=== PATIENT | female | born 1995 | race Caucasian/White ===

== ENCOUNTER 2018-03-04 14:20 | Emergency (ER) | payer OTHER ==
[2018-03-04 15:55] LABS: BILIRUBIN,URINE NEGATIVE (NEGATIVE); GLUCOSE, URINE (UA) NEGATIVE (NEGATIVE); KETONES,URINE (UA) NEGATIVE (NEGATIVE); LEUKOCYTE ESTERASE, URINE NEGATIVE (NEGATIVE); NITRITE,URINE NEGATIVE (NEGATIVE); OCCULT BLOOD,URINE NEGATIVE (NEGATIVE); PH,URINE 6.5 PH (5.0-7.5); PROTEIN,URINE NEGATIVE (NEGATIVE); UROBILINOGEN,URINE 0.2 (NORMAL) E.U./dL (NORMAL)
[2018-03-04 15:59] LABS: CLARITY,URINE CLEAR (CLEAR); HCG UR QUAL NEGATIVE
--- NOTE | 2018-03-04 16:59 | ED Physician Documentation ---
PD HPI FEMALE - Stated complaint Stated Complaint: R SIDE PX - Chief complaint Chief Complaint: Abd Pain - History obtained from History obtained from: Patient - History of Present Illness Timing - onset: How many weeks ago (2-3 weeks pain lower abd,) Timing - duration: Weeks Timing - details: Gradual onset, Still present (worse the past 2-3 d), Waxing and waning Associated symptoms: No: Fever, Chest/shoulder pain Contributing factors: IUD, Sexually active. 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 : None HEENT: None Psych: None Musculoskeletal: None Derm: None - Past Surgical History Past Surgical History: No - Present Medications Home Medications: Ambulatory Orders Medication Instructions Recorded Confirmed Naproxen 375 mg PO BID #20 tablet 03/04/18 Norethindrone AC-Eth Estradiol 1 each PO DAILY #1 packet 03/04/18 [Loestrin 21 1.5-30 Tablet] Tramadol HCl 50 mg PO Q6H PRN #20 tablet 03/04/18 - Allergies Allergies/Adverse Reactions: Allergies Allergy/AdvReac Type Severity Reaction Status Date / Time latex Allergy Unknown Verified 03/04/18 14:41 - Social History Does the pt smoke?: Yes Smoking Status: Current every day smoker Does the pt drink ETOH?: Yes Does the pt have substance abuse?: No - Immunizations Immunizations are current?: Yes - POLST Patient has POLST: No PD ED PE NORMAL - Vitals Vital signs reviewed: Yes - General General: Alert and oriented X 3, No acute distress, Well developed/nourished - HEENT HEENT: Pharynx benign - Neck Neck: Supple, no meningeal sign, No adenopathy, Thyroid normal - Cardiac Cardiac: RRR, No murmur - Respiratory Respiratory: Clear bilaterally - Abdomen Abdomen: Soft, Non tender - Female Female : Deferred Results - Vitals Vitals: Oxygen O2 Source Room air - Labs Labs: Laboratory Tests 03/04/18 14:50 Urine Color LT. YELLOW Urine Clarity CLEAR Urine pH 6.5 Ur Specific [place] 1.015 Urine Protein NEGATIVE Urine Glucose (UA) NEGATIVE Urine Ketones NEGATIVE Urine Occult Blood NEGATIVE Urine Nitrite NEGATIVE Urine Bilirubin NEGATIVE Urine Urobilinogen 0.2 (NORMAL) Ur Leukocyte Esterase NEGATIVE Ur Microscopic Review NOT INDICATED Urine Culture Comments NOT INDICATED Urine HCG, Qual NEGATIVE PD MEDICAL DECISION MAKING - ED course Complexity details: reviewed results (neg . Has had irregular periods lately and current one for 2-3 weeks. had some redness discharge/spotting. 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 There potentially might have been a cyst in the ovary area which leaked or ruptured leaving the trace of free fluid found on the ultrasound. We will treat these with anti-inflammatories and pain medicine. Use naproxen twice daily for 7-10 days. Add Tylenol or tramadol if needed for pain. Given your irregular periods and the pains recently, I woul d also have you start an oral contraceptive daily for 1-2 months. Follow-up with gynecology regarding further evaluation and other potential treatments. Discharge Date/Time: 03/04/18 19:48
[2018-03-04] MEDS ORDERED: NAPROXEN 250 MG TABLET PO STA (17:14)
--- NOTE | 2018-03-04 19:20 | Ultrasound Report ---
Reason: RLQ abd pain with some vag bleeding for days Procedure Date: 03/04/2018 Accession Number: [id number] / [id number] Procedure: US - Pelvic w/Transvag+Doppler Ltd CPT Code: FULL RESULT: EXAM: PELVIC ULTRASOUND EXAM DATE: 03/04/2018 07:01 PM. CLINICAL HISTORY: RLQ abd pain with some vaginal bleeding for days. COMPARISON: None. TECHNIQUE: Realtime transabdominal pelvic scan performed to identify the uterus and adnexa and as an overview of other pelvic structures, followed by transvaginal scan to provide greater detail of the uterus and adnexa, with static image documentation. FINDINGS: Uterus: 8.3 x 3.6 x 4.8 cm, volume 75 cc. Anteverted position. Normal overall size and echotexture. Masses: None. Endometrium: 8 mm. Normal. Cervix: Unremarkable. Right Ovary: 3.1 x 1.4 x 2.4 cm, volume 5 cc. Normal echotexture and blood flow. Left Ovary: 3.9 x 2.3 x 2.5 cm, volume 12 cc. Normal echotexture and blood flow. Free Fluid: Small amount Other: None. IMPRESSION: Normal pelvic ultrasound. RADIA
[2018-03-04 19:24] VITALS: BP 106/77
== END 2018-03-04 19:48 | disposition home or self-care (01) ==
LOC: ED 14:20
DX: R10.2 Pelvic and perineal pain (principal); Z97.5 Presence of (intrauterine) contraceptive device; F17.200 Nicotine dependence, unspecified, uncomplicated
CPT/HCPCS: 76830; 76856; 81003; 81025; 93976; 99283; A9270; 81001; 87086

== ENCOUNTER 2019-10-13 21:55 | Emergency (ER) | payer OTHER ==
[2019-10-13 22:06] VITALS: BP 132/93
--- NOTE | 2019-10-13 22:33 | ED Physician Documentation ---
PD HPI Fall - Stated complaint Stated Complaint: RIB PX/FALL - Chief complaint Chief Complaint: Trauma Ch/Bk - History obtained from History obtained from: Patient - History of Present Illness Mechanism of injury: Lost balance Fall distance: Less than 5ft Where injury occurred: Work Timing - onset: Enter time (20:00) Injury(ies) location: Chest Pain level now: 5 Quality of pain: Pain Associated symptoms: No: LOC, AMS, Weakness, Paresthesias, Dyspnea, Nausea / vomiting Symptoms improve with: Rest Worsens with: Movement, Palpation Similar symptoms before: Has not had sx before Recently seen: Not recently seen - Additional information Additional information: patient was at work, standing on a ladder and holding a "seventy-pound antenna" (per patient) when 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 She c/o right chest wall pain that is worse with palpation, as well as muscle spasm. this occurred approximately 8 PM tonight. 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 HEENT: None Psych: None Musculoskeletal: None Derm: None - Past Surgical History Past Surgical History: No - Present Medications Home Medications: Ambulatory Orders Medication Instructions Recorded Confirmed Naproxen 375 mg PO BID #20 tablet 03/04/18 Norethindrone AC-Eth Estradiol 1 each PO DAILY #1 packet 03/04/18 [Loestrin 21 1.5-30 Tablet] Tramadol HCl 50 mg PO Q6H PRN #20 tablet 03/04/18 Cyclobenzaprine [Flexeril] 10 mg PO TID PRN #20 tablet 10/14/19 traMADol [Ultram] 50 - 100 mg PO Q6H PRN #20 tablet 10/14/19 - Allergies Allergies/Adverse Reactions: Allergies Allergy/AdvReac Type Severity Reaction Status Date / Time latex Allergy Unknown Verified 10/13/19 22:02 - Social History Does the pt smoke?: Yes Smoking Status: Current every day smoker Does the pt drink ETOH?: Yes Does the pt have substance abuse?: No - Immunizations Immunizations are current?: Yes - POLST Patient has POLST: No PD ED PE NORMAL - Vitals Vital signs reviewed: Yes - General General: Alert and oriented X 3, No acute distress, Well developed/nourished - Cardiac Cardiac: RRR, No murmur - Respiratory Respiratory: No respiratory distress, Clear bilaterally - Abdomen Abdomen: Soft, Non tender - Back Back: No spinal TTP - Derm Derm: Normal color, Warm and dry, No rash PD ED PE EXPANDED - Visual Whole body visual: 1 - tenderness (TTP without crepitus) Results - Vitals Vitals: Vital Signs - 24 hr 10/13/19 10/14/19 22:02 00:38 Temperature 36.5 C Heart Rate 97 72 Respiratory 14 16 Rate Blood Pressure 132/93 H O2 Saturation 99 100 Oxygen O2 Source Room air - Rads (name of study) cxr with right ribs Radiology: Prelim report reviewed, See rad report PD MEDICAL DECISION MAKING - ED course Complexity details: reviewed results, re-evaluated patient, considered differential, d/w patient Departure - Departure Disposition: 01 Home, Self Care Clinical Impression: Contusion of chest wall Condition: Good Instructions: ED Contusion Chest Wall Follow-Up: ABBY WATSON MD [Primary Care Provider] - Prescriptions: Cyclobenzaprine [Flexeril] 10 mg PO TID PRN #20 tablet PRN Reason: Spasms traMADol [Ultram] 50 - 100 mg PO Q6H PRN #20 tablet PRN Reason: Pain Discharge Date/Time: 10/14/19 00:39
[2019-10-13] MEDS: IBUPROFEN 600 MG TABLET PO STA (22:56)
[2019-10-13] MEDS: CYCLOBENZAPRINE 10 MG TABLET PO STA (22:56)
[2019-10-14] MEDS: traMADol 50 MG TABLET PO STA (00:35)
--- NOTE | 2019-10-14 07:58 | XRAY Report ---
Reason: fall, right chest wall pain Procedure Date: 10/13/2019 Accession Number: [id number] / [id number] Procedure: XR - Ribs w/PA Chest RT CPT Code: Final Report FULL RESULT: PROCEDURE: Ribs w/PA Chest RT INDICATIONS: fall, right chest wall pain TECHNIQUE: 2 views of the right ribs were acquired, along with a single view chest. COMPARISON: None. FINDINGS: Surgical changes and devices: None. Bones and chest wall: No fractures or dislocations. No suspicious bony lesions. Overlying soft tissues appear unremarkable. Lungs and pleura: No pleural effusions or pneumothorax. Lungs appear clear. Mediastinum: Mediastinal contours appear normal. Heart size is normal. IMPRESSION: Chest without acute cardiopulmonary abnormalities. No acute rib fractures identified. No significant discrepancy with initial interpretation by overnight radiologist. Reviewed by: Neal Sarmiento MD on 10/14/2019 7:57 AM PDT Approved by: Neal Sarmiento MD on 10/14/2019 7:57 AM PDT Station ID: [id number]
== END 2019-10-14 00:39 | disposition home or self-care (01) ==
LOC: ED 21:55
DX: S20.211A Contusion of right front wall of thorax, initial encounter (principal); W11.XXXA Fall on and from ladder, initial encounter; Y93.89 Activity, other specified; Y99.0 Civilian activity done for income or pay; F17.200 Nicotine dependence, unspecified, uncomplicated
CPT/HCPCS: 71101; 99283; 99284; A9270

== ENCOUNTER 2020-05-02 21:58 | Emergency (ER) | payer OTHER ==
--- NOTE | 2020-05-02 23:21 | ED Physician Documentation ---
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 Patient states that she was last exposed to this person on 27 April and on the , she started experiencing GI distress. She states she had multiple episodes of diarrhea, and also nausea and vomiting. She states this went on for about 2-1/2 days and then finally started to get better. Patient states that as the GI system symptoms got better, the patient then began to notice a dry cough which is minimal she states, as well as chills and some sweats. Patient has not met sure to fever. She states she is also held chest tightness. No shortness of breath. Patient states she is otherwise healthy. She has had bronchitis on occasion and it has felt similar. No other complaints at this time. Review of Systems Ten Systems: 10 systems reviewed and negative Constitutional: reports: Chills, Sweats. denies: Fever Eyes: reports: Reviewed and negative Ears: reports: Reviewed and negative Nose: reports: Reviewed and negative. denies: Rhinorrhea / runny nose, Congestion Throat: reports: Reviewed and negative Cardiac: reports: Chest pain / pressure Respiratory: reports: Cough GI: reports: Nausea, Vomiting, Diarrhea : reports: Reviewed and negative Skin: reports: Reviewed and negative Musculoskeletal: reports: Reviewed and negative Neurologic: reports: Reviewed and negative Psychiatric: reports: Reviewed and negative Endocrine: reports: Reviewed and negative Immunocompromised: reports: Reviewed and negative PD PAST MEDICAL HISTORY - Past Medical History Cardiovascular: None Respiratory: None Neuro: None Endocrine/Autoimmune: None GI: None 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 HEENT: None Psych: Depression Musculoskeletal: None Derm: None - Past Surgical History Past Surgical History: Yes HEENT: Rhinoplasty - Present Medications Home Medications: Ambulatory Orders Medication Instructions Recorded Confirmed Propranolol [Inderal] 10 mg PO DAILY 05/02/20 05/02/20 hydrOXYzine pamoate [Hydroxyzine 25 mg PO DAILY 05/02/20 05/02/20 Pamoate] - Allergies Allergies/Adverse Reactions: Allergies Allergy/AdvReac Type Severity Reaction Status Date / Time latex Allergy Unknown Verified 05/02/20 22:16 - Social History Does the pt smoke?: Yes Smoking Status: Current every day smoker Does the pt drink ETOH?: Yes Does the pt have substance abuse?: No - Immunizations Immunizations are current?: Yes - POLST Patient has POLST: No PD ED PE NORMAL - Vitals Vital signs reviewed: Yes - General General: Alert and oriented X 3, No acute distress - HEENT HEENT: Atraumatic, PERRL, EOMI, Moist mucous membranes - Neck Neck: Supple, no meningeal sign - Cardiac Cardiac: RRR, No murmur - Respiratory Respiratory: No respiratory distress, Clear bilaterally - Abdomen Abdomen: Soft, Non tender, Non distended - Derm Derm: Normal color, Warm and dry, No rash - Extremities Extremities: No deformity, No edema, No calf tenderness / cord - Neuro Neuro: Alert and oriented X 3 - Psych Psych: Normal mood, Normal affect Results - Vitals Vitals: Vital Signs - 24 hr 05/02/20 05/02/20 05/03/20 22:00 22:10 00:10 Temperature 37.2 C 37.2 C 36.8 C Heart Rate 68 68 66 Respiratory 16 16 14 Rate Blood Pressure 120/84 H 120/84 H 105/73 O2 Saturation 100 100 99 Oxygen O2 Source Room air - Rads (name of study) CXR Radiology: Final report received, EMP read indepedently (neg), See rad report PD MEDICAL DECISION MAKING - ED course Complexity details: reviewed results, re-evaluated patient, considered differential, d/w patient ED course: The patient was tested for Covid and test is pending at this time. I discussed with the patient she will need to quarantine until she has a negative Covid test. Her chest x-ray is unremarkable. The patient's exam is actually fairly benign, and I do not feel she needs any other specific intervention at this time. We discussed getting plenty of fluids and rest, and the patient has been given a prepack of Zofran from the emergency department. We discussed the usual indications for return. Departure - Departure Disposition: 01 Home, Self Care Clinical Impression: Viral syndrome Condition: Stable Instructions: ED Viral Syndrome Comments: Stage for Covid tonight. You will need to quarantine until you get a negative Covid result back. You will be called if your result is positive. Generally the results are available within 24 to 48 hours after the test. If you do not hear back, it is most likely because your test is negative, but you should call the hospital to arrange to get your results. Your chest x-ray looks good tonight. You may use ibuprofen and/or Tylenol to help with any fevers you may have. Take the nausea medication as needed. Forms: Activity restrictions Discharge Date/Time: 05/03/20 00:17
[2020-05-02] MEDS ORDERED: ONDANSETRON ODT 4 MG Prepack 2 TL PRN (23:47)
[2020-05-03 00:15] VITALS: BP 105/73
--- NOTE | 2020-05-03 08:36 | XRAY Report ---
PROCEDURE: Chest 1 View X-Ray INDICATIONS: chest pain TECHNIQUE: One view of the chest was acquired. COMPARISON: 10/13/2019 FINDINGS: Surgical changes and devices: None. Lungs and pleura: No pleural effusions or pneumothorax. Lungs are clear. Mediastinum: Mediastinal contours appear normal. Heart size is normal. Bones and chest wall: No suspicious bony lesions. Overlying soft tissues appear unremarkable. IMPRESSION: No acute disease. Reviewed by: Marshall Victoria MD on 05/03/2020 8:34 AM PST Approved by: Marshall Victoria MD on 05/03/2020 8:34 AM PST Station ID: [id number]
== END 2020-05-03 00:17 | disposition home or self-care (01) ==
LOC: ED 21:58
DX: B34.9 Viral infection, unspecified (principal); Z20.828 Contact with and (suspected) exposure to other viral communicable diseases; F17.200 Nicotine dependence, unspecified, uncomplicated
CPT/HCPCS: 36415; 99284

== ENCOUNTER 2020-05-07 20:36 | Emergency (ER) | payer OTHER ==
[2020-05-07] MEDS ORDERED: SODIUM CHLORIDE 0.9% 2,000 ML IV STA (20:57)
[2020-05-07] MEDS ORDERED: PROMETHAZINE INJ 25 MG in SODIUM CHLORIDE 0.9% 50 ML IV STA (20:57)
[2020-05-07] MEDS ORDERED: PROMETHAZINE 25 MG/1 ML VIAL ONE (21:11)
[2020-05-07 21:36] LABS: BASOPHILS % (AUTO) 0.4 %; EOSINOPHILS # (AUTO) 0.1 10^3/uL (0.0-0.7); EOSINOPHILS % (AUTO) 0.4 %; HGB - HEMOGLOBIN 14.7 g/dL (12.0-16.0); LYMPHOCYTES # (AUTO) 1.7 10^3/uL (1.5-3.5); LYMPHOCYTES % (AUTO) 15.6 %; MEAN CORPUSCULAR HEMOGLOBIN 32.5 pg (27.0-31.0); MEAN CORPUSCULAR HGB CONC 35.8 g/dL (32.0-36.0); MEAN CORPUSCULAR VOLUME 90.9 fL (81.0-99.0); MEAN PLATELET VOLUME 10.3 fL (7.9-10.8); MONOCYTES % (AUTO) 9.3 %; NEUTROPHILS # (AUTO) 8.2 10^3/uL (1.5-6.6); NEUTROPHILS % (AUTO) 73.9 %; PLT - PLATELET COUNT 172 10^3/uL (130-450); RED BLOOD COUNT 4.52 10^6/uL (4.20-5.40); RED CELL DISTRIBUTION WIDTH 11.8 % (12.0-15.0); WHITE BLOOD COUNT 11.2 x10^3/uL (4.8-10.8)
[2020-05-07 21:50] LABS: ALBUMIN 4.4 g/dL (3.2-5.5); ALBUMIN/GLOBULIN RATIO 1.6 (1.0-2.2); BILIRUBIN,TOTAL 0.9 mg/dL (0.2-1.0); CALCIUM 9.4 mg/dL (8.5-10.3); CREATININE 0.9 mg/dL (0.4-1.0); TOTAL PROTEIN 7.1 g/dL (6.7-8.2)
[2020-05-07 21:50] LABS: BILIRUBIN,URINE NEGATIVE (NEGATIVE); GLUCOSE, URINE (UA) NEGATIVE (NEGATIVE); KETONES,URINE (UA) NEGATIVE (NEGATIVE); LEUKOCYTE ESTERASE, URINE NEGATIVE (NEGATIVE); NITRITE,URINE NEGATIVE (NEGATIVE); OCCULT BLOOD,URINE NEGATIVE (NEGATIVE); PROTEIN,URINE NEGATIVE (NEGATIVE); UROBILINOGEN,URINE 0.2 (NORMAL) E.U./dL (NORMAL)
--- NOTE | 2020-05-07 21:52 | ED Physician Documentation ---
History of Present Illness - Stated complaint Stated Complaint: VOMITING/ABD PX - Chief complaint Chief Complaint: Abd Pain - History obtained from History obtained from: Patient - History of Present Illness Pain level max: 5 Pain level now: 4 - Additonal information Additional information: Patient is a 24-year-old female who presents to the emergency department stating that she had what felt like food poisoning a few days ago. Since that time she has been tired. Today she started having dysuria, urinary frequency and bilateral flank pain. She has had pyelonephritis in the past and is concerned about developing this again. Nausea and vomiting today as well. Took Zofran without relief. Has been trying to take Pedialyte but unable to keep it down. Worse with eating and drinking, nothing makes it better. Review of Systems Ten Systems: 10 systems reviewed and negative Constitutional: denies: Fever, Chills Nose: denies: Rhinorrhea / runny nose, Congestion Throat: denies: Sore throat Cardiac: denies: Chest pain / pressure Respiratory: denies: Cough GI: reports: Nausea, Vomiting, Diarrhea (resolved) : reports: Dysuria, Frequency, Hesitancy. denies: Now EGA Skin: denies: Rash Musculoskeletal: reports: Back pain (B flank pain). 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 HEENT: None Psych: Depression Musculoskeletal: None Derm: None - Past Surgical History Past Surgical History: Yes HEENT: Rhinoplasty - Present Medications Home Medications: Ambulatory Orders Medication Instructions Recorded Confirmed Propranolol [Inderal] 10 mg PO DAILY 05/02/20 05/07/20 hydrOXYzine pamoate [Hydroxyzine 25 mg PO DAILY 05/02/20 05/07/20 Pamoate] Citalopram [CeleXA] 10 mg PO DAILY 05/07/20 05/07/20 Ondansetron Odt [Zofran] 4 mg TL Q6H PRN #10 tablet 05/07/20 Promethazine [Phenergan] 25 mg PO Q6H PRN #10 tab 05/07/20 - Allergies Allergies/Adverse Reactions: Allergies Allergy/AdvReac Type Severity Reaction Status Date / Time latex Allergy Unknown Verified 01/01/21 20:44 - Social History Does the pt smoke?: Yes Smoking Status: Current every day smoker Does the pt drink ETOH?: Yes Does the pt have substance abuse?: No - Immunizations Immunizations are current?: Yes - POLST Patient has POLST: No PD ED PE NORMAL - Vitals Vital signs reviewed: Yes - General General: Alert and oriented X 3, No acute distress, Well developed/nourished - HEENT HEENT: Moist mucous membranes - Neck Neck: Supple, no meningeal sign - Cardiac Cardiac: RRR, Strong equal pulses - Respiratory Respiratory: No respiratory distress, Clear bilaterally - Abdomen Abdomen: Soft, Non tender, Non distended - Back Back: Other (Bilateral CVA tenderness) - Derm Derm: Warm and dry - Extremities Extremities: No edema - Neuro Neuro: Alert and oriented X 3 - Psych Psych: Normal mood, Normal affect Results - Vitals Vitals: Vital Signs - 24 hr 05/07/20 20:40 Temperature 36.6 C Heart Rate 79 Respiratory 16 Rate Blood Pressure 117/82 H O2 Saturation 96 Oxygen O2 Source Room air - Labs Labs: Laboratory Tests 05/07/20 05/07/20 05/07/20 21:20 21:20 21:45 WBC 11.2 H RBC 4.52 Hgb 14.7 Hct 41.1 MCV 90.9 MCH 32.5 H MCHC 35.8 RDW 11.8 L Plt Count 172 MPV 10.3 Neut # (Auto) 8.2 H Lymph # (Auto) 1.7 [place] # (Auto) 1.0 Eos # (Auto) 0.1 Baso # (Auto) 0.0 Absolute Nucleated RBC 0.00 Nucleated RBC % 0.0 Sodium 139 Potassium 4.0 Chloride 105 Carbon Dioxide 25 Anion Gap 9.0 BUN 20 Creatinine 0.9 Estimated GFR (MDRD) 76 L Glucose 93 Calcium 9.4 Total Bilirubin 0.9 AST 21 ALT 19 Alkaline Phosphatase 54 Total Protein 7.1 Albumin 4.4 Globulin 2.7 Albumin/Globulin Ratio 1.6 Urine Color YELLOW Urine Clarity CLEAR Urine pH 5.0 Ur Specific [place] 1.020 Urine Protein NEGATIVE Urine Glucose (UA) NEGATIVE Urine Ketones NEGATIVE Urine Occult Blood NEGATIVE Urine Nitrite NEGATIVE Urine Bilirubin NEGATIVE Urine Urobilinogen 0.2 (NORMAL) Ur Leukocyte Esterase NEGATIVE Ur Microscopic Review NOT INDICATED Urine Culture Comments NOT INDICATED Urine HCG, Qual 05/07/20 21:45 WBC RBC Hgb Hct MCV MCH MCHC RDW Plt Count MPV Neut # (Auto) Lymph # (Auto) [place] # (Auto) Eos # (Auto) Baso # (Auto) Absolute Nucleated RBC Nucleated RBC % Sodium Potassium Chloride Carbon Dioxide Anion Gap BUN Creatinine Estimated GFR (MDRD) Glucose Calcium Total Bilirubin AST ALT Alkaline Phosphatase Total Protein Albumin Globulin Albumin/Globulin Ratio Urine Color Urine Clarity Urine pH Ur Specific [place] Urine Protein Urine Glucose (UA) Urine Ketones Urine Occult Blood Urine Nitrite Urine Bilirubin Urine Urobilinogen Ur Leukocyte Esterase Ur Microscopic Review Urine Culture Comments Urine HCG, Qual NEGATIVE PD MEDICAL DECISION MAKING - ED course Complexity details: reviewed results, re-evaluated patient, considered differential, d/w patient ED course: Patient feels much better after IV fluids and antiemetics. Tolerating p.o. without difficulty. No evidence of pyelonephritis. Abdomen is soft, nontender nondistended on serial exam. Likely viral gastroenteritis. We will start her on antiemetics for home and have her follow-up with her doctor for further care. Patient counseled regarding signs and symptoms for which I believe and urgent re-evaluation would be necessary. Patient with good understanding of and agreement to plan and is comfortable going home at this time This document was made in part using voice recognition software. While efforts are made to proofread this document, sound alike and grammatical errors may occur. Departure - Departure Disposition: 01 Home, Self Care Clinical Impression: Dehydration, Viral gastroenteritis Condition: Good Instructions: ED Gastroenteritis Viral, ED Dehydration Follow-Up: ABBY WATSON MD [Primary Care Provider] - Within 1 week Prescriptions: Promethazine [Phenergan] 25 mg PO Q6H PRN #10 tab PRN Reason: Nausea / Vomiting Ondansetron Odt [Zofran] 4 mg TL Q6H PRN #10 tablet PRN Reason: Nausea / Vomiting Comments: Go home and rest. Drink plenty of fluids. Return if you worsen. This should improve over the next 24 to 48 hours. There is no evidence of kidney infection at this time.
[2020-05-07 21:54] LABS: CLARITY,URINE CLEAR (CLEAR)
[2020-05-07 21:55] LABS: HCG UR QUAL NEGATIVE
[2020-05-07 22:47] VITALS: BP 104/56
== END 2020-05-07 22:45 | disposition home or self-care (01) ==
LOC: ED 20:36
DX: A08.4 Viral intestinal infection, unspecified (principal); E86.0 Dehydration; F17.200 Nicotine dependence, unspecified, uncomplicated
CPT/HCPCS: 36415; 80053; 81003; 81025; 85025; 96365; 99284; J7040; 81001; 87086

== ENCOUNTER 2020-11-11 23:16 | Emergency (ER) | payer OTHER ==
--- NOTE | 2020-11-11 23:29 | ED Physician Documentation ---
PD HPI FEMALE - Stated complaint Stated Complaint: FEMALE - Chief complaint Chief Complaint: UTI - History obtained from History obtained from: Patient - History of Present Illness Timing - onset: How many days ago (4-5) Pain level max: 0 Associated symptoms: Back pain, Pelvic pain (suprapubic discomfort), Dysuria, Urinary frequency, Hematuria. No: Fever, Vaginal bleeding, Vaginal discharge Contributing factors: No: Recently seen: Not recently seen - Additional information Additional information: c/o 4-5 days of burning dysuria, suprapubic discomfort, urinary frequency, hematuria. she has h/o UTIs and these symptoms feel similar to previous UTI. Since last night she has had episodic bilateral flank pain, which had not been a feature of previous UTI Review of Systems Constitutional: denies: Fever, Chills, Sweats GI: denies: Abdominal Pain, Nausea, Vomiting, Constipation, Diarrhea : reports: Dysuria, Frequency, Hematuria. 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: None : None HEENT: None Psych: Depression, Anxiety Musculoskeletal: None Derm: None - Past Surgical History Past Surgical History: Yes HEENT: Rhinoplasty - Present Medications Home Medications: Ambulatory Orders Medication Instructions Recorded Confirmed Propranolol [Inderal] 30 - 90 mg PO DAILY 05/02/20 11/11/20 hydrOXYzine pamoate [Hydroxyzine 50 mg PO DAILY 05/02/20 11/11/20 Pamoate] Citalopram [CeleXA] 40 mg PO DAILY 05/07/20 11/11/20 Ondansetron Odt [Zofran] 4 mg TL Q6H PRN #10 tablet 05/07/20 11/11/20 Prazosin HCl [Minipress] 4 mg PO DAILY 11/11/20 11/11/20 - Allergies Allergies/Adverse Reactions: Allergies Allergy/AdvReac Type Severity Reaction Status Date / Time latex Allergy Unknown Verified 11/11/20 23:23 - Social History Does the pt smoke?: Yes Smoking Status: Current every day smoker Does the pt drink ETOH?: Yes Does the pt have substance abuse?: No - Immunizations Immunizations are current?: Yes - POLST Patient has POLST: No PD ED PE NORMAL - Vitals Vital signs reviewed: Yes - General General: Alert and oriented X 3, No acute distress, Well developed/nourished - Abdomen Abdomen: Soft, Non tender, Non distended - Back Back: No CVA TTP Results - Vitals Vitals: Oxygen O2 Source Room air - Labs Labs: Laboratory Tests 11/11/20 23:49 Urine Color YELLOW Urine Clarity CLEAR Urine pH 5.5 Ur Specific [place] >=1.030 H Urine Protein NEGATIVE Urine Glucose (UA) NEGATIVE Urine Ketones NEGATIVE Urine Occult Blood NEGATIVE Urine Nitrite NEGATIVE Urine Bilirubin NEGATIVE Urine Urobilinogen 0.2 (NORMAL) Ur Leukocyte Esterase NEGATIVE Ur Microscopic Review NOT INDICATED Urine Culture Comments NOT INDICATED Urine HCG, Qual NEGATIVE PD MEDICAL DECISION MAKING - ED course Complexity details: reviewed results, re-evaluated patient, considered differential, d/w patient ED course: UA is unremarkable (only abnormality is high specific gravity), and urine HCG negative. She is nontender on abdominal exam and has no CVAT bilaterally. Further emergent testing not indicated at this time, instructed to return if worse or new concerning signs/symptoms develop such as fever, abdominal pain Departure - Departure Disposition: 01 Home, Self Care Clinical Impression: Dysuria Condition: Good Instructions: ED Dysuria Uncertain Cause Follow-Up: ABBY WATSON MD [Primary Care Provider] - Within 3 Days () Discharge Date/Time: 11/12/20 01:09
[2020-11-11 23:54] LABS: BILIRUBIN,URINE NEGATIVE (NEGATIVE); CLARITY,URINE CLEAR (CLEAR); GLUCOSE, URINE (UA) NEGATIVE (NEGATIVE); KETONES,URINE (UA) NEGATIVE (NEGATIVE); LEUKOCYTE ESTERASE, URINE NEGATIVE (NEGATIVE); NITRITE,URINE NEGATIVE (NEGATIVE); OCCULT BLOOD,URINE NEGATIVE (NEGATIVE); PH,URINE 5.5 PH (5.0-7.5); PROTEIN,URINE NEGATIVE (NEGATIVE); UROBILINOGEN,URINE 0.2 (NORMAL) E.U./dL (NORMAL)
[2020-11-11 23:56] LABS: HCG UR QUAL NEGATIVE
[2020-11-12 01:09] VITALS: BP 121/62
== END 2020-11-12 01:09 | disposition home or self-care (01) ==
LOC: ED 23:16
DX: R30.0 Dysuria (principal); R10.2 Pelvic and perineal pain; R31.9 Hematuria, unspecified; R35.0 Frequency of micturition; Z87.440 Personal history of urinary (tract) infections; F17.200 Nicotine dependence, unspecified, uncomplicated
CPT/HCPCS: 81001; 81003; 81025; 87086; 99283

== ENCOUNTER 2022-11-13 18:42 | Emergency (ER) | payer OTHER ==
[2022-11-13] MEDS ORDERED: HYDROmorphone 1 MG/ML CARPUJECT IVP STA ×2 (18:47→20:13)
--- NOTE | 2022-11-13 18:48 | ED Physician Documentation ---
PD HPI ABD PAIN - Stated complaint Stated Complaint: LLQ PX - Chief complaint Chief Complaint: Abd Pain - History obtained from History obtained from: Patient, EMS - Additional information Additional information: G4, P0 with history of 2 miscarriages and 1 who is 8 weeks . She was diagnosed with potential ovarian cyst earlier in this and has a confirmed IUP on more recent ultrasound. She presents with sudden onset left pelvic pain starting just prior to arrival that waxes and wanes. Its associate with nausea but no vaginal bleeding or fluid loss. No history of abdominal surgeries. In addition to above symptoms she is quite constipated and does not remember when her last bowel movement was. PD PAST MEDICAL HISTORY - Past Medical History Cardiovascular: None Respiratory: None Neuro: None Endocrine/Autoimmune: None GI: None LITIGATION PARTNER: None : None HEENT: None Psych: Depression, Anxiety Musculoskeletal: None Derm: None - Past Surgical History Past Surgical History: Yes HEENT: Rhinoplasty - Present Medications Home Medications: Ambulatory Orders Medication Instructions Recorded Confirmed Propranolol [Inderal] 30 - 90 mg PO DAILY 05/02/20 11/11/20 hydrOXYzine pamoate [Hydroxyzine 50 mg PO DAILY 05/02/20 11/11/20 Pamoate] Citalopram [CeleXA] 40 mg PO DAILY 05/07/20 11/11/20 Ondansetron Odt [Zofran] 4 mg TL Q6H PRN #10 tablet 05/07/20 11/11/20 Prazosin HCl [Minipress] 4 mg PO DAILY 11/11/20 11/11/20 - Allergies Allergies/Adverse Reactions: Allergies Allergy/AdvReac Type Severity Reaction Status Date / Time latex Allergy Unknown Verified 11/13/22 18:46 promethazine AdvReac Unknown Verified 11/13/22 18:46 - Social History Does the pt smoke?: Yes Smoking Status: Current every day smoker Does the pt drink ETOH?: Yes Does the pt have substance abuse?: No - Immunizations Immunizations are current?: Yes - POLST Patient has POLST: No PD ED PE NORMAL - Vitals Vital signs reviewed: Yes - General General: Alert and oriented X 3, Other (She appears uncomfortable) - Abdomen Abdomen: Normal bowel sounds, Soft, Other (Tender in the left pelvis, bedside ultrasound shows single live IUP with heart rate 148) - Rectal Rectal: Other (Done with Hoa RN present and chaperoning, no obvious fecal impaction. Enema instilled during exam.) - Neuro Neuro: Alert and oriented X 3, Normal speech Results - Vitals Vitals: Vital Signs - 24 hr 11/13/22 18:44 Temperature 36.6 C Heart Rate 70 Respiratory 19 Rate Blood Pressure 126/89 H O2 Saturation 100 Oxygen O2 Source Room air - Labs Labs: Laboratory Tests 11/13/22 11/13/22 11/13/22 18:57 18:57 18:57 WBC 9.8 RBC 3.98 L Hgb 13.0 Hct 36.5 L MCV 91.7 MCH 32.7 H MCHC 35.6 RDW 12.2 Plt Count 175 MPV 10.2 Neut # (Auto) 7.0 H Lymph # (Auto) 1.7 [place] # (Auto) 0.8 Eos # (Auto) 0.1 Baso # (Auto) 0.0 Absolute Nucleated RBC 0.00 Nucleated RBC % 0.0 Sodium 138 Potassium 3.4 L Chloride 108 Carbon Dioxide 23 Anion Gap 7.0 BUN 7 Creatinine 0.6 Estimated GFR (MDRD) 120 Glucose 130 H Calcium 8.7 HCG, Quant 147387.00 Urine Color Urine Clarity Urine pH Ur Specific [place] Urine Protein Urine Glucose (UA) Urine Ketones Urine Occult Blood Urine Nitrite Urine Bilirubin Urine Urobilinogen Ur Leukocyte Esterase Ur Microscopic Review Urine Culture Comments 11/13/22 19:22 WBC RBC Hgb Hct MCV MCH MCHC RDW Plt Count MPV Neut # (Auto) Lymph # (Auto) [place] # (Auto) Eos # (Auto) Baso # (Auto) Absolute Nucleated RBC Nucleated RBC % Sodium Potassium Chloride Carbon Dioxide Anion Gap BUN Creatinine Estimated GFR (MDRD) Glucose Calcium HCG, Quant Urine Color YELLOW Urine Clarity CLEAR Urine pH 5.5 Ur Specific [place] >=1.030 H Urine Protein NEGATIVE Urine Glucose (UA) NEGATIVE Urine Ketones NEGATIVE Urine Occult Blood NEGATIVE Urine Nitrite NEGATIVE Urine Bilirubin NEGATIVE Urine Urobilinogen 0.2 (NORMAL) Ur Leukocyte Esterase NEGATIVE Ur Microscopic Review NOT INDICATED Urine Culture Comments NOT INDICATED - Rads (name of study) Per verbal report from public relations director, live viable IUP with small Rj and left corpus luteum cyst Relevant Findings:: Final report received, EMP independent interpretation of test PD Medical Decision Making - ED course ED course: 26-year-old woman presents with left pelvic pain in the setting of early . Reassuring bedside ultrasound. On and after initial evaluation she was ordered 1 mg of IV hydromorphone. Subsequent to this she had minimal relief in her pain and this was followed by 8 mg of morphine. Still a lot of pain and ultrasound was done showing a left corpus luteum cyst, viable intrauterine with small subchorionic bleed. Subsequently she was administered 1 more milligram of Dilaudid and 15 mg of Toradol. She also was constipated so an enema was placed. She had a bowel output and was feeling much better from a pain perspective but started to get a lot of nausea and dizziness, presumably from above pain medications. She received a dose of IV Zofran, she had received 1 prehospital but this was repeated. On reevaluation at 9:57 PM she is persistently nauseous. She notes that she may have some resistant/tolerance to Zofran since she takes it frequently at home and I ordered 10 mg of IV Reglan. She continued to have a significant amount of nausea. I went to the EMR to order Phenergan but recognized the allergy. I talked to her about it. She actually would like to trial some Compazine. I discussed with her that it is p ossible that the akathisia she has with Phenergan may happen with Compazine as well but we could treat with Benadryl if that happened. She was willing to try it. Given the amount of nausea medication he was taking and the lack of forward progress I spoke with Dr. Beltran for observation at 10:55 PM. Departure - Departure Disposition: ED Place in Observation Clinical Impression: Pelvic pain affecting , 7 weeks gestation of , Intractable vomiting, Hyperemesis Condition: Stable Record reviewed to determine appropriate education?: Yes
[2022-11-13 19:09] LABS: BASOPHILS % (AUTO) 0.3 %; EOSINOPHILS # (AUTO) 0.1 10^3/uL (0.0-0.7); EOSINOPHILS % (AUTO) 0.5 %; HCT - HEMATOCRIT 36.5 % (37.0-47.0); LYMPHOCYTES # (AUTO) 1.7 10^3/uL (1.5-3.5); LYMPHOCYTES % (AUTO) 17.8 %; MEAN CORPUSCULAR HEMOGLOBIN 32.7 pg (27.0-31.0); MEAN CORPUSCULAR HGB CONC 35.6 g/dL (32.0-36.0); MEAN CORPUSCULAR VOLUME 91.7 fL (81.0-99.0); MEAN PLATELET VOLUME 10.2 fL (7.9-10.8); MONOCYTES # (AUTO) 0.8 10^3/uL (0.0-1.0); MONOCYTES % (AUTO) 8.6 %; NEUTROPHILS % (AUTO) 72.3 %; PLT - PLATELET COUNT 175 10^3/uL (130-450); RED BLOOD COUNT 3.98 10^6/uL (4.20-5.40); RED CELL DISTRIBUTION WIDTH 12.2 % (12.0-15.0); WHITE BLOOD COUNT 9.8 x10^3/uL (4.8-10.8)
[2022-11-13 19:19] LABS: CALCIUM 8.7 mg/dL (8.5-10.3); CREATININE 0.6 mg/dL (0.4-1.0); POTASSIUM 3.4 mmol/L (3.5-5.0)
[2022-11-13 19:25] LABS: BILIRUBIN,URINE NEGATIVE (NEGATIVE); GLUCOSE, URINE (UA) NEGATIVE (NEGATIVE); KETONES,URINE (UA) NEGATIVE (NEGATIVE); LEUKOCYTE ESTERASE, URINE NEGATIVE (NEGATIVE); NITRITE,URINE NEGATIVE (NEGATIVE); OCCULT BLOOD,URINE NEGATIVE (NEGATIVE); PH,URINE 5.5 PH (5.0-7.5); PROTEIN,URINE NEGATIVE (NEGATIVE); UROBILINOGEN,URINE 0.2 (NORMAL) E.U./dL (NORMAL)
[2022-11-13] MEDS ORDERED: MORPHINE 10 MG/ML VIAL IVP STA (19:25)
[2022-11-13 19:30] LABS: CLARITY,URINE CLEAR (CLEAR)
[2022-11-13] MEDS ORDERED: KETOROLAC 15 MG/ML VIAL IVP STA (20:13)
--- NOTE | 2022-11-13 20:50 | Ultrasound Report ---
PROCEDURE: OB First Trimester w/TV INDICATIONS: l pelvic pn OUTSIDE/PRIOR DATING DATA: Last menstrual period (LMP): 09/17/2022. LMP-based estimated date of delivery (ABEBE): 06/24/2023. First dating scan (date and location): 11/13/2022. Estimated date of delivery (ABEBE) from first dating scan: 06/28/2023. TECHNIQUE: Real-time scanning was performed of the fetus and maternal pelvic organs, with image documentation. Endovaginal scanning was also performed to better visualize the fetus and maternal ovaries. COMPARISON: None. FINDINGS: Heart raise 152 bpm. [place]-rump length is 1.3 cm corresponding to ultrasound age of 7 weeks and 4 days. There is a left corpus luteum. Positive color and spectral flow to the left ovary at the area of pain. Yolk sac is present. Subchorionic hemorrhage measuring 2.5 x 1.3 cm. IMPRESSION: There is color and spectral flow to the left ovary at the area of pain. A left corpus luteum is prese nt. Intrauterine living gestation at 7 weeks and 4 days of ultrasound age. Subchorionic bleed measuring 2.5 x 1.3 cm is present. Reviewed by: Damon Castillo MD on 11/13/2022 8:48 PM PDT Approved by: Damon Castillo MD on 11/13/2022 8:48 PM PDT Station ID: [id number]
[2022-11-13] MEDS ORDERED: ONDANSETRON 4 MG/2 ML VIAL IVP STA (21:22)
--- OUTSIDE RECORDS SUMMARY | 2022-11-13 21:34 | EXTERNAL MEDICAL SUMMARY RPT | Continuity of Care Document ---
Author Name Unknown Address [address] [place] [address] Phone Organization [facility] Address [address] [place] [address] Phone Care Team Providers Care Fountain Attendant Name Role Phone Himanshu Javier Unavailable Unavailable Allergies and Intolerances date description facility type (no date) latex [facility] (unknown) (no date) promethazine [facility] (unknown) Medications date description facility 2022-08-28 00:00 Ondaetron [facility] 2022-08-28 00:00 Gastroenteritis [facility] 2022-09-13 15:20 Nausea with vomiting, unspecifi ed [facility] 2022-10-17 00:00 Gastroenteritis [facility] 2022-10-17 00:00 [facility] Procedures date description facility 2022-10-17 00:00 Complete ultrasound of pelvis I [facility] Results/Labs test date author facility value unit interpretation Result panel 1 (unknown) (no date) (unknown) [facility] (no value) (units unknown) (unknown) Result panel 2 (unknown) (no date) (unknown) [facility] (no value) (units unknown) (unknown) Result panel 3 (unknown) (no date) (unknown) [facility] (no value) (units unknown) (unknown) Result panel 4 (unknown) (no date) (unknown) [facility] (no value) (units unknown) (unknown) Result panel 5 (unknown) (no date) (unknown) [facility] (no value) (units unknown) (unknown) Result panel 6 (unknown) (no date) (unknown) [facility] (no value) (units unknown) (unknown) Result panel 7 (unknown) (no date) (unknown) [facility] (no value) (units unknown) (unknown) Result panel 8 (unknown) (no date) (unknown) [facility] (no value) (units unknown) (unknown) Result panel 9 (unknown) (no date) (unknown) [facility] (no value) (units unknown) (unknown) Result panel 10 (unknown) (no date) (unknown) [facility] (no value) (units unknown) (unknown) Result panel 11 (unknown) (no date) (unknown) [facility] (no value) (units unknown) (unknown) Result panel 12 (unknown) (no date) (unknown) [facility] (no value) (units unknown) (unknown) Result panel 13 (unknown) (no date) (unknown) [facility] (no value) (units unknown) (unknown) Result panel 14 (unknown) (no date) (unknown) [facility] (no value) (units unknown) (unknown) Result panel 15 (unknown) (no date) (unknown) [facility] (no value) (units unknown) (unknown) Result panel 16 (unknown) (no date) (unknown) [facility] (no value) (units unknown) (unknown) Result panel 17 (unknown) (no date) (unknown) [facility] (no value) (units unknown) (unknown) Result panel 18 (unknown) (no date) (unknown) [facility] (no value) (units unknown) (unknown) Result panel 19 (unknown) (no date) (unknown) [facility] (no value) (units unknown) (unknown) Result panel 20 (unknown) (no date) (unknown) [facility] (no value) (units unknown) (unknown) Result panel 21 (unknown) (no date) (unknown) [facility] (no value) (units unknown) (unknown) Result panel 22 (unknown) (no date) (unknown) [facility] (no value) (units unknown) (unknown) Result panel 23 (unknown) (no date) (unknown) [facility] (no value) (units unknown) (unknown) Result panel 24 (unknown) (no date) (unknown) [facility] (no value) (units unknown) (unknown) Result panel 25 (unknown) (no date) (unknown) [facility] (no value) (units unknown) (unknown) Result panel 26 (unknown) (no date) (unknown) [facility] (no value) (units unknown) (unknown) Result panel 27 (unknown) (no date) (unknown) [facility] (no value) (units unknown) (unknown) Result panel 28 (unknown) (no date) (unknown) [facility] (no value) (units unknown) (unknown) Result panel 29 (unknown) (no date) (unknown) [facility] (no value) (units unknown) (unknown) Result panel 30 (unknown) (no date) (unknown) [facility] (no value) (units unknown) (unknown) Result panel 31 (unknown) (no date) (unknown) [facility] (no value) (units unknown) (unknown) Result panel 32 (unknown) (no date) (unknown) [facility] (no value) (units unknown) (unknown) Result panel 33 (unknown) (no date) (unknown) [facility] (no value) (units unknown) (unknown) Result panel 34 (unknown) (no date) (unknown) [facility] (no value) (units unknown) (unknown) Result panel 35 (unknown) (no date) (unknown) [facility] (no value) (units unknown) (unknown) Result panel 36 (unknown) (no date) (unknown) [facility] (no value) (units unknown) (unknown) Result panel 37 (unknown) (no date) (unknown) [facility] (no value) (units unknown) (unknown) Result panel 38 (unknown) (no date) (unknown) [facility] (no value) (units unknown) (unknown) Result panel 39 (unknown) (no date) (unknown) [facility] (no value) (units unknown) (unknown) Result panel 40 (unknown) (no date) (unknown) [facility] (no value) (units unknown) (unknown) Result panel 41 (unknown) (no date) (unknown) [facility] (no value) (units unknown) (unknown) Result panel 42 (unknown) (no date) (unknown) [facility] (no value) (units unknown) (unknown) Result panel 43 (unknown) (no date) (unknown) [facility] (no value) (units unknown) (unknown) Result panel 44 (unknown) (no date) (unknown) [facility] (no value) (units unknown) (unknown) Result panel 45 (unknown) (no date) (unknown) [facility] (no value) (units unknown) (unknown) Result panel 46 (unknown) (no date) (unknown) [facility] (no value) (units unknown) (unknown) Result panel 47 (unknown) (no date) (unknown) [facility] (no value) (units unknown) (unknown) Result panel 48 (unknown) (no date) (unknown) [facility] (no value) (units unknown) (unknown) Result panel 49 (unknown) (no date) (unknown) [facility] (no value) (units unknown) (unknown) Result panel 50 (unknown) (no date) (unknown) [facility] (no value) (units unknown) (unknown) Result panel 51 (unknown) (no date) (unknown) [facility] (no value) (units unknown) (unknown) Result panel 52 (unknown) (no date) (unknown) [facility] (no value) (units unknown) (unknown) Result panel 53 (unknown) (no date) (unknown) [facility] (no value) (units unknown) (unknown) Result panel 54 (unknown) (no date) (unknown) [facility] (no value) (units unknown) (unknown) Result panel 55 (unknown) (no date) (unknown) [facility] (no value) (units unknown) (unknown) Result panel 56 (unknown) (no date) (unknown) [facility] (no value) (units unknown) (unknown) Result panel 57 (unknown) (no date) (unknown) [facility] (no value) (units unknown) (unknown) Result panel 58 (unknown) (no date) (unknown) [facility] (no value) (units unknown) (unknown) Result panel 59 (unknown) (no date) (unknown) [facility] (no value) (units unknown) (unknown) Result panel 60 (unknown) (no date) (unknown) [facility] (no value) (units unknown) (unknown) Result panel 61 (unknown) (no date) (unknown) [facility] (no value) (units unknown) (unknown) Result panel 62 (unknown) (no date) (unknown) [facility] (no value) (units unknown) (unknown) Result panel 63 (unknown) (no date) (unknown) [facility] (no value) (units unknown) (unknown) Result panel 64 (unknown) (no date) (unknown) [facility] (no value) (units unknown) (unknown) Result panel 65 (unknown) (no date) (unknown) [facility] (no value) (units unknown) (unknown) Result panel 66 (unknown) (no date) (unknown) [facility] (no value) (units unknown) (unknown) Result panel 67 (unknown) (no date) (unknown) [facility] (no value) (units unknown) (unknown) Result panel 68 (unknown) (no date) (unknown) [facility] (no value) (units unknown) (unknown) Result panel 69 (unknown) (no date) (unknown) [facility] (no value) (units unknown) (unknown) Result panel 70 (unknown) (no date) (unknown) [facility] (no value) (units unknown) (unknown) Result panel 71 (unknown) (no date) (unknown) [facility] (no value) (units unknown) (unknown) Result panel 72 (unknown) (no date) (unknown) [facility] (no value) (units unknown) (unknown) Result panel 73 (unknown) (no date) (unknown) [facility] (no value) (units unknown) (unknown) Result panel 74 (unknown) (no date) (unknown) [facility] (no value) (units unknown) (unknown) Result panel 75 (unknown) (no date) (unknown) [facility] (no value) (units unknown) (unknown) Result panel 76 (unknown) (no date) (unknown) [facility] (no value) (units unknown) (unknown) Result panel 77 (unknown) (no date) (unknown) [facility] (no value) (units unknown) (unknown) Result panel 78 (unknown) (no date) (unknown) [facility] (no value) (units unknown) (unknown) Result panel 79 (unknown) (no date) (unknown) [facility] (no value) (units unknown) (unknown) Result panel 80 (unknown) (no date) (unknown) [facility] (no value) (units unknown) (unknown) Result panel 81 (unknown) (no date) (unknown) [facility] (no value) (units unknown) (unknown) Result panel 82 (unknown) (no date) (unknown) [facility] (no value) (units unknown) (unknown) Result panel 83 (unknown) (no date) (unknown) [facility] (no value) (units unknown) (unknown) Result panel 84 (unknown) (no date) (unknown) [facility] (no value) (units unknown) (unknown) Result panel 85 (unknown) (no date) (unknown) [facility] (no value) (units unknown) (unknown) Result panel 86 (unknown) (no date) (unknown) [facility] (no value) (units unknown) (unknown) Result panel 87 (unknown) (no date) (unknown) [facility] (no value) (units unknown) (unknown) Result panel 88 (unknown) (no date) (unknown) [facility] (no value) (units unknown) (unknown) Result panel 89 (unknown) (no date) (unknown) [facility] (no value) (units unknown) (unknown) Result panel 90 (unknown) (no date) (unknown) [facility] (no value) (units unknown) (unknown) Result panel 91 (unknown) (no date) (unknown) [facility] (no value) (units unknown) (unknown) Result panel 92 (unknown) (no date) (unknown) [facility] (no value) (units unknown) (unknown) Result panel 93 (unknown) (no date) (unknown) [facility] (no value) (units unknown) (unknown) Result panel 94 (unknown) (no date) (unknown) [facility] (no value) (units unknown) (unknown) Result panel 95 (unknown) (no date) (unknown) [facility] (no value) (units unknown) (unknown) Result panel 96 (unknown) (no date) (unknown) [facility] (no value) (units unknown) (unknown) Result panel 97 (unknown) (no date) (unknown) [facility] (no value) (units unknown) (unknown) Result panel 98 (unknown) (no date) (unknown) [facility] (no value) (units unknown) (unknown) Result panel 99 (unknown) (no date) (unknown) [facility] (no value) (units unknown) (unknown) Result panel 100 (unknown) (no date) (unknown) [facility] (no value) (units unknown) (unknown) Result panel 101 (unknown) (no date) (unknown) [facility] (no value) (units unknown) (unknown) Result panel 102 (unknown) (no date) (unknown) [facility] (no value) (units unknown) (unknown) Result panel 103 (unknown) (no date) (unknown) [facility] (no value) (units unknown) (unknown) Result panel 104 (unknown) (no date) (unknown) [facility] (no value) (units unknown) (unknown) Result panel 105 (unknown) (no date) (unknown) [facility] (no value) (units unknown) (unknown) Result panel 106 (unknown) (no date) (unknown) [facility] (no value) (units unknown) (unknown) Result panel 107 (unknown) (no date) (unknown) [facility] (no value) (units unknown) (unknown) Result panel 108 (unknown) (no date) (unknown) [facility] (no value) (units unknown) (unknown) Result panel 109 (unknown) (no date) (unknown) [facility] (no value) (units unknown) (unknown) Result panel 110 (unknown) (no date) (unknown) [facility] (no value) (units unknown) (unknown) Result panel 111 (unknown) (no date) (unknown) [facility] (no value) (units unknown) (unknown) Result panel 112 (unknown) (no date) (unknown) [facility] (no value) (units unknown) (unknown) Result panel 113 (unknown) (no date) (unknown) [facility] (no value) (units unknown) (unknown) Result panel 114 (unknown) (no date) (unknown) [facility] (no value) (units unknown) (unknown) Result panel 115 (unknown) (no date) (unknown) [facility] (no value) (units unknown) (unknown) Result panel 116 (unknown) (no date) (unknown) [facility] (no value) (units unknown) (unknown) Result panel 117 (unknown) (no date) (unknown) [facility] (no value) (units unknown) (unknown) Result panel 118 (unknown) (no date) (unknown) [facility] (no value) (units unknown) (unknown) Result panel 119 (unknown) (no date) (unknown) [facility] (no value) (units unknown) (unknown) Result panel 120 (unknown) (no date) (unknown) [facility] (no value) (units unknown) (unknown) Result panel 121 (unknown) (no date) (unknown) [facility] (no value) (units unknown) (unknown) Result panel 122 (unknown) (no date) (unknown) [facility] (no value) (units unknown) (unknown) Result panel 123 (unknown) (no date) (unknown) [facility] (no value) (units unknown) (unknown) Result panel 124 (unknown) (no date) (unknown) [facility] (no value) (units unknown) (unknown) Result panel 125 (unknown) (no date) (unknown) [facility] (no value) (units unknown) (unknown) Result panel 126 (unknown) (no date) (unknown) [facility] (no value) (units unknown) (unknown) Result panel 127 (unknown) (no date) (unknown) [facility] (no value) (units unknown) (unknown) Result panel 128 (unknown) (no date) (unknown) [facility] (no value) (units unknown) (unknown) Result panel 129 (unknown) (no date) (unknown) [facility] (no value) (units unknown) (unknown) Result panel 130 (unknown) (no date) (unknown) [facility] (no value) (units unknown) (unknown) Result panel 131 (unknown) (no date) (unknown) [facility] (no value) (units unknown) (unknown) Result panel 132 (unknown) (no date) (unknown) [facility] (no value) (units unknown) (unknown) Result panel 133 (unknown) (no date) (unknown) [facility] (no value) (units unknown) (unknown) Result panel 134 (unknown) (no date) (unknown) [facility] (no value) (units unknown) (unknown) Result panel 135 (unknown) (no date) (unknown) [facility] (no value) (units unknown) (unknown) Result panel 136 (unknown) (no date) (unknown) [facility] (no value) (units unknown) (unknown) Result panel 137 (unknown) (no date) (unknown) [facility] (no value) (units unknown) (unknown) Result panel 138 (unknown) (no date) (unknown) [facility] (no value) (units unknown) (unknown) Result panel 139 (unknown) (no date) (unknown) [facility] (no value) (units unknown) (unknown) Result panel 140 (unknown) (no date) (unknown) [facility] (no value) (units unknown) (unknown) Result panel 141 (unknown) (no date) (unknown) [facility] (no value) (units unknown) (unknown) Result panel 142 (unknown) (no date) (unknown) [facility] (no value) (units unknown) (unknown) Result panel 143 (unknown) (no date) (unknown) [facility] (no value) (units unknown) (unknown) Result panel 144 (unknown) (no date) (unknown) [facility] (no value) (units unknown) (unknown) Result panel 145 (unknown) (no date) (unknown) [facility] (no value) (units unknown) (unknown) Result panel 146 (unknown) (no date) (unknown) [facility] (no value) (units unknown) (unknown) Result panel 147 (unknown) (no date) (unknown) [facility] (no value) (units unknown) (unknown) Result panel 148 (unknown) (no date) (unknown) [facility] (no value) (units unknown) (unknown) Result panel 149 (unknown) (no date) (unknown) [facility] (no value) (units unknown) (unknown) Result panel 150 (unknown) (no date) (unknown) [facility] (no value) (units unknown) (unknown) Result panel 151 (unknown) (no date) (unknown) [facility] (no value) (units unknown) (unknown) Result panel 152 (unknown) (no date) (unknown) [facility] (no value) (units unknown) (unknown) Result panel 153 (unknown) (no date) (unknown) [facility] (no value) (units unknown) (unknown) Result panel 154 (unknown) (no date) (unknown) [facility] (no value) (units unknown) (unknown) Result panel 155 (unknown) (no date) (unknown) [facility] (no value) (units unknown) (unknown) Result panel 156 (unknown) (no date) (unknown) [facility] (no value) (units unknown) (unknown) Result panel 157 (unknown) (no date) (unknown) [facility] (no value) (units unknown) (unknown) Result panel 158 (unknown) (no date) (unknown) [facility] (no value) (units unknown) (unknown) Result panel 159 (unknown) (no date) (unknown) [facility] (no value) (units unknown) (unknown) Result panel 160 (unknown) (no date) (unknown) [facility] (no value) (units unknown) (unknown) Result panel 161 (unknown) (no date) (unknown) [facility] (no value) (units unknown) (unknown) Result panel 162 (unknown) (no date) (unknown) [facility] (no value) (units unknown) (unknown) Result panel 163 (unknown) (no date) (unknown) [facility] (no value) (units unknown) (unknown) Result panel 164 (unknown) (no date) (unknown) [facility] (no value) (units unknown) (unknown) Result panel 165 (unknown) (no date) (unknown) [facility] (no value) (units unknown) (unknown) Result panel 166 (unknown) (no date) (unknown) [facility] (no value) (units unknown) (unknown) Result panel 167 (unknown) (no date) (unknown) [facility] (no value) (units unknown) (unknown) Result panel 168 (unknown) (no date) (unknown) [facility] (no value) (units unknown) (unknown) Result panel 169 (unknown) (no date) (unknown) [facility] (no value) (units unknown) (unknown) Result panel 170 (unknown) (no date) (unknown) [facility] (no value) (units unknown) (unknown) Result panel 171 (unknown) (no date) (unknown) [facility] (no value) (units unknown) (unknown) Result panel 172 (unknown) (no date) (unknown) [facility] (no value) (units unknown) (unknown) Result panel 173 (unknown) (no date) (unknown) [facility] (no value) (units unknown) (unknown) Result panel 174 (unknown) (no date) (unknown) [facility] (no value) (units unknown) (unknown) Result panel 175 (unknown) (no date) (unknown) [facility] (no value) (units unknown) (unknown) Result panel 176 (unknown) (no date) (unknown) [facility] (no value) (units unknown) (unknown) Result panel 177 (unknown) (no date) (unknown) [facility] (no value) (units unknown) (unknown) Result panel 178 (unknown) (no date) (unknown) [facility] (no value) (units unknown) (unknown) Result panel 179 (unknown) (no date) (unknown) [facility] (no value) (units unknown) (unknown) Result panel 180 (unknown) (no date) (unknown) [facility] (no value) (units unknown) (unknown) Result panel 181 (unknown) (no date) (unknown) [facility] (no value) (units unknown) (unknown) Result panel 182 (unknown) (no date) (unknown) [facility] (no value) (units unknown) (unknown) Result panel 183 (unknown) (no date) (unknown) [facility] (no value) (units unknown) (unknown) Result panel 184 (unknown) (no date) (unknown) [facility] (no value) (units unknown) (unknown) Result panel 185 (unknown) (no date) (unknown) [facility] (no value) (units unknown) (unknown) Result panel 186 (unknown) (no date) (unknown) [facility] (no value) (units unknown) (unknown) Result panel 187 (unknown) (no date) (unknown) [facility] (no value) (units unknown) (unknown) Result panel 188 (unknown) (no date) (unknown) [facility] (no value) (units unknown) (unknown) Result panel 189 (unknown) (no date) (unknown) [facility] (no value) (units unknown) (unknown) Result panel 190 (unknown) (no date) (unknown) [facility] (no value) (units unknown) (unknown) Result panel 191 (unknown) (no date) (unknown) [facility] (no value) (units unknown) (unknown) Result panel 192 (unknown) (no date) (unknown) [facility] (no value) (units unknown) (unknown) Result panel 193 (unknown) (no date) (unknown) [facility] (no value) (units unknown) (unknown) Result panel 194 (unknown) (no date) (unknown) [facility] (no value) (units unknown) (unknown) Result panel 195 (unknown) (no date) (unknown) [facility] (no value) (units unknown) (unknown) Result panel 196 (unknown) (no date) (unknown) [facility] (no value) (units unknown) (unknown) Result panel 197 (unknown) (no date) (unknown) [facility] (no value) (units unknown) (unknown) Result panel 198 (unknown) (no date) (unknown) [facility] (no value) (units unknown) (unknown) Result panel 199 (unknown) (no date) (unknown) [facility] (no value) (units unknown) (unknown) Result panel 200 (unknown) (no date) (unknown) [facility] (no value) (units unknown) (unknown) Result panel 201 (unknown) (no date) (unknown) [facility] (no value) (units unknown) (unknown) Result panel 202 (unknown) (no date) (unknown) [facility] (no value) (units unknown) (unknown) Result panel 203 (unknown) (no date) (unknown) [facility] (no value) (units unknown) (unknown) Result panel 204 (unknown) (no date) (unknown) [facility] (no value) (units unknown) (unknown) Result panel 205 (unknown) (no date) (unknown) [facility] (no value) (units unknown) (unknown) Result panel 206 (unknown) (no date) (unknown) [facility] (no value) (units unknown) (unknown) Result panel 207 (unknown) (no date) (unknown) [facility] (no value) (units unknown) (unknown) Result panel 208 (unknown) (no date) (unknown) [facility] (no value) (units unknown) (unknown) Result panel 209 (unknown) (no date) (unknown) [facility] (no value) (units unknown) (unknown) Result panel 210 (unknown) (no date) (unknown) [facility] (no value) (units unknown) (unknown) Result panel 211 (unknown) (no date) (unknown) [facility] (no value) (units unknown) (unknown) Result panel 212 (unknown) (no date) (unknown) [facility] (no value) (units unknown) (unknown) Result panel 213 (unknown) (no date) (unknown) [facility] (no value) (units unknown) (unknown) Result panel 214 (unknown) (no date) (unknown) [facility] (no value) (units unknown) (unknown) Result panel 215 (unknown) (no date) (unknown) [facility] (no value) (units unknown) (unknown) Result panel 216 (unknown) (no date) (unknown) [facility] (no value) (units unknown) (unknown) Result panel 217 (unknown) (no date) (unknown) [facility] (no value) (units unknown) (unknown) Result panel 218 (unknown) (no date) (unknown) [facility] (no value) (units unknown) (unknown) Result panel 219 (unknown) (no date) (unknown) [facility] (no value) (units unknown) (unknown) Result panel 220 (unknown) (no date) (unknown) [facility] (no value) (units unknown) (unknown) Result panel 221 (unknown) (no date) (unknown) [facility] (no value) (units unknown) (unknown) Result panel 222 (unknown) (no date) (unknown) [facility] (no value) (units unknown) (unknown) Result panel 223 (unknown) (no date) (unknown) [facility] (no value) (units unknown) (unknown) Result panel 224 (unknown) (no date) (unknown) [facility] (no value) (units unknown) (unknown) Result panel 225 (unknown) (no date) (unknown) [facility] (no value) (units unknown) (unknown) Result panel 226 (unknown) (no date) (unknown) [facility] (no value) (units unknown) (unknown) Result panel 227 (unknown) (no date) (unknown) [facility] (no value) (units unknown) (unknown) Result panel 228 (unknown) (no date) (unknown) [facility] (no value) (units unknown) (unknown) Result panel 229 (unknown) (no date) (unknown) [facility] (no value) (units unknown) (unknown) Result panel 230 (unknown) (no date) (unknown) [facility] (no value) (units unknown) (unknown) Result panel 231 (unknown) (no date) (unknown) [facility] (no value) (units unknown) (unknown) Result panel 232 (unknown) (no date) (unknown) [facility] (no value) (units unknown) (unknown) Result panel 233 (unknown) (no date) (unknown) [facility] (no value) (units unknown) (unknown) Result panel 234 (unknown) (no date) (unknown) [facility] (no value) (units unknown) (unknown) Result panel 235 (unknown) (no date) (unknown) [facility] (no value) (units unknown) (unknown) Result panel 236 (unknown) (no date) (unknown) [facility] (no value) (units unknown) (unknown) Result panel 237 (unknown) (no date) (unknown) [facility] (no value) (units unknown) (unknown) Result panel 238 (unknown) (no date) (unknown) [facility] (no value) (units unknown) (unknown) Result panel 239 (unknown) (no date) (unknown) [facility] (no value) (units unknown) (unknown) Result panel 240 (unknown) (no date) (unknown) [facility] (no value) (units unknown) (unknown) Result panel 241 (unknown) (no date) (unknown) [facility] (no value) (units unknown) (unknown) Result panel 242 (unknown) (no date) (unknown) [facility] (no value) (units unknown) (unknown) Result panel 243 (unknown) (no date) (unknown) [facility] (no value) (units unknown) (unknown) Result panel 244 (unknown) (no date) (unknown) [facility] (no value) (units unknown) (unknown) Result panel 245 (unknown) (no date) (unknown) [facility] (no value) (units unknown) (unknown) Result panel 246 (unknown) (no date) (unknown) [facility] (no value) (units unknown) (unknown) Result panel 247 (unknown) (no date) (unknown) [facility] (no value) (units unknown) (unknown) Result panel 248 (unknown) (no date) (unknown) [facility] (no value) (units unknown) (unknown) Result panel 249 (unknown) (no date) (unknown) [facility] (no value) (units unknown) (unknown) Result panel 250 (unknown) (no date) (unknown) [facility] (no value) (units unknown) (unknown) Result panel 251 (unknown) (no date) (unknown) [facility] (no value) (units unknown) (unknown) Result panel 252 (unknown) (no date) (unknown) [facility] (no value) (units unknown) (unknown) Result panel 253 (unknown) (no date) (unknown) [facility] (no value) (units unknown) (unknown) Result panel 254 (unknown) (no date) (unknown) [facility] (no value) (units unknown) (unknown) Result panel 255 (unknown) (no date) (unknown) [facility] (no value) (units unknown) (unknown) Result panel 256 (unknown) (no date) (unknown) [facility] (no value) (units unknown) (unknown) Result panel 257 (unknown) (no date) (unknown) [facility] (no value) (units unknown) (unknown) Result panel 258 (unknown) (no date) (unknown) [facility] (no value) (units unknown) (unknown) Result panel 259 (unknown) (no date) (unknown) [facility] (no value) (units unknown) (unknown) Result panel 260 (unknown) (no date) (unknown) [facility] (no value) (units unknown) (unknown) Result panel 261 (unknown) (no date) (unknown) [facility] (no value) (units unknown) (unknown) Result panel 262 (unknown) (no date) (unknown) [facility] (no value) (units unknown) (unknown) Result panel 263 (unknown) (no date) (unknown) [facility] (no value) (units unknown) (unknown) Result panel 264 (unknown) (no date) (unknown) [facility] (no value) (units unknown) (unknown) Result panel 265 (unknown) (no date) (unknown) [facility] (no value) (units unknown) (unknown) Result panel 266 (unknown) (no date) (unknown) [facility] (no value) (units unknown) (unknown) Result panel 267 (unknown) (no date) (unknown) [facility] (no value) (units unknown) (unknown) Result panel 268 (unknown) (no date) (unknown) [facility] (no value) (units unknown) (unknown) Result panel 269 (unknown) (no date) (unknown) [facility] (no value) (units unknown) (unknown) Result panel 270 (unknown) (no date) (unknown) [facility] (no value) (units unknown) (unknown) Result panel 271 (unknown) (no date) (unknown) [facility] (no value) (units unknown) (unknown) Result panel 272 (unknown) (no date) (unknown) [facility] (no value) (units unknown) (unknown) Result panel 273 (unknown) (no date) (unknown) [facility] (no value) (units unknown) (unknown) Result panel 274 (unknown) (no date) (unknown) [facility] (no value) (units unknown) (unknown) Result panel 275 (unknown) (no date) (unknown) [facility] (no value) (units unknown) (unknown) Result panel 276 (unknown) (no date) (unknown) [facility] (no value) (units unknown) (unknown) Result panel 277 (unknown) (no date) (unknown) [facility] (no value) (units unknown) (unknown) Result panel 278 (unknown) (no date) (unknown) [facility] (no value) (units unknown) (unknown) Result panel 279 (unknown) (no date) (unknown) [facility] (no value) (units unknown) (unknown) Result panel 280 (unknown) (no date) (unknown) [facility] (no value) (units unknown) (unknown) Result panel 281 (unknown) (no date) (unknown) [facility] (no value) (units unknown) (unknown) Result panel 282 (unknown) (no date) (unknown) [facility] (no value) (units unknown) (unknown) Result panel 283 (unknown) (no date) (unknown) [facility] (no value) (units unknown) (unknown) Result panel 284 (unknown) (no date) (unknown) [facility] (no value) (units unknown) (unknown) Result panel 285 (unknown) (no date) (unknown) [facility] (no value) (units unknown) (unknown) Result panel 286 (unknown) (no date) (unknown) [facility] (no value) (units unknown) (unknown) Result panel 287 (unknown) (no date) (unknown) [facility] (no value) (units unknown) (unknown) Result panel 288 (unknown) (no date) (unknown) [facility] (no value) (units unknown) (unknown) Result panel 289 (unknown) (no date) (unknown) [facility] (no value) (units unknown) (unknown) Result panel 290 (unknown) (no date) (unknown) [facility] (no value) (units unknown) (unknown) Result panel 291 (unknown) (no date) (unknown) [facility] (no value) (units unknown) (unknown) Result panel 292 (unknown) (no date) (unknown) [facility] (no value) (units unknown) (unknown) Result panel 293 (unknown) (no date) (unknown) [facility] (no value) (units unknown) (unknown) Result panel 294 (unknown) (no date) (unknown) [facility] (no value) (units unknown) (unknown) Result panel 295 (unknown) (no date) (unknown) [facility] (no value) (units unknown) (unknown) Result panel 296 (unknown) (no date) (unknown) [facility] (no value) (units unknown) (unknown) Result panel 297 (unknown) (no date) (unknown) [facility] (no value) (units unknown) (unknown) Result panel 298 (unknown) (no date) (unknown) [facility] (no value) (units unknown) (unknown) Result panel 299 (unknown) (no date) (unknown) [facility] (no value) (units unknown) (unknown) Result panel 300 (unknown) (no date) (unknown) [facility] (no value) (units unknown) (unknown) Result panel 301 (unknown) (no date) (unknown) [facility] (no value) (units unknown) (unknown) Result panel 302 (unknown) (no date) (unknown) [facility] (no value) (units unknown) (unknown) Result panel 303 (unknown) (no date) (unknown) [facility] (no value) (units unknown) (unknown) Result panel 304 (unknown) (no date) (unknown) [facility] (no value) (units unknown) (unknown) Result panel 305 (unknown) (no date) (unknown) [facility] (no value) (units unknown) (unknown) Result panel 306 (unknown) (no date) (unknown) [facility] (no value) (units unknown) (unknown) Result panel 307 (unknown) (no date) (unknown) [facility] (no value) (units unknown) (unknown) Result panel 308 (unknown) (no date) (unknown) [facility] (no value) (units unknown) (unknown) Result panel 309 (unknown) (no date) (unknown) [facility] (no value) (units unknown) (unknown) Result panel 310 (unknown) (no date) (unknown) [facility] (no value) (units unknown) (unknown) Result panel 311 (unknown) (no date) (unknown) [facility] (no value) (units unknown) (unknown) Result panel 312 (unknown) (no date) (unknown) [facility] (no value) (units unknown) (unknown) Result panel 313 (unknown) (no date) (unknown) [facility] (no value) (units unknown) (unknown) Result panel 314 (unknown) (no date) (unknown) [facility] (no value) (units unknown) (unknown) Result panel 315 (unknown) (no date) (unknown) [facility] (no value) (units unknown) (unknown) Result panel 316 (unknown) (no date) (unknown) [facility] (no value) (units unknown) (unknown) Result panel 317 (unknown) (no date) (unknown) [facility] (no value) (units unknown) (unknown) Result panel 318 (unknown) (no date) (unknown) [facility] (no value) (units unknown) (unknown) Result panel 319 (unknown) (no date) (unknown) [facility] (no value) (units unknown) (unknown) Result panel 320 (unknown) (no date) (unknown) [facility] (no value) (units unknown) (unknown) Result panel 321 (unknown) (no date) (unknown) [facility] (no value) (units unknown) (unknown) Result panel 322 (unknown) (no date) (unknown) [facility] (no value) (units unknown) (unknown) Result panel 323 (unknown) (no date) (unknown) [facility] (no value) (units unknown) (unknown) Result panel 324 (unknown) (no date) (unknown) [facility] (no value) (units unknown) (unknown) Result panel 325 (unknown) (no date) (unknown) [facility] (no value) (units unknown) (unknown) Result panel 326 (unknown) (no date) (unknown) [facility] (no value) (units unknown) (unknown) Result panel 327 (unknown) (no date) (unknown) [facility] (no value) (units unknown) (unknown) Result panel 328 (unknown) (no date) (unknown) [facility] (no value) (units unknown) (unknown) Result panel 329 (unknown) (no date) (unknown) [facility] (no value) (units unknown) (unknown) Result panel 330 (unknown) (no date) (unknown) [facility] (no value) (units unknown) (unknown) Result panel 331 (unknown) (no date) (unknown) [facility] (no value) (units unknown) (unknown) Result panel 332 (unknown) (no date) (unknown) [facility] (no value) (units unknown) (unknown) Result panel 333 (unknown) (no date) (unknown) [facility] (no value) (units unknown) (unknown) Result panel 334 (unknown) (no date) (unknown) [facility] (no value) (units unknown) (unknown) Result panel 335 (unknown) (no date) (unknown) [facility] (no value) (units unknown) (unknown) Result panel 336 (unknown) (no date) (unknown) [facility] (no value) (units unknown) (unknown) Result panel 337 (unknown) (no date) (unknown) [facility] (no value) (units unknown) (unknown) Result panel 338 (unknown) (no date) (unknown) [facility] (no value) (units unknown) (unknown) Result panel 339 (unknown) (no date) (unknown) [facility] (no value) (units unknown) (unknown) Result panel 340 (unknown) (no date) (unknown) [facility] (no value) (units unknown) (unknown) Result panel 341 (unknown) (no date) (unknown) [facility] (no value) (units unknown) (unknown) Result panel 342 (unknown) (no date) (unknown) [facility] (no value) (units unknown) (unknown) Result panel 343 (unknown) (no date) (unknown) [facility] (no value) (units unknown) (unknown) Result panel 344 (unknown) (no date) (unknown) [facility] (no value) (units unknown) (unknown) Result panel 345 (unknown) (no date) (unknown) [facility] (no value) (units unknown) (unknown) Result panel 346 (unknown) (no date) (unknown) [facility] (no value) (units unknown) (unknown) Result panel 347 (unknown) (no date) (unknown) [facility] (no value) (units unknown) (unknown) Result panel 348 (unknown) (no date) (unknown) [facility] (no value) (units unknown) (unknown) Result panel 349 (unknown) (no date) (unknown) [facility] (no value) (units unknown) (unknown) Result panel 350 (unknown) (no date) (unknown) [facility] (no value) (units unknown) (unknown) Result panel 351 (unknown) (no date) (unknown) [facility] (no value) (units unknown) (unknown) Result panel 352 (unknown) (no date) (unknown) [facility] (no value) (units unknown) (unknown) Result panel 353 (unknown) (no date) (unknown) [facility] (no value) (units unknown) (unknown) Result panel 354 (unknown) (no date) (unknown) [facility] (no value) (units unknown) (unknown) Result panel 355 (unknown) (no date) (unknown) [facility] (no value) (units unknown) (unknown) Result panel 356 (unknown) (no date) (unknown) [facility] (no value) (units unknown) (unknown) Result panel 357 (unknown) (no date) (unknown) [facility] (no value) (units unknown) (unknown) Result panel 358 (unknown) (no date) (unknown) [facility] (no value) (units unknown) (unknown) Result panel 359 (unknown) (no date) (unknown) [facility] (no value) (units unknown) (unknown) Result panel 360 (unknown) (no date) (unknown) [facility] (no value) (units unknown) (unknown) Result panel 361 (unknown) (no date) (unknown) [facility] (no value) (units unknown) (unknown) Result panel 362 (unknown) (no date) (unknown) [facility] (no value) (units unknown) (unknown) Result panel 363 (unknown) (no date) (unknown) (unknown) (no value) (units unknown) (unknown) (unknown) (no date) (unknown) (unknown) (Retin-A) (units unknown) (unknown) (unknown) (no date) (unknown) (unknown) 08/28/22 (units unknown) (unknown) (unknown) (no date) (unknown) (unknown) 06:11 (units unknown) (unknown) (unknown) (no date) (unknown) (unknown) 01/29/20 (units unknown) (unknown) (unknown) (no date) (unknown) (unknown) 1 applic TOPIC AL BEDTIME (units unknown) (unknown) (unknown) (no date) (unknown) (unknown) 4 mg PO TID-QI D PRN (Reason: nausea and vomiting) Qty: 10 0RF (units unknown) (unknown) (unknown) (no date) (unknown) (unknown) 40 mg PO DAILY Qty: 30 0RF (units unknown) (unknown) (unknown) (no date) (unknown) (unknown) 8551 (units unknown) (unknown) (unknown) (no date) (unknown) (unknown) Age/Sex: 26 / F (uni ts unknown) (unknown) (unknown) (no date) (unknown) (unknown) Allergies (units unknown) (unknown) (unknown) (no date) (unknown) (unknown) Allergy/AdvRea c Type Severity Reaction Status Date / Time (units unknown) (unknown) (unknown) (no date) (unknown) (unknown) Anemia (units unknown) (unknown) (unknown) (no date) (unknown) (unknown) Blood Pressure 116/55 L 08/28/22 06:11 (units unknown) (unknown) (unknown) (no date) (unknown) (unknown) Blood Pressure 116/55 L (units unknown) (unknown) (unknown) (no date) (unknown) (unknown) Cardio (units unknown) (unknown) (unknown) (no date) (unknown) (unknown) Chief complain t: Nausea/Vomiting/Diar geoffrey (units unknown) (unknown) (unknown) (no date) (unknown) (unknown) Chronic anxiety (uni ts unknown) (unknown) (unknown) (no date) (unknown) (unknown) Const (units unknown) (unknown) (unknown) (no date) (unknown) (unknown) Constitutional (unit s unknown) (unknown) (unknown) (no date) (unknown) (unknown) Constitutional : Reports system reviewed and no additional complaints, except as (units unknown) (unknown) (unknown) (no date) (unknown) (unknown) Course (units unknown) (unknown) (unknown) (no date) (unknown) (unknown) : 5 Acct:[id number] (units unknown) (unknown) (unknown) (no date) (unknown) (unknown) Date of Servic e: 08/28/22 (units unknown) (unknown) (unknown) (no date) (unknown) (unknown) Departure (units unknown) (unknown) (unknown) (no date) (unknown) (unknown) Deviated septum (uni ts unknown) (unknown) (unknown) (no date) (unknown) (unknown) Discharge Plan (unit s unknown) (unknown) (unknown) (no date) (unknown) (unknown) Discontinued Medications (units unknown) (unknown) (unknown) (no date) (unknown) (unknown) ER Physician: Bib Moreno D.O. (units unknown) (unknown) (unknown) (no date) (unknown) (unknown) Effort + Inspe ction: normal respiratory effort (units unknown) (unknown) (unknown) (no date) (unknown) (unknown) Emergency Report (un its unknown) (unknown) (unknown) (no date) (unknown) (unknown) Exam (units unknown) (unknown) (unknown) (no date) (unknown) (unknown) Extrem (units unknown) (unknown) (unknown) (no date) (unknown) (unknown) Gastrointestinal (un its unknown) (unknown) (unknown) (no date) (unknown) (unknown) Gastrointestin al: Reports system reviewed and no additional complaints, except (units unknown) (unknown) (unknown) (no date) (unknown) (unknown) General (units unknown) (unknown) (unknown) (no date) (unknown) (unknown) General: coope rative and comfortable (units unknown) (unknown) (unknown) (no date) (unknown) (unknown) General: patie nt alert, patient awake and moves all extremities (units unknown) (unknown) (unknown) (no date) (unknown) (unknown) Genitourinary (units unknown) (unknown) (unknown) (no date) (unknown) (unknown) Genitourinary: Reports system reviewed and no additional complaints, except as (units unknown) (unknown) (unknown) (no date) (unknown) (unknown) HENMT (units unknown) (unknown) (unknown) (no date) (unknown) (unknown) HPI - Nausea/Vomiting/Diar geoffrey (units unknown) (unknown) (unknown) (no date) (unknown) (unknown) HPI Narrative: (unit s unknown) (unknown) (unknown) (no date) (unknown) (unknown) Head: normal t o inspection (units unknown) (unknown) (unknown) (no date) (unknown) (unknown) History of Pre sent Illness (units unknown) (unknown) (unknown) (no date) (unknown) (unknown) Home Medications (un its unknown) (unknown) (unknown) (no date) (unknown) (unknown) Hypertrophy, n zay, turbinate (units unknown) (unknown) (unknown) (no date) (unknown) (unknown) Incompetent na catarina valve (units unknown) (unknown) (unknown) (no date) (unknown) (unknown) Initial Vital Signs (units unknown) (unknown) (unknown) (no date) (unknown) (unknown) Initial Vital Signs: (units unknown) (unknown) (unknown) (no date) (unknown) (unknown) [facility] [address] [place] [id number] (units unknown) (unknown) (unknown) (no date) (unknown) (unknown) Limitations: n o limitations (units unknown) (unknown) (unknown) (no date) (unknown) (unknown) MRSA (methicil mimi resistant Staphylococcus aureus) (2015) (units unknown) (unknown) (unknown) (no date) (unknown) (unknown) Medical Histor y (units unknown) (unknown) (unknown) (no date) (unknown) (unknown) Medication Instructions Recorded Confirmed (units unknown) (unknown) (unknown) (no date) (unknown) (unknown) Medication Instructions Recorded (units unknown) (unknown) (unknown) (no date) (unknown) (unknown) Migraine headache (u nits unknown) (unknown) (unknown) (no date) (unknown) (unknown) Mode of arriva l: Ambulatory (units unknown) (unknown) (unknown) (no date) (unknown) (unknown) Nasal congestion (un its unknown) (unknown) (unknown) (no date) (unknown) (unknown) Nasal obstruction (u nits unknown) (unknown) (unknown) (no date) (unknown) (unknown) Neuro (units unknown) (unknown) (unknown) (no date) (unknown) (unknown) Neurologic (units unknown) (unknown) (unknown) (no date) (unknown) (unknown) Neurologic: Re ports system reviewed and no additional complaints, except as (units unknown) (unknown) (unknown) (no date) (unknown) (unknown) No Action (units unknown) (unknown) (unknown) (no date) (unknown) (unknown) No gross deformities (units unknown) (unknown) (unknown) (no date) (unknown) (unknown) Ondansetron HC l (Ondansetron 4 Mg/2 Ml Inj) 4 mg IV NOW ONE (units unknown) (unknown) (unknown) (no date) (unknown) (unknown) Ordered: (units unknown) (unknown) (unknown) (no date) (unknown) (unknown) Orders (units unknown) (unknown) (unknown) (no date) (unknown) (unknown) Other: (units unknown) (unknown) (unknown) (no date) (unknown) (unknown) Oxygen Deliver y Method Room Air 08/28/22 06:11 (units unknown) (unknown) (unknown) (no date) (unknown) (unknown) Oxygen Deliver y Method Room Air (units unknown) (unknown) (unknown) (no date) (unknown) (unknown) Patient History (uni ts unknown) (unknown) (unknown) (no date) (unknown) (unknown) Patient is a 26-year-old female who states that approximately 48 hours ago she (units unknown) (unknown) (unknown) (no date) (unknown) (unknown) Patient: Carie Sullivan MR#: [id number] (units unknown) (unknown) (unknown) (no date) (unknown) (unknown) Prescriptions: (unit s unknown) (unknown) (unknown) (no date) (unknown) (unknown) Previous Rx's (units unknown) (unknown) (unknown) (no date) (unknown) (unknown) Provider,Vaibhav HANKS [Primary Care Provider] (units unknown) (unknown) (unknown) (no date) (unknown) (unknown) Pulse Oximetry 98 08/28/22 06:11 (units unknown) (unknown) (unknown) (no date) (unknown) (unknown) Pulse Oximetry 98 (u nits unknown) (unknown) (unknown) (no date) (unknown) (unknown) Pulse Rate 67 08/28/22 06:11 (units unknown) (unknown) (unknown) (no date) (unknown) (unknown) Pulse Rate 67 (units unknown) (unknown) (unknown) (no date) (unknown) (unknown) Rate: regular rate ( units unknown) (unknown) (unknown) (no date) (unknown) (unknown) Referrals: (units unknown) (unknown) (unknown) (no date) (unknown) (unknown) Related Data (units unknown) (unknown) (unknown) (no date) (unknown) (unknown) Resp (units unknown) (unknown) (unknown) (no date) (unknown) (unknown) Respiratory Ra te 16 08/28/22 06:11 (units unknown) (unknown) (unknown) (no date) (unknown) (unknown) Respiratory Rate 16 (units unknown) (unknown) (unknown) (no date) (unknown) (unknown) Review of Systems (u nits unknown) (unknown) (unknown) (no date) (unknown) (unknown) Rib injury (2019) (u nits unknown) (unknown) (unknown) (no date) (unknown) (unknown) Ruptured ovari an cyst (2018) (units unknown) (unknown) (unknown) (no date) (unknown) (unknown) Rx Instructions: (un its unknown) (unknown) (unknown) (no date) (unknown) (unknown) See Rx Instruc tions .ROUTE .COMPLEX (units unknown) (unknown) (unknown) (no date) (unknown) (unknown) Signed By: (units unknown) (unknown) (unknown) (no date) (unknown) (unknown) Smoking Status : Current every day smoker (units unknown) (unknown) (unknown) (no date) (unknown) (unknown) Social History (units unknown) (unknown) (unknown) (no date) (unknown) (unknown) Sodium Chlorid e (Normal Saline 0.9%) 1,000 mls @ 1,000 mls/hr IV BOLUS ONE (units unknown) (unknown) (unknown) (no date) (unknown) (unknown) Source: patient (uni ts unknown) (unknown) (unknown) (no date) (unknown) (unknown) Stated complai nt: food poisoning and passed out (units unknown) (unknown) (unknown) (no date) (unknown) (unknown) Stop: 08/28/22 06:18 (units unknown) (unknown) (unknown) (no date) (unknown) (unknown) Stop: 08/28/22 07:16 (units unknown) (unknown) (unknown) (no date) (unknown) (unknown) Substance Use Type: marijuana (units unknown) (unknown) (unknown) (no date) (unknown) (unknown) Surgical Histo ry (units unknown) (unknown) (unknown) (no date) (unknown) (unknown) Temperature 97 .6 F 08/28/22 06:11 (units unknown) (unknown) (unknown) (no date) (unknown) (unknown) Temperature 97.6 F ( units unknown) (unknown) (unknown) (no date) (unknown) (unknown) Time Seen by Provider: 08/28/22 06:09 (units unknown) (unknown) (unknown) (no date) (unknown) (unknown) Vital Signs - 8 hr ( units unknown) (unknown) (unknown) (no date) (unknown) (unknown) Vital Signs (units unknown) (unknown) (unknown) (no date) (unknown) (unknown) Vital signs: (units unknown) (unknown) (unknown) (no date) (unknown) (unknown) [place] teeth r emoved (01/16/13) (units unknown) (unknown) (unknown) (no date) (unknown) (unknown) alcohol intake frequency: holidays/special occasions only (units unknown) (unknown) (unknown) (no date) (unknown) (unknown) alcohol intake : current (units unknown) (unknown) (unknown) (no date) (unknown) (unknown) as documented (units unknown) (unknown) (unknown) (no date) (unknown) (unknown) clindamycin-be nzoyl- emol [id number] See Rx Instructions .Route .COMPLEX 01/29/20 (units unknown) (unknown) (unknown) (no date) (unknown) (unknown) clindamycin-be nzoyl- emol cmb94 (units unknown) (unknown) (unknown) (no date) (unknown) (unknown) days. She does have Zofran at home which she took yesterday and states it did (units unknown) (unknown) (unknown) (no date) (unknown) (unknown) developed epis odes vomiting and diarrhea. His continued over the past couple (units unknown) (unknown) (unknown) (no date) (unknown) (unknown) documented (units unknown) (unknown) (unknown) (no date) (unknown) (unknown) help her sympt oms but then last night the nausea came back. She took a dose of (units unknown) (unknown) (unknown) (no date) (unknown) (unknown) household memb ers: spouse (units unknown) (unknown) (unknown) (no date) (unknown) (unknown) latex Allergy Intermediate Anxiety Verified 08/05/22 16:46 (units unknown) (unknown) (unknown) (no date) (unknown) (unknown) nausea. (units unknown) (unknown) (unknown) (no date) (unknown) (unknown) ondansetron 4 mg disintegrating 4 mg PO TID-QID PRN nausea and 08/05/22 (units unknown) (unknown) (unknown) (no date) (unknown) (unknown) ondansetron 4 mg tablet,disintegratin g (units unknown) (unknown) (unknown) (no date) (unknown) (unknown) pantoprazole 4 0 mg tablet,delayed 40 mg PO DAILY #30 tabs 08/05/22 (units unknown) (unknown) (unknown) (no date) (unknown) (unknown) pantoprazole [Protonix] 40 mg tablet,delayed release (DR/EC) (units unknown) (unknown) (unknown) (no date) (unknown) (unknown) passed out. Jaylon heredia has passed out in the past. She currently states she is having (units unknown) (unknown) (unknown) (no date) (unknown) (unknown) place as needed. (un its unknown) (unknown) (unknown) (no date) (unknown) (unknown) promethazine A dvReac Verified 08/05/22 16:46 (units unknown) (unknown) (unknown) (no date) (unknown) (unknown) release (Protonix) ( units unknown) (unknown) (unknown) (no date) (unknown) (unknown) tablet vomitin g #10 tabs (units unknown) (unknown) (unknown) (no date) (unknown) (unknown) the Zofran but then threw up afterwards. She then had an episode where she (units unknown) (unknown) (unknown) (no date) (unknown) (unknown) tobacco type: vaping (units unknown) (unknown) (unknown) (no date) (unknown) (unknown) tretinoin 0.02 5 % topical cream 1 applic topical BEDTIME 01/29/20 01/29/20 (units unknown) (unknown) (unknown) (no date) (unknown) (unknown) tretinoin [Ret in-A] 0.025 % Cream (units unknown) (unknown) Result panel 364 (unknown) (no date) (unknown) (unknown) >=1.030 (units unknown) (unknown) (unknown) (no date) (unknown) (unknown) 0.2 e.u./dl (unknown ) (unknown) (no date) (unknown) (unknown) 6.0 (units unknown) (unknown) (unknown) (no date) (unknown) (unknown) CLEAR (units unknown) (unknown) (unknown) (no date) (unknown) (unknown) NEGATIVE (units unknown) (unknown) (unknown) (no date) (unknown) (unknown) NEGATIVE g/dl (unknow n) (unknown) (no date) (unknown) (unknown) YELLOW (units unknown) (unknown) (unknown) (no date) (unknown) (unknown) YELLOW (units unknown) (unknown) Result panel 365 (unknown) (no date) (unknown) (unknown) >=1.030 (units unknown) (unknown) (unknown) (no date) (unknown) (unknown) * (units unknown) (unknown) (unknown) (no date) (unknown) (unknown) * (units unknown) (unknown) (unknown) (no date) (unknown) (unknown) 0.2 e.u./dl (unknown ) (unknown) (no date) (unknown) (unknown) 6.0 (units unknown) (unknown) (unknown) (no date) (unknown) (unknown) CLEAR (units unknown) (unknown) (unknown) (no date) (unknown) (unknown) NEGATIVE (units unknown) (unknown) (unknown) (no date) (unknown) (unknown) NEGATIVE g/dl (unknow n) (unknown) (no date) (unknown) (unknown) YELLOW (units unknown) (unknown) (unknown) (no date) (unknown) (unknown) YELLOW (units unknown) (unknown) Result panel 366 (unknown) (no date) (unknown) (unknown) (no value) (units unknown) (unknown) (unknown) (no date) (unknown) (unknown) (Retin-A) (units unknown) (unknown) (unknown) (no date) (unknown) (unknown) 08/28/22 06:33 (unit s unknown) (unknown) (unknown) (no date) (unknown) (unknown) 08/28/22 Range/Units (units unknown) (unknown) (unknown) (no date) (unknown) (unknown) 08/28/22 (units unknown) (unknown) (unknown) (no date) (unknown) (unknown) 06:11 (units unknown) (unknown) (unknown) (no date) (unknown) (unknown) 06:33 (units unknown) (unknown) (unknown) (no date) (unknown) (unknown) 01/29/20 (units unknown) (unknown) (unknown) (no date) (unknown) (unknown) 1 applic TOPIC AL BEDTIME (units unknown) (unknown) (unknown) (no date) (unknown) (unknown) 4 mg PO TID-QI D PRN (Reason: nausea and vomiting) Qty: 10 0RF (units unknown) (unknown) (unknown) (no date) (unknown) (unknown) 40 mg PO DAILY Qty: 30 0RF (units unknown) (unknown) (unknown) (no date) (unknown) (unknown) [id number] (units unknown) (unknown) (unknown) (no date) (unknown) (unknown) Age/Sex: 26 / F (uni ts unknown) (unknown) (unknown) (no date) (unknown) (unknown) Allergies (units unknown) (unknown) (unknown) (no date) (unknown) (unknown) Allergy/AdvRea c Type Severity Reaction Status Date / Time (units unknown) (unknown) (unknown) (no date) (unknown) (unknown) Anemia (units unknown) (unknown) (unknown) (no date) (unknown) (unknown) Blood Pressure 116/55 L 08/28/22 06:11 (units unknown) (unknown) (unknown) (no date) (unknown) (unknown) Blood Pressure 116/55 L (units unknown) (unknown) (unknown) (no date) (unknown) (unknown) Cardio (units unknown) (unknown) (unknown) (no date) (unknown) (unknown) Chief complain t: Nausea/Vomiting/Diar geoffrey (units unknown) (unknown) (unknown) (no date) (unknown) (unknown) Chronic anxiety (uni ts unknown) (unknown) (unknown) (no date) (unknown) (unknown) Const (units unknown) (unknown) (unknown) (no date) (unknown) (unknown) Constitutional (unit s unknown) (unknown) (unknown) (no date) (unknown) (unknown) Constitutional : Reports system reviewed and no additional complaints, except as (units unknown) (unknown) (unknown) (no date) (unknown) (unknown) Course (units unknown) (unknown) (unknown) (no date) (unknown) (unknown) : 5 Acct:[id number] (units unknown) (unknown) (unknown) (no date) (unknown) (unknown) Date of Servic e: 08/28/22 (units unknown) (unknown) (unknown) (no date) (unknown) (unknown) Departure (units unknown) (unknown) (unknown) (no date) (unknown) (unknown) Deviated septum (uni ts unknown) (unknown) (unknown) (no date) (unknown) (unknown) Discharge Plan (unit s unknown) (unknown) (unknown) (no date) (unknown) (unknown) Discontinued Medications (units unknown) (unknown) (unknown) (no date) (unknown) (unknown) ED Orders (units unknown) (unknown) (unknown) (no date) (unknown) (unknown) ER Physician: Bib Moreno D.O. (units unknown) (unknown) (unknown) (no date) (unknown) (unknown) Effort + Inspe ction: normal respiratory effort (units unknown) (unknown) (unknown) (no date) (unknown) (unknown) Emergency Report (un its unknown) (unknown) (unknown) (no date) (unknown) (unknown) Exam (units unknown) (unknown) (unknown) (no date) (unknown) (unknown) Extrem (units unknown) (unknown) (unknown) (no date) (unknown) (unknown) Gastrointestinal (un its unknown) (unknown) (unknown) (no date) (unknown) (unknown) Gastrointestin al: Reports system reviewed and no additional complaints, except (units unknown) (unknown) (unknown) (no date) (unknown) (unknown) General (units unknown) (unknown) (unknown) (no date) (unknown) (unknown) General: coope rative and comfortable (units unknown) (unknown) (unknown) (no date) (unknown) (unknown) General: patie nt alert, patient awake and moves all extremities (units unknown) (unknown) (unknown) (no date) (unknown) (unknown) Genitourinary (units unknown) (unknown) (unknown) (no date) (unknown) (unknown) Genitourinary: Reports system reviewed and no additional complaints, except as (units unknown) (unknown) (unknown) (no date) (unknown) (unknown) HENMT (units unknown) (unknown) (unknown) (no date) (unknown) (unknown) HPI - Nausea/Vomiting/Diar geoffrey (units unknown) (unknown) (unknown) (no date) (unknown) (unknown) HPI Narrative: (unit s unknown) (unknown) (unknown) (no date) (unknown) (unknown) Head: normal t o inspection (units unknown) (unknown) (unknown) (no date) (unknown) (unknown) History of Pre sent Illness (units unknown) (unknown) (unknown) (no date) (unknown) (unknown) Home Medications (un its unknown) (unknown) (unknown) (no date) (unknown) (unknown) Hypertrophy, n zay, turbinate (units unknown) (unknown) (unknown) (no date) (unknown) (unknown) Incompetent na catarina valve (units unknown) (unknown) (unknown) (no date) (unknown) (unknown) Initial Vital Signs (units unknown) (unknown) (unknown) (no date) (unknown) (unknown) Initial Vital Signs: (units unknown) (unknown) (unknown) (no date) (unknown) (unknown) [address] [address] (units unknown) (unknown) (unknown) (no date) (unknown) (unknown) Lab Data (units unknown) (unknown) (unknown) (no date) (unknown) (unknown) Lab Results (units unknown) (unknown) (unknown) (no date) (unknown) (unknown) Labs: (units unknown) (unknown) (unknown) (no date) (unknown) (unknown) Last Admin: 06:26 Dose: 1,000 mls/hr (units unknown) (unknown) (unknown) (no date) (unknown) (unknown) Last Admin: 06:26 Dose: 4 mg (units unknown) (unknown) (unknown) (no date) (unknown) (unknown) Limitations: n o limitations (units unknown) (unknown) (unknown) (no date) (unknown) (unknown) MDM - Nausea/Vomiting/Diar geoffrey (units unknown) (unknown) (unknown) (no date) (unknown) (unknown) MDM Narrative (units unknown) (unknown) (unknown) (no date) (unknown) (unknown) MRSA (methicil mimi resistant Staphylococcus aureus) (2015) (units unknown) (unknown) (unknown) (no date) (unknown) (unknown) Medical Histor y (units unknown) (unknown) (unknown) (no date) (unknown) (unknown) Medical decisi on making narrative: (units unknown) (unknown) (unknown) (no date) (unknown) (unknown) Medication Instructions Recorded Confirmed (units unknown) (unknown) (unknown) (no date) (unknown) (unknown) Medication Instructions Recorded (units unknown) (unknown) (unknown) (no date) (unknown) (unknown) Micro UA Comment * ( units unknown) (unknown) (unknown) (no date) (unknown) (unknown) Migraine headache (u nits unknown) (unknown) (unknown) (no date) (unknown) (unknown) Mode of arriva l: Ambulatory (units unknown) (unknown) (unknown) (no date) (unknown) (unknown) Nasal congestion (un its unknown) (unknown) (unknown) (no date) (unknown) (unknown) Nasal obstruction (u nits unknown) (unknown) (unknown) (no date) (unknown) (unknown) Neuro (units unknown) (unknown) (unknown) (no date) (unknown) (unknown) Neurologic (units unknown) (unknown) (unknown) (no date) (unknown) (unknown) Neurologic: Re ports system reviewed and no additional complaints, except as (units unknown) (unknown) (unknown) (no date) (unknown) (unknown) No Action (units unknown) (unknown) (unknown) (no date) (unknown) (unknown) No gross deformities (units unknown) (unknown) (unknown) (no date) (unknown) (unknown) Nontoxic appearing ( units unknown) (unknown) (unknown) (no date) (unknown) (unknown) Ondansetron HC l (Ondansetron 4 Mg/2 Ml Inj) 4 mg IV NOW ONE (units unknown) (unknown) (unknown) (no date) (unknown) (unknown) Ordered: (units unknown) (unknown) (unknown) (no date) (unknown) (unknown) Orders (units unknown) (unknown) (unknown) (no date) (unknown) (unknown) Other: (units unknown) (unknown) (unknown) (no date) (unknown) (unknown) Oxygen Deliver y Method Room Air 08/28/22 06:11 (units unknown) (unknown) (unknown) (no date) (unknown) (unknown) Oxygen Deliver y Method Room Air (units unknown) (unknown) (unknown) (no date) (unknown) (unknown) Patient History (uni ts unknown) (unknown) (unknown) (no date) (unknown) (unknown) Patient is a 26-year-old female who states that approximately 48 hours ago she (units unknown) (unknown) (unknown) (no date) (unknown) (unknown) Patient: Carie Sullivan MR#: [id number] (units unknown) (unknown) (unknown) (no date) (unknown) (unknown) Point of Care Testing (units unknown) (unknown) (unknown) (no date) (unknown) (unknown) Test Results Negative (units unknown) (unknown) (unknown) (no date) (unknown) (unknown) Prescriptions: (unit s unknown) (unknown) (unknown) (no date) (unknown) (unknown) Previous Rx's (units unknown) (unknown) (unknown) (no date) (unknown) (unknown) Provider,Vaibhav HANKS [Primary Care Provider] (units unknown) (unknown) (unknown) (no date) (unknown) (unknown) Pulse Oximetry 98 08/28/22 06:11 (units unknown) (unknown) (unknown) (no date) (unknown) (unknown) Pulse Oximetry 98 (u nits unknown) (unknown) (unknown) (no date) (unknown) (unknown) Pulse Rate 67 08/28/22 06:11 (units unknown) (unknown) (unknown) (no date) (unknown) (unknown) Pulse Rate 67 (units unknown) (unknown) (unknown) (no date) (unknown) (unknown) Rate: regular rate ( units unknown) (unknown) (unknown) (no date) (unknown) (unknown) Referrals: (units unknown) (unknown) (unknown) (no date) (unknown) (unknown) Related Data (units unknown) (unknown) (unknown) (no date) (unknown) (unknown) Resp (units unknown) (unknown) (unknown) (no date) (unknown) (unknown) Respiratory Ra te 16 08/28/22 06:11 (units unknown) (unknown) (unknown) (no date) (unknown) (unknown) Respiratory Rate 16 (units unknown) (unknown) (unknown) (no date) (unknown) (unknown) Review of Systems (u nits unknown) (unknown) (unknown) (no date) (unknown) (unknown) Rib injury (2019) (u nits unknown) (unknown) (unknown) (no date) (unknown) (unknown) Ruptured ovari an cyst (2017) (units unknown) (unknown) (unknown) (no date) (unknown) (unknown) Rx Instructions: (un its unknown) (unknown) (unknown) (no date) (unknown) (unknown) See Rx Instruc tions .ROUTE .COMPLEX (units unknown) (unknown) (unknown) (no date) (unknown) (unknown) Signed By: (units unknown) (unknown) (unknown) (no date) (unknown) (unknown) Smoking Status : Current every day smoker (units unknown) (unknown) (unknown) (no date) (unknown) (unknown) Social History (units unknown) (unknown) (unknown) (no date) (unknown) (unknown) Sodium Chlorid e (Normal Saline 0.9%) 1,000 mls @ 1,000 mls/hr IV BOLUS ONE (units unknown) (unknown) (unknown) (no date) (unknown) (unknown) Source: patient (uni ts unknown) (unknown) (unknown) (no date) (unknown) (unknown) Stated complai nt: food poisoning and passed out (units unknown) (unknown) (unknown) (no date) (unknown) (unknown) Stop: 08/28/22 06:18 (units unknown) (unknown) (unknown) (no date) (unknown) (unknown) Stop: 08/28/22 07:16 (units unknown) (unknown) (unknown) (no date) (unknown) (unknown) Substance Use Type: marijuana (units unknown) (unknown) (unknown) (no date) (unknown) (unknown) Surgical Histo ry (units unknown) (unknown) (unknown) (no date) (unknown) (unknown) Temperature 97 .6 F 08/28/22 06:11 (units unknown) (unknown) (unknown) (no date) (unknown) (unknown) Temperature 97.6 F ( units unknown) (unknown) (unknown) (no date) (unknown) (unknown) Time Seen by Provider: 08/28/22 06:09 (units unknown) (unknown) (unknown) (no date) (unknown) (unknown) Ur Leukocyte Esterase Negative (NEGATIVE) (units unknown) (unknown) (unknown) (no date) (unknown) (unknown) Ur Specific Gr avity >=1.030 H (1.000-1.035) (units unknown) (unknown) (unknown) (no date) (unknown) (unknown) Urinalysis and Microscopic Stat (units unknown) (unknown) (unknown) (no date) (unknown) (unknown) Urine Appearan ce Clear (units unknown) (unknown) (unknown) (no date) (unknown) (unknown) Urine Bilirubi n Negative (NEGATIVE) (units unknown) (unknown) (unknown) (no date) (unknown) (unknown) Urine Color Yellow ( units unknown) (unknown) (unknown) (no date) (unknown) (unknown) Urine Glucose (UA) Negative (Negative) g/dL (units unknown) (unknown) (unknown) (no date) (unknown) (unknown) Urine Ketones Negative (NEGATIVE) (units unknown) (unknown) (unknown) (no date) (unknown) (unknown) Urine Nitrate Negative (Negative) (units unknown) (unknown) (unknown) (no date) (unknown) (unknown) Urine Occult B lood Negative (Negative) (units unknown) (unknown) (unknown) (no date) (unknown) (unknown) Urine Protein Negative (Negative) (units unknown) (unknown) (unknown) (no date) (unknown) (unknown) Urine Urobilin ogen 0.2 (0.2) E.U./dL (units unknown) (unknown) (unknown) (no date) (unknown) (unknown) Urine pH 6.0 (4.5-8.0) (units unknown) (unknown) (unknown) (no date) (unknown) (unknown) Vital Signs - 8 hr ( units unknown) (unknown) (unknown) (no date) (unknown) (unknown) Vital Signs (units unknown) (unknown) (unknown) (no date) (unknown) (unknown) Vital signs: (units unknown) (unknown) (unknown) (no date) (unknown) (unknown) [place] teeth r emoved (01/16/13) (units unknown) (unknown) (unknown) (no date) (unknown) (unknown) alcohol intake frequency: holidays/special occasions only (units unknown) (unknown) (unknown) (no date) (unknown) (unknown) alcohol intake : current (units unknown) (unknown) (unknown) (no date) (unknown) (unknown) as documented (units unknown) (unknown) (unknown) (no date) (unknown) (unknown) clindamycin-be nzoyl- emol [id number] See Rx Instructions .Route .COMPLEX 01/29/20 (units unknown) (unknown) (unknown) (no date) (unknown) (unknown) clindamycin-be nzoyl- emol cmb94 (units unknown) (unknown) (unknown) (no date) (unknown) (unknown) days. She does have Zofran at home which she took yesterday and states it did (units unknown) (unknown) (unknown) (no date) (unknown) (unknown) developed epis odes vomiting and diarrhea. His continued over the past couple (units unknown) (unknown) (unknown) (no date) (unknown) (unknown) documented (units unknown) (unknown) (unknown) (no date) (unknown) (unknown) help her sympt oms but then last night the nausea came back. She took a dose of (units unknown) (unknown) (unknown) (no date) (unknown) (unknown) household memb ers: spouse (units unknown) (unknown) (unknown) (no date) (unknown) (unknown) latex Allergy Intermediate Anxiety Verified 08/05/22 16:46 (units unknown) (unknown) (unknown) (no date) (unknown) (unknown) nausea. (units unknown) (unknown) (unknown) (no date) (unknown) (unknown) ondansetron 4 mg disintegrating 4 mg PO TID-QID PRN nausea and 08/05/22 (units unknown) (unknown) (unknown) (no date) (unknown) (unknown) ondansetron 4 mg tablet,disintegratin g (units unknown) (unknown) (unknown) (no date) (unknown) (unknown) pantoprazole 4 0 mg tablet,delayed 40 mg PO DAILY #30 tabs 08/05/22 (units unknown) (unknown) (unknown) (no date) (unknown) (unknown) pantoprazole [Protonix] 40 mg tablet,delayed release (DR/EC) (units unknown) (unknown) (unknown) (no date) (unknown) (unknown) passed out. Jaylon heredia has passed out in the past. She currently states she is having (units unknown) (unknown) (unknown) (no date) (unknown) (unknown) place as needed. (un its unknown) (unknown) (unknown) (no date) (unknown) (unknown) promethazine A dvReac Verified 08/05/22 16:46 (units unknown) (unknown) (unknown) (no date) (unknown) (unknown) release (Protonix) ( units unknown) (unknown) (unknown) (no date) (unknown) (unknown) tablet vomitin g #10 tabs (units unknown) (unknown) (unknown) (no date) (unknown) (unknown) the Zofran but then threw up afterwards. She then had an episode where she (units unknown) (unknown) (unknown) (no date) (unknown) (unknown) tobacco type: vaping (units unknown) (unknown) (unknown) (no date) (unknown) (unknown) tretinoin 0.02 5 % topical cream 1 applic topical BEDTIME 01/29/20 01/29/20 (units unknown) (unknown) (unknown) (no date) (unknown) (unknown) tretinoin [Ret in-A] 0.025 % Cream (units unknown) (unknown) Result panel 367 (unknown) (no date) (unknown) (unknown) >=1.030 (units unknown) (unknown) (unknown) (no date) (unknown) (unknown) * (units unknown) (unknown) (unknown) (no date) (unknown) (unknown) * (units unknown) (unknown) (unknown) (no date) (unknown) (unknown) 0-1/HPF (units unknown) (unknown) (unknown) (no date) (unknown) (unknown) 0.2 e.u./dl (unknown ) (unknown) (no date) (unknown) (unknown) 5-10 /HPF (units unknown) (unknown) (unknown) (no date) (unknown) (unknown) 6.0 (units unknown) (unknown) (unknown) (no date) (unknown) (unknown) CLEAR (units unknown) (unknown) (unknown) (no date) (unknown) (unknown) Cult Not Indicated ( units unknown) (unknown) (unknown) (no date) (unknown) (unknown) NEGATIVE (units unknown) (unknown) (unknown) (no date) (unknown) (unknown) NEGATIVE g/dl (unknow n) (unknown) (no date) (unknown) (unknown) None Seen (units unknown) (unknown) (unknown) (no date) (unknown) (unknown) YELLOW (units unknown) (unknown) (unknown) (no date) (unknown) (unknown) YELLOW (units unknown) (unknown) Result panel 368 (unknown) (no date) (unknown) (unknown) (no value) (units unknown) (unknown) (unknown) (no date) (unknown) (unknown) (Retin-A) (units unknown) (unknown) (unknown) (no date) (unknown) (unknown) 08/28/22 06:33 (unit s unknown) (unknown) (unknown) (no date) (unknown) (unknown) 08/28/22 Range/Units (units unknown) (unknown) (unknown) (no date) (unknown) (unknown) 08/28/22 (units unknown) (unknown) (unknown) (no date) (unknown) (unknown) 06:11 (units unknown) (unknown) (unknown) (no date) (unknown) (unknown) 06:33 (units unknown) (unknown) (unknown) (no date) (unknown) (unknown) 01/29/20 (units unknown) (unknown) (unknown) (no date) (unknown) (unknown) 1 applic TOPIC AL BEDTIME (units unknown) (unknown) (unknown) (no date) (unknown) (unknown) 4 mg PO TID-QI D PRN (Reason: nausea and vomiting) Qty: 10 0RF (units unknown) (unknown) (unknown) (no date) (unknown) (unknown) 40 mg PO DAILY Qty: 30 0RF (units unknown) (unknown) (unknown) (no date) (unknown) (unknown) 8551 (units unknown) (unknown) (unknown) (no date) (unknown) (unknown) Age/Sex: 26 / F (uni ts unknown) (unknown) (unknown) (no date) (unknown) (unknown) Allergies (units unknown) (unknown) (unknown) (no date) (unknown) (unknown) Allergy/AdvRea c Type Severity Reaction Status Date / Time (units unknown) (unknown) (unknown) (no date) (unknown) (unknown) Anemia (units unknown) (unknown) (unknown) (no date) (unknown) (unknown) Blood Pressure 116/55 L 08/28/22 06:11 (units unknown) (unknown) (unknown) (no date) (unknown) (unknown) Blood Pressure 116/55 L (units unknown) (unknown) (unknown) (no date) (unknown) (unknown) Cardio (units unknown) (unknown) (unknown) (no date) (unknown) (unknown) Chief complain t: Nausea/Vomiting/Diar geoffrey (units unknown) (unknown) (unknown) (no date) (unknown) (unknown) Chronic anxiety (uni ts unknown) (unknown) (unknown) (no date) (unknown) (unknown) Const (units unknown) (unknown) (unknown) (no date) (unknown) (unknown) Constitutional (unit s unknown) (unknown) (unknown) (no date) (unknown) (unknown) Constitutional : Reports system reviewed and no additional complaints, except as (units unknown) (unknown) (unknown) (no date) (unknown) (unknown) Course (units unknown) (unknown) (unknown) (no date) (unknown) (unknown) : 5 Acct:[id number] (units unknown) (unknown) (unknown) (no date) (unknown) (unknown) Date of Servic e: 08/28/22 (units unknown) (unknown) (unknown) (no date) (unknown) (unknown) Departure (units unknown) (unknown) (unknown) (no date) (unknown) (unknown) Deviated septum (uni ts unknown) (unknown) (unknown) (no date) (unknown) (unknown) Discharge Plan (unit s unknown) (unknown) (unknown) (no date) (unknown) (unknown) Discontinued Medications (units unknown) (unknown) (unknown) (no date) (unknown) (unknown) ED Orders (units unknown) (unknown) (unknown) (no date) (unknown) (unknown) ER Physician: Bib Moreno D.O. (units unknown) (unknown) (unknown) (no date) (unknown) (unknown) Effort + Inspe ction: normal respiratory effort (units unknown) (unknown) (unknown) (no date) (unknown) (unknown) Emergency Report (un its unknown) (unknown) (unknown) (no date) (unknown) (unknown) Exam (units unknown) (unknown) (unknown) (no date) (unknown) (unknown) Extrem (units unknown) (unknown) (unknown) (no date) (unknown) (unknown) Gastrointestinal (un its unknown) (unknown) (unknown) (no date) (unknown) (unknown) Gastrointestin al: Reports system reviewed and no additional complaints, except (units unknown) (unknown) (unknown) (no date) (unknown) (unknown) General (units unknown) (unknown) (unknown) (no date) (unknown) (unknown) General: coope rative and comfortable (units unknown) (unknown) (unknown) (no date) (unknown) (unknown) General: patie nt alert, patient awake and moves all extremities (units unknown) (unknown) (unknown) (no date) (unknown) (unknown) Genitourinary (units unknown) (unknown) (unknown) (no date) (unknown) (unknown) Genitourinary: Reports system reviewed and no additional complaints, except as (units unknown) (unknown) (unknown) (no date) (unknown) (unknown) HENMT (units unknown) (unknown) (unknown) (no date) (unknown) (unknown) HPI - Nausea/Vomiting/Diar geoffrey (units unknown) (unknown) (unknown) (no date) (unknown) (unknown) HPI Narrative: (unit s unknown) (unknown) (unknown) (no date) (unknown) (unknown) Head: normal t o inspection (units unknown) (unknown) (unknown) (no date) (unknown) (unknown) History of Pre sent Illness (units unknown) (unknown) (unknown) (no date) (unknown) (unknown) Home Medications (un its unknown) (unknown) (unknown) (no date) (unknown) (unknown) Hypertrophy, n zay, turbinate (units unknown) (unknown) (unknown) (no date) (unknown) (unknown) Incompetent na catarina valve (units unknown) (unknown) (unknown) (no date) (unknown) (unknown) Initial Vital Signs (units unknown) (unknown) (unknown) (no date) (unknown) (unknown) Initial Vital Signs: (units unknown) (unknown) (unknown) (no date) (unknown) (unknown) [place] [address] (units unknown) (unknown) (unknown) (no date) (unknown) (unknown) Lab Data (units unknown) (unknown) (unknown) (no date) (unknown) (unknown) Lab Results (units unknown) (unknown) (unknown) (no date) (unknown) (unknown) Labs: (units unknown) (unknown) (unknown) (no date) (unknown) (unknown) Last Admin: 06:26 Dose: 1,000 mls/hr (units unknown) (unknown) (unknown) (no date) (unknown) (unknown) Last Admin: 06:26 Dose: 4 mg (units unknown) (unknown) (unknown) (no date) (unknown) (unknown) Limitations: n o limitations (units unknown) (unknown) (unknown) (no date) (unknown) (unknown) MDM - Nausea/Vomiting/Diar geoffrey (units unknown) (unknown) (unknown) (no date) (unknown) (unknown) MDM Narrative (units unknown) (unknown) (unknown) (no date) (unknown) (unknown) MRSA (methicil mimi resistant Staphylococcus aureus) (2014) (units unknown) (unknown) (unknown) (no date) (unknown) (unknown) Medical Histor y (units unknown) (unknown) (unknown) (no date) (unknown) (unknown) Medical decisi on making narrative: (units unknown) (unknown) (unknown) (no date) (unknown) (unknown) Medication Instructions Recorded Confirmed (units unknown) (unknown) (unknown) (no date) (unknown) (unknown) Medication Instructions Recorded (units unknown) (unknown) (unknown) (no date) (unknown) (unknown) Micro UA Comment * ( units unknown) (unknown) (unknown) (no date) (unknown) (unknown) Migraine headache (u nits unknown) (unknown) (unknown) (no date) (unknown) (unknown) Mode of arriva l: Ambulatory (units unknown) (unknown) (unknown) (no date) (unknown) (unknown) Nasal congestion (un its unknown) (unknown) (unknown) (no date) (unknown) (unknown) Nasal obstruction (u nits unknown) (unknown) (unknown) (no date) (unknown) (unknown) Neuro (units unknown) (unknown) (unknown) (no date) (unknown) (unknown) Neurologic (units unknown) (unknown) (unknown) (no date) (unknown) (unknown) Neurologic: Re ports system reviewed and no additional complaints, except as (units unknown) (unknown) (unknown) (no date) (unknown) (unknown) No Action (units unknown) (unknown) (unknown) (no date) (unknown) (unknown) No gross deformities (units unknown) (unknown) (unknown) (no date) (unknown) (unknown) Nontoxic appea ring. test is negative. She is a benign exam. Was (units unknown) (unknown) (unknown) (no date) (unknown) (unknown) Ondansetron HC l (Ondansetron 4 Mg/2 Ml Inj) 4 mg IV NOW ONE (units unknown) (unknown) (unknown) (no date) (unknown) (unknown) Ordered: (units unknown) (unknown) (unknown) (no date) (unknown) (unknown) Orders (units unknown) (unknown) (unknown) (no date) (unknown) (unknown) Other: (units unknown) (unknown) (unknown) (no date) (unknown) (unknown) Oxygen Deliver y Method Room Air 08/28/22 06:11 (units unknown) (unknown) (unknown) (no date) (unknown) (unknown) Oxygen Deliver y Method Room Air (units unknown) (unknown) (unknown) (no date) (unknown) (unknown) Patient History (uni ts unknown) (unknown) (unknown) (no date) (unknown) (unknown) Patient is a 26-year-old female who states that approximately 48 hours ago she (units unknown) (unknown) (unknown) (no date) (unknown) (unknown) Patient: Carie Sullivan MR#: [id number] (units unknown) (unknown) (unknown) (no date) (unknown) (unknown) Point of Care Testing (units unknown) (unknown) (unknown) (no date) (unknown) (unknown) Test Results Negative (units unknown) (unknown) (unknown) (no date) (unknown) (unknown) Prescriptions: (unit s unknown) (unknown) (unknown) (no date) (unknown) (unknown) Previous Rx's (units unknown) (unknown) (unknown) (no date) (unknown) (unknown) Provider,Vaibhav HANKS [Primary Care Provider] (units unknown) (unknown) (unknown) (no date) (unknown) (unknown) Pulse Oximetry 98 08/28/22 06:11 (units unknown) (unknown) (unknown) (no date) (unknown) (unknown) Pulse Oximetry 98 (u nits unknown) (unknown) (unknown) (no date) (unknown) (unknown) Pulse Rate 67 08/28/22 06:11 (units unknown) (unknown) (unknown) (no date) (unknown) (unknown) Pulse Rate 67 (units unknown) (unknown) (unknown) (no date) (unknown) (unknown) Rate: regular rate ( units unknown) (unknown) (unknown) (no date) (unknown) (unknown) Referrals: (units unknown) (unknown) (unknown) (no date) (unknown) (unknown) Related Data (units unknown) (unknown) (unknown) (no date) (unknown) (unknown) Resp (units unknown) (unknown) (unknown) (no date) (unknown) (unknown) Respiratory Ra te 16 08/28/22 06:11 (units unknown) (unknown) (unknown) (no date) (unknown) (unknown) Respiratory Rate 16 (units unknown) (unknown) (unknown) (no date) (unknown) (unknown) Review of Systems (u nits unknown) (unknown) (unknown) (no date) (unknown) (unknown) Rib injury (2019) (u nits unknown) (unknown) (unknown) (no date) (unknown) (unknown) Ruptured ovari an cyst (2018) (units unknown) (unknown) (unknown) (no date) (unknown) (unknown) Rx Instructions: (un its unknown) (unknown) (unknown) (no date) (unknown) (unknown) See Rx Instruc tions .ROUTE .COMPLEX (units unknown) (unknown) (unknown) (no date) (unknown) (unknown) Signed By: (units unknown) (unknown) (unknown) (no date) (unknown) (unknown) Smoking Status : Current every day smoker (units unknown) (unknown) (unknown) (no date) (unknown) (unknown) Social History (units unknown) (unknown) (unknown) (no date) (unknown) (unknown) Sodium Chlorid e (Normal Saline 0.9%) 1,000 mls @ 1,000 mls/hr IV BOLUS ONE (units unknown) (unknown) (unknown) (no date) (unknown) (unknown) Source: patient (uni ts unknown) (unknown) (unknown) (no date) (unknown) (unknown) Stated complai nt: food poisoning and passed out (units unknown) (unknown) (unknown) (no date) (unknown) (unknown) Stop: 08/28/22 06:18 (units unknown) (unknown) (unknown) (no date) (unknown) (unknown) Stop: 08/28/22 07:16 (units unknown) (unknown) (unknown) (no date) (unknown) (unknown) Substance Use Type: marijuana (units unknown) (unknown) (unknown) (no date) (unknown) (unknown) Surgical Histo ry (units unknown) (unknown) (unknown) (no date) (unknown) (unknown) Temperature 97 .6 F 08/28/22 06:11 (units unknown) (unknown) (unknown) (no date) (unknown) (unknown) Temperature 97.6 F ( units unknown) (unknown) (unknown) (no date) (unknown) (unknown) Time Seen by Provider: 08/28/22 06:09 (units unknown) (unknown) (unknown) (no date) (unknown) (unknown) Ur Leukocyte Esterase Negative (NEGATIVE) (units unknown) (unknown) (unknown) (no date) (unknown) (unknown) Ur Specific Gr avity >=1.030 H (1.000-1.035) (units unknown) (unknown) (unknown) (no date) (unknown) (unknown) Urinalysis and Microscopic Stat (units unknown) (unknown) (unknown) (no date) (unknown) (unknown) Urine Appearan ce Clear (units unknown) (unknown) (unknown) (no date) (unknown) (unknown) Urine Bilirubi n Negative (NEGATIVE) (units unknown) (unknown) (unknown) (no date) (unknown) (unknown) Urine Color Yellow ( units unknown) (unknown) (unknown) (no date) (unknown) (unknown) Urine Glucose (UA) Negative (Negative) g/dL (units unknown) (unknown) (unknown) (no date) (unknown) (unknown) Urine Ketones Negative (NEGATIVE) (units unknown) (unknown) (unknown) (no date) (unknown) (unknown) Urine Nitrate Negative (Negative) (units unknown) (unknown) (unknown) (no date) (unknown) (unknown) Urine Occult B lood Negative (Negative) (units unknown) (unknown) (unknown) (no date) (unknown) (unknown) Urine Protein Negative (Negative) (units unknown) (unknown) (unknown) (no date) (unknown) (unknown) Urine Urobilin ogen 0.2 (0.2) E.U./dL (units unknown) (unknown) (unknown) (no date) (unknown) (unknown) Urine pH 6.0 (4.5-8.0) (units unknown) (unknown) (unknown) (no date) (unknown) (unknown) Vital Signs - 8 hr ( units unknown) (unknown) (unknown) (no date) (unknown) (unknown) Vital Signs (units unknown) (unknown) (unknown) (no date) (unknown) (unknown) Vital signs: (units unknown) (unknown) (unknown) (no date) (unknown) (unknown) [place] teeth r emoved (01/16/13) (units unknown) (unknown) (unknown) (no date) (unknown) (unknown) alcohol intake frequency: holidays/special occasions only (units unknown) (unknown) (unknown) (no date) (unknown) (unknown) alcohol intake : current (units unknown) (unknown) (unknown) (no date) (unknown) (unknown) as documented (units unknown) (unknown) (unknown) (no date) (unknown) (unknown) clindamycin-be nzoyl- emol [id number] See Rx Instructions .Route .COMPLEX 01/29/20 (units unknown) (unknown) (unknown) (no date) (unknown) (unknown) clindamycin-be nzoyl- emol cmb94 (units unknown) (unknown) (unknown) (no date) (unknown) (unknown) days. She does have Zofran at home which she took yesterday and states it did (units unknown) (unknown) (unknown) (no date) (unknown) (unknown) developed epis odes vomiting and diarrhea. His continued over the past couple (units unknown) (unknown) (unknown) (no date) (unknown) (unknown) documented (units unknown) (unknown) (unknown) (no date) (unknown) (unknown) help her sympt oms but then last night the nausea came back. She took a dose of (units unknown) (unknown) (unknown) (no date) (unknown) (unknown) household memb ers: spouse (units unknown) (unknown) (unknown) (no date) (unknown) (unknown) latex Allergy Intermediate Anxiety Verified 08/05/22 16:46 (units unknown) (unknown) (unknown) (no date) (unknown) (unknown) nausea. (units unknown) (unknown) (unknown) (no date) (unknown) (unknown) ondansetron 4 mg disintegrating 4 mg PO TID-QID PRN nausea and 08/05/22 (units unknown) (unknown) (unknown) (no date) (unknown) (unknown) ondansetron 4 mg tablet,disintegratin g (units unknown) (unknown) (unknown) (no date) (unknown) (unknown) pantoprazole 4 0 mg tablet,delayed 40 mg PO DAILY #30 tabs 08/05/22 (units unknown) (unknown) (unknown) (no date) (unknown) (unknown) pantoprazole [Protonix] 40 mg tablet,delayed release (DR/EC) (units unknown) (unknown) (unknown) (no date) (unknown) (unknown) passed out. Jaylon heredia has passed out in the past. She currently states she is having (units unknown) (unknown) (unknown) (no date) (unknown) (unknown) place as needed. (un its unknown) (unknown) (unknown) (no date) (unknown) (unknown) promethazine A dvReac Verified 08/05/22 16:46 (units unknown) (unknown) (unknown) (no date) (unknown) (unknown) receiving flui ds and Zofran. Will attempt a p.o. challenge. Care turned over (units unknown) (unknown) (unknown) (no date) (unknown) (unknown) release (Protonix) ( units unknown) (unknown) (unknown) (no date) (unknown) (unknown) tablet vomitin g #10 tabs (units unknown) (unknown) (unknown) (no date) (unknown) (unknown) the Zofran but then threw up afterwards. She then had an episode where she (units unknown) (unknown) (unknown) (no date) (unknown) (unknown) to Dr. Garcia to follow-up and disposition. (units unknown) (unknown) (unknown) (no date) (unknown) (unknown) tobacco type: vaping (units unknown) (unknown) (unknown) (no date) (unknown) (unknown) tretinoin 0.02 5 % topical cream 1 applic topical BEDTIME 01/29/20 01/29/20 (units unknown) (unknown) (unknown) (no date) (unknown) (unknown) tretinoin [Ret in-A] 0.025 % Cream (units unknown) (unknown) Result panel 369 (unknown) (no date) (unknown) (unknown) (no value) (units unknown) (unknown) (unknown) (no date) (unknown) (unknown) <Alfreda Jim frederick, DO - Last Filed: 08/28/22 08:05> (units unknown) (unknown) (unknown) (no date) (unknown) (unknown) <Bib Sahil puryd, DO - Last Filed: 08/28/22 06:51> (units unknown) (unknown) (unknown) (no date) (unknown) (unknown) (Retin-A) (units unknown) (unknown) (unknown) (no date) (unknown) (unknown) 08/28/22 06:33 (unit s unknown) (unknown) (unknown) (no date) (unknown) (unknown) 08/28/22 07:53 (unit s unknown) (unknown) (unknown) (no date) (unknown) (unknown) 08/28/22 08:02 (unit s unknown) (unknown) (unknown) (no date) (unknown) (unknown) 08/28/22 Range/Units (units unknown) (unknown) (unknown) (no date) (unknown) (unknown) 08/28/22 (units unknown) (unknown) (unknown) (no date) (unknown) (unknown) 06:11 (units unknown) (unknown) (unknown) (no date) (unknown) (unknown) 06:33 (units unknown) (unknown) (unknown) (no date) (unknown) (unknown) 01/29/20 (units unknown) (unknown) (unknown) (no date) (unknown) (unknown) 1 applic TOPIC AL BEDTIME (units unknown) (unknown) (unknown) (no date) (unknown) (unknown) 4 mg PO TID-QI D PRN (Reason: nausea and vomiting) Qty: 10 0RF (units unknown) (unknown) (unknown) (no date) (unknown) (unknown) 40 mg PO DAILY Qty: 30 0RF (units unknown) (unknown) (unknown) (no date) (unknown) (unknown) [id number] (units unknown) (unknown) (unknown) (no date) (unknown) (unknown) Admin: 3 06:26 Dose: 1,000 mls/hr (units unknown) (unknown) (unknown) (no date) (unknown) (unknown) Age/Sex: 26 / F (uni ts unknown) (unknown) (unknown) (no date) (unknown) (unknown) Allergies (units unknown) (unknown) (unknown) (no date) (unknown) (unknown) Allergy/AdvRea c Type Severity Reaction Status Date / Time (units unknown) (unknown) (unknown) (no date) (unknown) (unknown) Anemia (units unknown) (unknown) (unknown) (no date) (unknown) (unknown) Blood Pressure 116/55 L 08/28/22 06:11 (units unknown) (unknown) (unknown) (no date) (unknown) (unknown) Blood Pressure 116/55 L (units unknown) (unknown) (unknown) (no date) (unknown) (unknown) CBC Auto Diff [Complete Blood Count AUTO DIFF] Stat (units unknown) (unknown) (unknown) (no date) (unknown) (unknown) CMP [Comprehen sive Metabolic Panel] Stat (units unknown) (unknown) (unknown) (no date) (unknown) (unknown) Cardio (units unknown) (unknown) (unknown) (no date) (unknown) (unknown) Chief complain t: Nausea/Vomiting/Diar geoffrey (units unknown) (unknown) (unknown) (no date) (unknown) (unknown) Chronic anxiety (uni ts unknown) (unknown) (unknown) (no date) (unknown) (unknown) Const (units unknown) (unknown) (unknown) (no date) (unknown) (unknown) Constitutional (unit s unknown) (unknown) (unknown) (no date) (unknown) (unknown) Constitutional : Reports system reviewed and no additional complaints, except as (units unknown) (unknown) (unknown) (no date) (unknown) (unknown) Course (units unknown) (unknown) (unknown) (no date) (unknown) (unknown) : 5 Acct:[id number] (units unknown) (unknown) (unknown) (no date) (unknown) (unknown) Date of Servic e: 08/28/22 (units unknown) (unknown) (unknown) (no date) (unknown) (unknown) Departure (units unknown) (unknown) (unknown) (no date) (unknown) (unknown) Deviated septum (uni ts unknown) (unknown) (unknown) (no date) (unknown) (unknown) Discharge Plan (unit s unknown) (unknown) (unknown) (no date) (unknown) (unknown) Discontinued Medications (units unknown) (unknown) (unknown) (no date) (unknown) (unknown) Documented By: CTS ( units unknown) (unknown) (unknown) (no date) (unknown) (unknown) Documented By: VAN (u nits unknown) (unknown) (unknown) (no date) (unknown) (unknown) ED Orders (units unknown) (unknown) (unknown) (no date) (unknown) (unknown) ER Physician: Alfreda Garcia D.O. (units unknown) (unknown) (unknown) (no date) (unknown) (unknown) Effort + Inspe ction: normal respiratory effort (units unknown) (unknown) (unknown) (no date) (unknown) (unknown) Emergency Report (un its unknown) (unknown) (unknown) (no date) (unknown) (unknown) Exam (units unknown) (unknown) (unknown) (no date) (unknown) (unknown) Extrem (units unknown) (unknown) (unknown) (no date) (unknown) (unknown) Gastrointestinal (un its unknown) (unknown) (unknown) (no date) (unknown) (unknown) Gastrointestin al: Reports system reviewed and no additional complaints, except (units unknown) (unknown) (unknown) (no date) (unknown) (unknown) General (units unknown) (unknown) (unknown) (no date) (unknown) (unknown) General: coope rative and comfortable (units unknown) (unknown) (unknown) (no date) (unknown) (unknown) General: patie nt alert, patient awake and moves all extremities (units unknown) (unknown) (unknown) (no date) (unknown) (unknown) Genitourinary (units unknown) (unknown) (unknown) (no date) (unknown) (unknown) Genitourinary: Reports system reviewed and no additional complaints, except as (units unknown) (unknown) (unknown) (no date) (unknown) (unknown) HENMT (units unknown) (unknown) (unknown) (no date) (unknown) (unknown) HPI - Nausea/Vomiting/Diar goeffrey (units unknown) (unknown) (unknown) (no date) (unknown) (unknown) HPI Narrative: (unit s unknown) (unknown) (unknown) (no date) (unknown) (unknown) Head: normal t o inspection (units unknown) (unknown) (unknown) (no date) (unknown) (unknown) History of Pre sent Illness (units unknown) (unknown) (unknown) (no date) (unknown) (unknown) Home Medications (un its unknown) (unknown) (unknown) (no date) (unknown) (unknown) Hypertrophy, n zay, turbinate (units unknown) (unknown) (unknown) (no date) (unknown) (unknown) Incompetent na catarina valve (units unknown) (unknown) (unknown) (no date) (unknown) (unknown) Initial Vital Signs (units unknown) (unknown) (unknown) (no date) (unknown) (unknown) Initial Vital Signs: (units unknown) (unknown) (unknown) (no date) (unknown) (unknown) [address] [address] (units unknown) (unknown) (unknown) (no date) (unknown) (unknown) Lab Data (units unknown) (unknown) (unknown) (no date) (unknown) (unknown) Lab Results (units unknown) (unknown) (unknown) (no date) (unknown) (unknown) Labs: (units unknown) (unknown) (unknown) (no date) (unknown) (unknown) Lactate (Lacti c Acid) Stat (units unknown) (unknown) (unknown) (no date) (unknown) (unknown) Last Admin: 06:26 Dose: 4 mg (units unknown) (unknown) (unknown) (no date) (unknown) (unknown) Last Infusion: 08/28/22 07:28 Dose: 0 mls/hr (units unknown) (unknown) (unknown) (no date) (unknown) (unknown) Limitations: n o limitations (units unknown) (unknown) (unknown) (no date) (unknown) (unknown) Lipase Stat (units unknown) (unknown) (unknown) (no date) (unknown) (unknown) MDM - Nausea/Vomiting/Diar geoffrey (units unknown) (unknown) (unknown) (no date) (unknown) (unknown) MDM Narrative (units unknown) (unknown) (unknown) (no date) (unknown) (unknown) MRSA (methicil mimi resistant Staphylococcus aureus) (2015) (units unknown) (unknown) (unknown) (no date) (unknown) (unknown) Medical Histor y (units unknown) (unknown) (unknown) (no date) (unknown) (unknown) Medical decisi on making narrative: (units unknown) (unknown) (unknown) (no date) (unknown) (unknown) Medication Instructions Recorded Confirmed (units unknown) (unknown) (unknown) (no date) (unknown) (unknown) Medication Instructions Recorded (units unknown) (unknown) (unknown) (no date) (unknown) (unknown) Micro UA Comment * ( units unknown) (unknown) (unknown) (no date) (unknown) (unknown) Migraine headache (u nits unknown) (unknown) (unknown) (no date) (unknown) (unknown) Mode of arriva l: Ambulatory (units unknown) (unknown) (unknown) (no date) (unknown) (unknown) Nasal congestion (un its unknown) (unknown) (unknown) (no date) (unknown) (unknown) Nasal obstruction (u nits unknown) (unknown) (unknown) (no date) (unknown) (unknown) Neuro (units unknown) (unknown) (unknown) (no date) (unknown) (unknown) Neurologic (units unknown) (unknown) (unknown) (no date) (unknown) (unknown) Neurologic: Re ports system reviewed and no additional complaints, except as (units unknown) (unknown) (unknown) (no date) (unknown) (unknown) No Action (units unknown) (unknown) (unknown) (no date) (unknown) (unknown) No gross deformities (units unknown) (unknown) (unknown) (no date) (unknown) (unknown) Nontoxic appea ring. test is negative. She is a benign exam. Was (units unknown) (unknown) (unknown) (no date) (unknown) (unknown) Ondansetron HC l (Ondansetron 4 Mg/2 Ml Inj) 4 mg IV NOW ONE (units unknown) (unknown) (unknown) (no date) (unknown) (unknown) Ordered: (units unknown) (unknown) (unknown) (no date) (unknown) (unknown) Orders (units unknown) (unknown) (unknown) (no date) (unknown) (unknown) Other: (units unknown) (unknown) (unknown) (no date) (unknown) (unknown) Oxygen Deliver y Method Room Air 08/28/22 06:11 (units unknown) (unknown) (unknown) (no date) (unknown) (unknown) Oxygen Deliver y Method Room Air (units unknown) (unknown) (unknown) (no date) (unknown) (unknown) Pantoprazole S odium (Pantoprazole 40 Mg Vial) 40 mg IV NOW ONE (units unknown) (unknown) (unknown) (no date) (unknown) (unknown) Patient History (uni ts unknown) (unknown) (unknown) (no date) (unknown) (unknown) Patient is a 26-year-old female who states that approximately 48 hours ago she (units unknown) (unknown) (unknown) (no date) (unknown) (unknown) Patient signed out to me by Dr. Moreno if seen evaluated patient myself. Failed (units unknown) (unknown) (unknown) (no date) (unknown) (unknown) Patient: Carie Sullivan MR#: [id number] (units unknown) (unknown) (unknown) (no date) (unknown) (unknown) Point of Care Testing (units unknown) (unknown) (unknown) (no date) (unknown) (unknown) Test Results Negative (units unknown) (unknown) (unknown) (no date) (unknown) (unknown) Prescriptions: (unit s unknown) (unknown) (unknown) (no date) (unknown) (unknown) Previous Rx's (units unknown) (unknown) (unknown) (no date) (unknown) (unknown) Provider,Vaibhav HANKS [Primary Care Provider] (units unknown) (unknown) (unknown) (no date) (unknown) (unknown) Pulse Oximetry 98 08/28/22 06:11 (units unknown) (unknown) (unknown) (no date) (unknown) (unknown) Pulse Oximetry 98 (u nits unknown) (unknown) (unknown) (no date) (unknown) (unknown) Pulse Rate 67 08/28/22 06:11 (units unknown) (unknown) (unknown) (no date) (unknown) (unknown) Pulse Rate 67 (units unknown) (unknown) (unknown) (no date) (unknown) (unknown) Rate: regular rate ( units unknown) (unknown) (unknown) (no date) (unknown) (unknown) Referrals: (units unknown) (unknown) (unknown) (no date) (unknown) (unknown) Related Data (units unknown) (unknown) (unknown) (no date) (unknown) (unknown) Resp (units unknown) (unknown) (unknown) (no date) (unknown) (unknown) Respiratory Ra te 16 08/28/22 06:11 (units unknown) (unknown) (unknown) (no date) (unknown) (unknown) Respiratory Rate 16 (units unknown) (unknown) (unknown) (no date) (unknown) (unknown) Review of Systems (u nits unknown) (unknown) (unknown) (no date) (unknown) (unknown) Rib injury (2019) (u nits unknown) (unknown) (unknown) (no date) (unknown) (unknown) Ruptured ovari an cyst (2018) (units unknown) (unknown) (unknown) (no date) (unknown) (unknown) Rx Instructions: (un its unknown) (unknown) (unknown) (no date) (unknown) (unknown) See Rx Instruc tions .ROUTE .COMPLEX (units unknown) (unknown) (unknown) (no date) (unknown) (unknown) Signed By: (units unknown) (unknown) (unknown) (no date) (unknown) (unknown) Smoking Status : Current every day smoker (units unknown) (unknown) (unknown) (no date) (unknown) (unknown) Social History (units unknown) (unknown) (unknown) (no date) (unknown) (unknown) Sodium Chlorid e (Normal Saline 0.9%) 1,000 mls @ 1,000 mls/hr IV BOLUS ONE (units unknown) (unknown) (unknown) (no date) (unknown) (unknown) Source: patient (uni ts unknown) (unknown) (unknown) (no date) (unknown) (unknown) Stated complai nt: food poisoning and passed out (units unknown) (unknown) (unknown) (no date) (unknown) (unknown) Stop: 08/28/22 06:18 (units unknown) (unknown) (unknown) (no date) (unknown) (unknown) Stop: 08/28/22 07:16 (units unknown) (unknown) (unknown) (no date) (unknown) (unknown) Stop: 08/28/22 08:03 (units unknown) (unknown) (unknown) (no date) (unknown) (unknown) Substance Use Type: marijuana (units unknown) (unknown) (unknown) (no date) (unknown) (unknown) Surgical Histo ry (units unknown) (unknown) (unknown) (no date) (unknown) (unknown) Temperature 97 .6 F 08/28/22 06:11 (units unknown) (unknown) (unknown) (no date) (unknown) (unknown) Temperature 97.6 F ( units unknown) (unknown) (unknown) (no date) (unknown) (unknown) Time Seen by Provider: 08/28/22 06:09 (units unknown) (unknown) (unknown) (no date) (unknown) (unknown) Ur Culture Indicated? Cult not indicated (units unknown) (unknown) (unknown) (no date) (unknown) (unknown) Ur Leukocyte Esterase Negative (NEGATIVE) (units unknown) (unknown) (unknown) (no date) (unknown) (unknown) Ur Specific Gr avity >=1.030 H (1.000-1.035) (units unknown) (unknown) (unknown) (no date) (unknown) (unknown) Ur Squamous Ep ith Cells 5-10 /hpf H (0-5/HPF) (units unknown) (unknown) (unknown) (no date) (unknown) (unknown) Urinalysis and Microscopic Stat (units unknown) (unknown) (unknown) (no date) (unknown) (unknown) Urine Appearan ce Clear (units unknown) (unknown) (unknown) (no date) (unknown) (unknown) Urine Bacteria None seen (None) (units unknown) (unknown) (unknown) (no date) (unknown) (unknown) Urine Bilirubi n Negative (NEGATIVE) (units unknown) (unknown) (unknown) (no date) (unknown) (unknown) Urine Color Yellow ( units unknown) (unknown) (unknown) (no date) (unknown) (unknown) Urine Glucose (UA) Negative (Negative) g/dL (units unknown) (unknown) (unknown) (no date) (unknown) (unknown) Urine Ketones Negative (NEGATIVE) (units unknown) (unknown) (unknown) (no date) (unknown) (unknown) Urine Nitrate Negative (Negative) (units unknown) (unknown) (unknown) (no date) (unknown) (unknown) Urine Occult B lood Negative (Negative) (units unknown) (unknown) (unknown) (no date) (unknown) (unknown) Urine Protein Negative (Negative) (units unknown) (unknown) (unknown) (no date) (unknown) (unknown) Urine RBC 0-1/ hpf (0-5/HPF) (units unknown) (unknown) (unknown) (no date) (unknown) (unknown) Urine Urobilin ogen 0.2 (0.2) E.U./dL (units unknown) (unknown) (unknown) (no date) (unknown) (unknown) Urine WBC 0-1/ hpf (0-5/HPF) (units unknown) (unknown) (unknown) (no date) (unknown) (unknown) Urine pH 6.0 (4.5-8.0) (units unknown) (unknown) (unknown) (no date) (unknown) (unknown) Vital Signs - 8 hr ( units unknown) (unknown) (unknown) (no date) (unknown) (unknown) Vital Signs (units unknown) (unknown) (unknown) (no date) (unknown) (unknown) Vital signs: (units unknown) (unknown) (unknown) (no date) (unknown) (unknown) [place] teeth r emoved (01/16/13) (units unknown) (unknown) (unknown) (no date) (unknown) (unknown) alcohol intake frequency: holidays/special occasions only (units unknown) (unknown) (unknown) (no date) (unknown) (unknown) alcohol intake : current (units unknown) (unknown) (unknown) (no date) (unknown) (unknown) anything down. Continues to vomit in the ED blood work is added. Given a 2 L (units unknown) (unknown) (unknown) (no date) (unknown) (unknown) as documented (units unknown) (unknown) (unknown) (no date) (unknown) (unknown) clindamycin-be nzoyl- emol [id number] See Rx Instructions .Route .COMPLEX 01/29/20 (units unknown) (unknown) (unknown) (no date) (unknown) (unknown) clindamycin-be nzoyl- emol [id number] (units unknown) (unknown) (unknown) (no date) (unknown) (unknown) days. She does have Zofran at home which she took yesterday and states it did (units unknown) (unknown) (unknown) (no date) (unknown) (unknown) developed epis odes vomiting and diarrhea. His continued over the past couple (units unknown) (unknown) (unknown) (no date) (unknown) (unknown) documented (units unknown) (unknown) (unknown) (no date) (unknown) (unknown) help her sympt oms but then last night the nausea came back. She took a dose of (units unknown) (unknown) (unknown) (no date) (unknown) (unknown) household memb ers: spouse (units unknown) (unknown) (unknown) (no date) (unknown) (unknown) latex Allergy Intermediate Anxiety Verified 08/05/22 16:46 (units unknown) (unknown) (unknown) (no date) (unknown) (unknown) nausea. (units unknown) (unknown) (unknown) (no date) (unknown) (unknown) of fluids Zofr an and Protonix. (units unknown) (unknown) (unknown) (no date) (unknown) (unknown) ondansetron 4 mg disintegrating 4 mg PO TID-QID PRN nausea and 08/05/22 (units unknown) (unknown) (unknown) (no date) (unknown) (unknown) ondansetron 4 mg tablet,disintegratin g (units unknown) (unknown) (unknown) (no date) (unknown) (unknown) oral challenge . Has had nausea vomiting diarrhea for last 2-3 days. Not (units unknown) (unknown) (unknown) (no date) (unknown) (unknown) pantoprazole 4 0 mg tablet,delayed 40 mg PO DAILY #30 tabs 08/05/22 (units unknown) (unknown) (unknown) (no date) (unknown) (unknown) pantoprazole [Protonix] 40 mg tablet,delayed release (DR/EC) (units unknown) (unknown) (unknown) (no date) (unknown) (unknown) passed out. Sh e has passed out in the past. She currently states she is having (units unknown) (unknown) (unknown) (no date) (unknown) (unknown) place as needed. (un its unknown) (unknown) (unknown) (no date) (unknown) (unknown) promethazine A dvReac Verified 08/05/22 16:46 (units unknown) (unknown) (unknown) (no date) (unknown) (unknown) receiving flui ds and Zofran. Will attempt a p.o. challenge. Care turned over (units unknown) (unknown) (unknown) (no date) (unknown) (unknown) release (Protonix) ( units unknown) (unknown) (unknown) (no date) (unknown) (unknown) tablet vomitin g #10 tabs (units unknown) (unknown) (unknown) (no date) (unknown) (unknown) the Zofran but then threw up afterwards. She then had an episode where she (units unknown) (unknown) (unknown) (no date) (unknown) (unknown) to Dr. Garcia to follow-up and disposition. (units unknown) (unknown) (unknown) (no date) (unknown) (unknown) tobacco type: vaping (units unknown) (unknown) (unknown) (no date) (unknown) (unknown) tretinoin 0.02 5 % topical cream 1 applic topical BEDTIME 01/29/20 01/29/20 (units unknown) (unknown) (unknown) (no date) (unknown) (unknown) tretinoin [Ret in-A] 0.025 % Cream (units unknown) (unknown) Result panel 370 (unknown) (no date) (unknown) (unknown) 0 /ul (unknown ) (unknown) (no date) (unknown) (unknown) 0 /ul (unknown ) (unknown) (no date) (unknown) (unknown) 0.6 % (unknown ) (unknown) (no date) (unknown) (unknown) 0.6 % (unknown ) (unknown) (no date) (unknown) (unknown) 11.7 g/dl (unknown ) (unknown) (no date) (unknown) (unknown) 13.1 % (unknown ) (unknown) (no date) (unknown) (unknown) 163 x10 3/ul (unknow n) (unknown) (no date) (unknown) (unknown) 1800 /ul (unknown ) (unknown) (no date) (unknown) (unknown) 22.7 % (unknown ) (unknown) (no date) (unknown) (unknown) 3.60 x10 6/ul (unknow n) (unknown) (no date) (unknown) (unknown) 32.5 % (unknown ) (unknown) (no date) (unknown) (unknown) 32.7 pg (unknown ) (unknown) (no date) (unknown) (unknown) 36.1 % (unknown ) (unknown) (no date) (unknown) (unknown) 400 /ul (unknown ) (unknown) (no date) (unknown) (unknown) 5.6 % (unknown ) (unknown) (no date) (unknown) (unknown) 5500 /ul (unknown ) (unknown) (no date) (unknown) (unknown) 7.8 x10 3/ul (unknow n) (unknown) (no date) (unknown) (unknown) 70.5 % (unknown ) (unknown) (no date) (unknown) (unknown) 90.4 fl (unknown ) Result panel 371 (unknown) (no date) (unknown) (unknown) > 60 ml/min (unknown ) (unknown) (no date) (unknown) (unknown) > 60 ml/min (unknown ) (unknown) (no date) (unknown) (unknown) 0.4 mg/dl (unknown ) (unknown) (no date) (unknown) (unknown) 0.60 mg/dl (unknown ) (unknown) (no date) (unknown) (unknown) 1.5 (units unknown) (unknown) (unknown) (no date) (unknown) (unknown) 10 mg/dl (unknown ) (unknown) (no date) (unknown) (unknown) 112 mmol/l (unknown ) (unknown) (no date) (unknown) (unknown) 140 mmol/l (unknown ) (unknown) (no date) (unknown) (unknown) 16.7 (units unknown) (unknown) (unknown) (no date) (unknown) (unknown) 2.3 g/dl (unknown ) (unknown) (no date) (unknown) (unknown) 24 mmol/l (unknown ) (unknown) (no date) (unknown) (unknown) 29 iu/l (unknown ) (unknown) (no date) (unknown) (unknown) 3.4 mmol/l (unknown ) (unknown) (no date) (unknown) (unknown) 3.5 g/dl (unknown ) (unknown) (no date) (unknown) (unknown) 30 iu/l (unknown ) (unknown) (no date) (unknown) (unknown) 46 u/l (unknown ) (unknown) (no date) (unknown) (unknown) 5.8 g/dl (unknown ) (unknown) (no date) (unknown) (unknown) 8.1 mg/dl (unknown ) (unknown) (no date) (unknown) (unknown) 97 mg/dl (unknown ) (unknown) (no date) (unknown) (unknown) 97 mg/dl (unknown ) Result panel 372 (unknown) (no date) (unknown) (unknown) 51 u/l (unknown ) Result panel 373 (unknown) (no date) (unknown) (unknown) (no value) (units unknown) (unknown) (unknown) (no date) (unknown) (unknown) <Electronicall y signed by Bib Moreno D.O.> (units unknown) (unknown) (unknown) (no date) (unknown) (unknown) <Alfreda mack, DO - Last Filed: 08/28/22 08:05> (units unknown) (unknown) (unknown) (no date) (unknown) (unknown) <Bib purdy, DO - Last Filed: 08/28/22 18:11> (units unknown) (unknown) (unknown) (no date) (unknown) (unknown) (Retin-A) (units unknown) (unknown) (unknown) (no date) (unknown) (unknown) 08/28/2208/2808/28/22 Range/Units (units unknown) (unknown) (unknown) (no date) (unknown) (unknown) 08/28/22 08:30 (unit s unknown) (unknown) (unknown) (no date) (unknown) (unknown) 08/28/22 1811 (units unknown) (unknown) (unknown) (no date) (unknown) (unknown) 08/28/22 Range/Units (units unknown) (unknown) (unknown) (no date) (unknown) (unknown) 08/28/22 (units unknown) (unknown) (unknown) (no date) (unknown) (unknown) 06:11 (units unknown) (unknown) (unknown) (no date) (unknown) (unknown) 06:33 08:30 08:30 (u nits unknown) (unknown) (unknown) (no date) (unknown) (unknown) 08:30 (units unknown) (unknown) (unknown) (no date) (unknown) (unknown) 01/29/20 (units unknown) (unknown) (unknown) (no date) (unknown) (unknown) 1 applic TOPIC AL BEDTIME (units unknown) (unknown) (unknown) (no date) (unknown) (unknown) 1) You have be en diagnosed with gastroenteritis (units unknown) (unknown) (unknown) (no date) (unknown) (unknown) 2) What to do: Drink frequent but small amounts of fluids. (units unknown) (unknown) (unknown) (no date) (unknown) (unknown) 3) Take medica tions as directed (units unknown) (unknown) (unknown) (no date) (unknown) (unknown) 4 mg PO Q8H NM N (Reason: nausea and vomiting) Qty: 10 0RF (units unknown) (unknown) (unknown) (no date) (unknown) (unknown) 4 mg PO TID-QI D PRN (Reason: nausea and vomiting) Qty: 10 0RF (units unknown) (unknown) (unknown) (no date) (unknown) (unknown) 4) Follow up w ith your primary care provider in 2-3 days [and follow up with (units unknown) (unknown) (unknown) (no date) (unknown) (unknown) 40 mg PO DAILY Qty: 30 0RF (units unknown) (unknown) (unknown) (no date) (unknown) (unknown) 5) Return to E [facility] if you should have any new or worsening symptoms such as, unable (units unknown) (unknown) (unknown) (no date) (unknown) (unknown) 8551 (units unknown) (unknown) (unknown) (no date) (unknown) (unknown) ALT (<35) IU/L (unit s unknown) (unknown) (unknown) (no date) (unknown) (unknown) ALT 29 (<35) IU/L (u nits unknown) (unknown) (unknown) (no date) (unknown) (unknown) AST (14-36) IU/L (un its unknown) (unknown) (unknown) (no date) (unknown) (unknown) AST 30 (14-36) IU/L (units unknown) (unknown) (unknown) (no date) (unknown) (unknown) Activity Restrictions/Additio nal Instructions: (units unknown) (unknown) (unknown) (no date) (unknown) (unknown) Admin: 3 06:26 Dose: 1,000 mls/hr (units unknown) (unknown) (unknown) (no date) (unknown) (unknown) Age/Sex: 26 / F (uni ts unknown) (unknown) (unknown) (no date) (unknown) (unknown) Albumin (3.5-5 .0) g/dL (units unknown) (unknown) (unknown) (no date) (unknown) (unknown) Albumin 3.5 (3.5-5.0) g/dL (units unknown) (unknown) (unknown) (no date) (unknown) (unknown) Albumin/Globul in Ratio (1.0-2.8) (units unknown) (unknown) (unknown) (no date) (unknown) (unknown) Albumin/Globul in Ratio 1.5 (1.0-2.8) (units unknown) (unknown) (unknown) (no date) (unknown) (unknown) Alkaline Phosp hatase (38-126) U/L (units unknown) (unknown) (unknown) (no date) (unknown) (unknown) Alkaline Phosp hatase 46 (38-126) U/L (units unknown) (unknown) (unknown) (no date) (unknown) (unknown) Allergies (units unknown) (unknown) (unknown) (no date) (unknown) (unknown) Allergy/AdvRea c Type Severity Reaction Status Date / Time (units unknown) (unknown) (unknown) (no date) (unknown) (unknown) Anemia (units unknown) (unknown) (unknown) (no date) (unknown) (unknown) BUN (7-17) mg/dL (un its unknown) (unknown) (unknown) (no date) (unknown) (unknown) BUN 10 (7-17) mg/dL (units unknown) (unknown) (unknown) (no date) (unknown) (unknown) BUN/Creatinine Ratio (6-22) (units unknown) (unknown) (unknown) (no date) (unknown) (unknown) BUN/Creatinine Ratio 16.7 (6-22) (units unknown) (unknown) (unknown) (no date) (unknown) (unknown) Baso # (Auto) (0-100) /uL (units unknown) (unknown) (unknown) (no date) (unknown) (unknown) Baso # (Auto) 0 (0-100) /uL (units unknown) (unknown) (unknown) (no date) (unknown) (unknown) Baso % (Auto) (0-2) % (units unknown) (unknown) (unknown) (no date) (unknown) (unknown) Baso % (Auto) 0.6 (0-2) % (units unknown) (unknown) (unknown) (no date) (unknown) (unknown) Blood Pressure 116/55 L 08/28/22 06:11 (units unknown) (unknown) (unknown) (no date) (unknown) (unknown) Blood Pressure 116/55 L (units unknown) (unknown) (unknown) (no date) (unknown) (unknown) Calcium (8.4-1 0.2) mg/dL (units unknown) (unknown) (unknown) (no date) (unknown) (unknown) Calcium 8.1 L (8.4-10.2) mg/dL (units unknown) (unknown) (unknown) (no date) (unknown) (unknown) Carbon Dioxide (22-32) mmol/L (units unknown) (unknown) (unknown) (no date) (unknown) (unknown) Carbon Dioxide 24 (22-32) mmol/L (units unknown) (unknown) (unknown) (no date) (unknown) (unknown) Cardio (units unknown) (unknown) (unknown) (no date) (unknown) (unknown) Chief complain t: Nausea/Vomiting/Diar geoffrey (units unknown) (unknown) (unknown) (no date) (unknown) (unknown) Chloride (98-1 07) mmol/L (units unknown) (unknown) (unknown) (no date) (unknown) (unknown) Chloride 112 H (98-107) mmol/L (units unknown) (unknown) (unknown) (no date) (unknown) (unknown) Chronic anxiety (uni ts unknown) (unknown) (unknown) (no date) (unknown) (unknown) Clinical Impression: (units unknown) (unknown) (unknown) (no date) (unknown) (unknown) Const (units unknown) (unknown) (unknown) (no date) (unknown) (unknown) Constitutional (unit s unknown) (unknown) (unknown) (no date) (unknown) (unknown) Constitutional : Reports system reviewed and no additional complaints, except as (units unknown) (unknown) (unknown) (no date) (unknown) (unknown) Course (units unknown) (unknown) (unknown) (no date) (unknown) (unknown) Creatinine (0.52-1.04) mg/dL (units unknown) (unknown) (unknown) (no date) (unknown) (unknown) Creatinine 0.6 0 (0.52-1.04) mg/dL (units unknown) (unknown) (unknown) (no date) (unknown) (unknown) : 5 Acct:[id number] (units unknown) (unknown) (unknown) (no date) (unknown) (unknown) Date of Servic e: 08/28/22 (units unknown) (unknown) (unknown) (no date) (unknown) (unknown) Departure (units unknown) (unknown) (unknown) (no date) (unknown) (unknown) Deviated septum (uni ts unknown) (unknown) (unknown) (no date) (unknown) (unknown) Discharge Plan (unit s unknown) (unknown) (unknown) (no date) (unknown) (unknown) Discontinued Medications (units unknown) (unknown) (unknown) (no date) (unknown) (unknown) Documented By: CTS ( units unknown) (unknown) (unknown) (no date) (unknown) (unknown) Documented By: KH (u nits unknown) (unknown) (unknown) (no date) (unknown) (unknown) ER Physician: Alfreda Garcia D.O. (units unknown) (unknown) (unknown) (no date) (unknown) (unknown) Effort + Inspe ction: normal respiratory effort (units unknown) (unknown) (unknown) (no date) (unknown) (unknown) Emergency Report (un its unknown) (unknown) (unknown) (no date) (unknown) (unknown) Eos # (Auto) ( 0-450) /uL (units unknown) (unknown) (unknown) (no date) (unknown) (unknown) Eos # (Auto) 0 (0-450) /uL (units unknown) (unknown) (unknown) (no date) (unknown) (unknown) Eos % (Auto) (2-4) % (units unknown) (unknown) (unknown) (no date) (unknown) (unknown) Eos % (Auto) 0 .6 L (2-4) % (units unknown) (unknown) (unknown) (no date) (unknown) (unknown) Estimated GFR > 60 (>60) mL/min (units unknown) (unknown) (unknown) (no date) (unknown) (unknown) Estimated GFR (>60) mL/min (units unknown) (unknown) (unknown) (no date) (unknown) (unknown) Exam (units unknown) (unknown) (unknown) (no date) (unknown) (unknown) Extrem (units unknown) (unknown) (unknown) (no date) (unknown) (unknown) Gastroenteritis (uni ts unknown) (unknown) (unknown) (no date) (unknown) (unknown) Gastrointestinal (un its unknown) (unknown) (unknown) (no date) (unknown) (unknown) Gastrointestin al: Reports system reviewed and no additional complaints, except (units unknown) (unknown) (unknown) (no date) (unknown) (unknown) General (units unknown) (unknown) (unknown) (no date) (unknown) (unknown) General: coope rative and comfortable (units unknown) (unknown) (unknown) (no date) (unknown) (unknown) General: patie nt alert, patient awake and moves all extremities (units unknown) (unknown) (unknown) (no date) (unknown) (unknown) Genitourinary (units unknown) (unknown) (unknown) (no date) (unknown) (unknown) Genitourinary: Reports system reviewed and no additional complaints, except as (units unknown) (unknown) (unknown) (no date) (unknown) (unknown) Globulin (1.7- 4.1) g/dL (units unknown) (unknown) (unknown) (no date) (unknown) (unknown) Globulin 2.3 (1.7-4.1) g/dL (units unknown) (unknown) (unknown) (no date) (unknown) (unknown) Glucose (70-10 0) mg/dL (units unknown) (unknown) (unknown) (no date) (unknown) (unknown) Glucose 97 (70 -100) mg/dL (units unknown) (unknown) (unknown) (no date) (unknown) (unknown) HARBOR (units unknown) (unknown) (unknown) (no date) (unknown) (unknown) HENMT (units unknown) (unknown) (unknown) (no date) (unknown) (unknown) HPI - Nausea/Vomiting/Diar geoffrey (units unknown) (unknown) (unknown) (no date) (unknown) (unknown) HPI Narrative: (unit s unknown) (unknown) (unknown) (no date) (unknown) (unknown) Hct (36-46) % (units unknown) (unknown) (unknown) (no date) (unknown) (unknown) Hct 32.5 L (36-46) % (units unknown) (unknown) (unknown) (no date) (unknown) (unknown) Head: normal t o inspection (units unknown) (unknown) (unknown) (no date) (unknown) (unknown) Hgb (12.0-16.0) g/dL (units unknown) (unknown) (unknown) (no date) (unknown) (unknown) Hgb 11.7 L (12.0-16.0) g/dL (units unknown) (unknown) (unknown) (no date) (unknown) (unknown) History of Pre sent Illness (units unknown) (unknown) (unknown) (no date) (unknown) (unknown) Home Medications (un its unknown) (unknown) (unknown) (no date) (unknown) (unknown) Hypertrophy, n zay, turbinate (units unknown) (unknown) (unknown) (no date) (unknown) (unknown) I recommend Ga torade or a Gatorade-like product, as it has small amounts of (units unknown) (unknown) (unknown) (no date) (unknown) (unknown) Incompetent na catarina valve (units unknown) (unknown) (unknown) (no date) (unknown) (unknown) Initial Vital Signs (units unknown) (unknown) (unknown) (no date) (unknown) (unknown) Initial Vital Signs: (units unknown) (unknown) (unknown) (no date) (unknown) (unknown) Instructions: DI for Viral Gastroenteritis -- Adult (units unknown) (unknown) (unknown) (no date) (unknown) (unknown) [address] [address] (units unknown) (unknown) (unknown) (no date) (unknown) (unknown) Lab Data (units unknown) (unknown) (unknown) (no date) (unknown) (unknown) Lab Results (units unknown) (unknown) (unknown) (no date) (unknown) (unknown) Labs: (units unknown) (unknown) (unknown) (no date) (unknown) (unknown) Last Admin: 06:26 Dose: 4 mg (units unknown) (unknown) (unknown) (no date) (unknown) (unknown) Last Admin: 08:19 Dose: 0.5 mg (units unknown) (unknown) (unknown) (no date) (unknown) (unknown) Last Admin: 08:19 Dose: 40 mg (units unknown) (unknown) (unknown) (no date) (unknown) (unknown) Last Infusion: 08/28/22 07:28 Dose: 0 mls/hr (units unknown) (unknown) (unknown) (no date) (unknown) (unknown) Limitations: n o limitations (units unknown) (unknown) (unknown) (no date) (unknown) (unknown) Lipase (23-300) U/L (units unknown) (unknown) (unknown) (no date) (unknown) (unknown) Lipase 51 (23- 300) U/L (units unknown) (unknown) (unknown) (no date) (unknown) (unknown) Lorazepam (Kirti azepam 2 Mg/Ml Inj) 0.5 mg IV NOW ONE (units unknown) (unknown) (unknown) (no date) (unknown) (unknown) Lymph # (Auto) (1557-9130) /uL (units unknown) (unknown) (unknown) (no date) (unknown) (unknown) Lymph # (Auto) 1800 ([phone]) /uL (units unknown) (unknown) (unknown) (no date) (unknown) (unknown) Lymph % (Auto) (25-40) % (units unknown) (unknown) (unknown) (no date) (unknown) (unknown) Lymph % (Auto) 22.7 L (25-40) % (units unknown) (unknown) (unknown) (no date) (unknown) (unknown) MCH (26-34) PG (unit s unknown) (unknown) (unknown) (no date) (unknown) (unknown) MCH 32.7 (26-34) PG (units unknown) (unknown) (unknown) (no date) (unknown) (unknown) MCHC (30-36) % (unit s unknown) (unknown) (unknown) (no date) (unknown) (unknown) MCHC 36.1 H (3 0-36) % (units unknown) (unknown) (unknown) (no date) (unknown) (unknown) MCV (80-100) fL (uni ts unknown) (unknown) (unknown) (no date) (unknown) (unknown) MCV 90.4 (80-100) fL (units unknown) (unknown) (unknown) (no date) (unknown) (unknown) MDM - Nausea/Vomiting/Diar geoffrey (units unknown) (unknown) (unknown) (no date) (unknown) (unknown) MDM Narrative (units unknown) (unknown) (unknown) (no date) (unknown) (unknown) MRSA (methicil mimi resistant Staphylococcus aureus) (2015) (units unknown) (unknown) (unknown) (no date) (unknown) (unknown) Medical Histor y (Updated 08/28/22 @ 09:04 by Alfreda Garcia DO) (units unknown) (unknown) (unknown) (no date) (unknown) (unknown) Medical decisi on making narrative: (units unknown) (unknown) (unknown) (no date) (unknown) (unknown) Medication Instructions Recorded Confirmed (units unknown) (unknown) (unknown) (no date) (unknown) (unknown) Medication Instructions Recorded (units unknown) (unknown) (unknown) (no date) (unknown) (unknown) Micro UA Comment * ( units unknown) (unknown) (unknown) (no date) (unknown) (unknown) Micro UA Comment (un its unknown) (unknown) (unknown) (no date) (unknown) (unknown) Migraine headache (u nits unknown) (unknown) (unknown) (no date) (unknown) (unknown) Mode of arriva l: Ambulatory (units unknown) (unknown) (unknown) (no date) (unknown) (unknown) [place] # (Auto) (0-900) /uL (units unknown) (unknown) (unknown) (no date) (unknown) (unknown) [place] # (Auto) 400 (0-900) /uL (units unknown) (unknown) (unknown) (no date) (unknown) (unknown) [place] % (Auto) (3-14) % (units unknown) (unknown) (unknown) (no date) (unknown) (unknown) [place] % (Auto) 5.6 (3-14) % (units unknown) (unknown) (unknown) (no date) (unknown) (unknown) Nasal congestion (un its unknown) (unknown) (unknown) (no date) (unknown) (unknown) Nasal obstruction (u nits unknown) (unknown) (unknown) (no date) (unknown) (unknown) Neuro (units unknown) (unknown) (unknown) (no date) (unknown) (unknown) Neurologic (units unknown) (unknown) (unknown) (no date) (unknown) (unknown) Neurologic: Re ports system reviewed and no additional complaints, except as (units unknown) (unknown) (unknown) (no date) (unknown) (unknown) Neut # (Auto) (4518-3348) /uL (units unknown) (unknown) (unknown) (no date) (unknown) (unknown) Neut # (Auto) 5500 (1202-6102) /uL (units unknown) (unknown) (unknown) (no date) (unknown) (unknown) Neut % (Auto) (50-75) % (units unknown) (unknown) (unknown) (no date) (unknown) (unknown) Neut % (Auto) 70.5 (50-75) % (units unknown) (unknown) (unknown) (no date) (unknown) (unknown) New (units unknown) (unknown) (unknown) (no date) (unknown) (unknown) No Action (units unknown) (unknown) (unknown) (no date) (unknown) (unknown) No gross deformities (units unknown) (unknown) (unknown) (no date) (unknown) (unknown) Nontoxic appea ring. test is negative. She is a benign exam. Was (units unknown) (unknown) (unknown) (no date) (unknown) (unknown) Ondansetron HC l (Ondansetron 4 Mg/2 Ml Inj) 4 mg IV NOW ONE (units unknown) (unknown) (unknown) (no date) (unknown) (unknown) Ordered: (units unknown) (unknown) (unknown) (no date) (unknown) (unknown) Orders (units unknown) (unknown) (unknown) (no date) (unknown) (unknown) Other: (units unknown) (unknown) (unknown) (no date) (unknown) (unknown) Oxygen Deliver y Method Room Air 08/28/22 06:11 (units unknown) (unknown) (unknown) (no date) (unknown) (unknown) Oxygen Deliver y Method Room Air (units unknown) (unknown) (unknown) (no date) (unknown) (unknown) Pantoprazole S odium (Pantoprazole 40 Mg Vial) 40 mg IV NOW ONE (units unknown) (unknown) (unknown) (no date) (unknown) (unknown) Patient Dispos ition: Home (units unknown) (unknown) (unknown) (no date) (unknown) (unknown) Patient History (uni ts unknown) (unknown) (unknown) (no date) (unknown) (unknown) Patient is a 26-year-old female who states that approximately 48 hours ago she (units unknown) (unknown) (unknown) (no date) (unknown) (unknown) Patient signed out to me by Dr. Moreno if seen evaluated patient myself. Failed (units unknown) (unknown) (unknown) (no date) (unknown) (unknown) Patient: Carie Sullivan MR#: [id number] (units unknown) (unknown) (unknown) (no date) (unknown) (unknown) Plt Count (150 -400) X103/uL (units unknown) (unknown) (unknown) (no date) (unknown) (unknown) Plt Count 163 (150-400) X103/uL (units unknown) (unknown) (unknown) (no date) (unknown) (unknown) Point of Care Testing (units unknown) (unknown) (unknown) (no date) (unknown) (unknown) Potassium (3.4 -5.1) mmol/L (units unknown) (unknown) (unknown) (no date) (unknown) (unknown) Potassium 3.4 (3.4-5.1) mmol/L (units unknown) (unknown) (unknown) (no date) (unknown) (unknown) Test Results Negative (units unknown) (unknown) (unknown) (no date) (unknown) (unknown) Prescriptions: (unit s unknown) (unknown) (unknown) (no date) (unknown) (unknown) Previous Rx's (units unknown) (unknown) (unknown) (no date) (unknown) (unknown) Provider,Vaibhav HANKS [Primary Care Provider] (units unknown) (unknown) (unknown) (no date) (unknown) (unknown) Pulse Oximetry 98 08/28/22 06:11 (units unknown) (unknown) (unknown) (no date) (unknown) (unknown) Pulse Oximetry 98 (u nits unknown) (unknown) (unknown) (no date) (unknown) (unknown) Pulse Rate 67 08/28/22 06:11 (units unknown) (unknown) (unknown) (no date) (unknown) (unknown) Pulse Rate 67 (units unknown) (unknown) (unknown) (no date) (unknown) (unknown) RBC (4.0-5.2) X106/uL (units unknown) (unknown) (unknown) (no date) (unknown) (unknown) RBC 3.60 L (4. 0-5.2) X106/uL (units unknown) (unknown) (unknown) (no date) (unknown) (unknown) RDW (11.6-14.8) % (u nits unknown) (unknown) (unknown) (no date) (unknown) (unknown) RDW 13.1 (11.6 -14.8) % (units unknown) (unknown) (unknown) (no date) (unknown) (unknown) Rate: regular rate ( units unknown) (unknown) (unknown) (no date) (unknown) (unknown) Referrals: (units unknown) (unknown) (unknown) (no date) (unknown) (unknown) Related Data (units unknown) (unknown) (unknown) (no date) (unknown) (unknown) Resp (units unknown) (unknown) (unknown) (no date) (unknown) (unknown) Respiratory Ra te 16 08/28/22 06:11 (units unknown) (unknown) (unknown) (no date) (unknown) (unknown) Respiratory Rate 16 (units unknown) (unknown) (unknown) (no date) (unknown) (unknown) Review of Systems (u nits unknown) (unknown) (unknown) (no date) (unknown) (unknown) Rib injury (2019) (u nits unknown) (unknown) (unknown) (no date) (unknown) (unknown) Ruptured ovari an cyst (2018) (units unknown) (unknown) (unknown) (no date) (unknown) (unknown) Rx Instructions: (un its unknown) (unknown) (unknown) (no date) (unknown) (unknown) See Rx Instruc tions .ROUTE .COMPLEX (units unknown) (unknown) (unknown) (no date) (unknown) (unknown) Signed By: (units unknown) (unknown) (unknown) (no date) (unknown) (unknown) Smoking Status : Current every day smoker (units unknown) (unknown) (unknown) (no date) (unknown) (unknown) Social History (units unknown) (unknown) (unknown) (no date) (unknown) (unknown) Sodium (137-14 5) mmol/L (units unknown) (unknown) (unknown) (no date) (unknown) (unknown) Sodium 140 (13 7-145) mmol/L (units unknown) (unknown) (unknown) (no date) (unknown) (unknown) Sodium Chlorid e (Normal Saline 0.9%) 1,000 mls @ 1,000 mls/hr IV BOLUS ONE (units unknown) (unknown) (unknown) (no date) (unknown) (unknown) Source: patient (uni ts unknown) (unknown) (unknown) (no date) (unknown) (unknown) Stand Alone Fo colby: Patient Portal/API (units unknown) (unknown) (unknown) (no date) (unknown) (unknown) Stated complai nt: food poisoning and passed out (units unknown) (unknown) (unknown) (no date) (unknown) (unknown) Stop: 08/28/22 06:18 (units unknown) (unknown) (unknown) (no date) (unknown) (unknown) Stop: 08/28/22 07:16 (units unknown) (unknown) (unknown) (no date) (unknown) (unknown) Stop: 08/28/22 08:03 (units unknown) (unknown) (unknown) (no date) (unknown) (unknown) Stop: 08/28/22 08:06 (units unknown) (unknown) (unknown) (no date) (unknown) (unknown) Substance Use Type: marijuana (units unknown) (unknown) (unknown) (no date) (unknown) (unknown) Surgical Histo ry (units unknown) (unknown) (unknown) (no date) (unknown) (unknown) Temperature 97 .6 F 08/28/22 06:11 (units unknown) (unknown) (unknown) (no date) (unknown) (unknown) Temperature 97.6 F ( units unknown) (unknown) (unknown) (no date) (unknown) (unknown) Time Seen by Provider: 08/28/22 06:09 (units unknown) (unknown) (unknown) (no date) (unknown) (unknown) Total Bilirubi n (0.2-1.3) mg/dL (units unknown) (unknown) (unknown) (no date) (unknown) (unknown) Total Bilirubi n 0.4 (0.2-1.3) mg/dL (units unknown) (unknown) (unknown) (no date) (unknown) (unknown) Total Protein (6.3-8.2) g/dL (units unknown) (unknown) (unknown) (no date) (unknown) (unknown) Total Protein 5.8 L (6.3-8.2) g/dL (units unknown) (unknown) (unknown) (no date) (unknown) (unknown) Ur Culture Indicated? Cult not indicated (units unknown) (unknown) (unknown) (no date) (unknown) (unknown) Ur Culture Indicated? (units unknown) (unknown) (unknown) (no date) (unknown) (unknown) Ur Leukocyte Esterase (NEGATIVE) (units unknown) (unknown) (unknown) (no date) (unknown) (unknown) Ur Leukocyte Esterase Negative (NEGATIVE) (units unknown) (unknown) (unknown) (no date) (unknown) (unknown) Ur Specific Gr avity >=1.030 H (1.000-1.035) (units unknown) (unknown) (unknown) (no date) (unknown) (unknown) Ur Specific Gr avity (1.000-1.035) (units unknown) (unknown) (unknown) (no date) (unknown) (unknown) Ur Squamous Ep ith Cells (0-5/HPF) (units unknown) (unknown) (unknown) (no date) (unknown) (unknown) Ur Squamous Ep ith Cells 5-10 /hpf H (0-5/HPF) (units unknown) (unknown) (unknown) (no date) (unknown) (unknown) Urine Appearan ce Clear (units unknown) (unknown) (unknown) (no date) (unknown) (unknown) Urine Appearance (un its unknown) (unknown) (unknown) (no date) (unknown) (unknown) Urine Bacteria (None) (units unknown) (unknown) (unknown) (no date) (unknown) (unknown) Urine Bacteria None seen (None) (units unknown) (unknown) (unknown) (no date) (unknown) (unknown) Urine Bilirubi n (NEGATIVE) (units unknown) (unknown) (unknown) (no date) (unknown) (unknown) Urine Bilirubi n Negative (NEGATIVE) (units unknown) (unknown) (unknown) (no date) (unknown) (unknown) Urine Color Yellow ( units unknown) (unknown) (unknown) (no date) (unknown) (unknown) Urine Color (units unknown) (unknown) (unknown) (no date) (unknown) (unknown) Urine Glucose (UA) (Negative) g/dL (units unknown) (unknown) (unknown) (no date) (unknown) (unknown) Urine Glucose (UA) Negative (Negative) g/dL (units unknown) (unknown) (unknown) (no date) (unknown) (unknown) Urine Ketones (NEGATIVE) (units unknown) (unknown) (unknown) (no date) (unknown) (unknown) Urine Ketones Negative (NEGATIVE) (units unknown) (unknown) (unknown) (no date) (unknown) (unknown) Urine Nitrate (Negative) (units unknown) (unknown) (unknown) (no date) (unknown) (unknown) Urine Nitrate Negative (Negative) (units unknown) (unknown) (unknown) (no date) (unknown) (unknown) Urine Occult B lood (Negative) (units unknown) (unknown) (unknown) (no date) (unknown) (unknown) Urine Occult B lood Negative (Negative) (units unknown) (unknown) (unknown) (no date) (unknown) (unknown) Urine Protein (Negative) (units unknown) (unknown) (unknown) (no date) (unknown) (unknown) Urine Protein Negative (Negative) (units unknown) (unknown) (unknown) (no date) (unknown) (unknown) Urine RBC (0-5/HPF) (units unknown) (unknown) (unknown) (no date) (unknown) (unknown) Urine RBC 0-1/ hpf (0-5/HPF) (units unknown) (unknown) (unknown) (no date) (unknown) (unknown) Urine Urobilin ogen (0.2) E.U./dL (units unknown) (unknown) (unknown) (no date) (unknown) (unknown) Urine Urobilin ogen 0.2 (0.2) E.U./dL (units unknown) (unknown) (unknown) (no date) (unknown) (unknown) Urine WBC (0-5/HPF) (units unknown) (unknown) (unknown) (no date) (unknown) (unknown) Urine WBC 0-1/ hpf (0-5/HPF) (units unknown) (unknown) (unknown) (no date) (unknown) (unknown) Urine pH (4.5-8.0) ( units unknown) (unknown) (unknown) (no date) (unknown) (unknown) Urine pH 6.0 (4.5-8.0) (units unknown) (unknown) (unknown) (no date) (unknown) (unknown) Vital Signs - 8 hr ( units unknown) (unknown) (unknown) (no date) (unknown) (unknown) Vital Signs (units unknown) (unknown) (unknown) (no date) (unknown) (unknown) Vital signs: (units unknown) (unknown) (unknown) (no date) (unknown) (unknown) WBC (4.5-11.0) X103/uL (units unknown) (unknown) (unknown) (no date) (unknown) (unknown) WBC 7.8 (4.5-1 1.0) X103/uL (units unknown) (unknown) (unknown) (no date) (unknown) (unknown) [place] teeth r emoved (01/16/13) (units unknown) (unknown) (unknown) (no date) (unknown) (unknown) Zofran 4 mg ev josemanuel 8 hours if needed for nausea or vomiting--> [facility] (units unknown) (unknown) (unknown) (no date) (unknown) (unknown) [Embedded Imag e Not Available] (units unknown) (unknown) (unknown) (no date) (unknown) (unknown) alcohol intake frequency: holidays/special occasions only (units unknown) (unknown) (unknown) (no date) (unknown) (unknown) alcohol intake : current (units unknown) (unknown) (unknown) (no date) (unknown) (unknown) anything down. Continues to vomit in the ED blood work is added. Given a 2 L (units unknown) (unknown) (unknown) (no date) (unknown) (unknown) as documented (units unknown) (unknown) (unknown) (no date) (unknown) (unknown) clindamycin-be nzoyl- emol [id number] See Rx Instructions .Route .COMPLEX 01/29/20 (units unknown) (unknown) (unknown) (no date) (unknown) (unknown) clindamycin-be nzoyl- emol [id number] (units unknown) (unknown) (unknown) (no date) (unknown) (unknown) days. She does have Zofran at home which she took yesterday and states it did (units unknown) (unknown) (unknown) (no date) (unknown) (unknown) developed epis odes vomiting and diarrhea. His continued over the past couple (units unknown) (unknown) (unknown) (no date) (unknown) (unknown) documented (units unknown) (unknown) (unknown) (no date) (unknown) (unknown) help her sympt oms but then last night the nausea came back. She took a dose of (units unknown) (unknown) (unknown) (no date) (unknown) (unknown) household memb ers: spouse (units unknown) (unknown) (unknown) (no date) (unknown) (unknown) latex Allergy Intermediate Anxiety Verified 08/05/22 16:46 (units unknown) (unknown) (unknown) (no date) (unknown) (unknown) nausea. (units unknown) (unknown) (unknown) (no date) (unknown) (unknown) of fluids Zofr an and Protonix. (units unknown) (unknown) (unknown) (no date) (unknown) (unknown) ondansetron 4 mg disintegrating 4 mg PO Q8H PRN nausea and 08/28/22 (units unknown) (unknown) (unknown) (no date) (unknown) (unknown) ondansetron 4 mg disintegrating 4 mg PO TID-QID PRN nausea and 08/05/22 (units unknown) (unknown) (unknown) (no date) (unknown) (unknown) ondansetron 4 mg tablet,disintegratin g (units unknown) (unknown) (unknown) (no date) (unknown) (unknown) oral challenge . Has had nausea vomiting diarrhea for last 2-3 days. Not (units unknown) (unknown) (unknown) (no date) (unknown) (unknown) oral rehydrati on strategy. (units unknown) (unknown) (unknown) (no date) (unknown) (unknown) ortho, urology etc] (units unknown) (unknown) (unknown) (no date) (unknown) (unknown) pantoprazole 4 0 mg tablet,delayed 40 mg PO DAILY #30 tabs 08/05/22 (units unknown) (unknown) (unknown) (no date) (unknown) (unknown) pantoprazole [Protonix] 40 mg tablet,delayed release (DR/EC) (units unknown) (unknown) (unknown) (no date) (unknown) (unknown) passed out. Sh e has passed out in the past. She currently states she is having (units unknown) (unknown) (unknown) (no date) (unknown) (unknown) place as needed. (un its unknown) (unknown) (unknown) (no date) (unknown) (unknown) promethazine A dvReac Verified 08/05/22 16:46 (units unknown) (unknown) (unknown) (no date) (unknown) (unknown) receiving flui ds and Zofran. Will attempt a p.o. challenge. Care turned over (units unknown) (unknown) (unknown) (no date) (unknown) (unknown) release (Protonix) ( units unknown) (unknown) (unknown) (no date) (unknown) (unknown) sugar and salt s that improve fluid retention. (units unknown) (unknown) (unknown) (no date) (unknown) (unknown) tablet vomitin g #10 tabs (units unknown) (unknown) (unknown) (no date) (unknown) (unknown) the Zofran but then threw up afterwards. She then had an episode where she (units unknown) (unknown) (unknown) (no date) (unknown) (unknown) to Dr. Garcia to follow-up and disposition. (units unknown) (unknown) (unknown) (no date) (unknown) (unknown) to hold down f luids despite use of anti-nausea medications and the small volume (units unknown) (unknown) (unknown) (no date) (unknown) (unknown) tobacco type: vaping (units unknown) (unknown) (unknown) (no date) (unknown) (unknown) tretinoin 0.02 5 % topical cream 1 applic topical BEDTIME 01/29/20 01/29/20 (units unknown) (unknown) (unknown) (no date) (unknown) (unknown) tretinoin [Ret in-A] 0.025 % Cream (units unknown) (unknown) Result panel 374 (unknown) (no date) (unknown) (unknown) (no value) (units unknown) (unknown) (unknown) (no date) (unknown) (unknown) <Electronicall y signed by Norman HoltODebi> (units unknown) (unknown) (unknown) (no date) (unknown) (unknown) <Electronicall y signed by Bib Moreno D.O.> (units unknown) (unknown) (unknown) (no date) (unknown) (unknown) <Alfreda mack DO - Last Filed: 08/28/22 19:33> (units unknown) (unknown) (unknown) (no date) (unknown) (unknown) <Bib purdy DO - Last Filed: 08/28/22 18:11> (units unknown) (unknown) (unknown) (no date) (unknown) (unknown) (Retin-A) (units unknown) (unknown) (unknown) (no date) (unknown) (unknown) 08/28/2208/2808/28/22 Range/Units (units unknown) (unknown) (unknown) (no date) (unknown) (unknown) 08/28/22 08:30 (unit s unknown) (unknown) (unknown) (no date) (unknown) (unknown) 08/28/22 1811 (units unknown) (unknown) (unknown) (no date) (unknown) (unknown) 08/28/22 1933 (units unknown) (unknown) (unknown) (no date) (unknown) (unknown) 08/28/22 Range/Units (units unknown) (unknown) (unknown) (no date) (unknown) (unknown) 08/28/22 (units unknown) (unknown) (unknown) (no date) (unknown) (unknown) 06:11 (units unknown) (unknown) (unknown) (no date) (unknown) (unknown) 06:33 08:30 08:30 (u nits unknown) (unknown) (unknown) (no date) (unknown) (unknown) 08:30 (units unknown) (unknown) (unknown) (no date) (unknown) (unknown) 01/29/20 (units unknown) (unknown) (unknown) (no date) (unknown) (unknown) 1 applic TOPIC AL BEDTIME (units unknown) (unknown) (unknown) (no date) (unknown) (unknown) 1) You have be en diagnosed with gastroenteritis (units unknown) (unknown) (unknown) (no date) (unknown) (unknown) 2) What to do: Drink frequent but small amounts of fluids. (units unknown) (unknown) (unknown) (no date) (unknown) (unknown) 3) Take medica tions as directed (units unknown) (unknown) (unknown) (no date) (unknown) (unknown) 4 mg PO Q8H NM N (Reason: nausea and vomiting) Qty: 10 0RF (units unknown) (unknown) (unknown) (no date) (unknown) (unknown) 4 mg PO TID-QI D PRN (Reason: nausea and vomiting) Qty: 10 0RF (units unknown) (unknown) (unknown) (no date) (unknown) (unknown) 4) Follow up w ith your primary care provider in 2-3 days [and follow up with (units unknown) (unknown) (unknown) (no date) (unknown) (unknown) 40 mg PO DAILY Qty: 30 0RF (units unknown) (unknown) (unknown) (no date) (unknown) (unknown) 5) Return to [facility] if you should have any new or worsening symptoms such as, unable (units unknown) (unknown) (unknown) (no date) (unknown) (unknown) 8551 (units unknown) (unknown) (unknown) (no date) (unknown) (unknown) ALT (<35) IU/L (unit s unknown) (unknown) (unknown) (no date) (unknown) (unknown) ALT 29 (<35) IU/L (u nits unknown) (unknown) (unknown) (no date) (unknown) (unknown) AST (14-36) IU/L (un its unknown) (unknown) (unknown) (no date) (unknown) (unknown) AST 30 (14-36) IU/L (units unknown) (unknown) (unknown) (no date) (unknown) (unknown) Activity Restrictions/Additio nal Instructions: (units unknown) (unknown) (unknown) (no date) (unknown) (unknown) Admin: 3 06:26 Dose: 1,000 mls/hr (units unknown) (unknown) (unknown) (no date) (unknown) (unknown) Age/Sex: 26 / F (uni ts unknown) (unknown) (unknown) (no date) (unknown) (unknown) Albumin (3.5-5 .0) g/dL (units unknown) (unknown) (unknown) (no date) (unknown) (unknown) Albumin 3.5 (3.5-5.0) g/dL (units unknown) (unknown) (unknown) (no date) (unknown) (unknown) Albumin/Globul in Ratio (1.0-2.8) (units unknown) (unknown) (unknown) (no date) (unknown) (unknown) Albumin/Globul in Ratio 1.5 (1.0-2.8) (units unknown) (unknown) (unknown) (no date) (unknown) (unknown) Alkaline Phosp hatase (38-126) U/L (units unknown) (unknown) (unknown) (no date) (unknown) (unknown) Alkaline Phosp hatase 46 (38-126) U/L (units unknown) (unknown) (unknown) (no date) (unknown) (unknown) Allergies (units unknown) (unknown) (unknown) (no date) (unknown) (unknown) Allergy/AdvRea c Type Severity Reaction Status Date / Time (units unknown) (unknown) (unknown) (no date) (unknown) (unknown) Anemia (units unknown) (unknown) (unknown) (no date) (unknown) (unknown) BUN (7-17) mg/dL (un its unknown) (unknown) (unknown) (no date) (unknown) (unknown) BUN 10 (7-17) mg/dL (units unknown) (unknown) (unknown) (no date) (unknown) (unknown) BUN/Creatinine Ratio (6-22) (units unknown) (unknown) (unknown) (no date) (unknown) (unknown) BUN/Creatinine Ratio 16.7 (6-22) (units unknown) (unknown) (unknown) (no date) (unknown) (unknown) Baso # (Auto) (0-100) /uL (units unknown) (unknown) (unknown) (no date) (unknown) (unknown) Baso # (Auto) 0 (0-100) /uL (units unknown) (unknown) (unknown) (no date) (unknown) (unknown) Baso % (Auto) (0-2) % (units unknown) (unknown) (unknown) (no date) (unknown) (unknown) Baso % (Auto) 0.6 (0-2) % (units unknown) (unknown) (unknown) (no date) (unknown) (unknown) Blood Pressure 116/55 L 08/28/22 06:11 (units unknown) (unknown) (unknown) (no date) (unknown) (unknown) Blood Pressure 116/55 L (units unknown) (unknown) (unknown) (no date) (unknown) (unknown) Calcium (8.4-1 0.2) mg/dL (units unknown) (unknown) (unknown) (no date) (unknown) (unknown) Calcium 8.1 L (8.4-10.2) mg/dL (units unknown) (unknown) (unknown) (no date) (unknown) (unknown) Carbon Dioxide (22-32) mmol/L (units unknown) (unknown) (unknown) (no date) (unknown) (unknown) Carbon Dioxide 24 (22-32) mmol/L (units unknown) (unknown) (unknown) (no date) (unknown) (unknown) Cardio (units unknown) (unknown) (unknown) (no date) (unknown) (unknown) Chief complain t: Nausea/Vomiting/Diar geoffrey (units unknown) (unknown) (unknown) (no date) (unknown) (unknown) Chloride (98-1 07) mmol/L (units unknown) (unknown) (unknown) (no date) (unknown) (unknown) Chloride 112 H (98-107) mmol/L (units unknown) (unknown) (unknown) (no date) (unknown) (unknown) Chronic anxiety (uni ts unknown) (unknown) (unknown) (no date) (unknown) (unknown) Clinical Impression: (units unknown) (unknown) (unknown) (no date) (unknown) (unknown) Const (units unknown) (unknown) (unknown) (no date) (unknown) (unknown) Constitutional (unit s unknown) (unknown) (unknown) (no date) (unknown) (unknown) Constitutional : Reports system reviewed and no additional complaints, except as (units unknown) (unknown) (unknown) (no date) (unknown) (unknown) Course (units unknown) (unknown) (unknown) (no date) (unknown) (unknown) Creatinine (0.52-1.04) mg/dL (units unknown) (unknown) (unknown) (no date) (unknown) (unknown) Creatinine 0.6 0 (0.52-1.04) mg/dL (units unknown) (unknown) (unknown) (no date) (unknown) (unknown) : 5 Acct:[id number] (units unknown) (unknown) (unknown) (no date) (unknown) (unknown) Date of Servic e: 08/28/22 (units unknown) (unknown) (unknown) (no date) (unknown) (unknown) Departure (units unknown) (unknown) (unknown) (no date) (unknown) (unknown) Deviated septum (uni ts unknown) (unknown) (unknown) (no date) (unknown) (unknown) Discharge Plan (unit s unknown) (unknown) (unknown) (no date) (unknown) (unknown) Discontinued Medications (units unknown) (unknown) (unknown) (no date) (unknown) (unknown) Documented By: CTS ( units unknown) (unknown) (unknown) (no date) (unknown) (unknown) Documented By: KH (u nits unknown) (unknown) (unknown) (no date) (unknown) (unknown) ER Physician: Alfreda Garcia D.O. (units unknown) (unknown) (unknown) (no date) (unknown) (unknown) Effort + Inspe ction: normal respiratory effort (units unknown) (unknown) (unknown) (no date) (unknown) (unknown) Emergency Report (un its unknown) (unknown) (unknown) (no date) (unknown) (unknown) Eos # (Auto) ( 0-450) /uL (units unknown) (unknown) (unknown) (no date) (unknown) (unknown) Eos # (Auto) 0 (0-450) /uL (units unknown) (unknown) (unknown) (no date) (unknown) (unknown) Eos % (Auto) (2-4) % (units unknown) (unknown) (unknown) (no date) (unknown) (unknown) Eos % (Auto) 0 .6 L (2-4) % (units unknown) (unknown) (unknown) (no date) (unknown) (unknown) Estimated GFR > 60 (>60) mL/min (units unknown) (unknown) (unknown) (no date) (unknown) (unknown) Estimated GFR (>60) mL/min (units unknown) (unknown) (unknown) (no date) (unknown) (unknown) Exam (units unknown) (unknown) (unknown) (no date) (unknown) (unknown) Extrem (units unknown) (unknown) (unknown) (no date) (unknown) (unknown) Gastroenteritis (uni ts unknown) (unknown) (unknown) (no date) (unknown) (unknown) Gastrointestinal (un its unknown) (unknown) (unknown) (no date) (unknown) (unknown) Gastrointestin al: Reports system reviewed and no additional complaints, except (units unknown) (unknown) (unknown) (no date) (unknown) (unknown) General (units unknown) (unknown) (unknown) (no date) (unknown) (unknown) General: coope rative and comfortable (units unknown) (unknown) (unknown) (no date) (unknown) (unknown) General: patie nt alert, patient awake and moves all extremities (units unknown) (unknown) (unknown) (no date) (unknown) (unknown) Genitourinary (units unknown) (unknown) (unknown) (no date) (unknown) (unknown) Genitourinary: Reports system reviewed and no additional complaints, except as (units unknown) (unknown) (unknown) (no date) (unknown) (unknown) Globulin (1.7- 4.1) g/dL (units unknown) (unknown) (unknown) (no date) (unknown) (unknown) Globulin 2.3 (1.7-4.1) g/dL (units unknown) (unknown) (unknown) (no date) (unknown) (unknown) Glucose (70-10 0) mg/dL (units unknown) (unknown) (unknown) (no date) (unknown) (unknown) Glucose 97 (70 -100) mg/dL (units unknown) (unknown) (unknown) (no date) (unknown) (unknown) HARBOR (units unknown) (unknown) (unknown) (no date) (unknown) (unknown) HENMT (units unknown) (unknown) (unknown) (no date) (unknown) (unknown) HPI - Nausea/Vomiting/Diar geoffrey (units unknown) (unknown) (unknown) (no date) (unknown) (unknown) HPI Narrative: (unit s unknown) (unknown) (unknown) (no date) (unknown) (unknown) Hct (36-46) % (units unknown) (unknown) (unknown) (no date) (unknown) (unknown) Hct 32.5 L (36-46) % (units unknown) (unknown) (unknown) (no date) (unknown) (unknown) Head: normal t o inspection (units unknown) (unknown) (unknown) (no date) (unknown) (unknown) Hgb (12.0-16.0) g/dL (units unknown) (unknown) (unknown) (no date) (unknown) (unknown) Hgb 11.7 L (12.0-16.0) g/dL (units unknown) (unknown) (unknown) (no date) (unknown) (unknown) History of Pre sent Illness (units unknown) (unknown) (unknown) (no date) (unknown) (unknown) Home Medications (un its unknown) (unknown) (unknown) (no date) (unknown) (unknown) Hypertrophy, n zay, turbinate (units unknown) (unknown) (unknown) (no date) (unknown) (unknown) I recommend Ga torade or a Gatorade-like product, as it has small amounts of (units unknown) (unknown) (unknown) (no date) (unknown) (unknown) Incompetent na catarina valve (units unknown) (unknown) (unknown) (no date) (unknown) (unknown) Initial Vital Signs (units unknown) (unknown) (unknown) (no date) (unknown) (unknown) Initial Vital Signs: (units unknown) (unknown) (unknown) (no date) (unknown) (unknown) Instructions: DI for Viral Gastroenteritis -- Adult (units unknown) (unknown) (unknown) (no date) (unknown) (unknown) [place] [address] (units unknown) (unknown) (unknown) (no date) (unknown) (unknown) Lab Data (units unknown) (unknown) (unknown) (no date) (unknown) (unknown) Lab Results (units unknown) (unknown) (unknown) (no date) (unknown) (unknown) Labs: (units unknown) (unknown) (unknown) (no date) (unknown) (unknown) Last Admin: 06:26 Dose: 4 mg (units unknown) (unknown) (unknown) (no date) (unknown) (unknown) Last Admin: 08:19 Dose: 0.5 mg (units unknown) (unknown) (unknown) (no date) (unknown) (unknown) Last Admin: 08:19 Dose: 40 mg (units unknown) (unknown) (unknown) (no date) (unknown) (unknown) Last Infusion: 08/28/22 07:28 Dose: 0 mls/hr (units unknown) (unknown) (unknown) (no date) (unknown) (unknown) Limitations: n o limitations (units unknown) (unknown) (unknown) (no date) (unknown) (unknown) Lipase (23-300) U/L (units unknown) (unknown) (unknown) (no date) (unknown) (unknown) Lipase 51 (23- 300) U/L (units unknown) (unknown) (unknown) (no date) (unknown) (unknown) Lorazepam (Kirti azepam 2 Mg/Ml Inj) 0.5 mg IV NOW ONE (units unknown) (unknown) (unknown) (no date) (unknown) (unknown) Lymph # (Auto) ([phone]) /uL (units unknown) (unknown) (unknown) (no date) (unknown) (unknown) Lymph # (Auto) 1800 (1719-2076) /uL (units unknown) (unknown) (unknown) (no date) (unknown) (unknown) Lymph % (Auto) (25-40) % (units unknown) (unknown) (unknown) (no date) (unknown) (unknown) Lymph % (Auto) 22.7 L (25-40) % (units unknown) (unknown) (unknown) (no date) (unknown) (unknown) MCH (26-34) PG (unit s unknown) (unknown) (unknown) (no date) (unknown) (unknown) MCH 32.7 (26-34) PG (units unknown) (unknown) (unknown) (no date) (unknown) (unknown) MCHC (30-36) % (unit s unknown) (unknown) (unknown) (no date) (unknown) (unknown) MCHC 36.1 H (3 0-36) % (units unknown) (unknown) (unknown) (no date) (unknown) (unknown) MCV (80-100) fL (uni ts unknown) (unknown) (unknown) (no date) (unknown) (unknown) MCV 90.4 (80-100) fL (units unknown) (unknown) (unknown) (no date) (unknown) (unknown) MDM - Nausea/Vomiting/Diar geoffrey (units unknown) (unknown) (unknown) (no date) (unknown) (unknown) MDM Narrative (units unknown) (unknown) (unknown) (no date) (unknown) (unknown) MRSA (methicil mimi resistant Staphylococcus aureus) (2015) (units unknown) (unknown) (unknown) (no date) (unknown) (unknown) Medical Histor y (Updated 08/28/22 @ 09:04 by Alfreda Garcia DO) (units unknown) (unknown) (unknown) (no date) (unknown) (unknown) Medical decisi on making narrative: (units unknown) (unknown) (unknown) (no date) (unknown) (unknown) Medication Instructions Recorded Confirmed (units unknown) (unknown) (unknown) (no date) (unknown) (unknown) Medication Instructions Recorded (units unknown) (unknown) (unknown) (no date) (unknown) (unknown) Micro UA Comment * ( units unknown) (unknown) (unknown) (no date) (unknown) (unknown) Micro UA Comment (un its unknown) (unknown) (unknown) (no date) (unknown) (unknown) Migraine headache (u nits unknown) (unknown) (unknown) (no date) (unknown) (unknown) Mode of arriva l: Ambulatory (units unknown) (unknown) (unknown) (no date) (unknown) (unknown) [place]ney # (Auto) (0-900) /uL (units unknown) (unknown) (unknown) (no date) (unknown) (unknown) [place]ney # (Auto) 400 (0-900) /uL (units unknown) (unknown) (unknown) (no date) (unknown) (unknown) [place] % (Auto) (3-14) % (units unknown) (unknown) (unknown) (no date) (unknown) (unknown) Finney % (Auto) 5.6 (3-14) % (units unknown) (unknown) (unknown) (no date) (unknown) (unknown) Nasal congestion (un its unknown) (unknown) (unknown) (no date) (unknown) (unknown) Nasal obstruction (u nits unknown) (unknown) (unknown) (no date) (unknown) (unknown) Neuro (units unknown) (unknown) (unknown) (no date) (unknown) (unknown) Neurologic (units unknown) (unknown) (unknown) (no date) (unknown) (unknown) Neurologic: Re ports system reviewed and no additional complaints, except as (units unknown) (unknown) (unknown) (no date) (unknown) (unknown) Neut # (Auto) (4733-1833) /uL (units unknown) (unknown) (unknown) (no date) (unknown) (unknown) Neut # (Auto) 5500 (3921-8101) /uL (units unknown) (unknown) (unknown) (no date) (unknown) (unknown) Neut % (Auto) (50-75) % (units unknown) (unknown) (unknown) (no date) (unknown) (unknown) Neut % (Auto) 70.5 (50-75) % (units unknown) (unknown) (unknown) (no date) (unknown) (unknown) New (units unknown) (unknown) (unknown) (no date) (unknown) (unknown) No Action (units unknown) (unknown) (unknown) (no date) (unknown) (unknown) No gross deformities (units unknown) (unknown) (unknown) (no date) (unknown) (unknown) Nontoxic appea ring. test is negative. She is a benign exam. Was (units unknown) (unknown) (unknown) (no date) (unknown) (unknown) Ondansetron HC l (Ondansetron 4 Mg/2 Ml Inj) 4 mg IV NOW ONE (units unknown) (unknown) (unknown) (no date) (unknown) (unknown) Ordered: (units unknown) (unknown) (unknown) (no date) (unknown) (unknown) Orders (units unknown) (unknown) (unknown) (no date) (unknown) (unknown) Other: (units unknown) (unknown) (unknown) (no date) (unknown) (unknown) Oxygen Deliver y Method Room Air 08/28/22 06:11 (units unknown) (unknown) (unknown) (no date) (unknown) (unknown) Oxygen Deliver y Method Room Air (units unknown) (unknown) (unknown) (no date) (unknown) (unknown) Pantoprazole S odium (Pantoprazole 40 Mg Vial) 40 mg IV NOW ONE (units unknown) (unknown) (unknown) (no date) (unknown) (unknown) Patient Dispos ition: Home (units unknown) (unknown) (unknown) (no date) (unknown) (unknown) Patient History (uni ts unknown) (unknown) (unknown) (no date) (unknown) (unknown) Patient is a 26-year-old female who states that approximately 48 hours ago she (units unknown) (unknown) (unknown) (no date) (unknown) (unknown) Patient signed out to me by Dr. Moreno if seen evaluated patient myself. Failed (units unknown) (unknown) (unknown) (no date) (unknown) (unknown) Patient: Carie Sullivan MR#: [id number] (units unknown) (unknown) (unknown) (no date) (unknown) (unknown) Plt Count (150 -400) X103/uL (units unknown) (unknown) (unknown) (no date) (unknown) (unknown) Plt Count 163 (150-400) X103/uL (units unknown) (unknown) (unknown) (no date) (unknown) (unknown) Point of Care Testing (units unknown) (unknown) (unknown) (no date) (unknown) (unknown) Potassium (3.4 -5.1) mmol/L (units unknown) (unknown) (unknown) (no date) (unknown) (unknown) Potassium 3.4 (3.4-5.1) mmol/L (units unknown) (unknown) (unknown) (no date) (unknown) (unknown) Test Results Negative (units unknown) (unknown) (unknown) (no date) (unknown) (unknown) Prescriptions: (unit s unknown) (unknown) (unknown) (no date) (unknown) (unknown) Previous Rx's (units unknown) (unknown) (unknown) (no date) (unknown) (unknown) Provider,Vaibhav HANKS [Primary Care Provider] (units unknown) (unknown) (unknown) (no date) (unknown) (unknown) Pulse Oximetry 98 08/28/22 06:11 (units unknown) (unknown) (unknown) (no date) (unknown) (unknown) Pulse Oximetry 98 (u nits unknown) (unknown) (unknown) (no date) (unknown) (unknown) Pulse Rate 67 08/28/22 06:11 (units unknown) (unknown) (unknown) (no date) (unknown) (unknown) Pulse Rate 67 (units unknown) (unknown) (unknown) (no date) (unknown) (unknown) RBC (4.0-5.2) X106/uL (units unknown) (unknown) (unknown) (no date) (unknown) (unknown) RBC 3.60 L (4. 0-5.2) X106/uL (units unknown) (unknown) (unknown) (no date) (unknown) (unknown) RDW (11.6-14.8) % (u nits unknown) (unknown) (unknown) (no date) (unknown) (unknown) RDW 13.1 (11.6 -14.8) % (units unknown) (unknown) (unknown) (no date) (unknown) (unknown) Rate: regular rate ( units unknown) (unknown) (unknown) (no date) (unknown) (unknown) Referrals: (units unknown) (unknown) (unknown) (no date) (unknown) (unknown) Related Data (units unknown) (unknown) (unknown) (no date) (unknown) (unknown) Resp (units unknown) (unknown) (unknown) (no date) (unknown) (unknown) Respiratory Ra te 16 08/28/22 06:11 (units unknown) (unknown) (unknown) (no date) (unknown) (unknown) Respiratory Rate 16 (units unknown) (unknown) (unknown) (no date) (unknown) (unknown) Review of Systems (u nits unknown) (unknown) (unknown) (no date) (unknown) (unknown) Rib injury (2019) (u nits unknown) (unknown) (unknown) (no date) (unknown) (unknown) Ruptured ovari an cyst (2018) (units unknown) (unknown) (unknown) (no date) (unknown) (unknown) Rx Instructions: (un its unknown) (unknown) (unknown) (no date) (unknown) (unknown) See Rx Instruc tions .ROUTE .COMPLEX (units unknown) (unknown) (unknown) (no date) (unknown) (unknown) Signed By: (units unknown) (unknown) (unknown) (no date) (unknown) (unknown) Smoking Status : Current every day smoker (units unknown) (unknown) (unknown) (no date) (unknown) (unknown) Social History (units unknown) (unknown) (unknown) (no date) (unknown) (unknown) Sodium (137-14 5) mmol/L (units unknown) (unknown) (unknown) (no date) (unknown) (unknown) Sodium 140 (13 7-145) mmol/L (units unknown) (unknown) (unknown) (no date) (unknown) (unknown) Sodium Chlorid e (Normal Saline 0.9%) 1,000 mls @ 1,000 mls/hr IV BOLUS ONE (units unknown) (unknown) (unknown) (no date) (unknown) (unknown) Source: patient (uni ts unknown) (unknown) (unknown) (no date) (unknown) (unknown) Stand Alone Fo colby: Patient Portal/API (units unknown) (unknown) (unknown) (no date) (unknown) (unknown) Stated complai nt: food poisoning and passed out (units unknown) (unknown) (unknown) (no date) (unknown) (unknown) Stop: 08/28/22 06:18 (units unknown) (unknown) (unknown) (no date) (unknown) (unknown) Stop: 08/28/22 07:16 (units unknown) (unknown) (unknown) (no date) (unknown) (unknown) Stop: 08/28/22 08:03 (units unknown) (unknown) (unknown) (no date) (unknown) (unknown) Stop: 08/28/22 08:06 (units unknown) (unknown) (unknown) (no date) (unknown) (unknown) Substance Use Type: marijuana (units unknown) (unknown) (unknown) (no date) (unknown) (unknown) Surgical Histo ry (units unknown) (unknown) (unknown) (no date) (unknown) (unknown) Temperature 97 .6 F 08/28/22 06:11 (units unknown) (unknown) (unknown) (no date) (unknown) (unknown) Temperature 97.6 F ( units unknown) (unknown) (unknown) (no date) (unknown) (unknown) Time Seen by Provider: 08/28/22 06:09 (units unknown) (unknown) (unknown) (no date) (unknown) (unknown) Total Bilirubi n (0.2-1.3) mg/dL (units unknown) (unknown) (unknown) (no date) (unknown) (unknown) Total Bilirubi n 0.4 (0.2-1.3) mg/dL (units unknown) (unknown) (unknown) (no date) (unknown) (unknown) Total Protein (6.3-8.2) g/dL (units unknown) (unknown) (unknown) (no date) (unknown) (unknown) Total Protein 5.8 L (6.3-8.2) g/dL (units unknown) (unknown) (unknown) (no date) (unknown) (unknown) Ur Culture Indicated? Cult not indicated (units unknown) (unknown) (unknown) (no date) (unknown) (unknown) Ur Culture Indicated? (units unknown) (unknown) (unknown) (no date) (unknown) (unknown) Ur Leukocyte Esterase (NEGATIVE) (units unknown) (unknown) (unknown) (no date) (unknown) (unknown) Ur Leukocyte Esterase Negative (NEGATIVE) (units unknown) (unknown) (unknown) (no date) (unknown) (unknown) Ur Specific Gr avity >=1.030 H (1.000-1.035) (units unknown) (unknown) (unknown) (no date) (unknown) (unknown) Ur Specific Gr avity (1.000-1.035) (units unknown) (unknown) (unknown) (no date) (unknown) (unknown) Ur Squamous Ep ith Cells (0-5/HPF) (units unknown) (unknown) (unknown) (no date) (unknown) (unknown) Ur Squamous Ep ith Cells 5-10 /hpf H (0-5/HPF) (units unknown) (unknown) (unknown) (no date) (unknown) (unknown) Urine Appearan ce Clear (units unknown) (unknown) (unknown) (no date) (unknown) (unknown) Urine Appearance (un its unknown) (unknown) (unknown) (no date) (unknown) (unknown) Urine Bacteria (None) (units unknown) (unknown) (unknown) (no date) (unknown) (unknown) Urine Bacteria None seen (None) (units unknown) (unknown) (unknown) (no date) (unknown) (unknown) Urine Bilirubi n (NEGATIVE) (units unknown) (unknown) (unknown) (no date) (unknown) (unknown) Urine Bilirubi n Negative (NEGATIVE) (units unknown) (unknown) (unknown) (no date) (unknown) (unknown) Urine Color Yellow ( units unknown) (unknown) (unknown) (no date) (unknown) (unknown) Urine Color (units unknown) (unknown) (unknown) (no date) (unknown) (unknown) Urine Glucose (UA) (Negative) g/dL (units unknown) (unknown) (unknown) (no date) (unknown) (unknown) Urine Glucose (UA) Negative (Negative) g/dL (units unknown) (unknown) (unknown) (no date) (unknown) (unknown) Urine Ketones (NEGATIVE) (units unknown) (unknown) (unknown) (no date) (unknown) (unknown) Urine Ketones Negative (NEGATIVE) (units unknown) (unknown) (unknown) (no date) (unknown) (unknown) Urine Nitrate (Negative) (units unknown) (unknown) (unknown) (no date) (unknown) (unknown) Urine Nitrate Negative (Negative) (units unknown) (unknown) (unknown) (no date) (unknown) (unknown) Urine Occult B lood (Negative) (units unknown) (unknown) (unknown) (no date) (unknown) (unknown) Urine Occult B lood Negative (Negative) (units unknown) (unknown) (unknown) (no date) (unknown) (unknown) Urine Protein (Negative) (units unknown) (unknown) (unknown) (no date) (unknown) (unknown) Urine Protein Negative (Negative) (units unknown) (unknown) (unknown) (no date) (unknown) (unknown) Urine RBC (0-5/HPF) (units unknown) (unknown) (unknown) (no date) (unknown) (unknown) Urine RBC 0-1/ hpf (0-5/HPF) (units unknown) (unknown) (unknown) (no date) (unknown) (unknown) Urine Urobilin ogen (0.2) E.U./dL (units unknown) (unknown) (unknown) (no date) (unknown) (unknown) Urine Urobilin ogen 0.2 (0.2) E.U./dL (units unknown) (unknown) (unknown) (no date) (unknown) (unknown) Urine WBC (0-5/HPF) (units unknown) (unknown) (unknown) (no date) (unknown) (unknown) Urine WBC 0-1/ hpf (0-5/HPF) (units unknown) (unknown) (unknown) (no date) (unknown) (unknown) Urine pH (4.5-8.0) ( units unknown) (unknown) (unknown) (no date) (unknown) (unknown) Urine pH 6.0 (4.5-8.0) (units unknown) (unknown) (unknown) (no date) (unknown) (unknown) Vital Signs - 8 hr ( units unknown) (unknown) (unknown) (no date) (unknown) (unknown) Vital Signs (units unknown) (unknown) (unknown) (no date) (unknown) (unknown) Vital signs: (units unknown) (unknown) (unknown) (no date) (unknown) (unknown) WBC (4.5-11.0) X103/uL (units unknown) (unknown) (unknown) (no date) (unknown) (unknown) WBC 7.8 (4.5-1 1.0) X103/uL (units unknown) (unknown) (unknown) (no date) (unknown) (unknown) [place] teeth r emoved (01/16/13) (units unknown) (unknown) (unknown) (no date) (unknown) (unknown) Zofran 4 mg ev josemanuel 8 hours if needed for nausea or vomiting--> [facility] (units unknown) (unknown) (unknown) (no date) (unknown) (unknown) [Embedded Imag e Not Available] (units unknown) (unknown) (unknown) (no date) (unknown) (unknown) acute dehydrat ion or electrolyte abnormality. She was feeling quite anxious she (units unknown) (unknown) (unknown) (no date) (unknown) (unknown) alcohol intake frequency: holidays/special occasions only (units unknown) (unknown) (unknown) (no date) (unknown) (unknown) alcohol intake : current (units unknown) (unknown) (unknown) (no date) (unknown) (unknown) anything down. Continues to vomit in the ED blood work is added. Given a 2 L (units unknown) (unknown) (unknown) (no date) (unknown) (unknown) as documented (units unknown) (unknown) (unknown) (no date) (unknown) (unknown) clindamycin-be nzoyl- emol [id number] See Rx Instructions .Route .COMPLEX 01/29/20 (units unknown) (unknown) (unknown) (no date) (unknown) (unknown) clindamycin-be nzoyl- emol [id number] (units unknown) (unknown) (unknown) (no date) (unknown) (unknown) days. She does have Zofran at home which she took yesterday and states it did (units unknown) (unknown) (unknown) (no date) (unknown) (unknown) developed epis odes vomiting and diarrhea. His continued over the past couple (units unknown) (unknown) (unknown) (no date) (unknown) (unknown) documented (units unknown) (unknown) (unknown) (no date) (unknown) (unknown) help her sympt oms but then last night the nausea came back. She took a dose of (units unknown) (unknown) (unknown) (no date) (unknown) (unknown) household memb ers: spouse (units unknown) (unknown) (unknown) (no date) (unknown) (unknown) latex Allergy Intermediate Anxiety Verified 08/05/22 16:46 (units unknown) (unknown) (unknown) (no date) (unknown) (unknown) little bit of Ativan which helped a lot. Overall feeling (units unknown) (unknown) (unknown) (no date) (unknown) (unknown) nausea. (units unknown) (unknown) (unknown) (no date) (unknown) (unknown) of fluids Zofr an and Protonix. Blood work is overall reassuring no evidence of (units unknown) (unknown) (unknown) (no date) (unknown) (unknown) ondansetron 4 mg disintegrating 4 mg PO Q8H PRN nausea and 08/28/22 (units unknown) (unknown) (unknown) (no date) (unknown) (unknown) ondansetron 4 mg disintegrating 4 mg PO TID-QID PRN nausea and 08/05/22 (units unknown) (unknown) (unknown) (no date) (unknown) (unknown) ondansetron 4 mg tablet,disintegratin g (units unknown) (unknown) (unknown) (no date) (unknown) (unknown) oral challenge . Has had nausea vomiting diarrhea for last 2-3 days. Not (units unknown) (unknown) (unknown) (no date) (unknown) (unknown) oral rehydrati on strategy. (units unknown) (unknown) (unknown) (no date) (unknown) (unknown) ortho, urology etc] (units unknown) (unknown) (unknown) (no date) (unknown) (unknown) pantoprazole 4 0 mg tablet,delayed 40 mg PO DAILY #30 tabs 08/05/22 (units unknown) (unknown) (unknown) (no date) (unknown) (unknown) pantoprazole [Protonix] 40 mg tablet,delayed release (DR/EC) (units unknown) (unknown) (unknown) (no date) (unknown) (unknown) passed out. Sh juancarlos has passed out in the past. She currently states she is having (units unknown) (unknown) (unknown) (no date) (unknown) (unknown) place as needed. (un its unknown) (unknown) (unknown) (no date) (unknown) (unknown) promethazine A dvReac Verified 08/05/22 16:46 (units unknown) (unknown) (unknown) (no date) (unknown) (unknown) receiving flui ds and Zofran. Will attempt a p.o. challenge. Care turned over (units unknown) (unknown) (unknown) (no date) (unknown) (unknown) release (Protonix) ( units unknown) (unknown) (unknown) (no date) (unknown) (unknown) sugar and salt s that improve fluid retention. (units unknown) (unknown) (unknown) (no date) (unknown) (unknown) tablet vomitin g #10 tabs (units unknown) (unknown) (unknown) (no date) (unknown) (unknown) the Zofran but then threw up afterwards. She then had an episode where she (units unknown) (unknown) (unknown) (no date) (unknown) (unknown) to Dr. Garcia to follow-up and disposition. (units unknown) (unknown) (unknown) (no date) (unknown) (unknown) to hold down f luids despite use of anti-nausea medications and the small volume (units unknown) (unknown) (unknown) (no date) (unknown) (unknown) tobacco type: vaping (units unknown) (unknown) (unknown) (no date) (unknown) (unknown) tretinoin 0.02 5 % topical cream 1 applic topical BEDTIME 01/29/20 01/29/20 (units unknown) (unknown) (unknown) (no date) (unknown) (unknown) tretinoin [Ret in-A] 0.025 % Cream (units unknown) (unknown) Result panel 375 (unknown) (no date) (unknown) (unknown) (no value) (units unknown) (unknown) (unknown) (no date) (unknown) (unknown) (Retin-A) (units unknown) (unknown) (unknown) (no date) (unknown) (unknown) 10/17/22 07:04 (unit s unknown) (unknown) (unknown) (no date) (unknown) (unknown) 10/17/22 (units unknown) (unknown) (unknown) (no date) (unknown) (unknown) 06:45 (units unknown) (unknown) (unknown) (no date) (unknown) (unknown) 01/29/20 (units unknown) (unknown) (unknown) (no date) (unknown) (unknown) 1 applic TOPIC AL BEDTIME (units unknown) (unknown) (unknown) (no date) (unknown) (unknown) 4 mg PO Q8H NM N (Reason: nausea and vomiting) Qty: 10 0RF (units unknown) (unknown) (unknown) (no date) (unknown) (unknown) 4 mg PO TID-QI D PRN (Reason: nausea and vomiting) Qty: 10 0RF (units unknown) (unknown) (unknown) (no date) (unknown) (unknown) 40 mg PO DAILY Qty: 30 0RF (units unknown) (unknown) (unknown) (no date) (unknown) (unknown) [id number] (units unknown) (unknown) (unknown) (no date) (unknown) (unknown) Age/Sex: 26 / F (uni ts unknown) (unknown) (unknown) (no date) (unknown) (unknown) Allergies (units unknown) (unknown) (unknown) (no date) (unknown) (unknown) Allergy/AdvRea c Type Severity Reaction Status Date / Time (units unknown) (unknown) (unknown) (no date) (unknown) (unknown) Anemia (units unknown) (unknown) (unknown) (no date) (unknown) (unknown) Blood Pressure 109/56 L 10/17/22 06:45 (units unknown) (unknown) (unknown) (no date) (unknown) (unknown) Blood Pressure 109/56 L (units unknown) (unknown) (unknown) (no date) (unknown) (unknown) Chief complain t: Nausea/Vomiting/Diar geoffrey (units unknown) (unknown) (unknown) (no date) (unknown) (unknown) Chronic anxiety (uni ts unknown) (unknown) (unknown) (no date) (unknown) (unknown) Complete Blood Count AUTO DIFF Stat (units unknown) (unknown) (unknown) (no date) (unknown) (unknown) Comprehensive Metabolic Panel Stat (units unknown) (unknown) (unknown) (no date) (unknown) (unknown) Course (units unknown) (unknown) (unknown) (no date) (unknown) (unknown) : 5 Acct:[id number] (units unknown) (unknown) (unknown) (no date) (unknown) (unknown) Date of Servic e: 10/17/22 (units unknown) (unknown) (unknown) (no date) (unknown) (unknown) Departure (units unknown) (unknown) (unknown) (no date) (unknown) (unknown) Deviated septum (uni ts unknown) (unknown) (unknown) (no date) (unknown) (unknown) Discharge Plan (unit s unknown) (unknown) (unknown) (no date) (unknown) (unknown) ED Orders (units unknown) (unknown) (unknown) (no date) (unknown) (unknown) EKG-12 Lead Stat (un its unknown) (unknown) (unknown) (no date) (unknown) (unknown) ER Physician: Alfreda Garcia D.O. (units unknown) (unknown) (unknown) (no date) (unknown) (unknown) Emergency Report (un its unknown) (unknown) (unknown) (no date) (unknown) (unknown) Exam (units unknown) (unknown) (unknown) (no date) (unknown) (unknown) General (units unknown) (unknown) (unknown) (no date) (unknown) (unknown) HPI - Nausea/Vomiting/Diar geoffrey (units unknown) (unknown) (unknown) (no date) (unknown) (unknown) Home Medications (un its unknown) (unknown) (unknown) (no date) (unknown) (unknown) Hypertrophy, n zay, turbinate (units unknown) (unknown) (unknown) (no date) (unknown) (unknown) Incompetent na catarina valve (units unknown) (unknown) (unknown) (no date) (unknown) (unknown) Initial Vital Signs (units unknown) (unknown) (unknown) (no date) (unknown) (unknown) Initial Vital Signs: (units unknown) (unknown) (unknown) (no date) (unknown) (unknown) [facility] [address] [place] [id number] (units unknown) (unknown) (unknown) (no date) (unknown) (unknown) Lipase Stat (units unknown) (unknown) (unknown) (no date) (unknown) (unknown) MRSA (methicil mimi resistant Staphylococcus aureus) (2014) (units unknown) (unknown) (unknown) (no date) (unknown) (unknown) Medical Histor y (Updated 09/12/22 @ 00:00 by ) (units unknown) (unknown) (unknown) (no date) (unknown) (unknown) Medication Instructions Recorded Confirmed (units unknown) (unknown) (unknown) (no date) (unknown) (unknown) Medication Instructions Recorded (units unknown) (unknown) (unknown) (no date) (unknown) (unknown) Migraine headache (u nits unknown) (unknown) (unknown) (no date) (unknown) (unknown) Mode of arriva l: Ambulatory (units unknown) (unknown) (unknown) (no date) (unknown) (unknown) Nasal congestion (un its unknown) (unknown) (unknown) (no date) (unknown) (unknown) Nasal obstruction (u nits unknown) (unknown) (unknown) (no date) (unknown) (unknown) No Action (units unknown) (unknown) (unknown) (no date) (unknown) (unknown) Ondansetron HC l (Ondansetron 4 Mg Odt) 4 mg PO NOW PRN (units unknown) (unknown) (unknown) (no date) (unknown) (unknown) Ondansetron HC l (Ondansetron 4 Mg/2 Ml Inj) 4 mg IV NOW PRN (units unknown) (unknown) (unknown) (no date) (unknown) (unknown) Ordered: (units unknown) (unknown) (unknown) (no date) (unknown) (unknown) Orders (units unknown) (unknown) (unknown) (no date) (unknown) (unknown) Oxygen Deliver y Method Room Air 10/17/22 06:45 (units unknown) (unknown) (unknown) (no date) (unknown) (unknown) Oxygen Deliver y Method Room Air (units unknown) (unknown) (unknown) (no date) (unknown) (unknown) PRN Reason: Na usea And Vomiting (units unknown) (unknown) (unknown) (no date) (unknown) (unknown) Patient History (uni ts unknown) (unknown) (unknown) (no date) (unknown) (unknown) Patient: Carie Sullivan MR#: [id number] (units unknown) (unknown) (unknown) (no date) (unknown) (unknown) Prescriptions: (unit s unknown) (unknown) (unknown) (no date) (unknown) (unknown) Previous Rx's (units unknown) (unknown) (unknown) (no date) (unknown) (unknown) Provider,Vaibhav HANKS [Primary Care Provider] (units unknown) (unknown) (unknown) (no date) (unknown) (unknown) Pulse Oximetry 98 10/17/22 06:45 (units unknown) (unknown) (unknown) (no date) (unknown) (unknown) Pulse Oximetry 98 (u nits unknown) (unknown) (unknown) (no date) (unknown) (unknown) Pulse Rate 56 L 10/17/22 06:45 (units unknown) (unknown) (unknown) (no date) (unknown) (unknown) Pulse Rate 56 L (uni ts unknown) (unknown) (unknown) (no date) (unknown) (unknown) Referrals: (units unknown) (unknown) (unknown) (no date) (unknown) (unknown) Related Data (units unknown) (unknown) (unknown) (no date) (unknown) (unknown) Respiratory Ra te 18 10/17/22 06:45 (units unknown) (unknown) (unknown) (no date) (unknown) (unknown) Respiratory Rate 18 (units unknown) (unknown) (unknown) (no date) (unknown) (unknown) Rib injury (2020) (u nits unknown) (unknown) (unknown) (no date) (unknown) (unknown) Ruptured ovari an cyst (2018) (units unknown) (unknown) (unknown) (no date) (unknown) (unknown) Rx Instructions: (un its unknown) (unknown) (unknown) (no date) (unknown) (unknown) See Rx Instruc tions .ROUTE .COMPLEX (units unknown) (unknown) (unknown) (no date) (unknown) (unknown) Signed By: (units unknown) (unknown) (unknown) (no date) (unknown) (unknown) Smoking Status : Current every day smoker (units unknown) (unknown) (unknown) (no date) (unknown) (unknown) Social History (units unknown) (unknown) (unknown) (no date) (unknown) (unknown) Source: patient (uni ts unknown) (unknown) (unknown) (no date) (unknown) (unknown) Stated complai nt: v/d heart palpatations (units unknown) (unknown) (unknown) (no date) (unknown) (unknown) Substance Use Type: marijuana (units unknown) (unknown) (unknown) (no date) (unknown) (unknown) Surgical Histo ry (units unknown) (unknown) (unknown) (no date) (unknown) (unknown) Temperature 97 .1 F L 10/17/22 06:45 (units unknown) (unknown) (unknown) (no date) (unknown) (unknown) Temperature 97.1 F L (units unknown) (unknown) (unknown) (no date) (unknown) (unknown) Time Seen by Provider: 10/17/22 06:48 (units unknown) (unknown) (unknown) (no date) (unknown) (unknown) Vital Signs - 8 hr ( units unknown) (unknown) (unknown) (no date) (unknown) (unknown) Vital Signs (units unknown) (unknown) (unknown) (no date) (unknown) (unknown) Vital signs: (units unknown) (unknown) (unknown) (no date) (unknown) (unknown) [place] teeth r emoved (01/16/13) (units unknown) (unknown) (unknown) (no date) (unknown) (unknown) alcohol intake frequency: holidays/special occasions only (units unknown) (unknown) (unknown) (no date) (unknown) (unknown) alcohol intake : current (units unknown) (unknown) (unknown) (no date) (unknown) (unknown) clindamycin-be nzoyl- emol [id number] See Rx Instructions .Route .COMPLEX 01/29/20 (units unknown) (unknown) (unknown) (no date) (unknown) (unknown) clindamycin-be nzoyl- emol cmb94 (units unknown) (unknown) (unknown) (no date) (unknown) (unknown) household memb ers: spouse (units unknown) (unknown) (unknown) (no date) (unknown) (unknown) latex Allergy Intermediate Anxiety Verified 08/05/22 16:46 (units unknown) (unknown) (unknown) (no date) (unknown) (unknown) ondansetron 4 mg disintegrating 4 mg PO Q8H PRN nausea and 08/28/22 (units unknown) (unknown) (unknown) (no date) (unknown) (unknown) ondansetron 4 mg disintegrating 4 mg PO TID-QID PRN nausea and 08/05/22 (units unknown) (unknown) (unknown) (no date) (unknown) (unknown) ondansetron 4 mg tablet,disintegratin g (units unknown) (unknown) (unknown) (no date) (unknown) (unknown) pantoprazole 4 0 mg tablet,delayed 40 mg PO DAILY #30 tabs 08/05/22 (units unknown) (unknown) (unknown) (no date) (unknown) (unknown) pantoprazole [Protonix] 40 mg tablet,delayed release (DR/EC) (units unknown) (unknown) (unknown) (no date) (unknown) (unknown) place as needed. (un its unknown) (unknown) (unknown) (no date) (unknown) (unknown) promethazine A dvReac Verified 08/05/22 16:46 (units unknown) (unknown) (unknown) (no date) (unknown) (unknown) release (Protonix) ( units unknown) (unknown) (unknown) (no date) (unknown) (unknown) tablet vomitin g #10 tabs (units unknown) (unknown) (unknown) (no date) (unknown) (unknown) tobacco type: vaping (units unknown) (unknown) (unknown) (no date) (unknown) (unknown) tretinoin 0.02 5 % topical cream 1 applic topical BEDTIME 01/29/20 01/29/20 (units unknown) (unknown) (unknown) (no date) (unknown) (unknown) tretinoin [Ret in-A] 0.025 % Cream (units unknown) (unknown) Result panel 376 (unknown) (no date) (unknown) (unknown) (no value) (units unknown) (unknown) (unknown) (no date) (unknown) (unknown) (Retin-A) (units unknown) (unknown) (unknown) (no date) (unknown) (unknown) 10/17/22 07:04 (unit s unknown) (unknown) (unknown) (no date) (unknown) (unknown) 10/17/22 (units unknown) (unknown) (unknown) (no date) (unknown) (unknown) 06:45 (units unknown) (unknown) (unknown) (no date) (unknown) (unknown) 01/29/20 (units unknown) (unknown) (unknown) (no date) (unknown) (unknown) 1 applic TOPIC AL BEDTIME (units unknown) (unknown) (unknown) (no date) (unknown) (unknown) 4 mg PO Q8H NM N (Reason: nausea and vomiting) Qty: 10 0RF (units unknown) (unknown) (unknown) (no date) (unknown) (unknown) 4 mg PO TID-QI D PRN (Reason: nausea and vomiting) Qty: 10 0RF (units unknown) (unknown) (unknown) (no date) (unknown) (unknown) 40 mg PO DAILY Qty: 30 0RF (units unknown) (unknown) (unknown) (no date) (unknown) (unknown) 8551 (units unknown) (unknown) (unknown) (no date) (unknown) (unknown) ABDOMEN: Soft, nontender. Normoactive bowel sounds all 4 quadrants. No (units unknown) (unknown) (unknown) (no date) (unknown) (unknown) Age/Sex: 26 / F (uni ts unknown) (unknown) (unknown) (no date) (unknown) (unknown) Allergies (units unknown) (unknown) (unknown) (no date) (unknown) (unknown) Allergy/AdvRea c Type Severity Reaction Status Date / Time (units unknown) (unknown) (unknown) (no date) (unknown) (unknown) Anemia (units unknown) (unknown) (unknown) (no date) (unknown) (unknown) Blood Pressure 109/56 L 10/17/22 06:45 (units unknown) (unknown) (unknown) (no date) (unknown) (unknown) Blood Pressure 109/56 L (units unknown) (unknown) (unknown) (no date) (unknown) (unknown) CARDIOVASCULAR : Regular rate and rhythm without murmurs, rubs or gallops. (units unknown) (unknown) (unknown) (no date) (unknown) (unknown) Chief complain t: Nausea/Vomiting/Diar geoffrey (units unknown) (unknown) (unknown) (no date) (unknown) (unknown) Chronic anxiety (uni ts unknown) (unknown) (unknown) (no date) (unknown) (unknown) Complete Blood Count AUTO DIFF Stat (units unknown) (unknown) (unknown) (no date) (unknown) (unknown) Comprehensive Metabolic Panel Stat (units unknown) (unknown) (unknown) (no date) (unknown) (unknown) Course (units unknown) (unknown) (unknown) (no date) (unknown) (unknown) : 5 Acct:[id number] (units unknown) (unknown) (unknown) (no date) (unknown) (unknown) Date of Servic e: 10/17/22 (units unknown) (unknown) (unknown) (no date) (unknown) (unknown) Departure (units unknown) (unknown) (unknown) (no date) (unknown) (unknown) Deviated septum (uni ts unknown) (unknown) (unknown) (no date) (unknown) (unknown) Discharge Plan (unit s unknown) (unknown) (unknown) (no date) (unknown) (unknown) ED Orders (units unknown) (unknown) (unknown) (no date) (unknown) (unknown) EKG-12 Lead Stat (un its unknown) (unknown) (unknown) (no date) (unknown) (unknown) ER Physician: Alfreda Garcia D.O. (units unknown) (unknown) (unknown) (no date) (unknown) (unknown) EXTREMITIES: N ormal range of motion, no clubbing or edema. Neurovascularly (units unknown) (unknown) (unknown) (no date) (unknown) (unknown) Emergency Report (un its unknown) (unknown) (unknown) (no date) (unknown) (unknown) Exam (units unknown) (unknown) (unknown) (no date) (unknown) (unknown) GENERAL: Well-appearing 26-year-old female and in no acute distress. (units unknown) (unknown) (unknown) (no date) (unknown) (unknown) General (units unknown) (unknown) (unknown) (no date) (unknown) (unknown) HEENT: Head atraumatic,EOMI, pupils reactive, face symmetric, moist mucous (units unknown) (unknown) (unknown) (no date) (unknown) (unknown) HPI - Nausea/Vomiting/Diar geoffrey (units unknown) (unknown) (unknown) (no date) (unknown) (unknown) HPI Narrative: (unit s unknown) (unknown) (unknown) (no date) (unknown) (unknown) History of Pre sent Illness (units unknown) (unknown) (unknown) (no date) (unknown) (unknown) Home Medications (un its unknown) (unknown) (unknown) (no date) (unknown) (unknown) Hypertrophy, n zay, turbinate (units unknown) (unknown) (unknown) (no date) (unknown) (unknown) Incompetent na catarina valve (units unknown) (unknown) (unknown) (no date) (unknown) (unknown) Initial Vital Signs (units unknown) (unknown) (unknown) (no date) (unknown) (unknown) Initial Vital Signs: (units unknown) (unknown) (unknown) (no date) (unknown) (unknown) [facility] [address] [place] [id number] (units unknown) (unknown) (unknown) (no date) (unknown) (unknown) Lipase Stat (units unknown) (unknown) (unknown) (no date) (unknown) (unknown) MRSA (methicil mimi resistant Staphylococcus aureus) (2014) (units unknown) (unknown) (unknown) (no date) (unknown) (unknown) Medical Histor y (Updated 09/12/22 @ 00:00 by ) (units unknown) (unknown) (unknown) (no date) (unknown) (unknown) Medication Instructions Recorded Confirmed (units unknown) (unknown) (unknown) (no date) (unknown) (unknown) Medication Instructions Recorded (units unknown) (unknown) (unknown) (no date) (unknown) (unknown) Migraine headache (u nits unknown) (unknown) (unknown) (no date) (unknown) (unknown) Mode of arriva l: Ambulatory (units unknown) (unknown) (unknown) (no date) (unknown) (unknown) NEUROLOGICAL: Alert and oriented x4. (units unknown) (unknown) (unknown) (no date) (unknown) (unknown) Nasal congestion (un its unknown) (unknown) (unknown) (no date) (unknown) (unknown) Nasal obstruction (u nits unknown) (unknown) (unknown) (no date) (unknown) (unknown) No Action (units unknown) (unknown) (unknown) (no date) (unknown) (unknown) Ondansetron HC l (Ondansetron 4 Mg Odt) 4 mg PO NOW PRN (units unknown) (unknown) (unknown) (no date) (unknown) (unknown) Ondansetron HC l (Ondansetron 4 Mg/2 Ml Inj) 4 mg IV NOW PRN (units unknown) (unknown) (unknown) (no date) (unknown) (unknown) Ordered: (units unknown) (unknown) (unknown) (no date) (unknown) (unknown) Orders (units unknown) (unknown) (unknown) (no date) (unknown) (unknown) Oxygen Deliver y Method Room Air 10/17/22 06:45 (units unknown) (unknown) (unknown) (no date) (unknown) (unknown) Oxygen Deliver y Method Room Air (units unknown) (unknown) (unknown) (no date) (unknown) (unknown) PRN Reason: Na usea And Vomiting (units unknown) (unknown) (unknown) (no date) (unknown) (unknown) Patient History (uni ts unknown) (unknown) (unknown) (no date) (unknown) (unknown) Patient is a h ealthy 26-year-old female presents with nausea vomiting ongoing (units unknown) (unknown) (unknown) (no date) (unknown) (unknown) Patient: Carie Sullivan MR#: [id number] (units unknown) (unknown) (unknown) (no date) (unknown) (unknown) Prescriptions: (unit s unknown) (unknown) (unknown) (no date) (unknown) (unknown) Previous Rx's (units unknown) (unknown) (unknown) (no date) (unknown) (unknown) Provider,Vaibhav lizarraga DEMARIO [Primary Care Provider] (units unknown) (unknown) (unknown) (no date) (unknown) (unknown) Pulse Oximetry 98 10/17/22 06:45 (units unknown) (unknown) (unknown) (no date) (unknown) (unknown) Pulse Oximetry 98 (u nits unknown) (unknown) (unknown) (no date) (unknown) (unknown) Pulse Rate 56 L 10/17/22 06:45 (units unknown) (unknown) (unknown) (no date) (unknown) (unknown) Pulse Rate 56 L (uni ts unknown) (unknown) (unknown) (no date) (unknown) (unknown) RESPIRATORY: B reath sounds equal bilaterally, no wheezes rales or rhonchi. (units unknown) (unknown) (unknown) (no date) (unknown) (unknown) ROS Unobtainab le: All systems reviewed + are unremarkable except as noted in HPI (units unknown) (unknown) (unknown) (no date) (unknown) (unknown) Referrals: (units unknown) (unknown) (unknown) (no date) (unknown) (unknown) Related Data (units unknown) (unknown) (unknown) (no date) (unknown) (unknown) Respiratory Ra te 18 10/17/22 06:45 (units unknown) (unknown) (unknown) (no date) (unknown) (unknown) Respiratory Rate 18 (units unknown) (unknown) (unknown) (no date) (unknown) (unknown) Review of Systems (u nits unknown) (unknown) (unknown) (no date) (unknown) (unknown) Rib injury (2019) (u nits unknown) (unknown) (unknown) (no date) (unknown) (unknown) Ruptured ovari an cyst (2018) (units unknown) (unknown) (unknown) (no date) (unknown) (unknown) Rx Instructions: (un its unknown) (unknown) (unknown) (no date) (unknown) (unknown) SKIN: Warm, dr y, no laceration, no petechiae, no rashes or lesions. (units unknown) (unknown) (unknown) (no date) (unknown) (unknown) See Rx Instruc tions .ROUTE .COMPLEX (units unknown) (unknown) (unknown) (no date) (unknown) (unknown) Signed By: (units unknown) (unknown) (unknown) (no date) (unknown) (unknown) Smoking Status : Current every day smoker (units unknown) (unknown) (unknown) (no date) (unknown) (unknown) Social History (units unknown) (unknown) (unknown) (no date) (unknown) (unknown) Source: patient (uni ts unknown) (unknown) (unknown) (no date) (unknown) (unknown) Stated complai nt: v/d heart palpatations (units unknown) (unknown) (unknown) (no date) (unknown) (unknown) Substance Use Type: marijuana (units unknown) (unknown) (unknown) (no date) (unknown) (unknown) Surgical Histo ry (units unknown) (unknown) (unknown) (no date) (unknown) (unknown) Temperature 97 .1 F L 10/17/22 06:45 (units unknown) (unknown) (unknown) (no date) (unknown) (unknown) Temperature 97.1 F L (units unknown) (unknown) (unknown) (no date) (unknown) (unknown) Time Seen by Provider: 10/17/22 06:48 (units unknown) (unknown) (unknown) (no date) (unknown) (unknown) Vital Signs - 8 hr ( units unknown) (unknown) (unknown) (no date) (unknown) (unknown) Vital Signs (units unknown) (unknown) (unknown) (no date) (unknown) (unknown) Vital signs: (units unknown) (unknown) (unknown) (no date) (unknown) (unknown) [place] teeth r emoved (01/16/13) (units unknown) (unknown) (unknown) (no date) (unknown) (unknown) alcohol intake frequency: holidays/special occasions only (units unknown) (unknown) (unknown) (no date) (unknown) (unknown) alcohol intake : current (units unknown) (unknown) (unknown) (no date) (unknown) (unknown) and below (units unknown) (unknown) (unknown) (no date) (unknown) (unknown) clindamycin-be nzoyl- emol [id number] See Rx Instructions .Route .COMPLEX 01/29/20 (units unknown) (unknown) (unknown) (no date) (unknown) (unknown) clindamycin-be nzoyl- emol cmb94 (units unknown) (unknown) (unknown) (no date) (unknown) (unknown) feeling well yesterday. No one else is sick at home (units unknown) (unknown) (unknown) (no date) (unknown) (unknown) for the last 1 hour. She is had crampy is racing. No fever or chills. She was (units unknown) (unknown) (unknown) (no date) (unknown) (unknown) guarding or rebound. (units unknown) (unknown) (unknown) (no date) (unknown) (unknown) household memb ers: spouse (units unknown) (unknown) (unknown) (no date) (unknown) (unknown) intact (units unknown) (unknown) (unknown) (no date) (unknown) (unknown) latex Allergy Intermediate Anxiety Verified 08/05/22 16:46 (units unknown) (unknown) (unknown) (no date) (unknown) (unknown) membranes (units unknown) (unknown) (unknown) (no date) (unknown) (unknown) ondansetron 4 mg disintegrating 4 mg PO Q8H PRN nausea and 08/28/22 (units unknown) (unknown) (unknown) (no date) (unknown) (unknown) ondansetron 4 mg disintegrating 4 mg PO TID-QID PRN nausea and 08/05/22 (units unknown) (unknown) (unknown) (no date) (unknown) (unknown) ondansetron 4 mg tablet,disintegratin g (units unknown) (unknown) (unknown) (no date) (unknown) (unknown) pantoprazole 4 0 mg tablet,delayed 40 mg PO DAILY #30 tabs 08/05/22 (units unknown) (unknown) (unknown) (no date) (unknown) (unknown) pantoprazole [Protonix] 40 mg tablet,delayed release (DR/EC) (units unknown) (unknown) (unknown) (no date) (unknown) (unknown) place as needed. (un its unknown) (unknown) (unknown) (no date) (unknown) (unknown) promethazine A dvReac Verified 08/05/22 16:46 (units unknown) (unknown) (unknown) (no date) (unknown) (unknown) release (Protonix) ( units unknown) (unknown) (unknown) (no date) (unknown) (unknown) tablet vomitin g #10 tabs (units unknown) (unknown) (unknown) (no date) (unknown) (unknown) tobacco type: vaping (units unknown) (unknown) (unknown) (no date) (unknown) (unknown) tretinoin 0.02 5 % topical cream 1 applic topical BEDTIME 01/29/20 01/29/20 (units unknown) (unknown) (unknown) (no date) (unknown) (unknown) tretinoin [Ret in-A] 0.025 % Cream (units unknown) (unknown) Result panel 377 (unknown) (no date) (unknown) (unknown) 0 /ul (unknown ) (unknown) (no date) (unknown) (unknown) 0.2 % (unknown ) (unknown) (no date) (unknown) (unknown) 0.7 % (unknown ) (unknown) (no date) (unknown) (unknown) 10.3 x10 3/ul (unknow n) (unknown) (no date) (unknown) (unknown) 100 /ul (unknown ) (unknown) (no date) (unknown) (unknown) 13.4 % (unknown ) (unknown) (no date) (unknown) (unknown) 13.6 g/dl (unknown ) (unknown) (no date) (unknown) (unknown) 183 x10 3/ul (unknow n) (unknown) (no date) (unknown) (unknown) 20.3 % (unknown ) (unknown) (no date) (unknown) (unknown) 2100 /ul (unknown ) (unknown) (no date) (unknown) (unknown) 32.6 pg (unknown ) (unknown) (no date) (unknown) (unknown) 36.2 % (unknown ) (unknown) (no date) (unknown) (unknown) 37.6 % (unknown ) (unknown) (no date) (unknown) (unknown) 4.18 x10 6/ul (unknow n) (unknown) (no date) (unknown) (unknown) 7.1 % (unknown ) (unknown) (no date) (unknown) (unknown) 700 /ul (unknown ) (unknown) (no date) (unknown) (unknown) 71.7 % (unknown ) (unknown) (no date) (unknown) (unknown) 7400 /ul (unknown ) (unknown) (no date) (unknown) (unknown) 90.1 fl (unknown ) Result panel 378 (unknown) (no date) (unknown) (unknown) > 60 ml/min (unknown ) (unknown) (no date) (unknown) (unknown) > 60 ml/min (unknown ) (unknown) (no date) (unknown) (unknown) 0.57 mg/dl (unknown ) (unknown) (no date) (unknown) (unknown) 0.6 mg/dl (unknown ) (unknown) (no date) (unknown) (unknown) 1.5 (units unknown) (unknown) (unknown) (no date) (unknown) (unknown) 10 mg/dl (unknown ) (unknown) (no date) (unknown) (unknown) 106 mmol/l (unknown ) (unknown) (no date) (unknown) (unknown) 138 mmol/l (unknown ) (unknown) (no date) (unknown) (unknown) 17.5 (units unknown) (unknown) (unknown) (no date) (unknown) (unknown) 18 iu/l (unknown ) (unknown) (no date) (unknown) (unknown) 2.8 g/dl (unknown ) (unknown) (no date) (unknown) (unknown) 21 mmol/l (unknown ) (unknown) (no date) (unknown) (unknown) 22 iu/l (unknown ) (unknown) (no date) (unknown) (unknown) 3.2 mmol/l (unknown ) (unknown) (no date) (unknown) (unknown) 4.3 g/dl (unknown ) (unknown) (no date) (unknown) (unknown) 42 u/l (unknown ) (unknown) (no date) (unknown) (unknown) 49 u/l (unknown ) (unknown) (no date) (unknown) (unknown) 7.1 g/dl (unknown ) (unknown) (no date) (unknown) (unknown) 9.0 mg/dl (unknown ) (unknown) (no date) (unknown) (unknown) 96 mg/dl (unknown ) (unknown) (no date) (unknown) (unknown) 96 mg/dl (unknown ) Result panel 379 (unknown) (no date) (unknown) (unknown) (no value) (units unknown) (unknown) (unknown) (no date) (unknown) (unknown) (Retin-A) (units unknown) (unknown) (unknown) (no date) (unknown) (unknown) 10/17/2210/17 Range/Units (units unknown) (unknown) (unknown) (no date) (unknown) (unknown) 10/17/22 07:00 (unit s unknown) (unknown) (unknown) (no date) (unknown) (unknown) 10/17/22 07:04 (unit s unknown) (unknown) (unknown) (no date) (unknown) (unknown) 10/17/22 (units unknown) (unknown) (unknown) (no date) (unknown) (unknown) 06:45 (units unknown) (unknown) (unknown) (no date) (unknown) (unknown) 07:00 07:00 (units unknown) (unknown) (unknown) (no date) (unknown) (unknown) 01/29/20 (units unknown) (unknown) (unknown) (no date) (unknown) (unknown) 1 applic TOPIC AL BEDTIME (units unknown) (unknown) (unknown) (no date) (unknown) (unknown) 4 mg PO Q8H NM N (Reason: nausea and vomiting) Qty: 10 0RF (units unknown) (unknown) (unknown) (no date) (unknown) (unknown) 4 mg PO TID-QI D PRN (Reason: nausea and vomiting) Qty: 10 0RF (units unknown) (unknown) (unknown) (no date) (unknown) (unknown) 40 mg PO DAILY Qty: 30 0RF (units unknown) (unknown) (unknown) (no date) (unknown) (unknown) 8551 (units unknown) (unknown) (unknown) (no date) (unknown) (unknown) ABDOMEN: Soft, nontender. Normoactive bowel sounds all 4 quadrants. No (units unknown) (unknown) (unknown) (no date) (unknown) (unknown) ALT 18 (<35) IU/L (u nits unknown) (unknown) (unknown) (no date) (unknown) (unknown) AST 22 (14-36) IU/L (units unknown) (unknown) (unknown) (no date) (unknown) (unknown) Age/Sex: 26 / F (uni ts unknown) (unknown) (unknown) (no date) (unknown) (unknown) Albumin 4.3 (3.5-5.0) g/dL (units unknown) (unknown) (unknown) (no date) (unknown) (unknown) Albumin/Globul in Ratio 1.5 (1.0-2.8) (units unknown) (unknown) (unknown) (no date) (unknown) (unknown) Alkaline Phosp hatase 49 (38-126) U/L (units unknown) (unknown) (unknown) (no date) (unknown) (unknown) Allergies (units unknown) (unknown) (unknown) (no date) (unknown) (unknown) Allergy/AdvRea c Type Severity Reaction Status Date / Time (units unknown) (unknown) (unknown) (no date) (unknown) (unknown) Anemia (units unknown) (unknown) (unknown) (no date) (unknown) (unknown) BUN 10 (7-17) mg/dL (units unknown) (unknown) (unknown) (no date) (unknown) (unknown) BUN/Creatinine Ratio 17.5 (6-22) (units unknown) (unknown) (unknown) (no date) (unknown) (unknown) Baso # (Auto) 0 (0-100) /uL (units unknown) (unknown) (unknown) (no date) (unknown) (unknown) Baso % (Auto) 0.2 (0-2) % (units unknown) (unknown) (unknown) (no date) (unknown) (unknown) Blood Pressure 109/56 L 10/17/22 06:45 (units unknown) (unknown) (unknown) (no date) (unknown) (unknown) Blood Pressure 109/56 L (units unknown) (unknown) (unknown) (no date) (unknown) (unknown) CARDIOVASCULAR : Regular rate and rhythm without murmurs, rubs or gallops. (units unknown) (unknown) (unknown) (no date) (unknown) (unknown) Calcium 9.0 (8.4-10.2) mg/dL (units unknown) (unknown) (unknown) (no date) (unknown) (unknown) Carbon Dioxide 21 L (22-32) mmol/L (units unknown) (unknown) (unknown) (no date) (unknown) (unknown) Chief complain t: Nausea/Vomiting/Diar geoffrey (units unknown) (unknown) (unknown) (no date) (unknown) (unknown) Chloride 106 (98-107) mmol/L (units unknown) (unknown) (unknown) (no date) (unknown) (unknown) Chronic anxiety (uni ts unknown) (unknown) (unknown) (no date) (unknown) (unknown) Complete Blood Count AUTO DIFF Stat (units unknown) (unknown) (unknown) (no date) (unknown) (unknown) Comprehensive Metabolic Panel Stat (units unknown) (unknown) (unknown) (no date) (unknown) (unknown) Course (units unknown) (unknown) (unknown) (no date) (unknown) (unknown) Creatinine 0.5 7 (0.52-1.04) mg/dL (units unknown) (unknown) (unknown) (no date) (unknown) (unknown) : 5 Acct:[id number] (units unknown) (unknown) (unknown) (no date) (unknown) (unknown) Date of Servic e: 10/17/22 (units unknown) (unknown) (unknown) (no date) (unknown) (unknown) Departure (units unknown) (unknown) (unknown) (no date) (unknown) (unknown) Deviated septum (uni ts unknown) (unknown) (unknown) (no date) (unknown) (unknown) Discharge Plan (unit s unknown) (unknown) (unknown) (no date) (unknown) (unknown) Discontinued Medications (units unknown) (unknown) (unknown) (no date) (unknown) (unknown) Documented By: MLM ( units unknown) (unknown) (unknown) (no date) (unknown) (unknown) ED Orders (units unknown) (unknown) (unknown) (no date) (unknown) (unknown) EKG-12 Lead Stat (un its unknown) (unknown) (unknown) (no date) (unknown) (unknown) ER Physician: Alfreda Garcia D.O. (units unknown) (unknown) (unknown) (no date) (unknown) (unknown) EXTREMITIES: N ormal range of motion, no clubbing or edema. Neurovascularly (units unknown) (unknown) (unknown) (no date) (unknown) (unknown) Emergency Report (un its unknown) (unknown) (unknown) (no date) (unknown) (unknown) Eos # (Auto) 1 00 (0-450) /uL (units unknown) (unknown) (unknown) (no date) (unknown) (unknown) Eos % (Auto) 0 .7 L (2-4) % (units unknown) (unknown) (unknown) (no date) (unknown) (unknown) Estimated GFR > 60 (>60) mL/min (units unknown) (unknown) (unknown) (no date) (unknown) (unknown) Exam (units unknown) (unknown) (unknown) (no date) (unknown) (unknown) GENERAL: Well-appearing 26-year-old female and in no acute distress. (units unknown) (unknown) (unknown) (no date) (unknown) (unknown) General (units unknown) (unknown) (unknown) (no date) (unknown) (unknown) Globulin 2.8 (1.7-4.1) g/dL (units unknown) (unknown) (unknown) (no date) (unknown) (unknown) Glucose 96 (70 -100) mg/dL (units unknown) (unknown) (unknown) (no date) (unknown) (unknown) HEENT: Head atraumatic,EOMI, pupils reactive, face symmetric, moist mucous (units unknown) (unknown) (unknown) (no date) (unknown) (unknown) HPI - Nausea/Vomiting/Diar geoffrey (units unknown) (unknown) (unknown) (no date) (unknown) (unknown) HPI Narrative: (unit s unknown) (unknown) (unknown) (no date) (unknown) (unknown) Hct 37.6 (36-46) % ( units unknown) (unknown) (unknown) (no date) (unknown) (unknown) Hgb 13.6 (12.0 -16.0) g/dL (units unknown) (unknown) (unknown) (no date) (unknown) (unknown) History of Pre sent Illness (units unknown) (unknown) (unknown) (no date) (unknown) (unknown) Home Medications (un its unknown) (unknown) (unknown) (no date) (unknown) (unknown) Hypertrophy, n zay, turbinate (units unknown) (unknown) (unknown) (no date) (unknown) (unknown) Incompetent na catarina valve (units unknown) (unknown) (unknown) (no date) (unknown) (unknown) Initial Vital Signs (units unknown) (unknown) (unknown) (no date) (unknown) (unknown) Initial Vital Signs: (units unknown) (unknown) (unknown) (no date) (unknown) (unknown) [address] [address] (units unknown) (unknown) (unknown) (no date) (unknown) (unknown) Lab Data (units unknown) (unknown) (unknown) (no date) (unknown) (unknown) Lab Results (units unknown) (unknown) (unknown) (no date) (unknown) (unknown) Labs: (units unknown) (unknown) (unknown) (no date) (unknown) (unknown) Last Admin: 07:18 Dose: 1,000 mls/hr (units unknown) (unknown) (unknown) (no date) (unknown) (unknown) Last Admin: 07:18 Dose: 4 mg (units unknown) (unknown) (unknown) (no date) (unknown) (unknown) Lipase 42 (23- 300) U/L (units unknown) (unknown) (unknown) (no date) (unknown) (unknown) Lipase Stat (units unknown) (unknown) (unknown) (no date) (unknown) (unknown) Lymph # (Auto) 2100 (4472-1765) /uL (units unknown) (unknown) (unknown) (no date) (unknown) (unknown) Lymph % (Auto) 20.3 L (25-40) % (units unknown) (unknown) (unknown) (no date) (unknown) (unknown) MCH 32.6 (26-34) PG (units unknown) (unknown) (unknown) (no date) (unknown) (unknown) MCHC 36.2 H (3 0-36) % (units unknown) (unknown) (unknown) (no date) (unknown) (unknown) MCV 90.1 (80-100) fL (units unknown) (unknown) (unknown) (no date) (unknown) (unknown) MDM - Nausea/Vomiting/Diar geoffrey (units unknown) (unknown) (unknown) (no date) (unknown) (unknown) MRSA (methicil mimi resistant Staphylococcus aureus) (2014) (units unknown) (unknown) (unknown) (no date) (unknown) (unknown) Medical Histor y (Updated 09/12/22 @ 00:00 by ) (units unknown) (unknown) (unknown) (no date) (unknown) (unknown) Medication Instructions Recorded Confirmed (units unknown) (unknown) (unknown) (no date) (unknown) (unknown) Medication Instructions Recorded (units unknown) (unknown) (unknown) (no date) (unknown) (unknown) Migraine headache (u nits unknown) (unknown) (unknown) (no date) (unknown) (unknown) Mode of arriva l: Ambulatory (units unknown) (unknown) (unknown) (no date) (unknown) (unknown) [place] # (Auto) 700 (0-900) /uL (units unknown) (unknown) (unknown) (no date) (unknown) (unknown) [place] % (Auto) 7.1 (3-14) % (units unknown) (unknown) (unknown) (no date) (unknown) (unknown) NEUROLOGICAL: Alert and oriented x4. (units unknown) (unknown) (unknown) (no date) (unknown) (unknown) Nasal congestion (un its unknown) (unknown) (unknown) (no date) (unknown) (unknown) Nasal obstruction (u nits unknown) (unknown) (unknown) (no date) (unknown) (unknown) Neut # (Auto) 7400 H (6909-3285) /uL (units unknown) (unknown) (unknown) (no date) (unknown) (unknown) Neut % (Auto) 71.7 (50-75) % (units unknown) (unknown) (unknown) (no date) (unknown) (unknown) No Action (units unknown) (unknown) (unknown) (no date) (unknown) (unknown) Ondansetron HC l (Ondansetron 4 Mg Odt) 4 mg PO NOW PRN (units unknown) (unknown) (unknown) (no date) (unknown) (unknown) Ondansetron HC l (Ondansetron 4 Mg/2 Ml Inj) 4 mg IV NOW PRN (units unknown) (unknown) (unknown) (no date) (unknown) (unknown) Ordered: (units unknown) (unknown) (unknown) (no date) (unknown) (unknown) Orders (units unknown) (unknown) (unknown) (no date) (unknown) (unknown) Oxygen Deliver y Method Room Air 10/17/22 06:45 (units unknown) (unknown) (unknown) (no date) (unknown) (unknown) Oxygen Deliver y Method Room Air (units unknown) (unknown) (unknown) (no date) (unknown) (unknown) PRN Reason: Na usea And Vomiting (units unknown) (unknown) (unknown) (no date) (unknown) (unknown) Patient History (uni ts unknown) (unknown) (unknown) (no date) (unknown) (unknown) Patient is a h ealthy 26-year-old female presents with nausea vomiting ongoing (units unknown) (unknown) (unknown) (no date) (unknown) (unknown) Patient: Carie Sullivan MR#: [id number] (units unknown) (unknown) (unknown) (no date) (unknown) (unknown) Plt Count 183 (150-400) X103/uL (units unknown) (unknown) (unknown) (no date) (unknown) (unknown) Potassium 3.2 L (3.4-5.1) mmol/L (units unknown) (unknown) (unknown) (no date) (unknown) (unknown) Prescriptions: (unit s unknown) (unknown) (unknown) (no date) (unknown) (unknown) Previous Rx's (units unknown) (unknown) (unknown) (no date) (unknown) (unknown) Provider,Vaibhav HANKS [Primary Care Provider] (units unknown) (unknown) (unknown) (no date) (unknown) (unknown) Pulse Oximetry 98 10/17/22 06:45 (units unknown) (unknown) (unknown) (no date) (unknown) (unknown) Pulse Oximetry 98 (u nits unknown) (unknown) (unknown) (no date) (unknown) (unknown) Pulse Rate 56 L 10/17/22 06:45 (units unknown) (unknown) (unknown) (no date) (unknown) (unknown) Pulse Rate 56 L (uni ts unknown) (unknown) (unknown) (no date) (unknown) (unknown) RBC 4.18 (4.0- 5.2) X106/uL (units unknown) (unknown) (unknown) (no date) (unknown) (unknown) RDW 13.4 (11.6 -14.8) % (units unknown) (unknown) (unknown) (no date) (unknown) (unknown) RESPIRATORY: B reath sounds equal bilaterally, no wheezes rales or rhonchi. (units unknown) (unknown) (unknown) (no date) (unknown) (unknown) ROS Unobtainab le: All systems reviewed + are unremarkable except as noted in HPI (units unknown) (unknown) (unknown) (no date) (unknown) (unknown) Referrals: (units unknown) (unknown) (unknown) (no date) (unknown) (unknown) Related Data (units unknown) (unknown) (unknown) (no date) (unknown) (unknown) Respiratory Ra te 18 10/17/22 06:45 (units unknown) (unknown) (unknown) (no date) (unknown) (unknown) Respiratory Rate 18 (units unknown) (unknown) (unknown) (no date) (unknown) (unknown) Review of Systems (u nits unknown) (unknown) (unknown) (no date) (unknown) (unknown) Rib injury (2019) (u nits unknown) (unknown) (unknown) (no date) (unknown) (unknown) Ruptured ovari an cyst (2017) (units unknown) (unknown) (unknown) (no date) (unknown) (unknown) Rx Instructions: (un its unknown) (unknown) (unknown) (no date) (unknown) (unknown) SKIN: Warm, dr y, no laceration, no petechiae, no rashes or lesions. (units unknown) (unknown) (unknown) (no date) (unknown) (unknown) See Rx Instruc tions .ROUTE .COMPLEX (units unknown) (unknown) (unknown) (no date) (unknown) (unknown) Signed By: (units unknown) (unknown) (unknown) (no date) (unknown) (unknown) Smoking Status : Current every day smoker (units unknown) (unknown) (unknown) (no date) (unknown) (unknown) Social History (units unknown) (unknown) (unknown) (no date) (unknown) (unknown) Sodium 138 (13 7-145) mmol/L (units unknown) (unknown) (unknown) (no date) (unknown) (unknown) Sodium Chlorid e (Normal Saline 0.9%) 1,000 mls @ 1,000 mls/hr IV BOLUS ONE (units unknown) (unknown) (unknown) (no date) (unknown) (unknown) Source: patient (uni ts unknown) (unknown) (unknown) (no date) (unknown) (unknown) Stated complai nt: v/d heart palpatations (units unknown) (unknown) (unknown) (no date) (unknown) (unknown) Stop: 10/17/22 08:09 (units unknown) (unknown) (unknown) (no date) (unknown) (unknown) Substance Use Type: marijuana (units unknown) (unknown) (unknown) (no date) (unknown) (unknown) Surgical Histo ry (units unknown) (unknown) (unknown) (no date) (unknown) (unknown) Temperature 97 .1 F L 10/17/22 06:45 (units unknown) (unknown) (unknown) (no date) (unknown) (unknown) Temperature 97.1 F L (units unknown) (unknown) (unknown) (no date) (unknown) (unknown) Time Seen by Provider: 10/17/22 06:48 (units unknown) (unknown) (unknown) (no date) (unknown) (unknown) Total Bilirubi n 0.6 (0.2-1.3) mg/dL (units unknown) (unknown) (unknown) (no date) (unknown) (unknown) Total Protein 7.1 (6.3-8.2) g/dL (units unknown) (unknown) (unknown) (no date) (unknown) (unknown) Vital Signs - 8 hr ( units unknown) (unknown) (unknown) (no date) (unknown) (unknown) Vital Signs (units unknown) (unknown) (unknown) (no date) (unknown) (unknown) Vital signs: (units unknown) (unknown) (unknown) (no date) (unknown) (unknown) WBC 10.3 (4.5- 11.0) X103/uL (units unknown) (unknown) (unknown) (no date) (unknown) (unknown) [place] teeth r emoved (01/16/13) (units unknown) (unknown) (unknown) (no date) (unknown) (unknown) [Embedded Imag e Not Available] (units unknown) (unknown) (unknown) (no date) (unknown) (unknown) alcohol intake frequency: holidays/special occasions only (units unknown) (unknown) (unknown) (no date) (unknown) (unknown) alcohol intake : current (units unknown) (unknown) (unknown) (no date) (unknown) (unknown) and below (units unknown) (unknown) (unknown) (no date) (unknown) (unknown) clindamycin-be nzoyl- emol [id number] See Rx Instructions .Route .COMPLEX 01/29/20 (units unknown) (unknown) (unknown) (no date) (unknown) (unknown) clindamycin-be nzoyl- emol [id number] (units unknown) (unknown) (unknown) (no date) (unknown) (unknown) feeling well yesterday. No one else is sick at home (units unknown) (unknown) (unknown) (no date) (unknown) (unknown) for the last 1 hour. She is had crampy is racing. No fever or chills. She was (units unknown) (unknown) (unknown) (no date) (unknown) (unknown) guarding or rebound. (units unknown) (unknown) (unknown) (no date) (unknown) (unknown) household memb ers: spouse (units unknown) (unknown) (unknown) (no date) (unknown) (unknown) intact (units unknown) (unknown) (unknown) (no date) (unknown) (unknown) latex Allergy Intermediate Anxiety Verified 08/05/22 16:46 (units unknown) (unknown) (unknown) (no date) (unknown) (unknown) membranes (units unknown) (unknown) (unknown) (no date) (unknown) (unknown) ondansetron 4 mg disintegrating 4 mg PO Q8H PRN nausea and 08/28/22 (units unknown) (unknown) (unknown) (no date) (unknown) (unknown) ondansetron 4 mg disintegrating 4 mg PO TID-QID PRN nausea and 08/05/22 (units unknown) (unknown) (unknown) (no date) (unknown) (unknown) ondansetron 4 mg tablet,disintegratin g (units unknown) (unknown) (unknown) (no date) (unknown) (unknown) pantoprazole 4 0 mg tablet,delayed 40 mg PO DAILY #30 tabs 08/05/22 (units unknown) (unknown) (unknown) (no date) (unknown) (unknown) pantoprazole [Protonix] 40 mg tablet,delayed release (DR/EC) (units unknown) (unknown) (unknown) (no date) (unknown) (unknown) place as needed. (un its unknown) (unknown) (unknown) (no date) (unknown) (unknown) promethazine A dvReac Verified 08/05/22 16:46 (units unknown) (unknown) (unknown) (no date) (unknown) (unknown) release (Protonix) ( units unknown) (unknown) (unknown) (no date) (unknown) (unknown) tablet vomitin g #10 tabs (units unknown) (unknown) (unknown) (no date) (unknown) (unknown) tobacco type: vaping (units unknown) (unknown) (unknown) (no date) (unknown) (unknown) tretinoin 0.02 5 % topical cream 1 applic topical BEDTIME 01/29/20 01/29/20 (units unknown) (unknown) (unknown) (no date) (unknown) (unknown) tretinoin [Ret in-A] 0.025 % Cream (units unknown) (unknown) Result panel 380 (unknown) (no date) (unknown) (unknown) (no value) (units unknown) (unknown) (unknown) (no date) (unknown) (unknown) (Retin-A) (units unknown) (unknown) (unknown) (no date) (unknown) (unknown) 10/17/2210/17 Range/Units (units unknown) (unknown) (unknown) (no date) (unknown) (unknown) 10/17/22 07:00 (unit s unknown) (unknown) (unknown) (no date) (unknown) (unknown) 10/17/22 07:04 (unit s unknown) (unknown) (unknown) (no date) (unknown) (unknown) 10/17/22 (units unknown) (unknown) (unknown) (no date) (unknown) (unknown) 06:45 (units unknown) (unknown) (unknown) (no date) (unknown) (unknown) 07:00 07:00 (units unknown) (unknown) (unknown) (no date) (unknown) (unknown) 01/29/20 (units unknown) (unknown) (unknown) (no date) (unknown) (unknown) 1 applic TOPIC AL BEDTIME (units unknown) (unknown) (unknown) (no date) (unknown) (unknown) 1) You have be en diagnosed with gastroenteritis (units unknown) (unknown) (unknown) (no date) (unknown) (unknown) 2) What to do: Drink frequent but small amounts of fluids. (units unknown) (unknown) (unknown) (no date) (unknown) (unknown) 26-year-old fe male with signs and symptoms consistent with a gastroenteritis. (units unknown) (unknown) (unknown) (no date) (unknown) (unknown) 3) Take medica tions as directed (units unknown) (unknown) (unknown) (no date) (unknown) (unknown) 4 mg PO Q8H NM N (Reason: nausea and vomiting) Qty: 10 0RF (units unknown) (unknown) (unknown) (no date) (unknown) (unknown) 4 mg PO TID-QI D PRN (Reason: nausea and vomiting) Qty: 10 0RF (units unknown) (unknown) (unknown) (no date) (unknown) (unknown) 4) Follow up w ith your primary care provider in 2-3 days [and follow up with (units unknown) (unknown) (unknown) (no date) (unknown) (unknown) 40 mg PO DAILY Qty: 30 0RF (units unknown) (unknown) (unknown) (no date) (unknown) (unknown) 5) Return to [facility] if you should have any new or worsening symptoms such as, unable (units unknown) (unknown) (unknown) (no date) (unknown) (unknown) 8551 (units unknown) (unknown) (unknown) (no date) (unknown) (unknown) ABDOMEN: Soft, nontender. Normoactive bowel sounds all 4 quadrants. No (units unknown) (unknown) (unknown) (no date) (unknown) (unknown) ALT 18 (<35) IU/L (u nits unknown) (unknown) (unknown) (no date) (unknown) (unknown) AST 22 (14-36) IU/L (units unknown) (unknown) (unknown) (no date) (unknown) (unknown) Activity Restrictions/Additio nal Instructions: (units unknown) (unknown) (unknown) (no date) (unknown) (unknown) Age/Sex: 26 / F (uni ts unknown) (unknown) (unknown) (no date) (unknown) (unknown) Albumin 4.3 (3.5-5.0) g/dL (units unknown) (unknown) (unknown) (no date) (unknown) (unknown) Albumin/Globul in Ratio 1.5 (1.0-2.8) (units unknown) (unknown) (unknown) (no date) (unknown) (unknown) Alkaline Phosp hatase 49 (38-126) U/L (units unknown) (unknown) (unknown) (no date) (unknown) (unknown) Allergies (units unknown) (unknown) (unknown) (no date) (unknown) (unknown) Allergy/AdvRea c Type Severity Reaction Status Date / Time (units unknown) (unknown) (unknown) (no date) (unknown) (unknown) Anemia (units unknown) (unknown) (unknown) (no date) (unknown) (unknown) BUN 10 (7-17) mg/dL (units unknown) (unknown) (unknown) (no date) (unknown) (unknown) BUN/Creatinine Ratio 17.5 (6-22) (units unknown) (unknown) (unknown) (no date) (unknown) (unknown) Baso # (Auto) 0 (0-100) /uL (units unknown) (unknown) (unknown) (no date) (unknown) (unknown) Baso % (Auto) 0.2 (0-2) % (units unknown) (unknown) (unknown) (no date) (unknown) (unknown) Blood Pressure 109/56 L 10/17/22 06:45 (units unknown) (unknown) (unknown) (no date) (unknown) (unknown) Blood Pressure 109/56 L (units unknown) (unknown) (unknown) (no date) (unknown) (unknown) CARDIOVASCULAR : Regular rate and rhythm without murmurs, rubs or gallops. (units unknown) (unknown) (unknown) (no date) (unknown) (unknown) Calcium 9.0 (8.4-10.2) mg/dL (units unknown) (unknown) (unknown) (no date) (unknown) (unknown) Carbon Dioxide 21 L (22-32) mmol/L (units unknown) (unknown) (unknown) (no date) (unknown) (unknown) Chief complain t: Nausea/Vomiting/Diar geoffrey (units unknown) (unknown) (unknown) (no date) (unknown) (unknown) Chloride 106 (98-107) mmol/L (units unknown) (unknown) (unknown) (no date) (unknown) (unknown) Chronic anxiety (uni ts unknown) (unknown) (unknown) (no date) (unknown) (unknown) Clinical Impression: (units unknown) (unknown) (unknown) (no date) (unknown) (unknown) Complete Blood Count AUTO DIFF Stat (units unknown) (unknown) (unknown) (no date) (unknown) (unknown) Comprehensive Metabolic Panel Stat (units unknown) (unknown) (unknown) (no date) (unknown) (unknown) Course (units unknown) (unknown) (unknown) (no date) (unknown) (unknown) Creatinine 0.5 7 (0.52-1.04) mg/dL (units unknown) (unknown) (unknown) (no date) (unknown) (unknown) : 5 Acct:[id number] (units unknown) (unknown) (unknown) (no date) (unknown) (unknown) Date of Servic e: 10/17/22 (units unknown) (unknown) (unknown) (no date) (unknown) (unknown) Departure (units unknown) (unknown) (unknown) (no date) (unknown) (unknown) Deviated septum (uni ts unknown) (unknown) (unknown) (no date) (unknown) (unknown) Discharge Plan (unit s unknown) (unknown) (unknown) (no date) (unknown) (unknown) Discontinued Medications (units unknown) (unknown) (unknown) (no date) (unknown) (unknown) Documented By: MLM ( units unknown) (unknown) (unknown) (no date) (unknown) (unknown) ECG Data (units unknown) (unknown) (unknown) (no date) (unknown) (unknown) ED Orders (units unknown) (unknown) (unknown) (no date) (unknown) (unknown) EKG-12 Lead Stat (un its unknown) (unknown) (unknown) (no date) (unknown) (unknown) ER Physician: Alfreda Garcia D.O. (units unknown) (unknown) (unknown) (no date) (unknown) (unknown) EXTREMITIES: N ormal range of motion, no clubbing or edema. Neurovascularly (units unknown) (unknown) (unknown) (no date) (unknown) (unknown) Emergency Report (un its unknown) (unknown) (unknown) (no date) (unknown) (unknown) Eos # (Auto) 1 00 (0-450) /uL (units unknown) (unknown) (unknown) (no date) (unknown) (unknown) Eos % (Auto) 0 .7 L (2-4) % (units unknown) (unknown) (unknown) (no date) (unknown) (unknown) Estimated GFR > 60 (>60) mL/min (units unknown) (unknown) (unknown) (no date) (unknown) (unknown) Exam (units unknown) (unknown) (unknown) (no date) (unknown) (unknown) GENERAL: Well-appearing 26-year-old female and in no acute distress. (units unknown) (unknown) (unknown) (no date) (unknown) (unknown) Gastroenteritis (uni ts unknown) (unknown) (unknown) (no date) (unknown) (unknown) General (units unknown) (unknown) (unknown) (no date) (unknown) (unknown) Globulin 2.8 (1.7-4.1) g/dL (units unknown) (unknown) (unknown) (no date) (unknown) (unknown) Glucose 96 (70 -100) mg/dL (units unknown) (unknown) (unknown) (no date) (unknown) (unknown) HEENT: Head atraumatic,EOMI, pupils reactive, face symmetric, moist mucous (units unknown) (unknown) (unknown) (no date) (unknown) (unknown) HPI - Nausea/Vomiting/Diar geoffrey (units unknown) (unknown) (unknown) (no date) (unknown) (unknown) HPI Narrative: (unit s unknown) (unknown) (unknown) (no date) (unknown) (unknown) Hct 37.6 (36-46) % ( units unknown) (unknown) (unknown) (no date) (unknown) (unknown) Hgb 13.6 (12.0 -16.0) g/dL (units unknown) (unknown) (unknown) (no date) (unknown) (unknown) History of Pre sent Illness (units unknown) (unknown) (unknown) (no date) (unknown) (unknown) Home Medications (un its unknown) (unknown) (unknown) (no date) (unknown) (unknown) Hypertrophy, n zay, turbinate (units unknown) (unknown) (unknown) (no date) (unknown) (unknown) I recommend Ga torade or a Gatorade-like product, as it has small amounts of (units unknown) (unknown) (unknown) (no date) (unknown) (unknown) Incompetent na catarina valve (units unknown) (unknown) (unknown) (no date) (unknown) (unknown) Initial Vital Signs (units unknown) (unknown) (unknown) (no date) (unknown) (unknown) Initial Vital Signs: (units unknown) (unknown) (unknown) (no date) (unknown) (unknown) Instructions: DI for Viral Gastroenteritis -- Adult (units unknown) (unknown) (unknown) (no date) (unknown) (unknown) Interpretation: (uni ts unknown) (unknown) (unknown) (no date) (unknown) (unknown) [address] [address] (units unknown) (unknown) (unknown) (no date) (unknown) (unknown) Lab Data (units unknown) (unknown) (unknown) (no date) (unknown) (unknown) Lab Results (units unknown) (unknown) (unknown) (no date) (unknown) (unknown) Labs: (units unknown) (unknown) (unknown) (no date) (unknown) (unknown) Last Admin: 07:18 Dose: 1,000 mls/hr (units unknown) (unknown) (unknown) (no date) (unknown) (unknown) Last Admin: 07:18 Dose: 4 mg (units unknown) (unknown) (unknown) (no date) (unknown) (unknown) Lipase 42 (23- 300) U/L (units unknown) (unknown) (unknown) (no date) (unknown) (unknown) Lipase Stat (units unknown) (unknown) (unknown) (no date) (unknown) (unknown) Lymph # (Auto) 2100 (8024-2556) /uL (units unknown) (unknown) (unknown) (no date) (unknown) (unknown) Lymph % (Auto) 20.3 L (25-40) % (units unknown) (unknown) (unknown) (no date) (unknown) (unknown) MCH 32.6 (26-34) PG (units unknown) (unknown) (unknown) (no date) (unknown) (unknown) MCHC 36.2 H (3 0-36) % (units unknown) (unknown) (unknown) (no date) (unknown) (unknown) MCV 90.1 (80-100) fL (units unknown) (unknown) (unknown) (no date) (unknown) (unknown) MDM - Nausea/Vomiting/Diar geoffrey (units unknown) (unknown) (unknown) (no date) (unknown) (unknown) MDM Narrative (units unknown) (unknown) (unknown) (no date) (unknown) (unknown) MRSA (methicil mimi resistant Staphylococcus aureus) (2014) (units unknown) (unknown) (unknown) (no date) (unknown) (unknown) Medical Histor y (Updated 10/17/22 @ 08:52 by Alfreda Garcia DO) (units unknown) (unknown) (unknown) (no date) (unknown) (unknown) Medical decisi on making narrative: (units unknown) (unknown) (unknown) (no date) (unknown) (unknown) Medication Instructions Recorded Confirmed (units unknown) (unknown) (unknown) (no date) (unknown) (unknown) Medication Instructions Recorded (units unknown) (unknown) (unknown) (no date) (unknown) (unknown) Migraine headache (u nits unknown) (unknown) (unknown) (no date) (unknown) (unknown) Mode of arriva l: Ambulatory (units unknown) (unknown) (unknown) (no date) (unknown) (unknown) Finney # (Auto) 700 (0-900) /uL (units unknown) (unknown) (unknown) (no date) (unknown) (unknown) [place]ney % (Auto) 7.1 (3-14) % (units unknown) (unknown) (unknown) (no date) (unknown) (unknown) NEUROLOGICAL: Alert and oriented x4. (units unknown) (unknown) (unknown) (no date) (unknown) (unknown) Nasal congestion (un its unknown) (unknown) (unknown) (no date) (unknown) (unknown) Nasal obstruction (u nits unknown) (unknown) (unknown) (no date) (unknown) (unknown) Neut # (Auto) 7400 H (0697-7052) /uL (units unknown) (unknown) (unknown) (no date) (unknown) (unknown) Neut % (Auto) 71.7 (50-75) % (units unknown) (unknown) (unknown) (no date) (unknown) (unknown) New (units unknown) (unknown) (unknown) (no date) (unknown) (unknown) No Action (units unknown) (unknown) (unknown) (no date) (unknown) (unknown) Normal sinus r hythm rate 64 NM interval 146 QRS [address] changes no T (units unknown) (unknown) (unknown) (no date) (unknown) (unknown) Ondansetron HC l (Ondansetron 4 Mg Odt) 4 mg PO NOW PRN (units unknown) (unknown) (unknown) (no date) (unknown) (unknown) Ondansetron HC l (Ondansetron 4 Mg/2 Ml Inj) 4 mg IV NOW PRN (units unknown) (unknown) (unknown) (no date) (unknown) (unknown) Ordered: (units unknown) (unknown) (unknown) (no date) (unknown) (unknown) Orders (units unknown) (unknown) (unknown) (no date) (unknown) (unknown) Oxygen Deliver y Method Room Air 10/17/22 06:45 (units unknown) (unknown) (unknown) (no date) (unknown) (unknown) Oxygen Deliver y Method Room Air (units unknown) (unknown) (unknown) (no date) (unknown) (unknown) PRN Reason: Na usea And Vomiting (units unknown) (unknown) (unknown) (no date) (unknown) (unknown) Patient Dispos ition: Home (units unknown) (unknown) (unknown) (no date) (unknown) (unknown) Patient History (uni ts unknown) (unknown) (unknown) (no date) (unknown) (unknown) Patient is a h willianlthy 26-year-old female presents with nausea vomiting ongoing (units unknown) (unknown) (unknown) (no date) (unknown) (unknown) Patient: Carie Sullivan MR#: [id number] (units unknown) (unknown) (unknown) (no date) (unknown) (unknown) Plt Count 183 (150-400) X103/uL (units unknown) (unknown) (unknown) (no date) (unknown) (unknown) Potassium 3.2 L (3.4-5.1) mmol/L (units unknown) (unknown) (unknown) (no date) (unknown) (unknown) Prescriptions: (unit s unknown) (unknown) (unknown) (no date) (unknown) (unknown) Previous Rx's (units unknown) (unknown) (unknown) (no date) (unknown) (unknown) Provider,Vaibhav HANKS [Primary Care Provider] (units unknown) (unknown) (unknown) (no date) (unknown) (unknown) Pulse Oximetry 98 10/17/22 06:45 (units unknown) (unknown) (unknown) (no date) (unknown) (unknown) Pulse Oximetry 98 (u nits unknown) (unknown) (unknown) (no date) (unknown) (unknown) Pulse Rate 56 L 10/17/22 06:45 (units unknown) (unknown) (unknown) (no date) (unknown) (unknown) Pulse Rate 56 L (uni ts unknown) (unknown) (unknown) (no date) (unknown) (unknown) RBC 4.18 (4.0- 5.2) X106/uL (units unknown) (unknown) (unknown) (no date) (unknown) (unknown) RDW 13.4 (11.6 -14.8) % (units unknown) (unknown) (unknown) (no date) (unknown) (unknown) RESPIRATORY: B reath sounds equal bilaterally, no wheezes rales or rhonchi. (units unknown) (unknown) (unknown) (no date) (unknown) (unknown) ROS Unobtainab le: All systems reviewed + are unremarkable except as noted in HPI (units unknown) (unknown) (unknown) (no date) (unknown) (unknown) Referrals: (units unknown) (unknown) (unknown) (no date) (unknown) (unknown) Related Data (units unknown) (unknown) (unknown) (no date) (unknown) (unknown) Respiratory Ra te 18 10/17/22 06:45 (units unknown) (unknown) (unknown) (no date) (unknown) (unknown) Respiratory Rate 18 (units unknown) (unknown) (unknown) (no date) (unknown) (unknown) Review of Systems (u nits unknown) (unknown) (unknown) (no date) (unknown) (unknown) Rib injury (2019) (u nits unknown) (unknown) (unknown) (no date) (unknown) (unknown) Ruptured ovari an cyst (2017) (units unknown) (unknown) (unknown) (no date) (unknown) (unknown) Rx Instructions: (un its unknown) (unknown) (unknown) (no date) (unknown) (unknown) SKIN: Warm, dr y, no laceration, no petechiae, no rashes or lesions. (units unknown) (unknown) (unknown) (no date) (unknown) (unknown) See Rx Instruc tions .ROUTE .COMPLEX (units unknown) (unknown) (unknown) (no date) (unknown) (unknown) She is given f luids Zofran and Toradol. She is tolerating oral fluids overall (units unknown) (unknown) (unknown) (no date) (unknown) (unknown) Signed By: (units unknown) (unknown) (unknown) (no date) (unknown) (unknown) Smoking Status : Current every day smoker (units unknown) (unknown) (unknown) (no date) (unknown) (unknown) Social History (units unknown) (unknown) (unknown) (no date) (unknown) (unknown) Sodium 138 (13 7-145) mmol/L (units unknown) (unknown) (unknown) (no date) (unknown) (unknown) Sodium Chlorid e (Normal Saline 0.9%) 1,000 mls @ 1,000 mls/hr IV BOLUS ONE (units unknown) (unknown) (unknown) (no date) (unknown) (unknown) Source: patient (uni ts unknown) (unknown) (unknown) (no date) (unknown) (unknown) Stand Alone Fo colby: Patient Portal/API (units unknown) (unknown) (unknown) (no date) (unknown) (unknown) Stated complai nt: v/d heart palpatations (units unknown) (unknown) (unknown) (no date) (unknown) (unknown) Stop: 10/17/22 08:09 (units unknown) (unknown) (unknown) (no date) (unknown) (unknown) Substance Use Type: marijuana (units unknown) (unknown) (unknown) (no date) (unknown) (unknown) Surgical Histo ry (units unknown) (unknown) (unknown) (no date) (unknown) (unknown) Symptoms have been only ongoing for 1 hour. Potassium is 3.2 consistent with (units unknown) (unknown) (unknown) (no date) (unknown) (unknown) Temperature 97 .1 F L 10/17/22 06:45 (units unknown) (unknown) (unknown) (no date) (unknown) (unknown) Temperature 97.1 F L (units unknown) (unknown) (unknown) (no date) (unknown) (unknown) Time Seen by Provider: 10/17/22 06:48 (units unknown) (unknown) (unknown) (no date) (unknown) (unknown) Total Bilirubi n 0.6 (0.2-1.3) mg/dL (units unknown) (unknown) (unknown) (no date) (unknown) (unknown) Total Protein 7.1 (6.3-8.2) g/dL (units unknown) (unknown) (unknown) (no date) (unknown) (unknown) Vital Signs - 8 hr ( units unknown) (unknown) (unknown) (no date) (unknown) (unknown) Vital Signs (units unknown) (unknown) (unknown) (no date) (unknown) (unknown) Vital signs: (units unknown) (unknown) (unknown) (no date) (unknown) (unknown) WBC 10.3 (4.5- 11.0) X103/uL (units unknown) (unknown) (unknown) (no date) (unknown) (unknown) [place] teeth r emoved (01/16/13) (units unknown) (unknown) (unknown) (no date) (unknown) (unknown) Zofran 4 mg ev josemanuel 8 hours if needed for nausea vomiting --> [facility] (units unknown) (unknown) (unknown) (no date) (unknown) (unknown) [Embedded Imag e Not Available] (units unknown) (unknown) (unknown) (no date) (unknown) (unknown) alcohol intake frequency: holidays/special occasions only (units unknown) (unknown) (unknown) (no date) (unknown) (unknown) alcohol intake : current (units unknown) (unknown) (unknown) (no date) (unknown) (unknown) and below (units unknown) (unknown) (unknown) (no date) (unknown) (unknown) clindamycin-be nzoyl- emol [id number] See Rx Instructions .Route .COMPLEX 01/29/20 (units unknown) (unknown) (unknown) (no date) (unknown) (unknown) clindamycin-be nzoyl- emol [id number] (units unknown) (unknown) (unknown) (no date) (unknown) (unknown) diarrhea and vomiting. No other electrolyte abnormalities or evidence of JENNY. (units unknown) (unknown) (unknown) (no date) (unknown) (unknown) feeling much b nikita. Oral rehydration education given by myself. At this time (units unknown) (unknown) (unknown) (no date) (unknown) (unknown) feeling well yesterday. No one else is sick at home (units unknown) (unknown) (unknown) (no date) (unknown) (unknown) for the last 1 hour. She is had crampy is racing. No fever or chills. She was (units unknown) (unknown) (unknown) (no date) (unknown) (unknown) guarding or rebound. (units unknown) (unknown) (unknown) (no date) (unknown) (unknown) household memb ers: spouse (units unknown) (unknown) (unknown) (no date) (unknown) (unknown) intact (units unknown) (unknown) (unknown) (no date) (unknown) (unknown) latex Allergy Intermediate Anxiety Verified 08/05/22 16:46 (units unknown) (unknown) (unknown) (no date) (unknown) (unknown) membranes (units unknown) (unknown) (unknown) (no date) (unknown) (unknown) no need for admission or further evaluation or workup. (units unknown) (unknown) (unknown) (no date) (unknown) (unknown) ondansetron 4 mg disintegrating 4 mg PO Q8H PRN nausea and 08/28/22 (units unknown) (unknown) (unknown) (no date) (unknown) (unknown) ondansetron 4 mg disintegrating 4 mg PO Q8H PRN nausea and 10/17/22 (units unknown) (unknown) (unknown) (no date) (unknown) (unknown) ondansetron 4 mg disintegrating 4 mg PO TID-QID PRN nausea and 08/05/22 (units unknown) (unknown) (unknown) (no date) (unknown) (unknown) ondansetron 4 mg tablet,disintegratin g (units unknown) (unknown) (unknown) (no date) (unknown) (unknown) oral rehydrati on strategy. (units unknown) (unknown) (unknown) (no date) (unknown) (unknown) ortho, urology etc] (units unknown) (unknown) (unknown) (no date) (unknown) (unknown) pantoprazole 4 0 mg tablet,delayed 40 mg PO DAILY #30 tabs 08/05/22 (units unknown) (unknown) (unknown) (no date) (unknown) (unknown) pantoprazole [Protonix] 40 mg tablet,delayed release (DR/EC) (units unknown) (unknown) (unknown) (no date) (unknown) (unknown) place as needed. (un its unknown) (unknown) (unknown) (no date) (unknown) (unknown) promethazine A dvReac Verified 08/05/22 16:46 (units unknown) (unknown) (unknown) (no date) (unknown) (unknown) release (Protonix) ( units unknown) (unknown) (unknown) (no date) (unknown) (unknown) sugar and salt s that improve fluid retention. (units unknown) (unknown) (unknown) (no date) (unknown) (unknown) tablet vomitin g #10 tabs (units unknown) (unknown) (unknown) (no date) (unknown) (unknown) to hold down f luids despite use of anti-nausea medications and the small volume (units unknown) (unknown) (unknown) (no date) (unknown) (unknown) tobacco type: vaping (units unknown) (unknown) (unknown) (no date) (unknown) (unknown) tretinoin 0.02 5 % topical cream 1 applic topical BEDTIME 01/29/20 01/29/20 (units unknown) (unknown) (unknown) (no date) (unknown) (unknown) tretinoin [Ret in-A] 0.025 % Cream (units unknown) (unknown) (unknown) (no date) (unknown) (unknown) wave inversions (uni ts unknown) (unknown) Result panel 381 (unknown) (no date) (unknown) (unknown) (no value) (units unknown) (unknown) (unknown) (no date) (unknown) (unknown) (Retin-A) (units unknown) (unknown) (unknown) (no date) (unknown) (unknown) 10/17/2210/17 Range/Units (units unknown) (unknown) (unknown) (no date) (unknown) (unknown) 10/17/22 07:00 (unit s unknown) (unknown) (unknown) (no date) (unknown) (unknown) 10/17/22 07:04 (unit s unknown) (unknown) (unknown) (no date) (unknown) (unknown) 10/17/22 (units unknown) (unknown) (unknown) (no date) (unknown) (unknown) 06:45 (units unknown) (unknown) (unknown) (no date) (unknown) (unknown) 07:00 07:00 (units unknown) (unknown) (unknown) (no date) (unknown) (unknown) 01/29/20 (units unknown) (unknown) (unknown) (no date) (unknown) (unknown) 1 applic TOPIC AL BEDTIME (units unknown) (unknown) (unknown) (no date) (unknown) (unknown) 1) You have be en diagnosed with gastroenteritis (units unknown) (unknown) (unknown) (no date) (unknown) (unknown) 2) What to do: Drink frequent but small amounts of fluids. (units unknown) (unknown) (unknown) (no date) (unknown) (unknown) 26-year-old fe male with signs and symptoms consistent with a gastroenteritis. (units unknown) (unknown) (unknown) (no date) (unknown) (unknown) 3) Take medica tions as directed (units unknown) (unknown) (unknown) (no date) (unknown) (unknown) 4 mg PO Q8H NM N (Reason: nausea and vomiting) Qty: 10 0RF (units unknown) (unknown) (unknown) (no date) (unknown) (unknown) 4 mg PO TID-QI D PRN (Reason: nausea and vomiting) Qty: 10 0RF (units unknown) (unknown) (unknown) (no date) (unknown) (unknown) 4) Follow up w ith your primary care provider in 2-3 days [and follow up with (units unknown) (unknown) (unknown) (no date) (unknown) (unknown) 40 mg PO DAILY Qty: 30 0RF (units unknown) (unknown) (unknown) (no date) (unknown) (unknown) 5) Return to [facility] if you should have any new or worsening symptoms such as, unable (units unknown) (unknown) (unknown) (no date) (unknown) (unknown) 8551 (units unknown) (unknown) (unknown) (no date) (unknown) (unknown) ABDOMEN: Soft, nontender. Normoactive bowel sounds all 4 quadrants. No (units unknown) (unknown) (unknown) (no date) (unknown) (unknown) ALT 18 (<35) IU/L (u nits unknown) (unknown) (unknown) (no date) (unknown) (unknown) AST 22 (14-36) IU/L (units unknown) (unknown) (unknown) (no date) (unknown) (unknown) Activity Restrictions/Additio nal Instructions: (units unknown) (unknown) (unknown) (no date) (unknown) (unknown) Age/Sex: 26 / F (uni ts unknown) (unknown) (unknown) (no date) (unknown) (unknown) Albumin 4.3 (3.5-5.0) g/dL (units unknown) (unknown) (unknown) (no date) (unknown) (unknown) Albumin/Globul in Ratio 1.5 (1.0-2.8) (units unknown) (unknown) (unknown) (no date) (unknown) (unknown) Alkaline Phosp hatase 49 (38-126) U/L (units unknown) (unknown) (unknown) (no date) (unknown) (unknown) Allergies (units unknown) (unknown) (unknown) (no date) (unknown) (unknown) Allergy/AdvRea c Type Severity Reaction Status Date / Time (units unknown) (unknown) (unknown) (no date) (unknown) (unknown) Anemia (units unknown) (unknown) (unknown) (no date) (unknown) (unknown) BUN 10 (7-17) mg/dL (units unknown) (unknown) (unknown) (no date) (unknown) (unknown) BUN/Creatinine Ratio 17.5 (6-22) (units unknown) (unknown) (unknown) (no date) (unknown) (unknown) Baso # (Auto) 0 (0-100) /uL (units unknown) (unknown) (unknown) (no date) (unknown) (unknown) Baso % (Auto) 0.2 (0-2) % (units unknown) (unknown) (unknown) (no date) (unknown) (unknown) Blood Pressure 109/56 L 10/17/22 06:45 (units unknown) (unknown) (unknown) (no date) (unknown) (unknown) Blood Pressure 109/56 L (units unknown) (unknown) (unknown) (no date) (unknown) (unknown) CARDIOVASCULAR : Regular rate and rhythm without murmurs, rubs or gallops. (units unknown) (unknown) (unknown) (no date) (unknown) (unknown) Calcium 9.0 (8.4-10.2) mg/dL (units unknown) (unknown) (unknown) (no date) (unknown) (unknown) Carbon Dioxide 21 L (22-32) mmol/L (units unknown) (unknown) (unknown) (no date) (unknown) (unknown) Chief complain t: Nausea/Vomiting/Diar geoffrey (units unknown) (unknown) (unknown) (no date) (unknown) (unknown) Chloride 106 (98-107) mmol/L (units unknown) (unknown) (unknown) (no date) (unknown) (unknown) Chronic anxiety (uni ts unknown) (unknown) (unknown) (no date) (unknown) (unknown) Clinical Impression: (units unknown) (unknown) (unknown) (no date) (unknown) (unknown) Complete Blood Count AUTO DIFF Stat (units unknown) (unknown) (unknown) (no date) (unknown) (unknown) Comprehensive Metabolic Panel Stat (units unknown) (unknown) (unknown) (no date) (unknown) (unknown) Course (units unknown) (unknown) (unknown) (no date) (unknown) (unknown) Creatinine 0.5 7 (0.52-1.04) mg/dL (units unknown) (unknown) (unknown) (no date) (unknown) (unknown) : 5 Acct:[id number] (units unknown) (unknown) (unknown) (no date) (unknown) (unknown) Date of Servic e: 10/17/22 (units unknown) (unknown) (unknown) (no date) (unknown) (unknown) Departure (units unknown) (unknown) (unknown) (no date) (unknown) (unknown) Deviated septum (uni ts unknown) (unknown) (unknown) (no date) (unknown) (unknown) Discharge Plan (unit s unknown) (unknown) (unknown) (no date) (unknown) (unknown) Discontinued Medications (units unknown) (unknown) (unknown) (no date) (unknown) (unknown) Documented By: MLM ( units unknown) (unknown) (unknown) (no date) (unknown) (unknown) ECG Data (units unknown) (unknown) (unknown) (no date) (unknown) (unknown) ED Orders (units unknown) (unknown) (unknown) (no date) (unknown) (unknown) EKG-12 Lead Stat (un its unknown) (unknown) (unknown) (no date) (unknown) (unknown) ER Physician: Alfreda Garcia D.O. (units unknown) (unknown) (unknown) (no date) (unknown) (unknown) EXTREMITIES: N ormal range of motion, no clubbing or edema. Neurovascularly (units unknown) (unknown) (unknown) (no date) (unknown) (unknown) Emergency Report (un its unknown) (unknown) (unknown) (no date) (unknown) (unknown) Eos # (Auto) 1 00 (0-450) /uL (units unknown) (unknown) (unknown) (no date) (unknown) (unknown) Eos % (Auto) 0 .7 L (2-4) % (units unknown) (unknown) (unknown) (no date) (unknown) (unknown) Estimated GFR > 60 (>60) mL/min (units unknown) (unknown) (unknown) (no date) (unknown) (unknown) Exam (units unknown) (unknown) (unknown) (no date) (unknown) (unknown) GENERAL: Well-appearing 26-year-old female and in no acute distress. (units unknown) (unknown) (unknown) (no date) (unknown) (unknown) Gastroenteritis (uni ts unknown) (unknown) (unknown) (no date) (unknown) (unknown) General (units unknown) (unknown) (unknown) (no date) (unknown) (unknown) Globulin 2.8 (1.7-4.1) g/dL (units unknown) (unknown) (unknown) (no date) (unknown) (unknown) Glucose 96 (70 -100) mg/dL (units unknown) (unknown) (unknown) (no date) (unknown) (unknown) HEENT: Head atraumatic,EOMI, pupils reactive, face symmetric, moist mucous (units unknown) (unknown) (unknown) (no date) (unknown) (unknown) HPI - Nausea/Vomiting/Diar geoffrey (units unknown) (unknown) (unknown) (no date) (unknown) (unknown) HPI Narrative: (unit s unknown) (unknown) (unknown) (no date) (unknown) (unknown) Hct 37.6 (36-46) % ( units unknown) (unknown) (unknown) (no date) (unknown) (unknown) Hgb 13.6 (12.0 -16.0) g/dL (units unknown) (unknown) (unknown) (no date) (unknown) (unknown) History of Pre sent Illness (units unknown) (unknown) (unknown) (no date) (unknown) (unknown) Home Medications (un its unknown) (unknown) (unknown) (no date) (unknown) (unknown) Hypertrophy, n zay, turbinate (units unknown) (unknown) (unknown) (no date) (unknown) (unknown) I recommend Ga torade or a Gatorade-like product, as it has small amounts of (units unknown) (unknown) (unknown) (no date) (unknown) (unknown) Incompetent na catarina valve (units unknown) (unknown) (unknown) (no date) (unknown) (unknown) Initial Vital Signs (units unknown) (unknown) (unknown) (no date) (unknown) (unknown) Initial Vital Signs: (units unknown) (unknown) (unknown) (no date) (unknown) (unknown) Instructions: DI for Viral Gastroenteritis -- Adult (units unknown) (unknown) (unknown) (no date) (unknown) (unknown) Interpretation: (uni ts unknown) (unknown) (unknown) (no date) (unknown) (unknown) [address] [address] (units unknown) (unknown) (unknown) (no date) (unknown) (unknown) Lab Data (units unknown) (unknown) (unknown) (no date) (unknown) (unknown) Lab Results (units unknown) (unknown) (unknown) (no date) (unknown) (unknown) Labs: (units unknown) (unknown) (unknown) (no date) (unknown) (unknown) Last Admin: 07:18 Dose: 1,000 mls/hr (units unknown) (unknown) (unknown) (no date) (unknown) (unknown) Last Admin: 07:18 Dose: 4 mg (units unknown) (unknown) (unknown) (no date) (unknown) (unknown) Lipase 42 (23- 300) U/L (units unknown) (unknown) (unknown) (no date) (unknown) (unknown) Lipase Stat (units unknown) (unknown) (unknown) (no date) (unknown) (unknown) Lymph # (Auto) 2100 (6513-3186) /uL (units unknown) (unknown) (unknown) (no date) (unknown) (unknown) Lymph % (Auto) 20.3 L (25-40) % (units unknown) (unknown) (unknown) (no date) (unknown) (unknown) MCH 32.6 (26-34) PG (units unknown) (unknown) (unknown) (no date) (unknown) (unknown) MCHC 36.2 H (3 0-36) % (units unknown) (unknown) (unknown) (no date) (unknown) (unknown) MCV 90.1 (80-100) fL (units unknown) (unknown) (unknown) (no date) (unknown) (unknown) MDM - Nausea/Vomiting/Diar geofrfey (units unknown) (unknown) (unknown) (no date) (unknown) (unknown) MDM Narrative (units unknown) (unknown) (unknown) (no date) (unknown) (unknown) MRSA (methicil mimi resistant Staphylococcus aureus) (2014) (units unknown) (unknown) (unknown) (no date) (unknown) (unknown) Medical Histor y (Updated 10/17/22 @ 08:52 by Alfreda Garcia DO) (units unknown) (unknown) (unknown) (no date) (unknown) (unknown) Medical decisi on making narrative: (units unknown) (unknown) (unknown) (no date) (unknown) (unknown) Medication Instructions Recorded Confirmed (units unknown) (unknown) (unknown) (no date) (unknown) (unknown) Medication Instructions Recorded (units unknown) (unknown) (unknown) (no date) (unknown) (unknown) Migraine headache (u nits unknown) (unknown) (unknown) (no date) (unknown) (unknown) Mode of arriva l: Ambulatory (units unknown) (unknown) (unknown) (no date) (unknown) (unknown) Finney # (Auto) 700 (0-900) /uL (units unknown) (unknown) (unknown) (no date) (unknown) (unknown) [place] % (Auto) 7.1 (3-14) % (units unknown) (unknown) (unknown) (no date) (unknown) (unknown) NEUROLOGICAL: Alert and oriented x4. (units unknown) (unknown) (unknown) (no date) (unknown) (unknown) Nasal congestion (un its unknown) (unknown) (unknown) (no date) (unknown) (unknown) Nasal obstruction (u nits unknown) (unknown) (unknown) (no date) (unknown) (unknown) Neut # (Auto) 7400 H (8468-2974) /uL (units unknown) (unknown) (unknown) (no date) (unknown) (unknown) Neut % (Auto) 71.7 (50-75) % (units unknown) (unknown) (unknown) (no date) (unknown) (unknown) New (units unknown) (unknown) (unknown) (no date) (unknown) (unknown) No Action (units unknown) (unknown) (unknown) (no date) (unknown) (unknown) Normal sinus r hythm rate 64 NM interval 146 QRS [address] changes no T (units unknown) (unknown) (unknown) (no date) (unknown) (unknown) Ondansetron HC l (Ondansetron 4 Mg Odt) 4 mg PO NOW PRN (units unknown) (unknown) (unknown) (no date) (unknown) (unknown) Ondansetron HC l (Ondansetron 4 Mg/2 Ml Inj) 4 mg IV NOW PRN (units unknown) (unknown) (unknown) (no date) (unknown) (unknown) Ordered: (units unknown) (unknown) (unknown) (no date) (unknown) (unknown) Orders (units unknown) (unknown) (unknown) (no date) (unknown) (unknown) Oxygen Deliver y Method Room Air 10/17/22 06:45 (units unknown) (unknown) (unknown) (no date) (unknown) (unknown) Oxygen Deliver y Method Room Air (units unknown) (unknown) (unknown) (no date) (unknown) (unknown) PRN Reason: Na usea And Vomiting (units unknown) (unknown) (unknown) (no date) (unknown) (unknown) Patient Dispos ition: Home (units unknown) (unknown) (unknown) (no date) (unknown) (unknown) Patient History (uni ts unknown) (unknown) (unknown) (no date) (unknown) (unknown) Patient is a h ealthy 26-year-old female presents with nausea vomiting ongoing (units unknown) (unknown) (unknown) (no date) (unknown) (unknown) Patient: Carie Sullivan MR#: [id number] (units unknown) (unknown) (unknown) (no date) (unknown) (unknown) Plt Count 183 (150-400) X103/uL (units unknown) (unknown) (unknown) (no date) (unknown) (unknown) Potassium 3.2 L (3.4-5.1) mmol/L (units unknown) (unknown) (unknown) (no date) (unknown) (unknown) Prescriptions: (unit s unknown) (unknown) (unknown) (no date) (unknown) (unknown) Previous Rx's (units unknown) (unknown) (unknown) (no date) (unknown) (unknown) Provider,Vaibhav HANKS [Primary Care Provider] (units unknown) (unknown) (unknown) (no date) (unknown) (unknown) Pulse Oximetry 98 10/17/22 06:45 (units unknown) (unknown) (unknown) (no date) (unknown) (unknown) Pulse Oximetry 98 (u nits unknown) (unknown) (unknown) (no date) (unknown) (unknown) Pulse Rate 56 L 10/17/22 06:45 (units unknown) (unknown) (unknown) (no date) (unknown) (unknown) Pulse Rate 56 L (uni ts unknown) (unknown) (unknown) (no date) (unknown) (unknown) RBC 4.18 (4.0- 5.2) X106/uL (units unknown) (unknown) (unknown) (no date) (unknown) (unknown) RDW 13.4 (11.6 -14.8) % (units unknown) (unknown) (unknown) (no date) (unknown) (unknown) RESPIRATORY: B reath sounds equal bilaterally, no wheezes rales or rhonchi. (units unknown) (unknown) (unknown) (no date) (unknown) (unknown) ROS Unobtainab le: All systems reviewed + are unremarkable except as noted in HPI (units unknown) (unknown) (unknown) (no date) (unknown) (unknown) Referrals: (units unknown) (unknown) (unknown) (no date) (unknown) (unknown) Related Data (units unknown) (unknown) (unknown) (no date) (unknown) (unknown) Respiratory Ra te 18 10/17/22 06:45 (units unknown) (unknown) (unknown) (no date) (unknown) (unknown) Respiratory Rate 18 (units unknown) (unknown) (unknown) (no date) (unknown) (unknown) Review of Systems (u nits unknown) (unknown) (unknown) (no date) (unknown) (unknown) Rib injury (2019) (u nits unknown) (unknown) (unknown) (no date) (unknown) (unknown) Ruptured ovari an cyst (2018) (units unknown) (unknown) (unknown) (no date) (unknown) (unknown) Rx Instructions: (un its unknown) (unknown) (unknown) (no date) (unknown) (unknown) SKIN: Warm, dr y, no laceration, no petechiae, no rashes or lesions. (units unknown) (unknown) (unknown) (no date) (unknown) (unknown) See Rx Instruc tions .ROUTE .COMPLEX (units unknown) (unknown) (unknown) (no date) (unknown) (unknown) She is given f luids Zofran and Toradol. She is tolerating oral fluids overall (units unknown) (unknown) (unknown) (no date) (unknown) (unknown) Signed By: (units unknown) (unknown) (unknown) (no date) (unknown) (unknown) Smoking Status : Current every day smoker (units unknown) (unknown) (unknown) (no date) (unknown) (unknown) Social History (units unknown) (unknown) (unknown) (no date) (unknown) (unknown) Sodium 138 (13 7-145) mmol/L (units unknown) (unknown) (unknown) (no date) (unknown) (unknown) Sodium Chlorid e (Normal Saline 0.9%) 1,000 mls @ 1,000 mls/hr IV BOLUS ONE (units unknown) (unknown) (unknown) (no date) (unknown) (unknown) Source: patient (uni ts unknown) (unknown) (unknown) (no date) (unknown) (unknown) Stand Alone Fo colby: Patient Portal/API (units unknown) (unknown) (unknown) (no date) (unknown) (unknown) Stated complai nt: v/d heart palpatations (units unknown) (unknown) (unknown) (no date) (unknown) (unknown) Stop: 10/17/22 08:09 (units unknown) (unknown) (unknown) (no date) (unknown) (unknown) Substance Use Type: marijuana (units unknown) (unknown) (unknown) (no date) (unknown) (unknown) Surgical Histo ry (units unknown) (unknown) (unknown) (no date) (unknown) (unknown) Symptoms have been only ongoing for 1 hour. Potassium is 3.2 consistent with (units unknown) (unknown) (unknown) (no date) (unknown) (unknown) Temperature 97 .1 F L 10/17/22 06:45 (units unknown) (unknown) (unknown) (no date) (unknown) (unknown) Temperature 97.1 F L (units unknown) (unknown) (unknown) (no date) (unknown) (unknown) Time Seen by Provider: 10/17/22 06:48 (units unknown) (unknown) (unknown) (no date) (unknown) (unknown) Total Bilirubi n 0.6 (0.2-1.3) mg/dL (units unknown) (unknown) (unknown) (no date) (unknown) (unknown) Total Protein 7.1 (6.3-8.2) g/dL (units unknown) (unknown) (unknown) (no date) (unknown) (unknown) Vital Signs - 8 hr ( units unknown) (unknown) (unknown) (no date) (unknown) (unknown) Vital Signs (units unknown) (unknown) (unknown) (no date) (unknown) (unknown) Vital signs: (units unknown) (unknown) (unknown) (no date) (unknown) (unknown) WBC 10.3 (4.5- 11.0) X103/uL (units unknown) (unknown) (unknown) (no date) (unknown) (unknown) [place] teeth r emoved (01/16/13) (units unknown) (unknown) (unknown) (no date) (unknown) (unknown) Zofran 4 mg ev josemanuel 8 hours if needed for nausea vomiting --> [facility] [place] (units unknown) (unknown) (unknown) (no date) (unknown) (unknown) [Embedded Imag e Not Available] (units unknown) (unknown) (unknown) (no date) (unknown) (unknown) alcohol intake frequency: holidays/special occasions only (units unknown) (unknown) (unknown) (no date) (unknown) (unknown) alcohol intake : current (units unknown) (unknown) (unknown) (no date) (unknown) (unknown) and below (units unknown) (unknown) (unknown) (no date) (unknown) (unknown) clindamycin-be nzoyl- emol [id number] See Rx Instructions .Route .COMPLEX 01/29/20 (units unknown) (unknown) (unknown) (no date) (unknown) (unknown) clindamycin-be nzoyl- emol [id number] (units unknown) (unknown) (unknown) (no date) (unknown) (unknown) diarrhea and vomiting. No other electrolyte abnormalities or evidence of JENNY. (units unknown) (unknown) (unknown) (no date) (unknown) (unknown) feeling much b nikita. Oral rehydration education given by myself. At this time (units unknown) (unknown) (unknown) (no date) (unknown) (unknown) feeling well yesterday. No one else is sick at home (units unknown) (unknown) (unknown) (no date) (unknown) (unknown) for the last 1 hour. She is had crampy is racing. No fever or chills. She was (units unknown) (unknown) (unknown) (no date) (unknown) (unknown) guarding or rebound. (units unknown) (unknown) (unknown) (no date) (unknown) (unknown) household memb ers: spouse (units unknown) (unknown) (unknown) (no date) (unknown) (unknown) intact (units unknown) (unknown) (unknown) (no date) (unknown) (unknown) latex Allergy Intermediate Anxiety Verified 08/05/22 16:46 (units unknown) (unknown) (unknown) (no date) (unknown) (unknown) membranes (units unknown) (unknown) (unknown) (no date) (unknown) (unknown) no need for admission or further evaluation or workup. (units unknown) (unknown) (unknown) (no date) (unknown) (unknown) ondansetron 4 mg disintegrating 4 mg PO Q8H PRN nausea and 08/28/22 (units unknown) (unknown) (unknown) (no date) (unknown) (unknown) ondansetron 4 mg disintegrating 4 mg PO Q8H PRN nausea and 10/17/22 (units unknown) (unknown) (unknown) (no date) (unknown) (unknown) ondansetron 4 mg disintegrating 4 mg PO TID-QID PRN nausea and 08/05/22 (units unknown) (unknown) (unknown) (no date) (unknown) (unknown) ondansetron 4 mg tablet,disintegratin g (units unknown) (unknown) (unknown) (no date) (unknown) (unknown) oral rehydrati on strategy. (units unknown) (unknown) (unknown) (no date) (unknown) (unknown) ortho, urology etc] (units unknown) (unknown) (unknown) (no date) (unknown) (unknown) pantoprazole 4 0 mg tablet,delayed 40 mg PO DAILY #30 tabs 08/05/22 (units unknown) (unknown) (unknown) (no date) (unknown) (unknown) pantoprazole [Protonix] 40 mg tablet,delayed release (DR/EC) (units unknown) (unknown) (unknown) (no date) (unknown) (unknown) place as needed. (un its unknown) (unknown) (unknown) (no date) (unknown) (unknown) promethazine A dvReac Verified 08/05/22 16:46 (units unknown) (unknown) (unknown) (no date) (unknown) (unknown) release (Protonix) ( units unknown) (unknown) (unknown) (no date) (unknown) (unknown) sugar and salt s that improve fluid retention. (units unknown) (unknown) (unknown) (no date) (unknown) (unknown) tablet vomitin g #10 tabs (units unknown) (unknown) (unknown) (no date) (unknown) (unknown) to hold down f luids despite use of anti-nausea medications and the small volume (units unknown) (unknown) (unknown) (no date) (unknown) (unknown) tobacco type: vaping (units unknown) (unknown) (unknown) (no date) (unknown) (unknown) tretinoin 0.02 5 % topical cream 1 applic topical BEDTIME 01/29/20 01/29/20 (units unknown) (unknown) (unknown) (no date) (unknown) (unknown) tretinoin [Ret in-A] 0.025 % Cream (units unknown) (unknown) (unknown) (no date) (unknown) (unknown) wave inversions (uni ts unknown) (unknown) Result panel 382 (unknown) (no date) (unknown) (unknown) (no value) (units unknown) (unknown) (unknown) (no date) (unknown) (unknown) 10/17/22 (units unknown) (unknown) (unknown) (no date) (unknown) (unknown) 1. No evidence of intrauterine and complex cystic structure associated (units unknown) (unknown) (unknown) (no date) (unknown) (unknown) [address] [place] [address] (un its unknown) (unknown) (unknown) (no date) (unknown) (unknown) [id number] (units unknown) (unknown) (unknown) (no date) (unknown) (unknown) Accession Numb er: [id number] (units unknown) (unknown) (unknown) (no date) (unknown) (unknown) Additional endovaginal scanning was necessary due to incomplete visualization of (units unknown) (unknown) (unknown) (no date) (unknown) (unknown) Age/Sex: 26 / Date of Service: (units unknown) (unknown) (unknown) (no date) (unknown) (unknown) [place] [address] (units unknown) (unknown) (unknown) (no date) (unknown) (unknown) Approved by: Juancarlos Alexander M.D. on 10/17/2022 at 10:10 (units unknown) (unknown) (unknown) (no date) (unknown) (unknown) COMPARISON: None. (u nits unknown) (unknown) (unknown) (no date) (unknown) (unknown) : 5 Acct:[id number] (units unknown) (unknown) (unknown) (no date) (unknown) (unknown) FINDINGS: (units unknown) (unknown) (unknown) (no date) (unknown) (unknown) IMPRESSION: (units unknown) (unknown) (unknown) (no date) (unknown) (unknown) INDICATIONS: POSITIVE HCG; UNKNOWN DATES (units unknown) (unknown) (unknown) (no date) (unknown) (unknown) [facility] (uni ts unknown) (unknown) (unknown) (no date) (unknown) (unknown) Loc: ED (units unknown) (unknown) (unknown) (no date) (unknown) (unknown) Note: Critical results were discussed with Dr. Garcia at 10:09 AM [place] time on (units unknown) (unknown) (unknown) (no date) (unknown) (unknown) Ordering Provi aurea: Alfreda Gracia D.O. (units unknown) (unknown) (unknown) (no date) (unknown) (unknown) Other: No path ologic free abdominal or pelvic fluid. (units unknown) (unknown) (unknown) (no date) (unknown) (unknown) Ovaries: The r ight ovary measures 1.6 x 4.1 x 1.5 cm, with a calculated ovarian (units unknown) (unknown) (unknown) (no date) (unknown) (unknown) PROCEDURE: US PELVIC COMPLETE (units unknown) (unknown) (unknown) (no date) (unknown) (unknown) Patient: Carie Sullivan MR#: [id number] (units unknown) (unknown) (unknown) (no date) (unknown) (unknown) Procedure: US pelvic complete (units unknown) (unknown) (unknown) (no date) (unknown) (unknown) Real-time scan candie was performed of the pelvic organs, with image documentation. (units unknown) (unknown) (unknown) (no date) (unknown) (unknown) Signed (units unknown) (unknown) (unknown) (no date) (unknown) (unknown) TECHNIQUE: (units unknown) (unknown) (unknown) (no date) (unknown) (unknown) Ultrasound Report (u nits unknown) (unknown) (unknown) (no date) (unknown) (unknown) Uterus: Uterus is anteverted and normal in size at 8.8 x 4.1 x 5.5 cm. The (units unknown) (unknown) (unknown) (no date) (unknown) (unknown) adnexal and endometrial structures by transabdominal scanning. (units unknown) (unknown) (unknown) (no date) (unknown) (unknown) are (units unknown) (unknown) (unknown) (no date) (unknown) (unknown) cyst measures 2.3 x 1.8 x 2.2 cm with peripheral vascularity. No adnexal masses (units unknown) (unknown) (unknown) (no date) (unknown) (unknown) homogeneous. T he endometrium measures 12.9 mm combined thickness. (units unknown) (unknown) (unknown) (no date) (unknown) (unknown) left ovary. Differential would include 2.3 cm ectopic and corpus (units unknown) (unknown) (unknown) (no date) (unknown) (unknown) luteum cyst (units unknown) (unknown) (unknown) (no date) (unknown) (unknown) myometrium is (units unknown) (unknown) (unknown) (no date) (unknown) (unknown) of 4.9 cc. The left ovary measures 2.1 x 4.5 x 1.9 cm, with a calculated ovarian (units unknown) (unknown) (unknown) (no date) (unknown) (unknown) of 9.4 cc. The ovaries have a normal sonographic appearance. Peripheral left (units unknown) (unknown) (unknown) (no date) (unknown) (unknown) or hemorrhagic cyst. Consider short-term interval follow-up (units unknown) (unknown) (unknown) (no date) (unknown) (unknown) ovarian (units unknown) (unknown) (unknown) (no date) (unknown) (unknown) seen. (units unknown) (unknown) (unknown) (no date) (unknown) (unknown) the (units unknown) (unknown) (unknown) (no date) (unknown) (unknown) volume (units unknown) (unknown) (unknown) (no date) (unknown) (unknown) with the (units unknown) (unknown) Result panel 383 (unknown) (no date) (unknown) (unknown) 103.6 miu/ml (unknown ) (unknown) (no date) (unknown) (unknown) 103.6 miu/ml (unknown ) Result panel 384 (unknown) (no date) (unknown) (unknown) (no value) (units unknown) (unknown) (unknown) (no date) (unknown) (unknown) (Retin-A) (units unknown) (unknown) (unknown) (no date) (unknown) (unknown) *Continue to t justice medications as directed (units unknown) (unknown) (unknown) (no date) (unknown) (unknown) *Follow up wit h your primary care provider in 2-3 days or call [phone] (units unknown) (unknown) (unknown) (no date) (unknown) (unknown) *Return to ER if you should have increasing abdominal pain cramping vaginal (units unknown) (unknown) (unknown) (no date) (unknown) (unknown) *What to do: A t this time you are very newly . ALISSA Craft has (units unknown) (unknown) (unknown) (no date) (unknown) (unknown) *You have been diagnosed with gastroenteritis and (units unknown) (unknown) (unknown) (no date) (unknown) (unknown) 10/17/2210/1710/17/22 Range/Units (units unknown) (unknown) (unknown) (no date) (unknown) (unknown) 10/17/22 07:00 (unit s unknown) (unknown) (unknown) (no date) (unknown) (unknown) 10/17/22 07:04 (unit s unknown) (unknown) (unknown) (no date) (unknown) (unknown) 10/17/22 09:02 (unit s unknown) (unknown) (unknown) (no date) (unknown) (unknown) 10/17/22 (units unknown) (unknown) (unknown) (no date) (unknown) (unknown) 06:45 10/17/22 (unit s unknown) (unknown) (unknown) (no date) (unknown) (unknown) 07:00 07:00 07:00 (u nits unknown) (unknown) (unknown) (no date) (unknown) (unknown) 07:18 10/17/22 (unit s unknown) (unknown) (unknown) (no date) (unknown) (unknown) 07:19 10/17/22 (unit s unknown) (unknown) (unknown) (no date) (unknown) (unknown) 07:19 (units unknown) (unknown) (unknown) (no date) (unknown) (unknown) 07:30 10/17/22 (unit s unknown) (unknown) (unknown) (no date) (unknown) (unknown) 07:30 (units unknown) (unknown) (unknown) (no date) (unknown) (unknown) 08:00 10/17/22 (unit s unknown) (unknown) (unknown) (no date) (unknown) (unknown) 08:30 (units unknown) (unknown) (unknown) (no date) (unknown) (unknown) 01/29/20 (units unknown) (unknown) (unknown) (no date) (unknown) (unknown) 1 applic TOPIC AL BEDTIME (units unknown) (unknown) (unknown) (no date) (unknown) (unknown) 1. No evidence of intrauterine and complex cystic structure associated (units unknown) (unknown) (unknown) (no date) (unknown) (unknown) 11:20 Dr. Fair (uni ts unknown) (unknown) (unknown) (no date) (unknown) (unknown) 26-year-old fe male with signs and symptoms consistent with a gastroenteritis. (units unknown) (unknown) (unknown) (no date) (unknown) (unknown) 4 mg PO Q8H NM N (Reason: nausea and vomiting) Qty: 10 0RF (units unknown) (unknown) (unknown) (no date) (unknown) (unknown) 4 mg PO TID-QI D PRN (Reason: nausea and vomiting) Qty: 10 0RF (units unknown) (unknown) (unknown) (no date) (unknown) (unknown) 40 mg PO DAILY Qty: 30 0RF (units unknown) (unknown) (unknown) (no date) (unknown) (unknown) 8551 (units unknown) (unknown) (unknown) (no date) (unknown) (unknown) ? (units unknown) (unknown) (unknown) (no date) (unknown) (unknown) ?? (units unknown) (unknown) (unknown) (no date) (unknown) (unknown) ABDOMEN: Soft, nontender. Normoactive bowel sounds all 4 quadrants. No (units unknown) (unknown) (unknown) (no date) (unknown) (unknown) ALT 18 (<35) IU/L (u nits unknown) (unknown) (unknown) (no date) (unknown) (unknown) AST 22 (14-36) IU/L (units unknown) (unknown) (unknown) (no date) (unknown) (unknown) Activity Restrictions/Additio nal Instructions: (units unknown) (unknown) (unknown) (no date) (unknown) (unknown) Additional endovaginal scanning was necessary due to incomplete visualization of (units unknown) (unknown) (unknown) (no date) (unknown) (unknown) Admin: 3 07:18 Dose: 1,000 mls/hr (units unknown) (unknown) (unknown) (no date) (unknown) (unknown) Age/Sex: 26 / F (uni ts unknown) (unknown) (unknown) (no date) (unknown) (unknown) Albumin 4.3 (3.5-5.0) g/dL (units unknown) (unknown) (unknown) (no date) (unknown) (unknown) Albumin/Globul in Ratio 1.5 (1.0-2.8) (units unknown) (unknown) (unknown) (no date) (unknown) (unknown) Alkaline Phosp hatase 49 (38-126) U/L (units unknown) (unknown) (unknown) (no date) (unknown) (unknown) Allergies (units unknown) (unknown) (unknown) (no date) (unknown) (unknown) Allergy/AdvRea c Type Severity Reaction Status Date / Time (units unknown) (unknown) (unknown) (no date) (unknown) (unknown) Anemia (units unknown) (unknown) (unknown) (no date) (unknown) (unknown) Approved by: Juancarlos Alexander M.D. on 10/17/2022 at 10:10? (units unknown) (unknown) (unknown) (no date) (unknown) (unknown) Avoid ibuprofen (uni ts unknown) (unknown) (unknown) (no date) (unknown) (unknown) BUN 10 (7-17) mg/dL (units unknown) (unknown) (unknown) (no date) (unknown) (unknown) BUN/Creatinine Ratio 17.5 (6-22) (units unknown) (unknown) (unknown) (no date) (unknown) (unknown) Baso # (Auto) 0 (0-100) /uL (units unknown) (unknown) (unknown) (no date) (unknown) (unknown) Baso % (Auto) 0.2 (0-2) % (units unknown) (unknown) (unknown) (no date) (unknown) (unknown) Bedside Urine Bilirubin - Negative (units unknown) (unknown) (unknown) (no date) (unknown) (unknown) Bedside Urine Glucose Negative (units unknown) (unknown) (unknown) (no date) (unknown) (unknown) Bedside Urine Ketone +++ 80 (units unknown) (unknown) (unknown) (no date) (unknown) (unknown) Bedside Urine Leukocytes - Negative (units unknown) (unknown) (unknown) (no date) (unknown) (unknown) Bedside Urine Nitrite - Negative (units unknown) (unknown) (unknown) (no date) (unknown) (unknown) Bedside Urine Occult Blood - Negative (units unknown) (unknown) (unknown) (no date) (unknown) (unknown) Bedside Urine Protein - Negative (units unknown) (unknown) (unknown) (no date) (unknown) (unknown) Bedside Urine Urobilinogen - Negative (units unknown) (unknown) (unknown) (no date) (unknown) (unknown) Bedside Urine pH 6.0 (units unknown) (unknown) (unknown) (no date) (unknown) (unknown) Blood Pressure 101/63 102/73 (units unknown) (unknown) (unknown) (no date) (unknown) (unknown) Blood Pressure 104/63 (units unknown) (unknown) (unknown) (no date) (unknown) (unknown) Blood Pressure 109/56 L 10/17/22 06:45 (units unknown) (unknown) (unknown) (no date) (unknown) (unknown) Blood Pressure 109/56 L 101/60 (units unknown) (unknown) (unknown) (no date) (unknown) (unknown) Blood Pressure (unit s unknown) (unknown) (unknown) (no date) (unknown) (unknown) CARDIOVASCULAR : Regular rate and rhythm without murmurs, rubs or gallops. (units unknown) (unknown) (unknown) (no date) (unknown) (unknown) COMPARISON:? None. ( units unknown) (unknown) (unknown) (no date) (unknown) (unknown) Calcium 9.0 (8.4-10.2) mg/dL (units unknown) (unknown) (unknown) (no date) (unknown) (unknown) Carbon Dioxide 21 L (22-32) mmol/L (units unknown) (unknown) (unknown) (no date) (unknown) (unknown) Chief complain t: Nausea/Vomiting/Diar geoffrey (units unknown) (unknown) (unknown) (no date) (unknown) (unknown) Chloride 106 (98-107) mmol/L (units unknown) (unknown) (unknown) (no date) (unknown) (unknown) Chronic anxiety (uni ts unknown) (unknown) (unknown) (no date) (unknown) (unknown) Clinical Impression: (units unknown) (unknown) (unknown) (no date) (unknown) (unknown) Complete Blood Count AUTO DIFF Stat (units unknown) (unknown) (unknown) (no date) (unknown) (unknown) Comprehensive Metabolic Panel Stat (units unknown) (unknown) (unknown) (no date) (unknown) (unknown) Course (units unknown) (unknown) (unknown) (no date) (unknown) (unknown) Creatinine 0.5 7 (0.52-1.04) mg/dL (units unknown) (unknown) (unknown) (no date) (unknown) (unknown) : 5 Acct:[id number] (units unknown) (unknown) (unknown) (no date) (unknown) (unknown) Date of Servic e: 10/17/22 (units unknown) (unknown) (unknown) (no date) (unknown) (unknown) Departure (units unknown) (unknown) (unknown) (no date) (unknown) (unknown) Deviated septum (uni ts unknown) (unknown) (unknown) (no date) (unknown) (unknown) Discharge Plan (unit s unknown) (unknown) (unknown) (no date) (unknown) (unknown) Discontinued Medications (units unknown) (unknown) (unknown) (no date) (unknown) (unknown) Documented By: CTS ( units unknown) (unknown) (unknown) (no date) (unknown) (unknown) Documented By: MLM ( units unknown) (unknown) (unknown) (no date) (unknown) (unknown) Dr. Fair call office for follow-up (units unknown) (unknown) (unknown) (no date) (unknown) (unknown) ECG Data (units unknown) (unknown) (unknown) (no date) (unknown) (unknown) ED Orders (units unknown) (unknown) (unknown) (no date) (unknown) (unknown) EKG-12 Lead Stat (un its unknown) (unknown) (unknown) (no date) (unknown) (unknown) ER Physician: Alfreda Garcia D.O. (units unknown) (unknown) (unknown) (no date) (unknown) (unknown) EXTREMITIES: N ormal range of motion, no clubbing or edema. Neurovascularly (units unknown) (unknown) (unknown) (no date) (unknown) (unknown) Emergency Report (un its unknown) (unknown) (unknown) (no date) (unknown) (unknown) Eos # (Auto) 1 00 (0-450) /uL (units unknown) (unknown) (unknown) (no date) (unknown) (unknown) Eos % (Auto) 0 .7 L (2-4) % (units unknown) (unknown) (unknown) (no date) (unknown) (unknown) Esterase (units unknown) (unknown) (unknown) (no date) (unknown) (unknown) Estimated GFR > 60 (>60) mL/min (units unknown) (unknown) (unknown) (no date) (unknown) (unknown) Exam (units unknown) (unknown) (unknown) (no date) (unknown) (unknown) FINDINGS:? (units unknown) (unknown) (unknown) (no date) (unknown) (unknown) GENERAL: Well-appearing 26-year-old female and in no acute distress. (units unknown) (unknown) (unknown) (no date) (unknown) (unknown) Renae Fair MD [Physician] (units unknown) (unknown) (unknown) (no date) (unknown) (unknown) Gastroenteriti s, (units unknown) (unknown) (unknown) (no date) (unknown) (unknown) General (units unknown) (unknown) (unknown) (no date) (unknown) (unknown) Globulin 2.8 (1.7-4.1) g/dL (units unknown) (unknown) (unknown) (no date) (unknown) (unknown) Glucose 96 (70 -100) mg/dL (units unknown) (unknown) (unknown) (no date) (unknown) (unknown) HCG Quantitati ve /Beta subunit Stat (units unknown) (unknown) (unknown) (no date) (unknown) (unknown) HCG, Quant 103 .6 mIU/mL (units unknown) (unknown) (unknown) (no date) (unknown) (unknown) HEENT: Head atraumatic,EOMI, pupils reactive, face symmetric, moist mucous (units unknown) (unknown) (unknown) (no date) (unknown) (unknown) HPI - Nausea/Vomiting/Diar geoffrey (units unknown) (unknown) (unknown) (no date) (unknown) (unknown) HPI Narrative: (unit s unknown) (unknown) (unknown) (no date) (unknown) (unknown) Hct 37.6 (36-46) % ( units unknown) (unknown) (unknown) (no date) (unknown) (unknown) Hgb 13.6 (12.0 -16.0) g/dL (units unknown) (unknown) (unknown) (no date) (unknown) (unknown) History of Pre sent Illness (units unknown) (unknown) (unknown) (no date) (unknown) (unknown) Home Medications (un its unknown) (unknown) (unknown) (no date) (unknown) (unknown) Hypertrophy, n zay, turbinate (units unknown) (unknown) (unknown) (no date) (unknown) (unknown) IMPRESSION:? (units unknown) (unknown) (unknown) (no date) (unknown) (unknown) INDICATIONS:? POSITIVE HCG; UNKNOWN DATES (units unknown) (unknown) (unknown) (no date) (unknown) (unknown) Imaging Data (units unknown) (unknown) (unknown) (no date) (unknown) (unknown) Incompetent na catarina valve (units unknown) (unknown) (unknown) (no date) (unknown) (unknown) Initial Vital Signs (units unknown) (unknown) (unknown) (no date) (unknown) (unknown) Initial Vital Signs: (units unknown) (unknown) (unknown) (no date) (unknown) (unknown) Instructions: DI for Viral Gastroenteritis -- Adult (units unknown) (unknown) (unknown) (no date) (unknown) (unknown) Interpretation: (uni ts unknown) (unknown) (unknown) (no date) (unknown) (unknown) [address] [address] (units unknown) (unknown) (unknown) (no date) (unknown) (unknown) Ketorolac Tromethamine (Ketorolac 30 Mg/Ml Vial) 15 mg IV NOW ONE (units unknown) (unknown) (unknown) (no date) (unknown) (unknown) Lab Data (units unknown) (unknown) (unknown) (no date) (unknown) (unknown) Lab Results (units unknown) (unknown) (unknown) (no date) (unknown) (unknown) Labs: (units unknown) (unknown) (unknown) (no date) (unknown) (unknown) Last Admin: 07:18 Dose: 4 mg (units unknown) (unknown) (unknown) (no date) (unknown) (unknown) Last Admin: 09:10 Dose: Not Given (units unknown) (unknown) (unknown) (no date) (unknown) (unknown) Last Infusion: 10/17/22 08:57 Dose: 0 mls/hr (units unknown) (unknown) (unknown) (no date) (unknown) (unknown) Lipase 42 (23- 300) U/L (units unknown) (unknown) (unknown) (no date) (unknown) (unknown) Lipase Stat (units unknown) (unknown) (unknown) (no date) (unknown) (unknown) Lymph # (Auto) 2100 (6427-1813) /uL (units unknown) (unknown) (unknown) (no date) (unknown) (unknown) Lymph % (Auto) 20.3 L (25-40) % (units unknown) (unknown) (unknown) (no date) (unknown) (unknown) MCH 32.6 (26-34) PG (units unknown) (unknown) (unknown) (no date) (unknown) (unknown) MCHC 36.2 H (3 0-36) % (units unknown) (unknown) (unknown) (no date) (unknown) (unknown) MCV 90.1 (80-100) fL (units unknown) (unknown) (unknown) (no date) (unknown) (unknown) MDM - Nausea/Vomiting/Diar geoffrey (units unknown) (unknown) (unknown) (no date) (unknown) (unknown) MDM Narrative (units unknown) (unknown) (unknown) (no date) (unknown) (unknown) MRSA (methicil mimi resistant Staphylococcus aureus) (2014) (units unknown) (unknown) (unknown) (no date) (unknown) (unknown) Medical Histor y (Updated 10/17/22 @ 11:23 by Alfreda Garcia DO) (units unknown) (unknown) (unknown) (no date) (unknown) (unknown) Medical decisi on making narrative: (units unknown) (unknown) (unknown) (no date) (unknown) (unknown) Medication Instructions Recorded Confirmed (units unknown) (unknown) (unknown) (no date) (unknown) (unknown) Medication Instructions Recorded (units unknown) (unknown) (unknown) (no date) (unknown) (unknown) Migraine headache (u nits unknown) (unknown) (unknown) (no date) (unknown) (unknown) Mode of arriva l: Ambulatory (units unknown) (unknown) (unknown) (no date) (unknown) (unknown) [place]ney # (Auto) 700 (0-900) /uL (units unknown) (unknown) (unknown) (no date) (unknown) (unknown) [place]ney % (Auto) 7.1 (3-14) % (units unknown) (unknown) (unknown) (no date) (unknown) (unknown) NEUROLOGICAL: Alert and oriented x4. (units unknown) (unknown) (unknown) (no date) (unknown) (unknown) Nasal congestion (un its unknown) (unknown) (unknown) (no date) (unknown) (unknown) Nasal obstruction (u nits unknown) (unknown) (unknown) (no date) (unknown) (unknown) Neut # (Auto) 7400 H (0107-8560) /uL (units unknown) (unknown) (unknown) (no date) (unknown) (unknown) Neut % (Auto) 71.7 (50-75) % (units unknown) (unknown) (unknown) (no date) (unknown) (unknown) New (units unknown) (unknown) (unknown) (no date) (unknown) (unknown) No Action (units unknown) (unknown) (unknown) (no date) (unknown) (unknown) Normal sinus r hythm rate 64 NM interval 146 QRS [address] changes no T (units unknown) (unknown) (unknown) (no date) (unknown) (unknown) Note:? Jhon l results were discussed with Dr. Garcia at 10:09 AM [place] time on (units unknown) (unknown) (unknown) (no date) (unknown) (unknown) Ondansetron HC l (Ondansetron 4 Mg Odt) 4 mg PO NOW PRN (units unknown) (unknown) (unknown) (no date) (unknown) (unknown) Ondansetron HC l (Ondansetron 4 Mg/2 Ml Inj) 4 mg IV NOW PRN (units unknown) (unknown) (unknown) (no date) (unknown) (unknown) Ordered: (units unknown) (unknown) (unknown) (no date) (unknown) (unknown) Orders (units unknown) (unknown) (unknown) (no date) (unknown) (unknown) Other:? No pathologic free abdominal or pelvic fluid. (units unknown) (unknown) (unknown) (no date) (unknown) (unknown) Ovaries:? The right ovary measures 1.6 x 4.1 x 1.5 cm, with a calculated ovarian (units unknown) (unknown) (unknown) (no date) (unknown) (unknown) Oxygen Deliver y Method Room Air 10/17/22 06:45 (units unknown) (unknown) (unknown) (no date) (unknown) (unknown) Oxygen Deliver y Method Room Air (units unknown) (unknown) (unknown) (no date) (unknown) (unknown) Oxygen Deliver y Method (units unknown) (unknown) (unknown) (no date) (unknown) (unknown) PRN Reason: Na usea And Vomiting (units unknown) (unknown) (unknown) (no date) (unknown) (unknown) PROCEDURE:? US PELVIC COMPLETE (units unknown) (unknown) (unknown) (no date) (unknown) (unknown) Patient Dispos ition: Home (units unknown) (unknown) (unknown) (no date) (unknown) (unknown) Patient History (uni ts unknown) (unknown) (unknown) (no date) (unknown) (unknown) Patient is a h ealthy 26-year-old female presents with nausea vomiting ongoing (units unknown) (unknown) (unknown) (no date) (unknown) (unknown) Patient: Carie Sullivan MR#: [id number] (units unknown) (unknown) (unknown) (no date) (unknown) (unknown) Plt Count 183 (150-400) X103/uL (units unknown) (unknown) (unknown) (no date) (unknown) (unknown) Point of Care Testing (units unknown) (unknown) (unknown) (no date) (unknown) (unknown) Potassium 3.2 L (3.4-5.1) mmol/L (units unknown) (unknown) (unknown) (no date) (unknown) (unknown) Test Results Positive (units unknown) (unknown) (unknown) (no date) (unknown) (unknown) Prescriptions: (unit s unknown) (unknown) (unknown) (no date) (unknown) (unknown) Previous Rx's (units unknown) (unknown) (unknown) (no date) (unknown) (unknown) Provider,Vaibhav lizarraga DEMARIO [Primary Care Provider] (units unknown) (unknown) (unknown) (no date) (unknown) (unknown) Pulse Oximetry 98 10/17/22 06:45 (units unknown) (unknown) (unknown) (no date) (unknown) (unknown) Pulse Oximetry 98 100 (units unknown) (unknown) (unknown) (no date) (unknown) (unknown) Pulse Oximetry 98 (u nits unknown) (unknown) (unknown) (no date) (unknown) (unknown) Pulse Oximetry 99 97 (units unknown) (unknown) (unknown) (no date) (unknown) (unknown) Pulse Rate 56 L 10/17/22 06:45 (units unknown) (unknown) (unknown) (no date) (unknown) (unknown) Pulse Rate 56 L 65 ( units unknown) (unknown) (unknown) (no date) (unknown) (unknown) Pulse Rate 68 78 (un its unknown) (unknown) (unknown) (no date) (unknown) (unknown) Pulse Rate 71 (units unknown) (unknown) (unknown) (no date) (unknown) (unknown) Pulse Rate 77 (units unknown) (unknown) (unknown) (no date) (unknown) (unknown) RBC 4.18 (4.0- 5.2) X106/uL (units unknown) (unknown) (unknown) (no date) (unknown) (unknown) RDW 13.4 (11.6 -14.8) % (units unknown) (unknown) (unknown) (no date) (unknown) (unknown) RESPIRATORY: B reath sounds equal bilaterally, no wheezes rales or rhonchi. (units unknown) (unknown) (unknown) (no date) (unknown) (unknown) ROS Unobtainab le: All systems reviewed + are unremarkable except as noted in HPI (units unknown) (unknown) (unknown) (no date) (unknown) (unknown) Radiologist's Impression: (units unknown) (unknown) (unknown) (no date) (unknown) (unknown) Real-time scan candie was performed of the pelvic organs, with image (units unknown) (unknown) (unknown) (no date) (unknown) (unknown) Referrals: (units unknown) (unknown) (unknown) (no date) (unknown) (unknown) Related Data (units unknown) (unknown) (unknown) (no date) (unknown) (unknown) Respiratory Ra te 18 10/17/22 06:45 (units unknown) (unknown) (unknown) (no date) (unknown) (unknown) Respiratory Rate 18 (units unknown) (unknown) (unknown) (no date) (unknown) (unknown) Respiratory Rate (un its unknown) (unknown) (unknown) (no date) (unknown) (unknown) Review of Systems (u nits unknown) (unknown) (unknown) (no date) (unknown) (unknown) Rib injury (2019) (u nits unknown) (unknown) (unknown) (no date) (unknown) (unknown) Ruptured ovari an cyst (2017) (units unknown) (unknown) (unknown) (no date) (unknown) (unknown) Rx Instructions: (un its unknown) (unknown) (unknown) (no date) (unknown) (unknown) SKIN: Warm, dr y, no laceration, no petechiae, no rashes or lesions. (units unknown) (unknown) (unknown) (no date) (unknown) (unknown) See Rx Instruc tions .ROUTE .COMPLEX (units unknown) (unknown) (unknown) (no date) (unknown) (unknown) She is given f luids Zofran and Toradol. She is tolerating oral fluids overall (units unknown) (unknown) (unknown) (no date) (unknown) (unknown) Signed By: (units unknown) (unknown) (unknown) (no date) (unknown) (unknown) Smoking Status : Current every day smoker (units unknown) (unknown) (unknown) (no date) (unknown) (unknown) Social History (units unknown) (unknown) (unknown) (no date) (unknown) (unknown) Sodium 138 (13 7-145) mmol/L (units unknown) (unknown) (unknown) (no date) (unknown) (unknown) Sodium Chlorid e (Normal Saline 0.9%) 1,000 mls @ 1,000 mls/hr IV BOLUS ONE (units unknown) (unknown) (unknown) (no date) (unknown) (unknown) Source: patient (uni ts unknown) (unknown) (unknown) (no date) (unknown) (unknown) Stand Alone Fo colby: Patient Portal/API (units unknown) (unknown) (unknown) (no date) (unknown) (unknown) Stated complai nt: v/d heart palpatations (units unknown) (unknown) (unknown) (no date) (unknown) (unknown) Stop: 10/17/22 08:09 (units unknown) (unknown) (unknown) (no date) (unknown) (unknown) Stop: 10/17/22 08:28 (units unknown) (unknown) (unknown) (no date) (unknown) (unknown) Substance Use Type: marijuana (units unknown) (unknown) (unknown) (no date) (unknown) (unknown) Surgical Histo ry (units unknown) (unknown) (unknown) (no date) (unknown) (unknown) Symptoms have been only ongoing for 1 hour. Potassium is 3.2 consistent with (units unknown) (unknown) (unknown) (no date) (unknown) (unknown) TECHNIQUE:? (units unknown) (unknown) (unknown) (no date) (unknown) (unknown) Temperature 97 .1 F L 10/17/22 06:45 (units unknown) (unknown) (unknown) (no date) (unknown) (unknown) Temperature 97.1 F L (units unknown) (unknown) (unknown) (no date) (unknown) (unknown) Temperature (units unknown) (unknown) (unknown) (no date) (unknown) (unknown) There is a [facility] question of ectopic versus cyst. You also have gastroenteritis (units unknown) (unknown) (unknown) (no date) (unknown) (unknown) Time Seen by Provider: 10/17/22 06:48 (units unknown) (unknown) (unknown) (no date) (unknown) (unknown) Total Bilirubi n 0.6 (0.2-1.3) mg/dL (units unknown) (unknown) (unknown) (no date) (unknown) (unknown) Total Protein 7.1 (6.3-8.2) g/dL (units unknown) (unknown) (unknown) (no date) (unknown) (unknown) Tylenol 1000 m g every 6 hours if needed for pain (units unknown) (unknown) (unknown) (no date) (unknown) (unknown) US - FUEL TANK SEALER AND TESTER: (units unknown) (unknown) (unknown) (no date) (unknown) (unknown) US pelvic comp lete Stat (units unknown) (unknown) (unknown) (no date) (unknown) (unknown) Urine Dip (units unknown) (unknown) (unknown) (no date) (unknown) (unknown) Urine Specific Monument 1.025 (units unknown) (unknown) (unknown) (no date) (unknown) (unknown) Uterus:? Uteru s is anteverted and normal in size at 8.8 x 4.1 x 5.5 cm. The (units unknown) (unknown) (unknown) (no date) (unknown) (unknown) Vital Signs - 8 hr ( units unknown) (unknown) (unknown) (no date) (unknown) (unknown) Vital Signs (units unknown) (unknown) (unknown) (no date) (unknown) (unknown) Vital signs: (units unknown) (unknown) (unknown) (no date) (unknown) (unknown) WBC 10.3 (4.5- 11.0) X103/uL (units unknown) (unknown) (unknown) (no date) (unknown) (unknown) [place] teeth r emoved (01/16/13) (units unknown) (unknown) (unknown) (no date) (unknown) (unknown) Zofran 4 mg ev josemanuel 8 hours if needed for nausea or vomiting--> sent to [facility] (units unknown) (unknown) (unknown) (no date) (unknown) (unknown) [Embedded Imag e Not Available] (units unknown) (unknown) (unknown) (no date) (unknown) (unknown) adnexal and endometrial structures by transabdominal scanning.? (units unknown) (unknown) (unknown) (no date) (unknown) (unknown) alcohol intake frequency: holidays/special occasions only (units unknown) (unknown) (unknown) (no date) (unknown) (unknown) alcohol intake : current (units unknown) (unknown) (unknown) (no date) (unknown) (unknown) and below (units unknown) (unknown) (unknown) (no date) (unknown) (unknown) are (units unknown) (unknown) (unknown) (no date) (unknown) (unknown) bleeding or an y new, worsening or concerning symptoms (units unknown) (unknown) (unknown) (no date) (unknown) (unknown) clindamycin-be nzoyl- emol [id number] See Rx Instructions .Route .COMPLEX 01/29/20 (units unknown) (unknown) (unknown) (no date) (unknown) (unknown) clindamycin-be nzoyl- emol [id number] (units unknown) (unknown) (unknown) (no date) (unknown) (unknown) cyst measures 2.3 x 1.8 x 2.2 cm with peripheral vascularity.? No adnexal masses (units unknown) (unknown) (unknown) (no date) (unknown) (unknown) diarrhea and vomiting. No other electrolyte abnormalities or evidence of JENNY. (units unknown) (unknown) (unknown) (no date) (unknown) (unknown) documentation.? (uni ts unknown) (unknown) (unknown) (no date) (unknown) (unknown) feeling much b nikita. Oral rehydration education given by myself. At this time (units unknown) (unknown) (unknown) (no date) (unknown) (unknown) feeling well yesterday. No one else is sick at home (units unknown) (unknown) (unknown) (no date) (unknown) (unknown) for the last 1 hour. She is had crampy is racing. No fever or chills. She was (units unknown) (unknown) (unknown) (no date) (unknown) (unknown) guarding or rebound. (units unknown) (unknown) (unknown) (no date) (unknown) (unknown) homogeneous. ? The endometrium measures 12.9 mm combined thickness.? (units unknown) (unknown) (unknown) (no date) (unknown) (unknown) household memb ers: spouse (units unknown) (unknown) (unknown) (no date) (unknown) (unknown) intact (units unknown) (unknown) (unknown) (no date) (unknown) (unknown) latex Allergy Intermediate Anxiety Verified 08/05/22 16:46 (units unknown) (unknown) (unknown) (no date) (unknown) (unknown) left ovary.? Differential would include 2.3 cm ectopic and corpus (units unknown) (unknown) (unknown) (no date) (unknown) (unknown) like product (units unknown) (unknown) (unknown) (no date) (unknown) (unknown) luteum cyst (units unknown) (unknown) (unknown) (no date) (unknown) (unknown) membranes (units unknown) (unknown) (unknown) (no date) (unknown) (unknown) myometrium is (units unknown) (unknown) (unknown) (no date) (unknown) (unknown) no need for admission or further evaluation or workup. (units unknown) (unknown) (unknown) (no date) (unknown) (unknown) of 4.9 cc. The left ovary measures 2.1 x 4.5 x 1.9 cm, with a calculated ovarian (units unknown) (unknown) (unknown) (no date) (unknown) (unknown) of 9.4 cc. The ovaries have a normal sonographic appearance.? Peripheral left (units unknown) (unknown) (unknown) (no date) (unknown) (unknown) ondansetron 4 mg disintegrating 4 mg PO Q8H PRN nausea and 08/28/22 (units unknown) (unknown) (unknown) (no date) (unknown) (unknown) ondansetron 4 mg disintegrating 4 mg PO Q8H PRN nausea and 10/17/22 (units unknown) (unknown) (unknown) (no date) (unknown) (unknown) ondansetron 4 mg disintegrating 4 mg PO TID-QID PRN nausea and 08/05/22 (units unknown) (unknown) (unknown) (no date) (unknown) (unknown) ondansetron 4 mg tablet,disintegratin g (units unknown) (unknown) (unknown) (no date) (unknown) (unknown) or hemorrhagic cyst.? Consider short-term interval follow-up? (units unknown) (unknown) (unknown) (no date) (unknown) (unknown) ovarian (units unknown) (unknown) (unknown) (no date) (unknown) (unknown) pantoprazole 4 0 mg tablet,delayed 40 mg PO DAILY #30 tabs 08/05/22 (units unknown) (unknown) (unknown) (no date) (unknown) (unknown) pantoprazole [Protonix] 40 mg tablet,delayed release (DR/EC) (units unknown) (unknown) (unknown) (no date) (unknown) (unknown) place as needed. (un its unknown) (unknown) (unknown) (no date) (unknown) (unknown) promethazine A dvReac Verified 08/05/22 16:46 (units unknown) (unknown) (unknown) (no date) (unknown) (unknown) put in another hCG order for 10/19/22 as an outpatient blood draw. (units unknown) (unknown) (unknown) (no date) (unknown) (unknown) release (Protonix) ( units unknown) (unknown) (unknown) (no date) (unknown) (unknown) seen. (units unknown) (unknown) (unknown) (no date) (unknown) (unknown) tablet vomitin g #10 tabs (units unknown) (unknown) (unknown) (no date) (unknown) (unknown) the (units unknown) (unknown) (unknown) (no date) (unknown) (unknown) tobacco type: vaping (units unknown) (unknown) (unknown) (no date) (unknown) (unknown) tretinoin 0.02 5 % topical cream 1 applic topical BEDTIME 01/29/20 01/29/20 (units unknown) (unknown) (unknown) (no date) (unknown) (unknown) tretinoin [Ret in-A] 0.025 % Cream (units unknown) (unknown) (unknown) (no date) (unknown) (unknown) volume (units unknown) (unknown) (unknown) (no date) (unknown) (unknown) wave inversions (uni ts unknown) (unknown) (unknown) (no date) (unknown) (unknown) with diarrhea and vomiting. Please stay hydrated with Gatorade or Gatorade (units unknown) (unknown) (unknown) (no date) (unknown) (unknown) with the (units unknown) (unknown) Result panel 385 (unknown) (no date) (unknown) (unknown) (no value) (units unknown) (unknown) (unknown) (no date) (unknown) (unknown) (Retin-A) (units unknown) (unknown) (unknown) (no date) (unknown) (unknown) *Continue to t justice medications as directed (units unknown) (unknown) (unknown) (no date) (unknown) (unknown) *Follow up wit h your primary care provider in 2-3 days or call [phone] (units unknown) (unknown) (unknown) (no date) (unknown) (unknown) *Return to ER if you should have increasing abdominal pain cramping vaginal (units unknown) (unknown) (unknown) (no date) (unknown) (unknown) *What to do: A t this time you are very newly . ALISSA Craft has (units unknown) (unknown) (unknown) (no date) (unknown) (unknown) *You have been diagnosed with gastroenteritis and (units unknown) (unknown) (unknown) (no date) (unknown) (unknown) 10/17/2210/1710/17/22 Range/Units (units unknown) (unknown) (unknown) (no date) (unknown) (unknown) 10/17/22 07:00 (unit s unknown) (unknown) (unknown) (no date) (unknown) (unknown) 10/17/22 (units unknown) (unknown) (unknown) (no date) (unknown) (unknown) 06:45 10/17/22 (unit s unknown) (unknown) (unknown) (no date) (unknown) (unknown) 07:00 07:00 07:00 (u nits unknown) (unknown) (unknown) (no date) (unknown) (unknown) 07:18 10/17/22 (unit s unknown) (unknown) (unknown) (no date) (unknown) (unknown) 07:19 10/17/22 (unit s unknown) (unknown) (unknown) (no date) (unknown) (unknown) 07:19 (units unknown) (unknown) (unknown) (no date) (unknown) (unknown) 07:30 10/17/22 (unit s unknown) (unknown) (unknown) (no date) (unknown) (unknown) 07:30 (units unknown) (unknown) (unknown) (no date) (unknown) (unknown) 08:00 10/17/22 (unit s unknown) (unknown) (unknown) (no date) (unknown) (unknown) 08:30 (units unknown) (unknown) (unknown) (no date) (unknown) (unknown) 01/29/20 (units unknown) (unknown) (unknown) (no date) (unknown) (unknown) 1 applic TOPIC AL BEDTIME (units unknown) (unknown) (unknown) (no date) (unknown) (unknown) 1. No evidence of intrauterine and complex cystic structure associated (units unknown) (unknown) (unknown) (no date) (unknown) (unknown) 11:20 Dr. Fair (uni ts unknown) (unknown) (unknown) (no date) (unknown) (unknown) 26-year-old fe male with signs and symptoms consistent with a gastroenteritis. (units unknown) (unknown) (unknown) (no date) (unknown) (unknown) 4 mg PO Q8H NM N (Reason: nausea and vomiting) Qty: 10 0RF (units unknown) (unknown) (unknown) (no date) (unknown) (unknown) 4 mg PO TID-QI D PRN (Reason: nausea and vomiting) Qty: 10 0RF (units unknown) (unknown) (unknown) (no date) (unknown) (unknown) 40 mg PO DAILY Qty: 30 0RF (units unknown) (unknown) (unknown) (no date) (unknown) (unknown) 8551 (units unknown) (unknown) (unknown) (no date) (unknown) (unknown) ? (units unknown) (unknown) (unknown) (no date) (unknown) (unknown) ?? (units unknown) (unknown) (unknown) (no date) (unknown) (unknown) ABDOMEN: Soft, nontender. Normoactive bowel sounds all 4 quadrants. No (units unknown) (unknown) (unknown) (no date) (unknown) (unknown) ALT 18 (<35) IU/L (u nits unknown) (unknown) (unknown) (no date) (unknown) (unknown) AST 22 (14-36) IU/L (units unknown) (unknown) (unknown) (no date) (unknown) (unknown) Activity Restrictions/Additio nal Instructions: (units unknown) (unknown) (unknown) (no date) (unknown) (unknown) Additional endovaginal scanning was necessary due to incomplete visualization of (units unknown) (unknown) (unknown) (no date) (unknown) (unknown) Admin: 3 07:18 Dose: 1,000 mls/hr (units unknown) (unknown) (unknown) (no date) (unknown) (unknown) Age/Sex: 26 / F (uni ts unknown) (unknown) (unknown) (no date) (unknown) (unknown) Albumin 4.3 (3.5-5.0) g/dL (units unknown) (unknown) (unknown) (no date) (unknown) (unknown) Albumin/Globul in Ratio 1.5 (1.0-2.8) (units unknown) (unknown) (unknown) (no date) (unknown) (unknown) Alkaline Phosp hatase 49 (38-126) U/L (units unknown) (unknown) (unknown) (no date) (unknown) (unknown) Allergies (units unknown) (unknown) (unknown) (no date) (unknown) (unknown) Allergy/AdvRea c Type Severity Reaction Status Date / Time (units unknown) (unknown) (unknown) (no date) (unknown) (unknown) Anemia (units unknown) (unknown) (unknown) (no date) (unknown) (unknown) Approved by: Juancarlos Alexander M.D. on 10/17/2022 at 10:10? (units unknown) (unknown) (unknown) (no date) (unknown) (unknown) Avoid ibuprofen (uni ts unknown) (unknown) (unknown) (no date) (unknown) (unknown) BUN 10 (7-17) mg/dL (units unknown) (unknown) (unknown) (no date) (unknown) (unknown) BUN/Creatinine Ratio 17.5 (6-22) (units unknown) (unknown) (unknown) (no date) (unknown) (unknown) Baso # (Auto) 0 (0-100) /uL (units unknown) (unknown) (unknown) (no date) (unknown) (unknown) Baso % (Auto) 0.2 (0-2) % (units unknown) (unknown) (unknown) (no date) (unknown) (unknown) Bedside Urine Bilirubin - Negative (units unknown) (unknown) (unknown) (no date) (unknown) (unknown) Bedside Urine Glucose Negative (units unknown) (unknown) (unknown) (no date) (unknown) (unknown) Bedside Urine Ketone +++ 80 (units unknown) (unknown) (unknown) (no date) (unknown) (unknown) Bedside Urine Leukocytes - Negative (units unknown) (unknown) (unknown) (no date) (unknown) (unknown) Bedside Urine Nitrite - Negative (units unknown) (unknown) (unknown) (no date) (unknown) (unknown) Bedside Urine Occult Blood - Negative (units unknown) (unknown) (unknown) (no date) (unknown) (unknown) Bedside Urine Protein - Negative (units unknown) (unknown) (unknown) (no date) (unknown) (unknown) Bedside Urine Urobilinogen - Negative (units unknown) (unknown) (unknown) (no date) (unknown) (unknown) Bedside Urine pH 6.0 (units unknown) (unknown) (unknown) (no date) (unknown) (unknown) Blood Pressure 101/63 102/73 (units unknown) (unknown) (unknown) (no date) (unknown) (unknown) Blood Pressure 104/63 (units unknown) (unknown) (unknown) (no date) (unknown) (unknown) Blood Pressure 109/56 L 10/17/22 06:45 (units unknown) (unknown) (unknown) (no date) (unknown) (unknown) Blood Pressure 109/56 L 101/60 (units unknown) (unknown) (unknown) (no date) (unknown) (unknown) Blood Pressure (unit s unknown) (unknown) (unknown) (no date) (unknown) (unknown) CARDIOVASCULAR : Regular rate and rhythm without murmurs, rubs or gallops. (units unknown) (unknown) (unknown) (no date) (unknown) (unknown) COMPARISON:? None. ( units unknown) (unknown) (unknown) (no date) (unknown) (unknown) Calcium 9.0 (8.4-10.2) mg/dL (units unknown) (unknown) (unknown) (no date) (unknown) (unknown) Carbon Dioxide 21 L (22-32) mmol/L (units unknown) (unknown) (unknown) (no date) (unknown) (unknown) Chief complain t: Nausea/Vomiting/Diar geoffrey (units unknown) (unknown) (unknown) (no date) (unknown) (unknown) Chloride 106 (98-107) mmol/L (units unknown) (unknown) (unknown) (no date) (unknown) (unknown) Chronic anxiety (uni ts unknown) (unknown) (unknown) (no date) (unknown) (unknown) Clinical Impression: (units unknown) (unknown) (unknown) (no date) (unknown) (unknown) Course (units unknown) (unknown) (unknown) (no date) (unknown) (unknown) Creatinine 0.5 7 (0.52-1.04) mg/dL (units unknown) (unknown) (unknown) (no date) (unknown) (unknown) : 5 Acct:[id number] (units unknown) (unknown) (unknown) (no date) (unknown) (unknown) Date of Servic e: 10/17/22 (units unknown) (unknown) (unknown) (no date) (unknown) (unknown) Departure (units unknown) (unknown) (unknown) (no date) (unknown) (unknown) Deviated septum (uni ts unknown) (unknown) (unknown) (no date) (unknown) (unknown) Discharge Plan (unit s unknown) (unknown) (unknown) (no date) (unknown) (unknown) Discontinued Medications (units unknown) (unknown) (unknown) (no date) (unknown) (unknown) Documented By: CTS ( units unknown) (unknown) (unknown) (no date) (unknown) (unknown) Documented By: MLM ( units unknown) (unknown) (unknown) (no date) (unknown) (unknown) Dr. Fair call office for follow-up (units unknown) (unknown) (unknown) (no date) (unknown) (unknown) ECG Data (units unknown) (unknown) (unknown) (no date) (unknown) (unknown) ER Physician: Alfreda Garcia D.O. (units unknown) (unknown) (unknown) (no date) (unknown) (unknown) EXTREMITIES: N ormal range of motion, no clubbing or edema. Neurovascularly (units unknown) (unknown) (unknown) (no date) (unknown) (unknown) Emergency Report (un its unknown) (unknown) (unknown) (no date) (unknown) (unknown) Eos # (Auto) 1 00 (0-450) /uL (units unknown) (unknown) (unknown) (no date) (unknown) (unknown) Eos % (Auto) 0 .7 L (2-4) % (units unknown) (unknown) (unknown) (no date) (unknown) (unknown) Esterase (units unknown) (unknown) (unknown) (no date) (unknown) (unknown) Estimated GFR > 60 (>60) mL/min (units unknown) (unknown) (unknown) (no date) (unknown) (unknown) Exam (units unknown) (unknown) (unknown) (no date) (unknown) (unknown) FINDINGS:? (units unknown) (unknown) (unknown) (no date) (unknown) (unknown) GENERAL: Well-appearing 26-year-old female and in no acute distress. (units unknown) (unknown) (unknown) (no date) (unknown) (unknown) Renae Fair MD [Physician] (units unknown) (unknown) (unknown) (no date) (unknown) (unknown) Gastroenteriti s, (units unknown) (unknown) (unknown) (no date) (unknown) (unknown) General (units unknown) (unknown) (unknown) (no date) (unknown) (unknown) Globulin 2.8 (1.7-4.1) g/dL (units unknown) (unknown) (unknown) (no date) (unknown) (unknown) Glucose 96 (70 -100) mg/dL (units unknown) (unknown) (unknown) (no date) (unknown) (unknown) HCG, Quant 103 .6 mIU/mL (units unknown) (unknown) (unknown) (no date) (unknown) (unknown) HEENT: Head atraumatic,EOMI, pupils reactive, face symmetric, moist mucous (units unknown) (unknown) (unknown) (no date) (unknown) (unknown) HPI - Nausea/Vomiting/Diar geoffrey (units unknown) (unknown) (unknown) (no date) (unknown) (unknown) HPI Narrative: (unit s unknown) (unknown) (unknown) (no date) (unknown) (unknown) Hct 37.6 (36-46) % ( units unknown) (unknown) (unknown) (no date) (unknown) (unknown) Hgb 13.6 (12.0 -16.0) g/dL (units unknown) (unknown) (unknown) (no date) (unknown) (unknown) History of Pre sent Illness (units unknown) (unknown) (unknown) (no date) (unknown) (unknown) Home Medications (un its unknown) (unknown) (unknown) (no date) (unknown) (unknown) Hypertrophy, n zay, turbinate (units unknown) (unknown) (unknown) (no date) (unknown) (unknown) IMPRESSION:? (units unknown) (unknown) (unknown) (no date) (unknown) (unknown) INDICATIONS:? POSITIVE HCG; UNKNOWN DATES (units unknown) (unknown) (unknown) (no date) (unknown) (unknown) Imaging Data (units unknown) (unknown) (unknown) (no date) (unknown) (unknown) Incompetent na catarina valve (units unknown) (unknown) (unknown) (no date) (unknown) (unknown) Initial Vital Signs (units unknown) (unknown) (unknown) (no date) (unknown) (unknown) Initial Vital Signs: (units unknown) (unknown) (unknown) (no date) (unknown) (unknown) Instructions: DI for Viral Gastroenteritis -- Adult (units unknown) (unknown) (unknown) (no date) (unknown) (unknown) Interpretation: (uni ts unknown) (unknown) (unknown) (no date) (unknown) (unknown) [address] [address] (units unknown) (unknown) (unknown) (no date) (unknown) (unknown) Ketorolac Tromethamine (Ketorolac 30 Mg/Ml Vial) 15 mg IV NOW ONE (units unknown) (unknown) (unknown) (no date) (unknown) (unknown) Lab Data (units unknown) (unknown) (unknown) (no date) (unknown) (unknown) Lab Results (units unknown) (unknown) (unknown) (no date) (unknown) (unknown) Labs: (units unknown) (unknown) (unknown) (no date) (unknown) (unknown) Last Admin: 07:18 Dose: 4 mg (units unknown) (unknown) (unknown) (no date) (unknown) (unknown) Last Admin: 09:10 Dose: Not Given (units unknown) (unknown) (unknown) (no date) (unknown) (unknown) Last Infusion: 10/17/22 08:57 Dose: 0 mls/hr (units unknown) (unknown) (unknown) (no date) (unknown) (unknown) Lipase 42 (23- 300) U/L (units unknown) (unknown) (unknown) (no date) (unknown) (unknown) Lymph # (Auto) 2100 (1233-6656) /uL (units unknown) (unknown) (unknown) (no date) (unknown) (unknown) Lymph % (Auto) 20.3 L (25-40) % (units unknown) (unknown) (unknown) (no date) (unknown) (unknown) MCH 32.6 (26-34) PG (units unknown) (unknown) (unknown) (no date) (unknown) (unknown) MCHC 36.2 H (3 0-36) % (units unknown) (unknown) (unknown) (no date) (unknown) (unknown) MCV 90.1 (80-100) fL (units unknown) (unknown) (unknown) (no date) (unknown) (unknown) MDM - Nausea/Vomiting/Diar geoffrey (units unknown) (unknown) (unknown) (no date) (unknown) (unknown) MDM Narrative (units unknown) (unknown) (unknown) (no date) (unknown) (unknown) MRSA (methicil mimi resistant Staphylococcus aureus) (2014) (units unknown) (unknown) (unknown) (no date) (unknown) (unknown) Medical Histor y (Updated 10/17/22 @ 11:23 by Alfreda Garcia DO) (units unknown) (unknown) (unknown) (no date) (unknown) (unknown) Medical decisi on making narrative: (units unknown) (unknown) (unknown) (no date) (unknown) (unknown) Medication Instructions Recorded Confirmed (units unknown) (unknown) (unknown) (no date) (unknown) (unknown) Medication Instructions Recorded (units unknown) (unknown) (unknown) (no date) (unknown) (unknown) Migraine headache (u nits unknown) (unknown) (unknown) (no date) (unknown) (unknown) Mode of arriva l: Ambulatory (units unknown) (unknown) (unknown) (no date) (unknown) (unknown) [place]ney # (Auto) 700 (0-900) /uL (units unknown) (unknown) (unknown) (no date) (unknown) (unknown) [place] % (Auto) 7.1 (3-14) % (units unknown) (unknown) (unknown) (no date) (unknown) (unknown) NEUROLOGICAL: Alert and oriented x4. (units unknown) (unknown) (unknown) (no date) (unknown) (unknown) Nasal congestion (un its unknown) (unknown) (unknown) (no date) (unknown) (unknown) Nasal obstruction (u nits unknown) (unknown) (unknown) (no date) (unknown) (unknown) Neut # (Auto) 7400 H (6126-5374) /uL (units unknown) (unknown) (unknown) (no date) (unknown) (unknown) Neut % (Auto) 71.7 (50-75) % (units unknown) (unknown) (unknown) (no date) (unknown) (unknown) New (units unknown) (unknown) (unknown) (no date) (unknown) (unknown) No Action (units unknown) (unknown) (unknown) (no date) (unknown) (unknown) Normal sinus r hythm rate 64 NM interval 146 QRS [address] changes no T (units unknown) (unknown) (unknown) (no date) (unknown) (unknown) Note:? Critica l results were discussed with Dr. Garcia at 10:09 AM [place] time on (units unknown) (unknown) (unknown) (no date) (unknown) (unknown) Ondansetron HC l (Ondansetron 4 Mg Odt) 4 mg PO NOW PRN (units unknown) (unknown) (unknown) (no date) (unknown) (unknown) Ondansetron HC l (Ondansetron 4 Mg/2 Ml Inj) 4 mg IV NOW PRN (units unknown) (unknown) (unknown) (no date) (unknown) (unknown) Ordered: (units unknown) (unknown) (unknown) (no date) (unknown) (unknown) Orders (units unknown) (unknown) (unknown) (no date) (unknown) (unknown) Other:? No pathologic free abdominal or pelvic fluid. (units unknown) (unknown) (unknown) (no date) (unknown) (unknown) Ovaries:? The right ovary measures 1.6 x 4.1 x 1.5 cm, with a calculated ovarian (units unknown) (unknown) (unknown) (no date) (unknown) (unknown) Oxygen Deliver y Method Room Air 10/17/22 06:45 (units unknown) (unknown) (unknown) (no date) (unknown) (unknown) Oxygen Deliver y Method Room Air (units unknown) (unknown) (unknown) (no date) (unknown) (unknown) Oxygen Deliver y Method (units unknown) (unknown) (unknown) (no date) (unknown) (unknown) PRN Reason: Na usea And Vomiting (units unknown) (unknown) (unknown) (no date) (unknown) (unknown) PROCEDURE:? US PELVIC COMPLETE (units unknown) (unknown) (unknown) (no date) (unknown) (unknown) Patient Dispos ition: Home (units unknown) (unknown) (unknown) (no date) (unknown) (unknown) Patient History (uni ts unknown) (unknown) (unknown) (no date) (unknown) (unknown) Patient is a h ealthy 26-year-old female presents with nausea vomiting d ongoing (units unknown) (unknown) (unknown) (no date) (unknown) (unknown) Patient: Carie Sullivan MR#: [id number] (units unknown) (unknown) (unknown) (no date) (unknown) (unknown) Plt Count 183 (150-400) X103/uL (units unknown) (unknown) (unknown) (no date) (unknown) (unknown) Point of Care Testing (units unknown) (unknown) (unknown) (no date) (unknown) (unknown) Potassium 3.2 L (3.4-5.1) mmol/L (units unknown) (unknown) (unknown) (no date) (unknown) (unknown) Test Results Positive (units unknown) (unknown) (unknown) (no date) (unknown) (unknown) Prescriptions: (unit s unknown) (unknown) (unknown) (no date) (unknown) (unknown) Previous Rx's (units unknown) (unknown) (unknown) (no date) (unknown) (unknown) Provider,Vaibhav lizarraga DEMARIO [Primary Care Provider] (units unknown) (unknown) (unknown) (no date) (unknown) (unknown) Pulse Oximetry 98 10/17/22 06:45 (units unknown) (unknown) (unknown) (no date) (unknown) (unknown) Pulse Oximetry 98 100 (units unknown) (unknown) (unknown) (no date) (unknown) (unknown) Pulse Oximetry 98 (u nits unknown) (unknown) (unknown) (no date) (unknown) (unknown) Pulse Oximetry 99 97 (units unknown) (unknown) (unknown) (no date) (unknown) (unknown) Pulse Rate 56 L 10/17/22 06:45 (units unknown) (unknown) (unknown) (no date) (unknown) (unknown) Pulse Rate 56 L 65 ( units unknown) (unknown) (unknown) (no date) (unknown) (unknown) Pulse Rate 68 78 (un its unknown) (unknown) (unknown) (no date) (unknown) (unknown) Pulse Rate 71 (units unknown) (unknown) (unknown) (no date) (unknown) (unknown) Pulse Rate 77 (units unknown) (unknown) (unknown) (no date) (unknown) (unknown) RBC 4.18 (4.0- 5.2) X106/uL (units unknown) (unknown) (unknown) (no date) (unknown) (unknown) RDW 13.4 (11.6 -14.8) % (units unknown) (unknown) (unknown) (no date) (unknown) (unknown) RESPIRATORY: B reath sounds equal bilaterally, no wheezes rales or rhonchi. (units unknown) (unknown) (unknown) (no date) (unknown) (unknown) ROS Unobtainab le: All systems reviewed + are unremarkable except as noted in HPI (units unknown) (unknown) (unknown) (no date) (unknown) (unknown) Radiologist's Impression: (units unknown) (unknown) (unknown) (no date) (unknown) (unknown) Real-time scan candie was performed of the pelvic organs, with image (units unknown) (unknown) (unknown) (no date) (unknown) (unknown) Referrals: (units unknown) (unknown) (unknown) (no date) (unknown) (unknown) Related Data (units unknown) (unknown) (unknown) (no date) (unknown) (unknown) Respiratory Ra te 18 10/17/22 06:45 (units unknown) (unknown) (unknown) (no date) (unknown) (unknown) Respiratory Rate 18 (units unknown) (unknown) (unknown) (no date) (unknown) (unknown) Respiratory Rate (un its unknown) (unknown) (unknown) (no date) (unknown) (unknown) Review of Systems (u nits unknown) (unknown) (unknown) (no date) (unknown) (unknown) Rib injury (2019) (u nits unknown) (unknown) (unknown) (no date) (unknown) (unknown) Ruptured ovari an cyst (2017) (units unknown) (unknown) (unknown) (no date) (unknown) (unknown) Rx Instructions: (un its unknown) (unknown) (unknown) (no date) (unknown) (unknown) SKIN: Warm, dr y, no laceration, no petechiae, no rashes or lesions. (units unknown) (unknown) (unknown) (no date) (unknown) (unknown) See Rx Instruc tions .ROUTE .COMPLEX (units unknown) (unknown) (unknown) (no date) (unknown) (unknown) She is given f luids Zofran and Toradol. She is tolerating oral fluids overall (units unknown) (unknown) (unknown) (no date) (unknown) (unknown) Signed By: (units unknown) (unknown) (unknown) (no date) (unknown) (unknown) Smoking Status : Current every day smoker (units unknown) (unknown) (unknown) (no date) (unknown) (unknown) Social History (units unknown) (unknown) (unknown) (no date) (unknown) (unknown) Sodium 138 (13 7-145) mmol/L (units unknown) (unknown) (unknown) (no date) (unknown) (unknown) Sodium Chlorid e (Normal Saline 0.9%) 1,000 mls @ 1,000 mls/hr IV BOLUS ONE (units unknown) (unknown) (unknown) (no date) (unknown) (unknown) Source: patient (uni ts unknown) (unknown) (unknown) (no date) (unknown) (unknown) Stand Alone Fo colby: Patient Portal/API (units unknown) (unknown) (unknown) (no date) (unknown) (unknown) Stated complai nt: v/d heart palpatations (units unknown) (unknown) (unknown) (no date) (unknown) (unknown) Stop: 10/17/22 08:09 (units unknown) (unknown) (unknown) (no date) (unknown) (unknown) Stop: 10/17/22 08:28 (units unknown) (unknown) (unknown) (no date) (unknown) (unknown) Substance Use Type: marijuana (units unknown) (unknown) (unknown) (no date) (unknown) (unknown) Surgical Histo ry (units unknown) (unknown) (unknown) (no date) (unknown) (unknown) Symptoms have been only ongoing for 1 hour. Potassium is 3.2 consistent with (units unknown) (unknown) (unknown) (no date) (unknown) (unknown) TECHNIQUE:? (units unknown) (unknown) (unknown) (no date) (unknown) (unknown) Temperature 97 .1 F L 10/17/22 06:45 (units unknown) (unknown) (unknown) (no date) (unknown) (unknown) Temperature 97.1 F L (units unknown) (unknown) (unknown) (no date) (unknown) (unknown) Temperature (units unknown) (unknown) (unknown) (no date) (unknown) (unknown) There is a sma ll question of ectopic versus cyst. You also have gastroenteritis (units unknown) (unknown) (unknown) (no date) (unknown) (unknown) Time Seen by Provider: 10/17/22 06:48 (units unknown) (unknown) (unknown) (no date) (unknown) (unknown) Total Bilirubi n 0.6 (0.2-1.3) mg/dL (units unknown) (unknown) (unknown) (no date) (unknown) (unknown) Total Protein 7.1 (6.3-8.2) g/dL (units unknown) (unknown) (unknown) (no date) (unknown) (unknown) Tylenol 1000 m g every 6 hours if needed for pain (units unknown) (unknown) (unknown) (no date) (unknown) (unknown) US - FUEL TANK SEALER AND TESTER: (units unknown) (unknown) (unknown) (no date) (unknown) (unknown) Urine Dip (units unknown) (unknown) (unknown) (no date) (unknown) (unknown) Urine Specific Monument 1.025 (units unknown) (unknown) (unknown) (no date) (unknown) (unknown) Uterus:? Uteru s is anteverted and normal in size at 8.8 x 4.1 x 5.5 cm. The (units unknown) (unknown) (unknown) (no date) (unknown) (unknown) Vital Signs - 8 hr ( units unknown) (unknown) (unknown) (no date) (unknown) (unknown) Vital Signs (units unknown) (unknown) (unknown) (no date) (unknown) (unknown) Vital signs: (units unknown) (unknown) (unknown) (no date) (unknown) (unknown) WBC 10.3 (4.5- 11.0) X103/uL (units unknown) (unknown) (unknown) (no date) (unknown) (unknown) [place] teeth r emoved (01/16/13) (units unknown) (unknown) (unknown) (no date) (unknown) (unknown) Zofran 4 mg ev josemanuel 8 hours if needed for nausea or vomiting--> sent to [facility] (units unknown) (unknown) (unknown) (no date) (unknown) (unknown) [Embedded Imag e Not Available] (units unknown) (unknown) (unknown) (no date) (unknown) (unknown) adnexal and endometrial structures by transabdominal scanning.? (units unknown) (unknown) (unknown) (no date) (unknown) (unknown) alcohol intake frequency: holidays/special occasions only (units unknown) (unknown) (unknown) (no date) (unknown) (unknown) alcohol intake : current (units unknown) (unknown) (unknown) (no date) (unknown) (unknown) and below (units unknown) (unknown) (unknown) (no date) (unknown) (unknown) are (units unknown) (unknown) (unknown) (no date) (unknown) (unknown) bleeding or an y new, worsening or concerning symptoms (units unknown) (unknown) (unknown) (no date) (unknown) (unknown) clindamycin-be nzoyl- emol [id number] See Rx Instructions .Route .COMPLEX 01/29/20 (units unknown) (unknown) (unknown) (no date) (unknown) (unknown) clindamycin-be nzoyl- emol cmb94 (units unknown) (unknown) (unknown) (no date) (unknown) (unknown) cyst measures 2.3 x 1.8 x 2.2 cm with peripheral vascularity.? No adnexal masses (units unknown) (unknown) (unknown) (no date) (unknown) (unknown) diarrhea and vomiting. No other electrolyte abnormalities or evidence of JENNY. (units unknown) (unknown) (unknown) (no date) (unknown) (unknown) documentation.? (uni ts unknown) (unknown) (unknown) (no date) (unknown) (unknown) feeling much b nikita. Oral rehydration education given by myself. At this time (units unknown) (unknown) (unknown) (no date) (unknown) (unknown) feeling well yesterday. No one else is sick at home. (units unknown) (unknown) (unknown) (no date) (unknown) (unknown) for the last 1 hour. She is had crampy is racing. No fever or chills. She was (units unknown) (unknown) (unknown) (no date) (unknown) (unknown) guarding or rebound. (units unknown) (unknown) (unknown) (no date) (unknown) (unknown) homogeneous. ? The endometrium measures 12.9 mm combined thickness.? (units unknown) (unknown) (unknown) (no date) (unknown) (unknown) household memb ers: spouse (units unknown) (unknown) (unknown) (no date) (unknown) (unknown) intact (units unknown) (unknown) (unknown) (no date) (unknown) (unknown) latex Allergy Intermediate Anxiety Verified 08/05/22 16:46 (units unknown) (unknown) (unknown) (no date) (unknown) (unknown) left ovary.? Differential would include 2.3 cm ectopic and corpus (units unknown) (unknown) (unknown) (no date) (unknown) (unknown) like product (units unknown) (unknown) (unknown) (no date) (unknown) (unknown) luteum cyst (units unknown) (unknown) (unknown) (no date) (unknown) (unknown) membranes (units unknown) (unknown) (unknown) (no date) (unknown) (unknown) myometrium is (units unknown) (unknown) (unknown) (no date) (unknown) (unknown) no need for admission or further evaluation or workup. (units unknown) (unknown) (unknown) (no date) (unknown) (unknown) of 4.9 cc. The left ovary measures 2.1 x 4.5 x 1.9 cm, with a calculated ovarian (units unknown) (unknown) (unknown) (no date) (unknown) (unknown) of 9.4 cc. The ovaries have a normal sonographic appearance.? Peripheral left (units unknown) (unknown) (unknown) (no date) (unknown) (unknown) ondansetron 4 mg disintegrating 4 mg PO Q8H PRN nausea and 08/28/22 (units unknown) (unknown) (unknown) (no date) (unknown) (unknown) ondansetron 4 mg disintegrating 4 mg PO Q8H PRN nausea and 10/17/22 (units unknown) (unknown) (unknown) (no date) (unknown) (unknown) ondansetron 4 mg disintegrating 4 mg PO TID-QID PRN nausea and 08/05/22 (units unknown) (unknown) (unknown) (no date) (unknown) (unknown) ondansetron 4 mg tablet,disintegratin g (units unknown) (unknown) (unknown) (no date) (unknown) (unknown) or hemorrhagic cyst.? Consider short-term interval follow-up? (units unknown) (unknown) (unknown) (no date) (unknown) (unknown) ovarian (units unknown) (unknown) (unknown) (no date) (unknown) (unknown) pantoprazole 4 0 mg tablet,delayed 40 mg PO DAILY #30 tabs 08/05/22 (units unknown) (unknown) (unknown) (no date) (unknown) (unknown) pantoprazole [Protonix] 40 mg tablet,delayed release (DR/EC) (units unknown) (unknown) (unknown) (no date) (unknown) (unknown) place as needed. (un its unknown) (unknown) (unknown) (no date) (unknown) (unknown) promethazine A dvReac Verified 08/05/22 16:46 (units unknown) (unknown) (unknown) (no date) (unknown) (unknown) put in another hCG order for 10/19/22 as an outpatient blood draw. (units unknown) (unknown) (unknown) (no date) (unknown) (unknown) release (Protonix) ( units unknown) (unknown) (unknown) (no date) (unknown) (unknown) seen. (units unknown) (unknown) (unknown) (no date) (unknown) (unknown) tablet vomitin g #10 tabs (units unknown) (unknown) (unknown) (no date) (unknown) (unknown) the (units unknown) (unknown) (unknown) (no date) (unknown) (unknown) tobacco type: vaping (units unknown) (unknown) (unknown) (no date) (unknown) (unknown) tretinoin 0.02 5 % topical cream 1 applic topical BEDTIME 01/29/20 01/29/20 (units unknown) (unknown) (unknown) (no date) (unknown) (unknown) tretinoin [Ret in-A] 0.025 % Cream (units unknown) (unknown) (unknown) (no date) (unknown) (unknown) volume (units unknown) (unknown) (unknown) (no date) (unknown) (unknown) wave inversions (uni ts unknown) (unknown) (unknown) (no date) (unknown) (unknown) with diarrhea and vomiting. Please stay hydrated with Gatorade or Gatorade (units unknown) (unknown) (unknown) (no date) (unknown) (unknown) with the (units unknown) (unknown) Result panel 386 (unknown) (no date) (unknown) (unknown) (no value) (units unknown) (unknown) (unknown) (no date) (unknown) (unknown) <Electronicall y signed by Alfreda Garcia D.O.> (units unknown) (unknown) (unknown) (no date) (unknown) (unknown) (Retin-A) (units unknown) (unknown) (unknown) (no date) (unknown) (unknown) *Continue to t justice medications as directed (units unknown) (unknown) (unknown) (no date) (unknown) (unknown) *Follow up wit h your primary care provider in 2-3 days or call [phone] (units unknown) (unknown) (unknown) (no date) (unknown) (unknown) *Return to ER if you should have increasing abdominal pain cramping vaginal (units unknown) (unknown) (unknown) (no date) (unknown) (unknown) *What to do: A t this time you are very newly . ALISSA Craft has (units unknown) (unknown) (unknown) (no date) (unknown) (unknown) *You have been diagnosed with gastroenteritis and (units unknown) (unknown) (unknown) (no date) (unknown) (unknown) 10/17/2210/1710/17/22 Range/Units (units unknown) (unknown) (unknown) (no date) (unknown) (unknown) 10/17/22 07:00 (unit s unknown) (unknown) (unknown) (no date) (unknown) (unknown) 10/17/22 1915 (units unknown) (unknown) (unknown) (no date) (unknown) (unknown) 10/17/22 (units unknown) (unknown) (unknown) (no date) (unknown) (unknown) 06:45 10/17/22 (unit s unknown) (unknown) (unknown) (no date) (unknown) (unknown) 07:00 07:00 07:00 (u nits unknown) (unknown) (unknown) (no date) (unknown) (unknown) 07:18 10/17/22 (unit s unknown) (unknown) (unknown) (no date) (unknown) (unknown) 07:19 10/17/22 (unit s unknown) (unknown) (unknown) (no date) (unknown) (unknown) 07:19 (units unknown) (unknown) (unknown) (no date) (unknown) (unknown) 07:30 10/17/22 (unit s unknown) (unknown) (unknown) (no date) (unknown) (unknown) 07:30 (units unknown) (unknown) (unknown) (no date) (unknown) (unknown) 08:00 10/17/22 (unit s unknown) (unknown) (unknown) (no date) (unknown) (unknown) 08:30 (units unknown) (unknown) (unknown) (no date) (unknown) (unknown) 01/29/20 (units unknown) (unknown) (unknown) (no date) (unknown) (unknown) 1 applic TOPIC AL BEDTIME (units unknown) (unknown) (unknown) (no date) (unknown) (unknown) 1. No evidence of intrauterine and complex cystic structure associated (units unknown) (unknown) (unknown) (no date) (unknown) (unknown) 11:20 Dr. Nancy heredia updated patient's systems test results questionable ectopic. (units unknown) (unknown) (unknown) (no date) (unknown) (unknown) 26-year-old fe male with signs and symptoms consistent with a gastroenteritis. (units unknown) (unknown) (unknown) (no date) (unknown) (unknown) 4 mg PO Q8H NM N (Reason: nausea and vomiting) Qty: 10 0RF (units unknown) (unknown) (unknown) (no date) (unknown) (unknown) 4 mg PO TID-QI D PRN (Reason: nausea and vomiting) Qty: 10 0RF (units unknown) (unknown) (unknown) (no date) (unknown) (unknown) 40 mg PO DAILY Qty: 30 0RF (units unknown) (unknown) (unknown) (no date) (unknown) (unknown) 8551 (units unknown) (unknown) (unknown) (no date) (unknown) (unknown) ? (units unknown) (unknown) (unknown) (no date) (unknown) (unknown) ?? (units unknown) (unknown) (unknown) (no date) (unknown) (unknown) ABDOMEN: Soft, nontender. Normoactive bowel sounds all 4 quadrants. No (units unknown) (unknown) (unknown) (no date) (unknown) (unknown) ALT 18 (<35) IU/L (u nits unknown) (unknown) (unknown) (no date) (unknown) (unknown) AST 22 (14-36) IU/L (units unknown) (unknown) (unknown) (no date) (unknown) (unknown) Activity Restrictions/Additio nal Instructions: (units unknown) (unknown) (unknown) (no date) (unknown) (unknown) Additional endovaginal scanning was necessary due to incomplete visualization of (units unknown) (unknown) (unknown) (no date) (unknown) (unknown) Admin: 3 07:18 Dose: 1,000 mls/hr (units unknown) (unknown) (unknown) (no date) (unknown) (unknown) Age/Sex: 26 / F (uni ts unknown) (unknown) (unknown) (no date) (unknown) (unknown) Albumin 4.3 (3.5-5.0) g/dL (units unknown) (unknown) (unknown) (no date) (unknown) (unknown) Albumin/Globul in Ratio 1.5 (1.0-2.8) (units unknown) (unknown) (unknown) (no date) (unknown) (unknown) Alkaline Phosp hatase 49 (38-126) U/L (units unknown) (unknown) (unknown) (no date) (unknown) (unknown) All questions have been addressed. (units unknown) (unknown) (unknown) (no date) (unknown) (unknown) Allergies (units unknown) (unknown) (unknown) (no date) (unknown) (unknown) Allergy/AdvRea c Type Severity Reaction Status Date / Time (units unknown) (unknown) (unknown) (no date) (unknown) (unknown) Anemia (units unknown) (unknown) (unknown) (no date) (unknown) (unknown) Approved by: Juancarlos Alexander M.D. on 10/17/2022 at 10:10? (units unknown) (unknown) (unknown) (no date) (unknown) (unknown) Avoid ibuprofen (uni ts unknown) (unknown) (unknown) (no date) (unknown) (unknown) BUN 10 (7-17) mg/dL (units unknown) (unknown) (unknown) (no date) (unknown) (unknown) BUN/Creatinine Ratio 17.5 (6-22) (units unknown) (unknown) (unknown) (no date) (unknown) (unknown) Baso # (Auto) 0 (0-100) /uL (units unknown) (unknown) (unknown) (no date) (unknown) (unknown) Baso % (Auto) 0.2 (0-2) % (units unknown) (unknown) (unknown) (no date) (unknown) (unknown) Bedside Urine Bilirubin - Negative (units unknown) (unknown) (unknown) (no date) (unknown) (unknown) Bedside Urine Glucose Negative (units unknown) (unknown) (unknown) (no date) (unknown) (unknown) Bedside Urine Ketone +++ 80 (units unknown) (unknown) (unknown) (no date) (unknown) (unknown) Bedside Urine Leukocytes - Negative (units unknown) (unknown) (unknown) (no date) (unknown) (unknown) Bedside Urine Nitrite - Negative (units unknown) (unknown) (unknown) (no date) (unknown) (unknown) Bedside Urine Occult Blood - Negative (units unknown) (unknown) (unknown) (no date) (unknown) (unknown) Bedside Urine Protein - Negative (units unknown) (unknown) (unknown) (no date) (unknown) (unknown) Bedside Urine Urobilinogen - Negative (units unknown) (unknown) (unknown) (no date) (unknown) (unknown) Bedside Urine pH 6.0 (units unknown) (unknown) (unknown) (no date) (unknown) (unknown) Blood Pressure 101/63 102/73 (units unknown) (unknown) (unknown) (no date) (unknown) (unknown) Blood Pressure 104/63 (units unknown) (unknown) (unknown) (no date) (unknown) (unknown) Blood Pressure 109/56 L 10/17/22 06:45 (units unknown) (unknown) (unknown) (no date) (unknown) (unknown) Blood Pressure 109/56 L 101/60 (units unknown) (unknown) (unknown) (no date) (unknown) (unknown) Blood Pressure (unit s unknown) (unknown) (unknown) (no date) (unknown) (unknown) CARDIOVASCULAR : Regular rate and rhythm without murmurs, rubs or gallops. (units unknown) (unknown) (unknown) (no date) (unknown) (unknown) COMPARISON:? None. ( units unknown) (unknown) (unknown) (no date) (unknown) (unknown) Calcium 9.0 (8.4-10.2) mg/dL (units unknown) (unknown) (unknown) (no date) (unknown) (unknown) Carbon Dioxide 21 L (22-32) mmol/L (units unknown) (unknown) (unknown) (no date) (unknown) (unknown) Chief complain t: Nausea/Vomiting/Diar geoffrey (units unknown) (unknown) (unknown) (no date) (unknown) (unknown) Chloride 106 (98-107) mmol/L (units unknown) (unknown) (unknown) (no date) (unknown) (unknown) Chronic anxiety (uni ts unknown) (unknown) (unknown) (no date) (unknown) (unknown) Clinical Impression: (units unknown) (unknown) (unknown) (no date) (unknown) (unknown) Course (units unknown) (unknown) (unknown) (no date) (unknown) (unknown) Creatinine 0.5 7 (0.52-1.04) mg/dL (units unknown) (unknown) (unknown) (no date) (unknown) (unknown) : 5 Acct:[id number] (units unknown) (unknown) (unknown) (no date) (unknown) (unknown) Date of Servic e: 10/17/22 (units unknown) (unknown) (unknown) (no date) (unknown) (unknown) Departure (units unknown) (unknown) (unknown) (no date) (unknown) (unknown) Deviated septum (uni ts unknown) (unknown) (unknown) (no date) (unknown) (unknown) Discharge Plan (unit s unknown) (unknown) (unknown) (no date) (unknown) (unknown) Discontinued Medications (units unknown) (unknown) (unknown) (no date) (unknown) (unknown) Documented By: CTS ( units unknown) (unknown) (unknown) (no date) (unknown) (unknown) Documented By: MLM ( units unknown) (unknown) (unknown) (no date) (unknown) (unknown) Dr. Fair call office for follow-up (units unknown) (unknown) (unknown) (no date) (unknown) (unknown) ECG Data (units unknown) (unknown) (unknown) (no date) (unknown) (unknown) ER Physician: Alfreda Garcia D.O. (units unknown) (unknown) (unknown) (no date) (unknown) (unknown) EXTREMITIES: N ormal range of motion, no clubbing or edema. Neurovascularly (units unknown) (unknown) (unknown) (no date) (unknown) (unknown) Emergency Report (un its unknown) (unknown) (unknown) (no date) (unknown) (unknown) Eos # (Auto) 1 00 (0-450) /uL (units unknown) (unknown) (unknown) (no date) (unknown) (unknown) Eos % (Auto) 0 .7 L (2-4) % (units unknown) (unknown) (unknown) (no date) (unknown) (unknown) Esterase (units unknown) (unknown) (unknown) (no date) (unknown) (unknown) Estimated GFR > 60 (>60) mL/min (units unknown) (unknown) (unknown) (no date) (unknown) (unknown) Exam (units unknown) (unknown) (unknown) (no date) (unknown) (unknown) FINDINGS:? (units unknown) (unknown) (unknown) (no date) (unknown) (unknown) GENERAL: Well-appearing 26-year-old female and in no acute distress. (units unknown) (unknown) (unknown) (no date) (unknown) (unknown) Renae Fair MD [Physician] (units unknown) (unknown) (unknown) (no date) (unknown) (unknown) Gastroenteriti s, (units unknown) (unknown) (unknown) (no date) (unknown) (unknown) General (units unknown) (unknown) (unknown) (no date) (unknown) (unknown) Globulin 2.8 (1.7-4.1) g/dL (units unknown) (unknown) (unknown) (no date) (unknown) (unknown) Glucose 96 (70 -100) mg/dL (units unknown) (unknown) (unknown) (no date) (unknown) (unknown) HCG, Quant 103 .6 mIU/mL (units unknown) (unknown) (unknown) (no date) (unknown) (unknown) HEENT: Head atraumatic,EOMI, pupils reactive, face symmetric, moist mucous (units unknown) (unknown) (unknown) (no date) (unknown) (unknown) HPI - Nausea/Vomiting/Diar geoffrey (units unknown) (unknown) (unknown) (no date) (unknown) (unknown) HPI Narrative: (unit s unknown) (unknown) (unknown) (no date) (unknown) (unknown) Hct 37.6 (36-46) % ( units unknown) (unknown) (unknown) (no date) (unknown) (unknown) Hgb 13.6 (12.0 -16.0) g/dL (units unknown) (unknown) (unknown) (no date) (unknown) (unknown) History of Pre sent Illness (units unknown) (unknown) (unknown) (no date) (unknown) (unknown) Home Medications (un its unknown) (unknown) (unknown) (no date) (unknown) (unknown) Hypertrophy, n zay, turbinate (units unknown) (unknown) (unknown) (no date) (unknown) (unknown) IMPRESSION:? (units unknown) (unknown) (unknown) (no date) (unknown) (unknown) INDICATIONS:? POSITIVE HCG; UNKNOWN DATES (units unknown) (unknown) (unknown) (no date) (unknown) (unknown) Imaging Data (units unknown) (unknown) (unknown) (no date) (unknown) (unknown) Incompetent na catarina valve (units unknown) (unknown) (unknown) (no date) (unknown) (unknown) Initial Vital Signs (units unknown) (unknown) (unknown) (no date) (unknown) (unknown) Initial Vital Signs: (units unknown) (unknown) (unknown) (no date) (unknown) (unknown) Instructions: DI for Viral Gastroenteritis -- Adult (units unknown) (unknown) (unknown) (no date) (unknown) (unknown) Interpretation: (uni ts unknown) (unknown) (unknown) (no date) (unknown) (unknown) [place] [id number] (units unknown) (unknown) (unknown) (no date) (unknown) (unknown) Ketorolac Tromethamine (Ketorolac 30 Mg/Ml Vial) 15 mg IV NOW ONE (units unknown) (unknown) (unknown) (no date) (unknown) (unknown) Lab Data (units unknown) (unknown) (unknown) (no date) (unknown) (unknown) Lab Results (units unknown) (unknown) (unknown) (no date) (unknown) (unknown) Labs: (units unknown) (unknown) (unknown) (no date) (unknown) (unknown) Last Admin: 07:18 Dose: 4 mg (units unknown) (unknown) (unknown) (no date) (unknown) (unknown) Last Admin: 09:10 Dose: Not Given (units unknown) (unknown) (unknown) (no date) (unknown) (unknown) Last Infusion: 10/17/22 08:57 Dose: 0 mls/hr (units unknown) (unknown) (unknown) (no date) (unknown) (unknown) Lipase 42 (23- 300) U/L (units unknown) (unknown) (unknown) (no date) (unknown) (unknown) Lymph # (Auto) 2100 (2938-6838) /uL (units unknown) (unknown) (unknown) (no date) (unknown) (unknown) Lymph % (Auto) 20.3 L (25-40) % (units unknown) (unknown) (unknown) (no date) (unknown) (unknown) MCH 32.6 (26-34) PG (units unknown) (unknown) (unknown) (no date) (unknown) (unknown) MCHC 36.2 H (3 0-36) % (units unknown) (unknown) (unknown) (no date) (unknown) (unknown) MCV 90.1 (80-100) fL (units unknown) (unknown) (unknown) (no date) (unknown) (unknown) MDM - Nausea/Vomiting/Diar geoffrey (units unknown) (unknown) (unknown) (no date) (unknown) (unknown) MDM Narrative (units unknown) (unknown) (unknown) (no date) (unknown) (unknown) MRSA (methicil mimi resistant Staphylococcus aureus) (2014) (units unknown) (unknown) (unknown) (no date) (unknown) (unknown) Medical Histor y (Updated 10/17/22 @ 11:23 by Alfreda Garcia DO) (units unknown) (unknown) (unknown) (no date) (unknown) (unknown) Medical decisi on making narrative: (units unknown) (unknown) (unknown) (no date) (unknown) (unknown) Medication Instructions Recorded Confirmed (units unknown) (unknown) (unknown) (no date) (unknown) (unknown) Medication Instructions Recorded (units unknown) (unknown) (unknown) (no date) (unknown) (unknown) Migraine headache (u nits unknown) (unknown) (unknown) (no date) (unknown) (unknown) Mode of arriva l: Ambulatory (units unknown) (unknown) (unknown) (no date) (unknown) (unknown) [place] # (Auto) 700 (0-900) /uL (units unknown) (unknown) (unknown) (no date) (unknown) (unknown) [place] % (Auto) 7.1 (3-14) % (units unknown) (unknown) (unknown) (no date) (unknown) (unknown) NEUROLOGICAL: Alert and oriented x4. (units unknown) (unknown) (unknown) (no date) (unknown) (unknown) Nasal congestion (un its unknown) (unknown) (unknown) (no date) (unknown) (unknown) Nasal obstruction (u nits unknown) (unknown) (unknown) (no date) (unknown) (unknown) Neut # (Auto) 7400 H (0611-8925) /uL (units unknown) (unknown) (unknown) (no date) (unknown) (unknown) Neut % (Auto) 71.7 (50-75) % (units unknown) (unknown) (unknown) (no date) (unknown) (unknown) New (units unknown) (unknown) (unknown) (no date) (unknown) (unknown) No Action (units unknown) (unknown) (unknown) (no date) (unknown) (unknown) Normal sinus r hythm rate 64 NM interval 146 QRS [address] changes no T (units unknown) (unknown) (unknown) (no date) (unknown) (unknown) Note:? Critica l results were discussed with Dr. Garcia at 10:09 AM [place] time on (units unknown) (unknown) (unknown) (no date) (unknown) (unknown) Ondansetron HC l (Ondansetron 4 Mg Odt) 4 mg PO NOW PRN (units unknown) (unknown) (unknown) (no date) (unknown) (unknown) Ondansetron HC l (Ondansetron 4 Mg/2 Ml Inj) 4 mg IV NOW PRN (units unknown) (unknown) (unknown) (no date) (unknown) (unknown) Ordered: (units unknown) (unknown) (unknown) (no date) (unknown) (unknown) Orders (units unknown) (unknown) (unknown) (no date) (unknown) (unknown) Other:? No pathologic free abdominal or pelvic fluid. (units unknown) (unknown) (unknown) (no date) (unknown) (unknown) Ovaries:? The right ovary measures 1.6 x 4.1 x 1.5 cm, with a calculated ovarian (units unknown) (unknown) (unknown) (no date) (unknown) (unknown) Oxygen Deliver y Method Room Air 10/17/22 06:45 (units unknown) (unknown) (unknown) (no date) (unknown) (unknown) Oxygen Deliver y Method Room Air (units unknown) (unknown) (unknown) (no date) (unknown) (unknown) Oxygen Deliver y Method (units unknown) (unknown) (unknown) (no date) (unknown) (unknown) PRN Reason: Na usea And Vomiting (units unknown) (unknown) (unknown) (no date) (unknown) (unknown) PROCEDURE:? US PELVIC COMPLETE (units unknown) (unknown) (unknown) (no date) (unknown) (unknown) Patient Dispos ition: Home (units unknown) (unknown) (unknown) (no date) (unknown) (unknown) Patient History (uni ts unknown) (unknown) (unknown) (no date) (unknown) (unknown) Patient is a h ealthy 26-year-old female presents with nausea vomiting diarrhea (units unknown) (unknown) (unknown) (no date) (unknown) (unknown) Patient is fou nd to be . This is a welcomed but surprised . (units unknown) (unknown) (unknown) (no date) (unknown) (unknown) Patient: Carie Sullivan MR#: [id number] (units unknown) (unknown) (unknown) (no date) (unknown) (unknown) Plt Count 183 (150-400) X103/uL (units unknown) (unknown) (unknown) (no date) (unknown) (unknown) Point of Care Testing (units unknown) (unknown) (unknown) (no date) (unknown) (unknown) Potassium 3.2 L (3.4-5.1) mmol/L (units unknown) (unknown) (unknown) (no date) (unknown) (unknown) Test Results Positive (units unknown) (unknown) (unknown) (no date) (unknown) (unknown) Prescriptions: (unit s unknown) (unknown) (unknown) (no date) (unknown) (unknown) Previous Rx's (units unknown) (unknown) (unknown) (no date) (unknown) (unknown) Provider,Vaibhav lizarraga DEMARIO [Primary Care Provider] (units unknown) (unknown) (unknown) (no date) (unknown) (unknown) Pulse Oximetry 98 10/17/22 06:45 (units unknown) (unknown) (unknown) (no date) (unknown) (unknown) Pulse Oximetry 98 100 (units unknown) (unknown) (unknown) (no date) (unknown) (unknown) Pulse Oximetry 98 (u nits unknown) (unknown) (unknown) (no date) (unknown) (unknown) Pulse Oximetry 99 97 (units unknown) (unknown) (unknown) (no date) (unknown) (unknown) Pulse Rate 56 L 10/17/22 06:45 (units unknown) (unknown) (unknown) (no date) (unknown) (unknown) Pulse Rate 56 L 65 ( units unknown) (unknown) (unknown) (no date) (unknown) (unknown) Pulse Rate 68 78 (un its unknown) (unknown) (unknown) (no date) (unknown) (unknown) Pulse Rate 71 (units unknown) (unknown) (unknown) (no date) (unknown) (unknown) Pulse Rate 77 (units unknown) (unknown) (unknown) (no date) (unknown) (unknown) RBC 4.18 (4.0- 5.2) X106/uL (units unknown) (unknown) (unknown) (no date) (unknown) (unknown) RDW 13.4 (11.6 -14.8) % (units unknown) (unknown) (unknown) (no date) (unknown) (unknown) RESPIRATORY: B reath sounds equal bilaterally, no wheezes rales or rhonchi. (units unknown) (unknown) (unknown) (no date) (unknown) (unknown) ROS Unobtainab le: All systems reviewed + are unremarkable except as noted in HPI (units unknown) (unknown) (unknown) (no date) (unknown) (unknown) Radiologist's Impression: (units unknown) (unknown) (unknown) (no date) (unknown) (unknown) Real-time scan candie was performed of the pelvic organs, with image (units unknown) (unknown) (unknown) (no date) (unknown) (unknown) Referrals: (units unknown) (unknown) (unknown) (no date) (unknown) (unknown) Related Data (units unknown) (unknown) (unknown) (no date) (unknown) (unknown) Respiratory Ra te 18 10/17/22 06:45 (units unknown) (unknown) (unknown) (no date) (unknown) (unknown) Respiratory Rate 18 (units unknown) (unknown) (unknown) (no date) (unknown) (unknown) Respiratory Rate (un its unknown) (unknown) (unknown) (no date) (unknown) (unknown) Review of Systems (u nits unknown) (unknown) (unknown) (no date) (unknown) (unknown) Rib injury (2019) (u nits unknown) (unknown) (unknown) (no date) (unknown) (unknown) Ruptured ovari an cyst (2017) (units unknown) (unknown) (unknown) (no date) (unknown) (unknown) Rx Instructions: (un its unknown) (unknown) (unknown) (no date) (unknown) (unknown) SKIN: Warm, dr y, no laceration, no petechiae, no rashes or lesions. (units unknown) (unknown) (unknown) (no date) (unknown) (unknown) See Rx Instruc tions .ROUTE .COMPLEX (units unknown) (unknown) (unknown) (no date) (unknown) (unknown) She is given f luids Zofran and Toradol. She is tolerating oral fluids overall (units unknown) (unknown) (unknown) (no date) (unknown) (unknown) She reports th at she has had miscarriages in the past. She is not really having (units unknown) (unknown) (unknown) (no date) (unknown) (unknown) She reports th at she is putting in for repeat hCG in 2 days and kind follow-up. (units unknown) (unknown) (unknown) (no date) (unknown) (unknown) Signed By: (units unknown) (unknown) (unknown) (no date) (unknown) (unknown) Smoking Status : Current every day smoker (units unknown) (unknown) (unknown) (no date) (unknown) (unknown) Social History (units unknown) (unknown) (unknown) (no date) (unknown) (unknown) Sodium 138 (13 7-145) mmol/L (units unknown) (unknown) (unknown) (no date) (unknown) (unknown) Sodium Chlorid e (Normal Saline 0.9%) 1,000 mls @ 1,000 mls/hr IV BOLUS ONE (units unknown) (unknown) (unknown) (no date) (unknown) (unknown) Source: patient (uni ts unknown) (unknown) (unknown) (no date) (unknown) (unknown) Stand Alone Fo colby: Patient Portal/API (units unknown) (unknown) (unknown) (no date) (unknown) (unknown) Stated complai nt: v/d heart palpatations (units unknown) (unknown) (unknown) (no date) (unknown) (unknown) Stop: 10/17/22 08:09 (units unknown) (unknown) (unknown) (no date) (unknown) (unknown) Stop: 10/17/22 08:28 (units unknown) (unknown) (unknown) (no date) (unknown) (unknown) Substance Use Type: marijuana (units unknown) (unknown) (unknown) (no date) (unknown) (unknown) Surgical Histo ry (units unknown) (unknown) (unknown) (no date) (unknown) (unknown) Symptoms have been only ongoing for 1 hour. Potassium is 3.2 consistent with (units unknown) (unknown) (unknown) (no date) (unknown) (unknown) TECHNIQUE:? (units unknown) (unknown) (unknown) (no date) (unknown) (unknown) Temperature 97 .1 F L 10/17/22 06:45 (units unknown) (unknown) (unknown) (no date) (unknown) (unknown) Temperature 97.1 F L (units unknown) (unknown) (unknown) (no date) (unknown) (unknown) Temperature (units unknown) (unknown) (unknown) (no date) (unknown) (unknown) There is a [facility] ll question of ectopic versus cyst. You also have gastroenteritis (units unknown) (unknown) (unknown) (no date) (unknown) (unknown) Time Seen by Provider: 10/17/22 06:48 (units unknown) (unknown) (unknown) (no date) (unknown) (unknown) Total Bilirubi n 0.6 (0.2-1.3) mg/dL (units unknown) (unknown) (unknown) (no date) (unknown) (unknown) Total Protein 7.1 (6.3-8.2) g/dL (units unknown) (unknown) (unknown) (no date) (unknown) (unknown) Tylenol 1000 m g every 6 hours if needed for pain (units unknown) (unknown) (unknown) (no date) (unknown) (unknown) US - FUEL TANK SEALER AND TESTER: (units unknown) (unknown) (unknown) (no date) (unknown) (unknown) Urine Dip (units unknown) (unknown) (unknown) (no date) (unknown) (unknown) Urine Specific Monument 1.025 (units unknown) (unknown) (unknown) (no date) (unknown) (unknown) Uterus:? Uteru s is anteverted and normal in size at 8.8 x 4.1 x 5.5 cm. The (units unknown) (unknown) (unknown) (no date) (unknown) (unknown) Vital Signs - 8 hr ( units unknown) (unknown) (unknown) (no date) (unknown) (unknown) Vital Signs (units unknown) (unknown) (unknown) (no date) (unknown) (unknown) Vital signs: (units unknown) (unknown) (unknown) (no date) (unknown) (unknown) WBC 10.3 (4.5- 11.0) X103/uL (units unknown) (unknown) (unknown) (no date) (unknown) (unknown) [place] teeth r emoved (01/16/13) (units unknown) (unknown) (unknown) (no date) (unknown) (unknown) Zofran 4 mg ev josemanuel 8 hours if needed for nausea or vomiting--> sent to [facility] (units unknown) (unknown) (unknown) (no date) (unknown) (unknown) [Embedded Imag e Not Available] (units unknown) (unknown) (unknown) (no date) (unknown) (unknown) adnexal and endometrial structures by transabdominal scanning.? (units unknown) (unknown) (unknown) (no date) (unknown) (unknown) alcohol intake frequency: holidays/special occasions only (units unknown) (unknown) (unknown) (no date) (unknown) (unknown) alcohol intake : current (units unknown) (unknown) (unknown) (no date) (unknown) (unknown) and below (units unknown) (unknown) (unknown) (no date) (unknown) (unknown) any localized pain. Ultrasound does show a questionable left cyst versus (units unknown) (unknown) (unknown) (no date) (unknown) (unknown) are (units unknown) (unknown) (unknown) (no date) (unknown) (unknown) bleeding or an y new, worsening or concerning symptoms (units unknown) (unknown) (unknown) (no date) (unknown) (unknown) clindamycin-be nzoyl- emol [id number] See Rx Instructions .Route .COMPLEX 01/29/20 (units unknown) (unknown) (unknown) (no date) (unknown) (unknown) clindamycin-be nzoyl- emol [id number] (units unknown) (unknown) (unknown) (no date) (unknown) (unknown) cyst measures 2.3 x 1.8 x 2.2 cm with peripheral vascularity.? No adnexal masses (units unknown) (unknown) (unknown) (no date) (unknown) (unknown) diarrhea and vomiting. No other electrolyte abnormalities or evidence of JENNY. (units unknown) (unknown) (unknown) (no date) (unknown) (unknown) documentation.? (uni ts unknown) (unknown) (unknown) (no date) (unknown) (unknown) ectopic. HCG i s 103. He is given warning signs regards to return to the ER. (units unknown) (unknown) (unknown) (no date) (unknown) (unknown) feeling much b nikita. Oral rehydration education given by myself. (units unknown) (unknown) (unknown) (no date) (unknown) (unknown) guarding or rebound. (units unknown) (unknown) (unknown) (no date) (unknown) (unknown) homogeneous. ? The endometrium measures 12.9 mm combined thickness.? (units unknown) (unknown) (unknown) (no date) (unknown) (unknown) household memb ers: spouse (units unknown) (unknown) (unknown) (no date) (unknown) (unknown) intact (units unknown) (unknown) (unknown) (no date) (unknown) (unknown) is sick at home. (un its unknown) (unknown) (unknown) (no date) (unknown) (unknown) latex Allergy Intermediate Anxiety Verified 08/05/22 16:46 (units unknown) (unknown) (unknown) (no date) (unknown) (unknown) left ovary.? Differential would include 2.3 cm ectopic and corpus (units unknown) (unknown) (unknown) (no date) (unknown) (unknown) like product (units unknown) (unknown) (unknown) (no date) (unknown) (unknown) luteum cyst (units unknown) (unknown) (unknown) (no date) (unknown) (unknown) membranes (units unknown) (unknown) (unknown) (no date) (unknown) (unknown) myometrium is (units unknown) (unknown) (unknown) (no date) (unknown) (unknown) of 4.9 cc. The left ovary measures 2.1 x 4.5 x 1.9 cm, with a calculated ovarian (units unknown) (unknown) (unknown) (no date) (unknown) (unknown) of 9.4 cc. The ovaries have a normal sonographic appearance.? Peripheral left (units unknown) (unknown) (unknown) (no date) (unknown) (unknown) ondansetron 4 mg disintegrating 4 mg PO Q8H PRN nausea and 08/28/22 (units unknown) (unknown) (unknown) (no date) (unknown) (unknown) ondansetron 4 mg disintegrating 4 mg PO Q8H PRN nausea and 10/17/22 (units unknown) (unknown) (unknown) (no date) (unknown) (unknown) ondansetron 4 mg disintegrating 4 mg PO TID-QID PRN nausea and 08/05/22 (units unknown) (unknown) (unknown) (no date) (unknown) (unknown) ondansetron 4 mg tablet,disintegratin g (units unknown) (unknown) (unknown) (no date) (unknown) (unknown) ongoing for last 1 hour. She is had cramping in her lower abdomen no (units unknown) (unknown) (unknown) (no date) (unknown) (unknown) or hemorrhagic cyst.? Consider short-term interval follow-up? (units unknown) (unknown) (unknown) (no date) (unknown) (unknown) ovarian (units unknown) (unknown) (unknown) (no date) (unknown) (unknown) pantoprazole 4 0 mg tablet,delayed 40 mg PO DAILY #30 tabs 08/05/22 (units unknown) (unknown) (unknown) (no date) (unknown) (unknown) pantoprazole [Protonix] 40 mg tablet,delayed release (DR/EC) (units unknown) (unknown) (unknown) (no date) (unknown) (unknown) passing out. N o fever or chills. She was feeling well yesterday. No one else (units unknown) (unknown) (unknown) (no date) (unknown) (unknown) place as needed. (un its unknown) (unknown) (unknown) (no date) (unknown) (unknown) promethazine A dvReac Verified 08/05/22 16:46 (units unknown) (unknown) (unknown) (no date) (unknown) (unknown) put in another hCG order for 10/19/22 as an outpatient blood draw. (units unknown) (unknown) (unknown) (no date) (unknown) (unknown) release (Protonix) ( units unknown) (unknown) (unknown) (no date) (unknown) (unknown) seen. (units unknown) (unknown) (unknown) (no date) (unknown) (unknown) specific localization of pain. Heart is racing. No dizziness lightheadedness or (units unknown) (unknown) (unknown) (no date) (unknown) (unknown) tablet vomitin g #10 tabs (units unknown) (unknown) (unknown) (no date) (unknown) (unknown) the (units unknown) (unknown) (unknown) (no date) (unknown) (unknown) tobacco type: vaping (units unknown) (unknown) (unknown) (no date) (unknown) (unknown) tretinoin 0.02 5 % topical cream 1 applic topical BEDTIME 01/29/20 01/29/20 (units unknown) (unknown) (unknown) (no date) (unknown) (unknown) tretinoin [Ret in-A] 0.025 % Cream (units unknown) (unknown) (unknown) (no date) (unknown) (unknown) volume (units unknown) (unknown) (unknown) (no date) (unknown) (unknown) wave inversions (uni ts unknown) (unknown) (unknown) (no date) (unknown) (unknown) with diarrhea and vomiting. Please stay hydrated with Gatorade or Gatorade (units unknown) (unknown) (unknown) (no date) (unknown) (unknown) with the (units unknown) (unknown) Result panel 387 (unknown) (no date) (unknown) (unknown) 333.8 miu/ml (unknown ) (unknown) (no date) (unknown) (unknown) 333.8 miu/ml (unknown ) Social History date description facility 2022-08-28 00:00 Smokes tobacco daily (finding) [facility] 2022-10-17 00:00 Smokes tobacco daily (finding) [facility] Vital Signs date measurement value units 2022-08-28 00:00 BMI 19.1 kg/m2 2022-08-28 00:00 BP_diastolic 57 mmHg 2022-08-28 00:00 BP_systolic 94 mmHg 2022-08-28 00:00 heart_rate 66 /min 2022-08-28 00:00 height_metric 170.18 cm 2022-08-28 00:00 height_standard 67 in 2022-08-28 00:00 o2_saturation 97 % 2022-08-28 00:00 respiration_rate 16 /min 2022-08-28 00:00 temperature_metric 36.44 C 2022-08-28 00:00 temperature_standard 97.6 F 2022-08-28 00:00 weight_metric 55.33 kg 2022-08-28 00:00 weight_standard 121.98 lb 2022-10-17 00:00 BMI 18.9 kg/m2 2022-10-17 00:00 BP_diastolic 73 mmHg 2022-10-17 00:00 BP_systolic 102 mmHg 2022-10-17 00:00 heart_rate 77 /min 2022-10-17 00:00 height_metric 170.18 cm 2022-10-17 00:00 height_standard 67 in 2022-10-17 00:00 o2_saturation 98 % 2022-10-17 00:00 respiration_rate 18 /min 2022-10-17 00:00 temperature_metric 36.17 C 2022-10-17 00:00 temperature_standard 97.1 F 2022-10-17 00:00 weight_metric 54.88 kg 2022-10-17 00:00 weight_standard 120.99 lb
[2022-11-13] MEDS ORDERED: METOCLOPRAMIDE 10 MG/2 ML VIAL IVP STA (21:57)
[2022-11-13] MEDS ORDERED: PROCHLORPERAZINE 10 MG/2 ML VIAL IVP STA (22:36)
--- NOTE | 2022-11-14 02:38 | ED Physician Documentation ---
ED Addendum - Addendum Addendum: 11/14/22 02:37 There was an issue with lack of orders entered into [facility] to effect admission to [facility] for observation. After a few conversations with Dr. Beltran and nurse supervisor shuttle veneering, plan is I will flag patient as discharge from ED and she will go directly to OB floor where there are verbal orders from Dr. Beltran
[2022-11-14 02:52] VITALS: BP 128/78
== END 2022-11-14 03:21 | disposition home or self-care (01) ==
LOC: EDUNIT# → ED 18:42
DX: O34.81 Maternal care for other abnormalities of pelvic organs, first trimester (principal); N83.12 Corpus luteum cyst of left ovary; O20.8 Other hemorrhage in early pregnancy; O99.891 Other specified diseases and conditions complicating pregnancy; K59.00 Constipation, unspecified; O21.0 Mild hyperemesis gravidarum; Z3A.01 Less than 8 weeks gestation of pregnancy; O99.331 Smoking (tobacco) complicating pregnancy, first trimester; Z88.8 Allergy status to other drugs, medicaments and biological substances
CPT/HCPCS: 36415; 80048; 81001; 81003; 84702; 85025; 87086; 96374; 96375; 96376; 99284

== ENCOUNTER 2022-11-14 02:52 | Observation (INO) | payer OTHER ==
[2022-11-14] MEDS ORDERED: LACTATED RINGERS 1,000 ML IV ONE (02:56)
[2022-11-14] MEDS ORDERED: diphenhydrAMINE INJ 50 MG/ML VIAL IVP SCH (03:00)
--- OUTSIDE RECORDS SUMMARY | 2022-11-14 03:14 | EXTERNAL MEDICAL SUMMARY RPT | Continuity of Care Document ---
Author Name Unknown Address [address] [place] [address] Phone Organization [facility] Address [address] [place] [id number] Phone Care Team Providers Care Clinical Exercise Physiologist Name Role Phone Himanshu Javier Unavailable Unavailable Allergies and Intolerances date description facility type (no date) latex [facility] (unknown) (no date) promethazine [facility] (unknown) Medications date description facility 2022-08-28 00:00 Ondaetron [facility] 2022-10-17 00:00 [facility] Problems date description facility 2022-08-28 00:00 Gastroenteritis [facility] 2022-09-13 15:20 Nausea with vomiting, unspecifi ed [facility] 2022-10-17 00:00 Gastroenteritis [facility] 2022-10-17 00:00 [facility] Procedures date description facility 2022-10-17 00:00 Complete ultrasound of pelvis [facility] Results/Labs test date author facility value unit interpretation Result panel 1 (unknown) (no date) (unknown) [facility] (no value) (units unknown) (unknown) Result panel 2 (unknown) (no date) (unknown) [facility] (no value) (units unknown) (unknown) Result panel 3 (unknown) (no date) (unknown) [facility] (no value) (units unknown) (unknown) Result panel 4 (unknown) (no date) (unknown) [facility] (no value) (units unknown) (unknown) Result panel 5 (unknown) (no date) (unknown) [facility] (no value) (units unknown) (unknown) Result panel 6 (unknown) (no date) (unknown) [facility] (no value) (units unknown) (unknown) Result panel 7 (unknown) (no date) (unknown) [facility] (no value) (units unknown) (unknown) Result panel 8 (unknown) (no date) (unknown) [facility] (no value) (units unknown) (unknown) Result panel 9 (unknown) (no date) (unknown) [facility] (no value) (units unknown) (unknown) Result panel 10 (unknown) (no date) (unknown) [facility] (no value) (units unknown) (unknown) Result panel 11 (unknown) (no date) (unknown) [facility] (no value) (units unknown) (unknown) Result panel 12 (unknown) (no date) (unknown) [facility] (no value) (units unknown) (unknown) Result panel 13 (unknown) (no date) (unknown) [facility] (no value) (units unknown) (unknown) Result panel 14 (unknown) (no date) (unknown) [facility] (no value) (units unknown) (unknown) Result panel 15 (unknown) (no date) (unknown) [facility] (no value) (units unknown) (unknown) Result panel 16 (unknown) (no date) (unknown) [facility] (no value) (units unknown) (unknown) Result panel 17 (unknown) (no date) (unknown) [facility] (no value) (units unknown) (unknown) Result panel 18 (unknown) (no date) (unknown) [facility] (no value) (units unknown) (unknown) Result panel 19 (unknown) (no date) (unknown) [facility] (no value) (units unknown) (unknown) Result panel 20 (unknown) (no date) (unknown) [facility] (no value) (units unknown) (unknown) Result panel 21 (unknown) (no date) (unknown) [facility] (no value) (units unknown) (unknown) Result panel 22 (unknown) (no date) (unknown) [facility] (no value) (units unknown) (unknown) Result panel 23 (unknown) (no date) (unknown) [facility] (no value) (units unknown) (unknown) Result panel 24 (unknown) (no date) (unknown) [facility] (no value) (units unknown) (unknown) Result panel 25 (unknown) (no date) (unknown) [facility] (no value) (units unknown) (unknown) Result panel 26 (unknown) (no date) (unknown) [facility] (no value) (units unknown) (unknown) Result panel 27 (unknown) (no date) (unknown) [facility] (no value) (units unknown) (unknown) Result panel 28 (unknown) (no date) (unknown) [facility] (no value) (units unknown) (unknown) Result panel 29 (unknown) (no date) (unknown) [facility] (no value) (units unknown) (unknown) Result panel 30 (unknown) (no date) (unknown) [facility] (no value) (units unknown) (unknown) Result panel 31 (unknown) (no date) (unknown) [facility] (no value) (units unknown) (unknown) Result panel 32 (unknown) (no date) (unknown) [facility] (no value) (units unknown) (unknown) Result panel 33 (unknown) (no date) (unknown) [facility] (no value) (units unknown) (unknown) Result panel 34 (unknown) (no date) (unknown) [facility] (no value) (units unknown) (unknown) Result panel 35 (unknown) (no date) (unknown) [facility] (no value) (units unknown) (unknown) Result panel 36 (unknown) (no date) (unknown) [facility] (no value) (units unknown) (unknown) Result panel 37 (unknown) (no date) (unknown) [facility] (no value) (units unknown) (unknown) Result panel 38 (unknown) (no date) (unknown) [facility] (no value) (units unknown) (unknown) Result panel 39 (unknown) (no date) (unknown) [facility] (no value) (units unknown) (unknown) Result panel 40 (unknown) (no date) (unknown) [facility] (no value) (units unknown) (unknown) Result panel 41 (unknown) (no date) (unknown) [facility] (no value) (units unknown) (unknown) Result panel 42 (unknown) (no date) (unknown) [facility] (no value) (units unknown) (unknown) Result panel 43 (unknown) (no date) (unknown) [facility] (no value) (units unknown) (unknown) Result panel 44 (unknown) (no date) (unknown) [facility] (no value) (units unknown) (unknown) Result panel 45 (unknown) (no date) (unknown) [facility] (no value) (units unknown) (unknown) Result panel 46 (unknown) (no date) (unknown) [facility] (no value) (units unknown) (unknown) Result panel 47 (unknown) (no date) (unknown) [facility] (no value) (units unknown) (unknown) Result panel 48 (unknown) (no date) (unknown) [facility] (no value) (units unknown) (unknown) Result panel 49 (unknown) (no date) (unknown) [facility] (no value) (units unknown) (unknown) Result panel 50 (unknown) (no date) (unknown) [facility] (no value) (units unknown) (unknown) Result panel 51 (unknown) (no date) (unknown) [facility] (no value) (units unknown) (unknown) Result panel 52 (unknown) (no date) (unknown) [facility] (no value) (units unknown) (unknown) Result panel 53 (unknown) (no date) (unknown) [facility] (no value) (units unknown) (unknown) Result panel 54 (unknown) (no date) (unknown) [facility] (no value) (units unknown) (unknown) Result panel 55 (unknown) (no date) (unknown) [facility] (no value) (units unknown) (unknown) Result panel 56 (unknown) (no date) (unknown) [facility] (no value) (units unknown) (unknown) Result panel 57 (unknown) (no date) (unknown) [facility] (no value) (units unknown) (unknown) Result panel 58 (unknown) (no date) (unknown) [facility] (no value) (units unknown) (unknown) Result panel 59 (unknown) (no date) (unknown) [facility] (no value) (units unknown) (unknown) Result panel 60 (unknown) (no date) (unknown) [facility] (no value) (units unknown) (unknown) Result panel 61 (unknown) (no date) (unknown) [facility] (no value) (units unknown) (unknown) Result panel 62 (unknown) (no date) (unknown) [facility] (no value) (units unknown) (unknown) Result panel 63 (unknown) (no date) (unknown) [facility] (no value) (units unknown) (unknown) Result panel 64 (unknown) (no date) (unknown) [facility] (no value) (units unknown) (unknown) Result panel 65 (unknown) (no date) (unknown) [facility] (no value) (units unknown) (unknown) Result panel 66 (unknown) (no date) (unknown) [facility] (no value) (units unknown) (unknown) Result panel 67 (unknown) (no date) (unknown) [facility] (no value) (units unknown) (unknown) Result panel 68 (unknown) (no date) (unknown) [facility] (no value) (units unknown) (unknown) Result panel 69 (unknown) (no date) (unknown) [facility] (no value) (units unknown) (unknown) Result panel 70 (unknown) (no date) (unknown) [facility] (no value) (units unknown) (unknown) Result panel 71 (unknown) (no date) (unknown) [facility] (no value) (units unknown) (unknown) Result panel 72 (unknown) (no date) (unknown) [facility] (no value) (units unknown) (unknown) Result panel 73 (unknown) (no date) (unknown) [facility] (no value) (units unknown) (unknown) Result panel 74 (unknown) (no date) (unknown) [facility] (no value) (units unknown) (unknown) Result panel 75 (unknown) (no date) (unknown) [facility] (no value) (units unknown) (unknown) Result panel 76 (unknown) (no date) (unknown) [facility] (no value) (units unknown) (unknown) Result panel 77 (unknown) (no date) (unknown) [facility] (no value) (units unknown) (unknown) Result panel 78 (unknown) (no date) (unknown) [facility] (no value) (units unknown) (unknown) Result panel 79 (unknown) (no date) (unknown) [facility] (no value) (units unknown) (unknown) Result panel 80 (unknown) (no date) (unknown) [facility] (no value) (units unknown) (unknown) Result panel 81 (unknown) (no date) (unknown) [facility] (no value) (units unknown) (unknown) Result panel 82 (unknown) (no date) (unknown) [facility] (no value) (units unknown) (unknown) Result panel 83 (unknown) (no date) (unknown) [facility] (no value) (units unknown) (unknown) Result panel 84 (unknown) (no date) (unknown) [facility] (no value) (units unknown) (unknown) Result panel 85 (unknown) (no date) (unknown) [facility] (no value) (units unknown) (unknown) Result panel 86 (unknown) (no date) (unknown) [facility] (no value) (units unknown) (unknown) Result panel 87 (unknown) (no date) (unknown) [facility] (no value) (units unknown) (unknown) Result panel 88 (unknown) (no date) (unknown) [facility] (no value) (units unknown) (unknown) Result panel 89 (unknown) (no date) (unknown) [facility] (no value) (units unknown) (unknown) Result panel 90 (unknown) (no date) (unknown) [facility] (no value) (units unknown) (unknown) Result panel 91 (unknown) (no date) (unknown) [facility] (no value) (units unknown) (unknown) Result panel 92 (unknown) (no date) (unknown) [facility] (no value) (units unknown) (unknown) Result panel 93 (unknown) (no date) (unknown) [facility] (no value) (units unknown) (unknown) Result panel 94 (unknown) (no date) (unknown) [facility] (no value) (units unknown) (unknown) Result panel 95 (unknown) (no date) (unknown) [facility] (no value) (units unknown) (unknown) Result panel 96 (unknown) (no date) (unknown) [facility] (no value) (units unknown) (unknown) Result panel 97 (unknown) (no date) (unknown) [facility] (no value) (units unknown) (unknown) Result panel 98 (unknown) (no date) (unknown) [facility] (no value) (units unknown) (unknown) Result panel 99 (unknown) (no date) (unknown) [facility] (no value) (units unknown) (unknown) Result panel 100 (unknown) (no date) (unknown) [facility] (no value) (units unknown) (unknown) Result panel 101 (unknown) (no date) (unknown) [facility] (no value) (units unknown) (unknown) Result panel 102 (unknown) (no date) (unknown) [facility] (no value) (units unknown) (unknown) Result panel 103 (unknown) (no date) (unknown) [facility] (no value) (units unknown) (unknown) Result panel 104 (unknown) (no date) (unknown) [facility] (no value) (units unknown) (unknown) Result panel 105 (unknown) (no date) (unknown) [facility] (no value) (units unknown) (unknown) Result panel 106 (unknown) (no date) (unknown) [facility] (no value) (units unknown) (unknown) Result panel 107 (unknown) (no date) (unknown) [facility] (no value) (units unknown) (unknown) Result panel 108 (unknown) (no date) (unknown) [facility] (no value) (units unknown) (unknown) Result panel 109 (unknown) (no date) (unknown) [facility] (no value) (units unknown) (unknown) Result panel 110 (unknown) (no date) (unknown) [facility] (no value) (units unknown) (unknown) Result panel 111 (unknown) (no date) (unknown) [facility] (no value) (units unknown) (unknown) Result panel 112 (unknown) (no date) (unknown) [facility] (no value) (units unknown) (unknown) Result panel 113 (unknown) (no date) (unknown) [facility] (no value) (units unknown) (unknown) Result panel 114 (unknown) (no date) (unknown) [facility] (no value) (units unknown) (unknown) Result panel 115 (unknown) (no date) (unknown) [facility] (no value) (units unknown) (unknown) Result panel 116 (unknown) (no date) (unknown) [facility] (no value) (units unknown) (unknown) Result panel 117 (unknown) (no date) (unknown) [facility] (no value) (units unknown) (unknown) Result panel 118 (unknown) (no date) (unknown) [facility] (no value) (units unknown) (unknown) Result panel 119 (unknown) (no date) (unknown) [facility] (no value) (units unknown) (unknown) Result panel 120 (unknown) (no date) (unknown) [facility] (no value) (units unknown) (unknown) Result panel 121 (unknown) (no date) (unknown) [facility] (no value) (units unknown) (unknown) Result panel 122 (unknown) (no date) (unknown) [facility] (no value) (units unknown) (unknown) Result panel 123 (unknown) (no date) (unknown) [facility] (no value) (units unknown) (unknown) Result panel 124 (unknown) (no date) (unknown) [facility] (no value) (units unknown) (unknown) Result panel 125 (unknown) (no date) (unknown) [facility] (no value) (units unknown) (unknown) Result panel 126 (unknown) (no date) (unknown) [facility] (no value) (units unknown) (unknown) Result panel 127 (unknown) (no date) (unknown) [facility] (no value) (units unknown) (unknown) Result panel 128 (unknown) (no date) (unknown) [facility] (no value) (units unknown) (unknown) Result panel 129 (unknown) (no date) (unknown) [facility] (no value) (units unknown) (unknown) Result panel 130 (unknown) (no date) (unknown) [facility] (no value) (units unknown) (unknown) Result panel 131 (unknown) (no date) (unknown) [facility] (no value) (units unknown) (unknown) Result panel 132 (unknown) (no date) (unknown) [facility] (no value) (units unknown) (unknown) Result panel 133 (unknown) (no date) (unknown) [facility] (no value) (units unknown) (unknown) Result panel 134 (unknown) (no date) (unknown) [facility] (no value) (units unknown) (unknown) Result panel 135 (unknown) (no date) (unknown) [facility] (no value) (units unknown) (unknown) Result panel 136 (unknown) (no date) (unknown) [facility] (no value) (units unknown) (unknown) Result panel 137 (unknown) (no date) (unknown) [facility] (no value) (units unknown) (unknown) Result panel 138 (unknown) (no date) (unknown) [facility] (no value) (units unknown) (unknown) Result panel 139 (unknown) (no date) (unknown) [facility] (no value) (units unknown) (unknown) Result panel 140 (unknown) (no date) (unknown) [facility] (no value) (units unknown) (unknown) Result panel 141 (unknown) (no date) (unknown) [facility] (no value) (units unknown) (unknown) Result panel 142 (unknown) (no date) (unknown) [facility] (no value) (units unknown) (unknown) Result panel 143 (unknown) (no date) (unknown) [facility] (no value) (units unknown) (unknown) Result panel 144 (unknown) (no date) (unknown) [facility] (no value) (units unknown) (unknown) Result panel 145 (unknown) (no date) (unknown) [facility] (no value) (units unknown) (unknown) Result panel 146 (unknown) (no date) (unknown) [facility] (no value) (units unknown) (unknown) Result panel 147 (unknown) (no date) (unknown) [facility] (no value) (units unknown) (unknown) Result panel 148 (unknown) (no date) (unknown) [facility] (no value) (units unknown) (unknown) Result panel 149 (unknown) (no date) (unknown) [facility] (no value) (units unknown) (unknown) Result panel 150 (unknown) (no date) (unknown) [facility] (no value) (units unknown) (unknown) Result panel 151 (unknown) (no date) (unknown) [facility] (no value) (units unknown) (unknown) Result panel 152 (unknown) (no date) (unknown) [facility] (no value) (units unknown) (unknown) Result panel 153 (unknown) (no date) (unknown) [facility] (no value) (units unknown) (unknown) Result panel 154 (unknown) (no date) (unknown) [facility] (no value) (units unknown) (unknown) Result panel 155 (unknown) (no date) (unknown) [facility] (no value) (units unknown) (unknown) Result panel 156 (unknown) (no date) (unknown) [facility] (no value) (units unknown) (unknown) Result panel 157 (unknown) (no date) (unknown) [facility] (no value) (units unknown) (unknown) Result panel 158 (unknown) (no date) (unknown) [facility] (no value) (units unknown) (unknown) Result panel 159 (unknown) (no date) (unknown) [facility] (no value) (units unknown) (unknown) Result panel 160 (unknown) (no date) (unknown) [facility] (no value) (units unknown) (unknown) Result panel 161 (unknown) (no date) (unknown) [facility] (no value) (units unknown) (unknown) Result panel 162 (unknown) (no date) (unknown) [facility] (no value) (units unknown) (unknown) Result panel 163 (unknown) (no date) (unknown) [facility] (no value) (units unknown) (unknown) Result panel 164 (unknown) (no date) (unknown) [facility] (no value) (units unknown) (unknown) Result panel 165 (unknown) (no date) (unknown) [facility] (no value) (units unknown) (unknown) Result panel 166 (unknown) (no date) (unknown) [facility] (no value) (units unknown) (unknown) Result panel 167 (unknown) (no date) (unknown) [facility] (no value) (units unknown) (unknown) Result panel 168 (unknown) (no date) (unknown) [facility] (no value) (units unknown) (unknown) Result panel 169 (unknown) (no date) (unknown) [facility] (no value) (units unknown) (unknown) Result panel 170 (unknown) (no date) (unknown) [facility] (no value) (units unknown) (unknown) Result panel 171 (unknown) (no date) (unknown) [facility] (no value) (units unknown) (unknown) Result panel 172 (unknown) (no date) (unknown) [facility] (no value) (units unknown) (unknown) Result panel 173 (unknown) (no date) (unknown) [facility] (no value) (units unknown) (unknown) Result panel 174 (unknown) (no date) (unknown) [facility] (no value) (units unknown) (unknown) Result panel 175 (unknown) (no date) (unknown) [facility] (no value) (units unknown) (unknown) Result panel 176 (unknown) (no date) (unknown) [facility] (no value) (units unknown) (unknown) Result panel 177 (unknown) (no date) (unknown) [facility] (no value) (units unknown) (unknown) Result panel 178 (unknown) (no date) (unknown) [facility] (no value) (units unknown) (unknown) Result panel 179 (unknown) (no date) (unknown) [facility] (no value) (units unknown) (unknown) Result panel 180 (unknown) (no date) (unknown) [facility] (no value) (units unknown) (unknown) Result panel 181 (unknown) (no date) (unknown) [facility] (no value) (units unknown) (unknown) Result panel 182 (unknown) (no date) (unknown) [facility] (no value) (units unknown) (unknown) Result panel 183 (unknown) (no date) (unknown) [facility] (no value) (units unknown) (unknown) Result panel 184 (unknown) (no date) (unknown) [facility] (no value) (units unknown) (unknown) Result panel 185 (unknown) (no date) (unknown) [facility] (no value) (units unknown) (unknown) Result panel 186 (unknown) (no date) (unknown) [facility] (no value) (units unknown) (unknown) Result panel 187 (unknown) (no date) (unknown) [facility] (no value) (units unknown) (unknown) Result panel 188 (unknown) (no date) (unknown) [facility] (no value) (units unknown) (unknown) Result panel 189 (unknown) (no date) (unknown) [facility] (no value) (units unknown) (unknown) Result panel 190 (unknown) (no date) (unknown) [facility] (no value) (units unknown) (unknown) Result panel 191 (unknown) (no date) (unknown) [facility] (no value) (units unknown) (unknown) Result panel 192 (unknown) (no date) (unknown) [facility] (no value) (units unknown) (unknown) Result panel 193 (unknown) (no date) (unknown) [facility] (no value) (units unknown) (unknown) Result panel 194 (unknown) (no date) (unknown) [facility] (no value) (units unknown) (unknown) Result panel 195 (unknown) (no date) (unknown) [facility] (no value) (units unknown) (unknown) Result panel 196 (unknown) (no date) (unknown) [facility] (no value) (units unknown) (unknown) Result panel 197 (unknown) (no date) (unknown) [facility] (no value) (units unknown) (unknown) Result panel 198 (unknown) (no date) (unknown) [facility] (no value) (units unknown) (unknown) Result panel 199 (unknown) (no date) (unknown) [facility] (no value) (units unknown) (unknown) Result panel 200 (unknown) (no date) (unknown) [facility] (no value) (units unknown) (unknown) Result panel 201 (unknown) (no date) (unknown) [facility] (no value) (units unknown) (unknown) Result panel 202 (unknown) (no date) (unknown) [facility] (no value) (units unknown) (unknown) Result panel 203 (unknown) (no date) (unknown) [facility] (no value) (units unknown) (unknown) Result panel 204 (unknown) (no date) (unknown) [facility] (no value) (units unknown) (unknown) Result panel 205 (unknown) (no date) (unknown) [facility] (no value) (units unknown) (unknown) Result panel 206 (unknown) (no date) (unknown) [facility] (no value) (units unknown) (unknown) Result panel 207 (unknown) (no date) (unknown) [facility] (no value) (units unknown) (unknown) Result panel 208 (unknown) (no date) (unknown) [facility] (no value) (units unknown) (unknown) Result panel 209 (unknown) (no date) (unknown) [facility] (no value) (units unknown) (unknown) Result panel 210 (unknown) (no date) (unknown) [facility] (no value) (units unknown) (unknown) Result panel 211 (unknown) (no date) (unknown) [facility] (no value) (units unknown) (unknown) Result panel 212 (unknown) (no date) (unknown) [facility] (no value) (units unknown) (unknown) Result panel 213 (unknown) (no date) (unknown) [facility] (no value) (units unknown) (unknown) Result panel 214 (unknown) (no date) (unknown) [facility] (no value) (units unknown) (unknown) Result panel 215 (unknown) (no date) (unknown) [facility] (no value) (units unknown) (unknown) Result panel 216 (unknown) (no date) (unknown) [facility] (no value) (units unknown) (unknown) Result panel 217 (unknown) (no date) (unknown) [facility] (no value) (units unknown) (unknown) Result panel 218 (unknown) (no date) (unknown) [facility] (no value) (units unknown) (unknown) Result panel 219 (unknown) (no date) (unknown) [facility] (no value) (units unknown) (unknown) Result panel 220 (unknown) (no date) (unknown) [facility] (no value) (units unknown) (unknown) Result panel 221 (unknown) (no date) (unknown) [facility] (no value) (units unknown) (unknown) Result panel 222 (unknown) (no date) (unknown) [facility] (no value) (units unknown) (unknown) Result panel 223 (unknown) (no date) (unknown) [facility] (no value) (units unknown) (unknown) Result panel 224 (unknown) (no date) (unknown) [facility] (no value) (units unknown) (unknown) Result panel 225 (unknown) (no date) (unknown) [facility] (no value) (units unknown) (unknown) Result panel 226 (unknown) (no date) (unknown) [facility] (no value) (units unknown) (unknown) Result panel 227 (unknown) (no date) (unknown) [facility] (no value) (units unknown) (unknown) Result panel 228 (unknown) (no date) (unknown) [facility] (no value) (units unknown) (unknown) Result panel 229 (unknown) (no date) (unknown) [facility] (no value) (units unknown) (unknown) Result panel 230 (unknown) (no date) (unknown) [facility] (no value) (units unknown) (unknown) Result panel 231 (unknown) (no date) (unknown) [facility] (no value) (units unknown) (unknown) Result panel 232 (unknown) (no date) (unknown) [facility] (no value) (units unknown) (unknown) Result panel 233 (unknown) (no date) (unknown) [facility] (no value) (units unknown) (unknown) Result panel 234 (unknown) (no date) (unknown) [facility] (no value) (units unknown) (unknown) Result panel 235 (unknown) (no date) (unknown) [facility] (no value) (units unknown) (unknown) Result panel 236 (unknown) (no date) (unknown) [facility] (no value) (units unknown) (unknown) Result panel 237 (unknown) (no date) (unknown) [facility] (no value) (units unknown) (unknown) Result panel 238 (unknown) (no date) (unknown) [facility] (no value) (units unknown) (unknown) Result panel 239 (unknown) (no date) (unknown) [facility] (no value) (units unknown) (unknown) Result panel 240 (unknown) (no date) (unknown) [facility] (no value) (units unknown) (unknown) Result panel 241 (unknown) (no date) (unknown) [facility] (no value) (units unknown) (unknown) Result panel 242 (unknown) (no date) (unknown) [facility] (no value) (units unknown) (unknown) Result panel 243 (unknown) (no date) (unknown) [facility] (no value) (units unknown) (unknown) Result panel 244 (unknown) (no date) (unknown) [facility] (no value) (units unknown) (unknown) Result panel 245 (unknown) (no date) (unknown) [facility] (no value) (units unknown) (unknown) Result panel 246 (unknown) (no date) (unknown) [facility] (no value) (units unknown) (unknown) Result panel 247 (unknown) (no date) (unknown) [facility] (no value) (units unknown) (unknown) Result panel 248 (unknown) (no date) (unknown) [facility] (no value) (units unknown) (unknown) Result panel 249 (unknown) (no date) (unknown) [facility] (no value) (units unknown) (unknown) Result panel 250 (unknown) (no date) (unknown) [facility] (no value) (units unknown) (unknown) Result panel 251 (unknown) (no date) (unknown) [facility] (no value) (units unknown) (unknown) Result panel 252 (unknown) (no date) (unknown) [facility] (no value) (units unknown) (unknown) Result panel 253 (unknown) (no date) (unknown) [facility] (no value) (units unknown) (unknown) Result panel 254 (unknown) (no date) (unknown) [facility] (no value) (units unknown) (unknown) Result panel 255 (unknown) (no date) (unknown) [facility] (no value) (units unknown) (unknown) Result panel 256 (unknown) (no date) (unknown) [facility] (no value) (units unknown) (unknown) Result panel 257 (unknown) (no date) (unknown) [facility] (no value) (units unknown) (unknown) Result panel 258 (unknown) (no date) (unknown) [facility] (no value) (units unknown) (unknown) Result panel 259 (unknown) (no date) (unknown) [facility] (no value) (units unknown) (unknown) Result panel 260 (unknown) (no date) (unknown) [facility] (no value) (units unknown) (unknown) Result panel 261 (unknown) (no date) (unknown) [facility] (no value) (units unknown) (unknown) Result panel 262 (unknown) (no date) (unknown) [facility] (no value) (units unknown) (unknown) Result panel 263 (unknown) (no date) (unknown) [facility] (no value) (units unknown) (unknown) Result panel 264 (unknown) (no date) (unknown) [facility] (no value) (units unknown) (unknown) Result panel 265 (unknown) (no date) (unknown) [facility] (no value) (units unknown) (unknown) Result panel 266 (unknown) (no date) (unknown) [facility] (no value) (units unknown) (unknown) Result panel 267 (unknown) (no date) (unknown) [facility] (no value) (units unknown) (unknown) Result panel 268 (unknown) (no date) (unknown) [facility] (no value) (units unknown) (unknown) Result panel 269 (unknown) (no date) (unknown) [facility] (no value) (units unknown) (unknown) Result panel 270 (unknown) (no date) (unknown) [facility] (no value) (units unknown) (unknown) Result panel 271 (unknown) (no date) (unknown) [facility] (no value) (units unknown) (unknown) Result panel 272 (unknown) (no date) (unknown) [facility] (no value) (units unknown) (unknown) Result panel 273 (unknown) (no date) (unknown) [facility] (no value) (units unknown) (unknown) Result panel 274 (unknown) (no date) (unknown) [facility] (no value) (units unknown) (unknown) Result panel 275 (unknown) (no date) (unknown) [facility] (no value) (units unknown) (unknown) Result panel 276 (unknown) (no date) (unknown) [facility] (no value) (units unknown) (unknown) Result panel 277 (unknown) (no date) (unknown) [facility] (no value) (units unknown) (unknown) Result panel 278 (unknown) (no date) (unknown) [facility] (no value) (units unknown) (unknown) Result panel 279 (unknown) (no date) (unknown) [facility] (no value) (units unknown) (unknown) Result panel 280 (unknown) (no date) (unknown) [facility] (no value) (units unknown) (unknown) Result panel 281 (unknown) (no date) (unknown) [facility] (no value) (units unknown) (unknown) Result panel 282 (unknown) (no date) (unknown) [facility] (no value) (units unknown) (unknown) Result panel 283 (unknown) (no date) (unknown) [facility] (no value) (units unknown) (unknown) Result panel 284 (unknown) (no date) (unknown) [facility] (no value) (units unknown) (unknown) Result panel 285 (unknown) (no date) (unknown) [facility] (no value) (units unknown) (unknown) Result panel 286 (unknown) (no date) (unknown) [facility] (no value) (units unknown) (unknown) Result panel 287 (unknown) (no date) (unknown) [facility] (no value) (units unknown) (unknown) Result panel 288 (unknown) (no date) (unknown) [facility] (no value) (units unknown) (unknown) Result panel 289 (unknown) (no date) (unknown) [facility] (no value) (units unknown) (unknown) Result panel 290 (unknown) (no date) (unknown) [facility] (no value) (units unknown) (unknown) Result panel 291 (unknown) (no date) (unknown) [facility] (no value) (units unknown) (unknown) Result panel 292 (unknown) (no date) (unknown) [facility] (no value) (units unknown) (unknown) Result panel 293 (unknown) (no date) (unknown) [facility] (no value) (units unknown) (unknown) Result panel 294 (unknown) (no date) (unknown) [facility] (no value) (units unknown) (unknown) Result panel 295 (unknown) (no date) (unknown) [facility] (no value) (units unknown) (unknown) Result panel 296 (unknown) (no date) (unknown) [facility] (no value) (units unknown) (unknown) Result panel 297 (unknown) (no date) (unknown) [facility] (no value) (units unknown) (unknown) Result panel 298 (unknown) (no date) (unknown) [facility] (no value) (units unknown) (unknown) Result panel 299 (unknown) (no date) (unknown) [facility] (no value) (units unknown) (unknown) Result panel 300 (unknown) (no date) (unknown) [facility] (no value) (units unknown) (unknown) Result panel 301 (unknown) (no date) (unknown) [facility] (no value) (units unknown) (unknown) Result panel 302 (unknown) (no date) (unknown) [facility] (no value) (units unknown) (unknown) Result panel 303 (unknown) (no date) (unknown) [facility] (no value) (units unknown) (unknown) Result panel 304 (unknown) (no date) (unknown) [facility] (no value) (units unknown) (unknown) Result panel 305 (unknown) (no date) (unknown) [facility] (no value) (units unknown) (unknown) Result panel 306 (unknown) (no date) (unknown) [facility] (no value) (units unknown) (unknown) Result panel 307 (unknown) (no date) (unknown) [facility] (no value) (units unknown) (unknown) Result panel 308 (unknown) (no date) (unknown) [facility] (no value) (units unknown) (unknown) Result panel 309 (unknown) (no date) (unknown) [facility] (no value) (units unknown) (unknown) Result panel 310 (unknown) (no date) (unknown) [facility] (no value) (units unknown) (unknown) Result panel 311 (unknown) (no date) (unknown) [facility] (no value) (units unknown) (unknown) Result panel 312 (unknown) (no date) (unknown) [facility] (no value) (units unknown) (unknown) Result panel 313 (unknown) (no date) (unknown) [facility] (no value) (units unknown) (unknown) Result panel 314 (unknown) (no date) (unknown) [facility] (no value) (units unknown) (unknown) Result panel 315 (unknown) (no date) (unknown) [facility] (no value) (units unknown) (unknown) Result panel 316 (unknown) (no date) (unknown) [facility] (no value) (units unknown) (unknown) Result panel 317 (unknown) (no date) (unknown) [facility] (no value) (units unknown) (unknown) Result panel 318 (unknown) (no date) (unknown) [facility] (no value) (units unknown) (unknown) Result panel 319 (unknown) (no date) (unknown) [facility] (no value) (units unknown) (unknown) Result panel 320 (unknown) (no date) (unknown) [facility] (no value) (units unknown) (unknown) Result panel 321 (unknown) (no date) (unknown) [facility] (no value) (units unknown) (unknown) Result panel 322 (unknown) (no date) (unknown) [facility] (no value) (units unknown) (unknown) Result panel 323 (unknown) (no date) (unknown) [facility] (no value) (units unknown) (unknown) Result panel 324 (unknown) (no date) (unknown) [facility] (no value) (units unknown) (unknown) Result panel 325 (unknown) (no date) (unknown) [facility] (no value) (units unknown) (unknown) Result panel 326 (unknown) (no date) (unknown) [facility] (no value) (units unknown) (unknown) Result panel 327 (unknown) (no date) (unknown) [facility] (no value) (units unknown) (unknown) Result panel 328 (unknown) (no date) (unknown) [facility] (no value) (units unknown) (unknown) Result panel 329 (unknown) (no date) (unknown) [facility] (no value) (units unknown) (unknown) Result panel 330 (unknown) (no date) (unknown) [facility] (no value) (units unknown) (unknown) Result panel 331 (unknown) (no date) (unknown) [facility] (no value) (units unknown) (unknown) Result panel 332 (unknown) (no date) (unknown) [facility] (no value) (units unknown) (unknown) Result panel 333 (unknown) (no date) (unknown) [facility] (no value) (units unknown) (unknown) Result panel 334 (unknown) (no date) (unknown) [facility] (no value) (units unknown) (unknown) Result panel 335 (unknown) (no date) (unknown) [facility] (no value) (units unknown) (unknown) Result panel 336 (unknown) (no date) (unknown) [facility] (no value) (units unknown) (unknown) Result panel 337 (unknown) (no date) (unknown) [facility] (no value) (units unknown) (unknown) Result panel 338 (unknown) (no date) (unknown) [facility] (no value) (units unknown) (unknown) Result panel 339 (unknown) (no date) (unknown) [facility] (no value) (units unknown) (unknown) Result panel 340 (unknown) (no date) (unknown) [facility] (no value) (units unknown) (unknown) Result panel 341 (unknown) (no date) (unknown) [facility] (no value) (units unknown) (unknown) Result panel 342 (unknown) (no date) (unknown) [facility] (no value) (units unknown) (unknown) Result panel 343 (unknown) (no date) (unknown) [facility] (no value) (units unknown) (unknown) Result panel 344 (unknown) (no date) (unknown) [facility] (no value) (units unknown) (unknown) Result panel 345 (unknown) (no date) (unknown) [facility] (no value) (units unknown) (unknown) Result panel 346 (unknown) (no date) (unknown) [facility] (no value) (units unknown) (unknown) Result panel 347 (unknown) (no date) (unknown) [facility] (no value) (units unknown) (unknown) Result panel 348 (unknown) (no date) (unknown) [facility] (no value) (units unknown) (unknown) Result panel 349 (unknown) (no date) (unknown) [facility] (no value) (units unknown) (unknown) Result panel 350 (unknown) (no date) (unknown) [facility] (no value) (units unknown) (unknown) Result panel 351 (unknown) (no date) (unknown) [facility] (no value) (units unknown) (unknown) Result panel 352 (unknown) (no date) (unknown) [facility] (no value) (units unknown) (unknown) Result panel 353 (unknown) (no date) (unknown) [facility] (no value) (units unknown) (unknown) Result panel 354 (unknown) (no date) (unknown) [facility] (no value) (units unknown) (unknown) Result panel 355 (unknown) (no date) (unknown) [facility] (no value) (units unknown) (unknown) Result panel 356 (unknown) (no date) (unknown) [facility] (no value) (units unknown) (unknown) Result panel 357 (unknown) (no date) (unknown) [facility] (no value) (units unknown) (unknown) Result panel 358 (unknown) (no date) (unknown) [facility] (no value) (units unknown) (unknown) Result panel 359 (unknown) (no date) (unknown) [facility] (no value) (units unknown) (unknown) Result panel 360 (unknown) (no date) (unknown) [facility] (no value) (units unknown) (unknown) Result panel 361 (unknown) (no date) (unknown) [facility] (no value) (units unknown) (unknown) Result panel 362 (unknown) (no date) (unknown) [facility] (no value) (units unknown) (unknown) Result [...] (unknown) (no date) (unknown) (unknown) : 5 Acct:[id number] (units unknown) (unknown) (unknown) (no date) (unknown) [...] unknown) (unknown) (unknown) (no date) (unknown) (unknown) [facility] [address] [place] [id number] (units unknown) (unknown) (unknown) (no date) (unknown) [...] date) (unknown) (unknown) Patient: Carie Sullivan MR#: [id number] (units unknown) (unknown) (unknown) (no date) (unknown) [...] unknown) (unknown) (unknown) (no date) (unknown) (unknown) [place] [facility] (01/16/13) (units unknown) (unknown) [...] (unknown) (no date) (unknown) (unknown) : 5 Acct:[id number] (units unknown) (unknown) (unknown) (no date) (unknown) [...] unknown) (unknown) (unknown) (no date) (unknown) (unknown) [address] [address] (units unknown) (unknown) (unknown) (no date) (unknown) [...] date) (unknown) (unknown) Patient: Carie Sullivan MR#: [id number] (units unknown) (unknown) (unknown) (no date) (unknown) [...] unknown) (unknown) (unknown) (no date) (unknown) (unknown) [place] [facility] (01/16/13) (units unknown) (unknown) [...] (unknown) (no date) (unknown) (unknown) : 5 Acct:[id number] (units unknown) (unknown) (unknown) (no date) (unknown) [...] unknown) (unknown) (unknown) (no date) (unknown) (unknown) [place] [address] (units unknown) (unknown) (unknown) (no date) (unknown) [...] date) (unknown) (unknown) Patient: Carie Sullivan MR#: [id number] (units unknown) (unknown) (unknown) (no date) (unknown) [...] unknown) (unknown) (unknown) (no date) (unknown) (unknown) [place] [facility] (01/16/13) (units unknown) (unknown) [...] (unknown) (no date) (unknown) (unknown) <Bib Sahil gurwinder, DO - Last Filed: 08/28/22 06:51> (units [...] (unknown) (no date) (unknown) (unknown) : 5 Acct:[id number] (units unknown) (unknown) (unknown) (no date) (unknown) [...] unknown) (unknown) (unknown) (no date) (unknown) (unknown) [address] [address] (units unknown) (unknown) (unknown) (no date) (unknown) [...] date) (unknown) (unknown) Patient: Carie Sullivan MR#: [id number] (units unknown) (unknown) (unknown) (no date) (unknown) [...] unknown) (unknown) (unknown) (no date) (unknown) (unknown) [place] [facility] (01/16/13) (units unknown) (unknown) [...] date) (unknown) (unknown) 4 mg PO Q8H MN N (Reason: nausea and vomiting) Qty: 10 [...] (unknown) (no date) (unknown) (unknown) : 5 Acct:[id number] (units unknown) (unknown) (unknown) (no date) (unknown) [...] unknown) (unknown) (unknown) (no date) (unknown) (unknown) [address] [address] (units unknown) (unknown) (unknown) (no date) (unknown) [...] (no date) (unknown) (unknown) Lymph # (Auto) (4584-7261) /uL (units unknown) (unknown) (unknown) (no date) (unknown) (unknown) Lymph # (Auto) 1800 (2137-5762) /uL (units unknown) (unknown) (unknown) (no date) [...] unknown) (unknown) (unknown) (no date) (unknown) (unknown) [place] # (Auto) (0-900) /uL (units unknown) (unknown) (unknown) (no date) (unknown) (unknown) [place] # (Auto) 400 (0-900) /uL (units unknown) (unknown) (unknown) (no date) (unknown) (unknown) [place] % (Auto) (3-14) % (units unknown) (unknown) (unknown) (no date) (unknown) (unknown) [place] % (Auto) 5.6 (3-14) % (units unknown) [...] (no date) (unknown) (unknown) Neut # (Auto) (2813-0124) /uL (units unknown) (unknown) (unknown) (no date) (unknown) (unknown) Neut # (Auto) 5500 (4774-8615) /uL (units unknown) (unknown) (unknown) (no date) [...] date) (unknown) (unknown) Patient: Carie Sullivan MR#: [id number] (units unknown) (unknown) (unknown) (no date) (unknown) [...] unknown) (unknown) (unknown) (no date) (unknown) (unknown) [place] [facility] (01/16/13) (units unknown) (unknown) [...] date) (unknown) (unknown) 4 mg PO Q8H MN N (Reason: nausea and vomiting) Qty: 10 [...] (unknown) (no date) (unknown) (unknown) : 5 Acct:[id number] (units unknown) (unknown) (unknown) (no date) (unknown) [...] unknown) (unknown) (unknown) (no date) (unknown) (unknown) [place] [address] (units unknown) (unknown) (unknown) (no date) (unknown) [...] (no date) (unknown) (unknown) Lymph # (Auto) (5863-3344) /uL (units unknown) (unknown) (unknown) (no date) (unknown) (unknown) Lymph # (Auto) 1800 (6943-2381) /uL (units unknown) (unknown) (unknown) (no date) [...] unknown) (unknown) (unknown) (no date) (unknown) (unknown) [place] # (Auto) (0-900) /uL (units unknown) (unknown) (unknown) (no date) (unknown) (unknown) [place] # (Auto) 400 (0-900) /uL (units unknown) (unknown) (unknown) (no date) (unknown) (unknown) [place] % (Auto) (3-14) % (units unknown) (unknown) (unknown) (no date) (unknown) (unknown) [place] % (Auto) 5.6 (3-14) % (units unknown) [...] (no date) (unknown) (unknown) Neut # (Auto) (2811-8373) /uL (units unknown) (unknown) (unknown) (no date) (unknown) (unknown) Neut # (Auto) 5500 (7497-5841) /uL (units unknown) (unknown) (unknown) (no date) [...] date) (unknown) (unknown) Patient: Carie Sullivan MR#: [id number] (units unknown) (unknown) (unknown) (no date) (unknown) [...] unknown) (unknown) (unknown) (no date) (unknown) (unknown) [place] [facility] (01/16/13) (units unknown) (unknown) [...] (no date) (unknown) (unknown) passed out. Sh juacnarlos has passed out in the past. She [...] date) (unknown) (unknown) 4 mg PO Q8H MN N (Reason: nausea and vomiting) Qty: 10 [...] (unknown) (no date) (unknown) (unknown) : 5 Acct:[id number] (units unknown) (unknown) (unknown) (no date) (unknown) [...] unknown) (unknown) (unknown) (no date) (unknown) (unknown) [place] [id number] [place] [address] (units unknown) (unknown) (unknown) (no date) (unknown) [...] date) (unknown) (unknown) Patient: Carie Sullivan MR#: [id number] (units unknown) (unknown) (unknown) (no date) (unknown) [...] unknown) (unknown) (unknown) (no date) (unknown) (unknown) [place] [facility] (01/16/13) (units unknown) (unknown) [...] date) (unknown) (unknown) 4 mg PO Q8H MN N (Reason: nausea and vomiting) Qty: 10 [...] (unknown) (no date) (unknown) (unknown) : 5 Acct:[id number] (units unknown) (unknown) (unknown) (no date) (unknown) [...] unknown) (unknown) (unknown) (no date) (unknown) (unknown) [facility] [address] [place] [address] (units unknown) (unknown) (unknown) (no date) (unknown) [...] date) (unknown) (unknown) Patient: Carie Sullivan MR#: [id number] (units unknown) (unknown) (unknown) (no date) (unknown) [...] unknown) (unknown) (unknown) (no date) (unknown) (unknown) [place] [facility] (01/16/13) (units unknown) (unknown) [...] date) (unknown) (unknown) 4 mg PO Q8H MN N (Reason: nausea and vomiting) Qty: 10 [...] (unknown) (no date) (unknown) (unknown) : 5 Acct:[id number] (units unknown) (unknown) (unknown) (no date) (unknown) [...] unknown) (unknown) (unknown) (no date) (unknown) (unknown) [address] [address] (units unknown) (unknown) (unknown) (no date) (unknown) [...] date) (unknown) (unknown) Lymph # (Auto) 2100 (7283-3796) /uL (units unknown) (unknown) (unknown) (no date) [...] unknown) (unknown) (unknown) (no date) (unknown) (unknown) [place] # (Auto) 700 (0-900) /uL (units unknown) (unknown) (unknown) (no date) (unknown) (unknown) [place] % (Auto) 7.1 (3-14) % (units unknown) (unknown) (unknown) (no date) (unknown) (unknown) NEUROLOGICAL: Alert and oriented x4. (units unknown) (unknown) (unknown) (no date) (unknown) (unknown) Nasal congestion (un its unknown) (unknown) (unknown) (no date) (unknown) (unknown) Nasal obstruction (u nits unknown) (unknown) (unknown) (no date) (unknown) (unknown) Neut # (Auto) 7400 H (9454-4669) /uL (units unknown) (unknown) (unknown) (no date) [...] date) (unknown) (unknown) Patient: Carie Sullivan MR#: [id number] (units unknown) (unknown) (unknown) (no date) (unknown) [...] unknown) (unknown) (unknown) (no date) (unknown) (unknown) [place] [facility] (01/16/13) (units unknown) (unknown) [...] date) (unknown) (unknown) 4 mg PO Q8H MN N (Reason: nausea and vomiting) Qty: 10 [...] (unknown) (no date) (unknown) (unknown) : 5 Acct:[id number] (units unknown) (unknown) (unknown) (no date) (unknown) [...] unknown) (unknown) (unknown) (no date) (unknown) (unknown) [address] [address] (units unknown) (unknown) (unknown) (no date) (unknown) [...] date) (unknown) (unknown) Lymph # (Auto) 2100 (5050-0465) /uL (units unknown) (unknown) (unknown) (no date) [...] unknown) (unknown) (unknown) (no date) (unknown) (unknown) [place] # (Auto) 700 (0-900) /uL (units unknown) (unknown) (unknown) (no date) (unknown) (unknown) [place] % (Auto) 7.1 (3-14) % (units unknown) (unknown) (unknown) (no date) (unknown) (unknown) NEUROLOGICAL: Alert and oriented x4. (units unknown) (unknown) (unknown) (no date) (unknown) (unknown) Nasal congestion (un its unknown) (unknown) (unknown) (no date) (unknown) (unknown) Nasal obstruction (u nits unknown) (unknown) (unknown) (no date) (unknown) (unknown) Neut # (Auto) 7400 H (9158-9560) /uL (units unknown) (unknown) (unknown) (no date) (unknown) (unknown) Neut % (Auto) 71.7 (50-75) % (units unknown) (unknown) (unknown) (no date) (unknown) (unknown) New (units unknown) (unknown) (unknown) (no date) (unknown) (unknown) No Action (units unknown) (unknown) (unknown) (no date) (unknown) (unknown) Normal sinus r hythm rate 64 MN interval 146 QRS 76 QTC 429 no [...] date) (unknown) (unknown) Patient: Carie Sullivan MR#: [id number] (units unknown) (unknown) (unknown) (no date) (unknown) [...] unknown) (unknown) (unknown) (no date) (unknown) (unknown) [place] [facility] (01/16/13) (units unknown) (unknown) (unknown) (no date) (unknown) (unknown) Zofran 4 mg ev josemanuel 8 hours if needed for nausea vomiting --> [facility] (units unknown) (unknown) (unknown) (no date) (unknown) [...] date) (unknown) (unknown) 4 mg PO Q8H MN N (Reason: nausea and vomiting) Qty: 10 [...] (unknown) (no date) (unknown) (unknown) : 5 Acct:[id number] (units unknown) (unknown) (unknown) (no date) (unknown) [...] unknown) (unknown) (unknown) (no date) (unknown) (unknown) [address] [address] (units unknown) (unknown) (unknown) (no date) (unknown) [...] date) (unknown) (unknown) Lymph # (Auto) 2100 ([address]1941) /uL (units unknown) (unknown) (unknown) (no date) [...] unknown) (unknown) (unknown) (no date) (unknown) (unknown) [place] # (Auto) 700 (0-900) /uL (units unknown) (unknown) (unknown) (no date) (unknown) (unknown) [place] % (Auto) 7.1 (3-14) % (units unknown) (unknown) (unknown) (no date) (unknown) (unknown) NEUROLOGICAL: Alert and oriented x4. (units unknown) (unknown) (unknown) (no date) (unknown) (unknown) Nasal congestion (un its unknown) (unknown) (unknown) (no date) (unknown) (unknown) Nasal obstruction (u nits unknown) (unknown) (unknown) (no date) (unknown) (unknown) Neut # (Auto) 7400 H (5558-6425) /uL (units unknown) (unknown) (unknown) (no date) (unknown) (unknown) Neut % (Auto) 71.7 (50-75) % (units unknown) (unknown) (unknown) (no date) (unknown) (unknown) New (units unknown) (unknown) (unknown) (no date) (unknown) (unknown) No Action (units unknown) (unknown) (unknown) (no date) (unknown) (unknown) Normal sinus r hythm rate 64 MN interval 146 QRS 76 QTC 429 no [...] date) (unknown) (unknown) Patient: Carie Sullivan MR#: [id number] (units unknown) (unknown) (unknown) (no date) (unknown) [...] unknown) (unknown) (unknown) (no date) (unknown) (unknown) [place] teeth r emoved (01/16/13) (units unknown) (unknown) (unknown) (no date) (unknown) (unknown) Zofran 4 mg ev josemanuel 8 hours if needed for nausea vomiting --> [facility] (units unknown) (unknown) (unknown) (no date) (unknown) [...] (unknown) (unknown) (no date) (unknown) (unknown) [address] [place] [address] (un its unknown) (unknown) (unknown) (no date) (unknown) (unknown) [id number] (units unknown) (unknown) (unknown) (no date) (unknown) (unknown) Accession Numb er: [id number] (units unknown) (unknown) (unknown) (no date) (unknown) (unknown) Additional endovaginal scanning was necessary due to incomplete visualization of (units unknown) (unknown) (unknown) (no date) (unknown) (unknown) Age/Sex: 26 / Date of Service: (units unknown) (unknown) (unknown) (no date) (unknown) (unknown) [place] [address] (units unknown) (unknown) (unknown) (no date) (unknown) (unknown) Approved by: Juancarlos Alexander M.D. on 10/17/2022 at 10:10 (units unknown) (unknown) (unknown) (no date) (unknown) (unknown) COMPARISON: None. (u nits unknown) (unknown) (unknown) (no date) (unknown) (unknown) : 5 Acct:[id number] (units unknown) (unknown) (unknown) (no date) (unknown) (unknown) FINDINGS: (units unknown) (unknown) (unknown) (no date) (unknown) (unknown) IMPRESSION: (units unknown) (unknown) (unknown) (no date) (unknown) (unknown) INDICATIONS: POSITIVE HCG; UNKNOWN DATES (units unknown) (unknown) (unknown) (no date) (unknown) (unknown) [facility] (uni ts unknown) (unknown) (unknown) (no date) (unknown) (unknown) Loc: ED (units unknown) (unknown) (unknown) (no date) (unknown) (unknown) Note: Critical results were discussed with Dr. Garcia at 10:09 AM [place] time on (units unknown) (unknown) (unknown) (no date) (unknown) (unknown) Ordering Provi aurea: Alfreda Garcia D.O. (units unknown) (unknown) (unknown) [...] care provider in 2-3 days or call [phone] (units unknown) (unknown) (unknown) (no date) (unknown) [...] date) (unknown) (unknown) 4 mg PO Q8H MN N (Reason: nausea and vomiting) Qty: 10 [...] (unknown) (no date) (unknown) (unknown) : 5 Acct:[id number] (units unknown) (unknown) (unknown) (no date) (unknown) [...] (unknown) (no date) (unknown) (unknown) ER Physician: Botnick,Alfreda D.O. (units unknown) (unknown) (unknown) (no date) [...] unknown) (unknown) (unknown) (no date) (unknown) (unknown) [address] [address] (units unknown) (unknown) (unknown) (no date) (unknown) [...] date) (unknown) (unknown) Lymph # (Auto) 2100 ([id number]) /uL (units unknown) (unknown) (unknown) (no date) [...] unknown) (unknown) (unknown) (no date) (unknown) (unknown) [place] # (Auto) 700 (0-900) /uL (units unknown) (unknown) (unknown) (no date) (unknown) (unknown) [place] % (Auto) 7.1 (3-14) % (units unknown) (unknown) (unknown) (no date) (unknown) (unknown) NEUROLOGICAL: Alert and oriented x4. (units unknown) (unknown) (unknown) (no date) (unknown) (unknown) Nasal congestion (un its unknown) (unknown) (unknown) (no date) (unknown) (unknown) Nasal obstruction (u nits unknown) (unknown) (unknown) (no date) (unknown) (unknown) Neut # (Auto) 7400 H (4596-0172) /uL (units unknown) (unknown) (unknown) (no date) (unknown) (unknown) Neut % (Auto) 71.7 (50-75) % (units unknown) (unknown) (unknown) (no date) (unknown) (unknown) New (units unknown) (unknown) (unknown) (no date) (unknown) (unknown) No Action (units unknown) (unknown) (unknown) (no date) (unknown) (unknown) Normal sinus r hythm rate 64 MN interval 146 QRS 76 QTC 429 no [...] date) (unknown) (unknown) Patient: Carie Sullivan MR#: [id number] (units unknown) (unknown) (unknown) (no date) (unknown) [...] (no date) (unknown) (unknown) There is a [facility] question of ectopic versus cyst. You also [...] (unknown) (no date) (unknown) (unknown) US - [employer]AC[employer]: (units unknown) (unknown) (unknown) (no date) (unknown) (unknown) US pelvic comp lete Stat (units unknown) (unknown) (unknown) (no date) (unknown) (unknown) Urine Dip (units unknown) (unknown) (unknown) (no date) (unknown) (unknown) Urine Specific [place] 1.025 (units unknown) (unknown) (unknown) (no date) [...] unknown) (unknown) (unknown) (no date) (unknown) (unknown) [place] teeth r emoved (01/16/13) (units unknown) (unknown) [...] care provider in 2-3 days or call [phone] (units unknown) (unknown) (unknown) (no date) (unknown) [...] date) (unknown) (unknown) 4 mg PO Q8H MN N (Reason: nausea and vomiting) Qty: 10 [...] (unknown) (no date) (unknown) (unknown) : 5 Acct:[id number] (units unknown) (unknown) (unknown) (no date) (unknown) [...] unknown) (unknown) (unknown) (no date) (unknown) (unknown) [address] [address] (units unknown) (unknown) (unknown) (no date) (unknown) [...] date) (unknown) (unknown) Lymph # (Auto) 2100 (1804-5474) /uL (units unknown) (unknown) (unknown) (no date) [...] unknown) (unknown) (unknown) (no date) (unknown) (unknown) [place] # (Auto) 700 (0-900) /uL (units unknown) (unknown) (unknown) (no date) (unknown) (unknown) [place] % (Auto) 7.1 (3-14) % (units unknown) (unknown) (unknown) (no date) (unknown) (unknown) NEUROLOGICAL: Alert and oriented x4. (units unknown) (unknown) (unknown) (no date) (unknown) (unknown) Nasal congestion (un its unknown) (unknown) (unknown) (no date) (unknown) (unknown) Nasal obstruction (u nits unknown) (unknown) (unknown) (no date) (unknown) (unknown) Neut # (Auto) 7400 H (2249-9284) /uL (units unknown) (unknown) (unknown) (no date) (unknown) (unknown) Neut % (Auto) 71.7 (50-75) % (units unknown) (unknown) (unknown) (no date) (unknown) (unknown) New (units unknown) (unknown) (unknown) (no date) (unknown) (unknown) No Action (units unknown) (unknown) (unknown) (no date) (unknown) (unknown) Normal sinus r hythm rate 64 MN interval 146 QRS 76 QTC 429 no [...] date) (unknown) (unknown) Patient: Carie Sullivan MR#: [id number] (units unknown) (unknown) (unknown) (no date) (unknown) [...] unknown) (unknown) (unknown) (no date) (unknown) (unknown) Provider,Whidb ey DEMARIO [Primary Care Provider] (units unknown) (unknown) [...] (unknown) (no date) (unknown) (unknown) US - [employer]: (units unknown) (unknown) (unknown) (no date) (unknown) (unknown) Urine Dip (units unknown) (unknown) (unknown) (no date) (unknown) (unknown) Urine Specific [place] 1.025 (units unknown) (unknown) (unknown) (no date) [...] unknown) (unknown) (unknown) (no date) (unknown) (unknown) [place] teeth r emoved (01/16/13) (units unknown) (unknown) [...] care provider in 2-3 days or call [phone] (units unknown) (unknown) (unknown) (no date) (unknown) [...] date) (unknown) (unknown) 4 mg PO Q8H MN N (Reason: nausea and vomiting) Qty: 10 [...] (unknown) (no date) (unknown) (unknown) : 5 Acct:[id number] (units unknown) (unknown) (unknown) (no date) (unknown) [...] unknown) (unknown) (unknown) (no date) (unknown) (unknown) [place] [address] (units unknown) (unknown) (unknown) (no date) (unknown) [...] (unknown) (no date) (unknown) (unknown) Last Admin: 06 /13/23 09:10 Dose: Not Given (units unknown) (unknown) (unknown) (no date) (unknown) (unknown) Last Infusion: 10/17/22 08:57 Dose: 0 mls/hr (units unknown) (unknown) (unknown) (no date) (unknown) (unknown) Lipase 42 (23- 300) U/L (units unknown) (unknown) (unknown) (no date) (unknown) (unknown) Lymph # (Auto) 2100 (7090-7662) /uL (units unknown) (unknown) (unknown) (no date) [...] unknown) (unknown) (unknown) (no date) (unknown) (unknown) [place] # (Auto) 700 (0-900) /uL (units unknown) (unknown) (unknown) (no date) (unknown) (unknown) [place] % (Auto) 7.1 (3-14) % (units unknown) (unknown) (unknown) (no date) (unknown) (unknown) NEUROLOGICAL: Alert and oriented x4. (units unknown) (unknown) (unknown) (no date) (unknown) (unknown) Nasal congestion (un its unknown) (unknown) (unknown) (no date) (unknown) (unknown) Nasal obstruction (u nits unknown) (unknown) (unknown) (no date) (unknown) (unknown) Neut # (Auto) 7400 H (7632-3689) /uL (units unknown) (unknown) (unknown) (no date) (unknown) (unknown) Neut % (Auto) 71.7 (50-75) % (units unknown) (unknown) (unknown) (no date) (unknown) (unknown) New (units unknown) (unknown) (unknown) (no date) (unknown) (unknown) No Action (units unknown) (unknown) (unknown) (no date) (unknown) (unknown) Normal sinus r hythm rate 64 MN interval 146 QRS 76 QTC 429 no [...] date) (unknown) (unknown) Patient: Carie Sullivan MR#: [id number] (units unknown) (unknown) (unknown) (no date) (unknown) [...] (no date) (unknown) (unknown) There is a [facility] question of ectopic versus cyst. You also [...] (unknown) (no date) (unknown) (unknown) US - [place]: (units unknown) (unknown) (unknown) (no date) (unknown) (unknown) Urine Dip (units unknown) (unknown) (unknown) (no date) (unknown) (unknown) Urine Specific [place] 1.025 (units unknown) (unknown) (unknown) (no date) [...] unknown) (unknown) (unknown) (no date) (unknown) (unknown) [place] teeth r emoved (01/16/13) (units unknown) (unknown) (unknown) (no date) (unknown) (unknown) Zofran 4 mg ev josemanuel 8 hours if needed for nausea or vomiting--> sent to [facility] (units unknown) (unknown) (unknown) (no date) (unknown) [...] facility 2022-08-28 00:00 Smokes tobacco daily (finding) [facility] 2022-10-17 00:00 Smokes tobacco daily (finding) [facility] Vital Signs date measurement value units [...]
[2022-11-14 03:39] VITALS: O2SAT 100
[2022-11-14] MEDS: METOCLOPRAMIDE 10 MG/2 ML VIAL IVP PRN ×2 (03:48→09:39)
[2022-11-14] MEDS ORDERED: SODIUM CHLORIDE FLUSH 0.9% 10 ML SYRINGE IVP ONE (03:58)
[2022-11-14] MEDS ORDERED: SODIUM CHLORIDE FLUSH 0.9% 10 ML SYRINGE IVP PRN (04:00)
[2022-11-14 08:05] VITALS: BP 101/59
--- NOTE | 2022-11-14 11:08 | HISTORY & PHYSICAL EXAMINATION ---
Admit History - Visit Reason Visit Reason: Other (Abdominal pain, nausea) - : 4 : 3 Care: positive: Other ([facility]) Smoking Status: Never smoker - HPI Current EDU 06/22/23 Gestation 8 Weeks and 4 Days 4 Vital Signs Temperature 98.1 F 11/14/22 03:35 Heart Rate 69 11/14/22 03:35 Respiratory Rate 18 11/14/22 03:35 Blood Pressure 115/63 11/14/22 03:35 O2 Saturation 100 11/14/22 03:35 Temperature 98.8 F 11/14/22 07:47 Heart Rate 72 11/14/22 07:47 Respiratory Rate 15 11/14/22 07:47 Blood Pressure 101/59 L 11/14/22 07:47 O2 Saturation 100 11/14/22 07:47 If not protocol: Oxygen Flow, liters/minute Meds/Allgy - Home Medications Home Medications: Ambulatory Orders Medication Instructions Recorded Confirmed Propranolol [Inderal] 30 - 90 mg PO DAILY 05/02/20 11/11/20 hydrOXYzine pamoate [Hydroxyzine 50 mg PO DAILY 05/02/20 11/11/20 Pamoate] Citalopram [CeleXA] 40 mg PO DAILY 05/07/20 11/11/20 Ondansetron Odt [Zofran] 4 mg TL Q6H PRN #10 tablet 05/07/20 11/11/20 Prazosin HCl [Minipress] 4 mg PO DAILY 11/11/20 11/11/20 - Allergies Allergies/Adverse Reactions: Allergies Allergy/AdvReac Type Severity Reaction Status Date / Time latex Allergy Unknown Verified 11/13/22 18:46 promethazine AdvReac Unknown Verified 11/13/22 18:46 Physical - Abdominal Exam Vital Signs: Temp Pulse Resp BP Pulse Ox O2 Flow Rate 98.8 F 72 15 101/59 L 100 11/14/22 07:47 11/14/22 07:47 11/14/22 07:47 11/14/22 07:47 11/14/22 07:47 - Monitoring Heart Rate Baseline: 150 Plan for Labor - Plan For Labor I expect patient to be DC'd or transferred within 96 hours.: Yes Plan for Labor: 26yo at 7.5w by 7.5w US initially presented to ED yesterday evening for LLQ pain. She was given pain medications in the ER which helped her pain but then subsequently had worsening nausea. Pain attributed to ruptured left ovarian corpus luteal cyst. She was admitted for observation on FBP and was able to rest overnight. She received Reglan and Benadryl which helped her symptoms. This morning she feels much better. Denies nausea and was able to drink cranberry juice. Did not eat breakfast but does not usually. Does not have a good appetite at the moment but would like to go home. Smokes marijuana occasionally and this helps with nausea. Understands marijuana not recommended in and is trying to decrease as much as she can without becoming too nauseous. She was meant to have her first care appointment at [facility] this morning and will reschedule. No vaginal bleeding or cramping currently. Allergies: promethazine, latex Meds: Zofran prn Med: Denies Surg: Denies OB: 2 SAb, 1 ETOP Fam: Noncontributory Social: Occasional marijuana VSS GEN: Lying in bed, NAD CV: Regular rate Resp: Breathing unlabored Abd: Soft, nt Ext: nt PEL US 11/13/22: CRL 1.3cm, FHR 152, left corpus luteum, 2.5cm subchorionic hemorrhage 26yo at 7.5w by 7.5w US with nausea/vomiting of , first trimester - Admitted for observation - Would like to be discharged now - Follow up with OB, may follow up at [facility] prn - Zofran ODT rx given - Discharge to home
--- NOTE | 2022-11-14 11:09 | Discharge Plan ---
Discharge Plan Problem Reviewed?: Yes Disposition: Home, Self Care Condition: Good Diet: Regular Activity Restrictions: Activity as Tolerated Shower Restrictions: No Driving Restrictions: No Instruction Topics: Hyperemesis, ED Preg Morning Sickness No Smoking: If you smoke, Please STOP! Call for help. Follow-up with: HARSHAL ROMERO MD [Physician No Access] -
--- NOTE | 2022-11-14 11:09 | DISCHARGE SUMMARY ---
Discharge Summary Admit Date: 11/13/22 Discharge Date: 11/14/22 Discharging Provider: Shelby Beltran DO Code Status: Attempt Resuscitation Condition at Discharge: Good Discharge Disposition: 01 Home, Self Care Discharge Facility Name: [facility] - DIAGNOSES Admission Diagnoses: Nausea, vomiting - HPI History of Present Illness: 26yo at 7.5w by 7.5w US initially presented to ED yesterday evening via EMS for LLQ pain. She was given pain medications in the ER which helped her pain but then subsequently had worsening nausea. Pain attributed to ruptured left ovarian corpus luteal cyst. She was admitted for observation on FBP and was able to rest overnight. She received Reglan and Benadryl which helped her symptoms. This morning she feels much better. Denies nausea and was able to drink cranberry juice. Did not eat breakfast but does not usually. Does not have a good appetite at the moment but would like to go home. Smokes marijuana occasionally and this helps with nausea. Understands marijuana not recommended in and is trying to decrease as much as she can without becoming too nauseous. She was meant to have her first care appointment at [facility] this morning and will reschedule. No vaginal bleeding or cramping currently. - HOSPITAL COURSE Hospital Course: 26yo at 7.5w by 7.5w US initially presented to ED yesterday evening for LLQ pain. She was given pain medications in the ER which helped her pain but then subsequently had worsening nausea. Pain attributed to ruptured left ovarian corpus luteal cyst. She was admitted for observation on FBP and was able to rest overnight. She received Reglan and Benadryl which helped her symptoms. This morning she feels much better. Denies nausea and was able to drink cranberry juice. Did not eat breakfast but does not usually. Does not have a good appetite at the moment but would like to go home. Smokes marijuana occasionally and this helps with nausea. Understands marijuana not recommended in and is trying to decrease as much as she can without becoming too nauseous. She was meant to have her first care appointment at [facility] this morning and will reschedule. No vaginal bleeding or cramping currently. - ALLERGIES Allergies/Adverse Reactions: Allergies Allergy/AdvReac Type Severity Reaction Status Date / Time latex Allergy Unknown Verified 11/13/22 18:46 promethazine AdvReac Unknown Verified 11/13/22 18:46 - MEDICATIONS Home Medications: Ambulatory Orders Medication Instructions Recorded Confirmed Propranolol [Inderal] 30 - 90 mg PO DAILY 05/02/20 11/11/20 hydrOXYzine pamoate [Hydroxyzine 50 mg PO DAILY 05/02/20 11/11/20 Pamoate] Citalopram [CeleXA] 40 mg PO DAILY 05/07/20 11/11/20 Ondansetron Odt [Zofran] 4 mg TL Q6H PRN #10 tablet 05/07/20 11/11/20 Prazosin HCl [Minipress] 4 mg PO DAILY 11/11/20 11/11/20 - PHYSICAL EXAM AT DISCHARGE General Appearance: positive: No acute distress Eyes Bilateral: positive: EOMI Respiratory: positive: No respiratory distress Skin: positive: Color nml Extremities: positive: Non-tender Neurologic/Psychiatric: positive: Oriented x3 - QUALITY (Female Hip Fx Only) Was patient sent home on osteoporosis medication?: No - FOLLOW UP Follow Up: Follow up with [facility] as scheduled, may follow up with prn - TIME SPENT Time Spent in Discharge (Minutes): 25
== END 2022-11-14 11:15 | disposition home or self-care (01) ==
LOC: EMS 02:52 → FBP 02:55 → INTOOBSV 02:56
PROVIDERS: ADMIT Obstetrics & Gynecology; ATTEND Obstetrics & Gynecology
DX: O9A.211 Injury, poisoning and certain other consequences of external causes complicating pregnancy, first trimester (principal); O21.0 Mild hyperemesis gravidarum; T40.2X5A Adverse effect of other opioids, initial encounter; T39.8X5A Adverse effect of other nonopioid analgesics and antipyretics, not elsewhere classified, initial encounter; Y92.238 Other place in hospital as the place of occurrence of the external cause; O34.81 Maternal care for other abnormalities of pelvic organs, first trimester; N83.12 Corpus luteum cyst of left ovary; O20.8 Other hemorrhage in early pregnancy; O99.891 Other specified diseases and conditions complicating pregnancy; K59.00 Constipation, unspecified; Z3A.01 Less than 8 weeks gestation of pregnancy
CPT/HCPCS: 36415; 76801; 76817; 80048; 81003; 84702; 85025; 96374; 96375; 96376; 99284; 99285; G0378; J1170; J1200; J2765; J7120; 81001; 87086

== ENCOUNTER 2022-12-22 22:31 | Emergency (ER) | payer OTHER ==
[2022-12-23 00:23] LABS: BILIRUBIN,URINE NEGATIVE (NEGATIVE); GLUCOSE, URINE (UA) NEGATIVE (NEGATIVE); KETONES,URINE (UA) NEGATIVE (NEGATIVE); LEUKOCYTE ESTERASE, URINE NEGATIVE (NEGATIVE); NITRITE,URINE NEGATIVE (NEGATIVE); OCCULT BLOOD,URINE NEGATIVE (NEGATIVE); PH,URINE 5.5 PH (5.0-7.5); PROTEIN,URINE NEGATIVE (NEGATIVE); UROBILINOGEN,URINE 0.2 (NORMAL) E.U./dL (NORMAL)
[2022-12-23 00:27] LABS: HCG UR QUAL POSITIVE
[2022-12-23 00:28] LABS: CLARITY,URINE CLEAR (CLEAR)
[2022-12-23 00:37] LABS: BACTERIA,URINE None Seen /HPF (None Seen); RBC,URINE 0-5 /HPF (0-5); SQUAMOUS EPITHELIAL CELL,UR FEW Squamous (<= Few); WBC,URINE 0-3 /HPF (0-5)
[2022-12-23] MEDS ORDERED: ACETAMINOPHEN 325 MG TABLET PO STA (01:12)
[2022-12-23 01:40] VITALS: BP 121/83; O2SAT 99
--- NOTE | 2022-12-23 02:52 | ED Physician Documentation ---
History of Present Illness - Stated complaint Stated Complaint: ABD PX - Chief complaint Chief Complaint: Abd Pain - History obtained from History obtained from: Patient - Additonal information Additional information: 26yF, currently at 13wga p/w suprapubic abdominal cramping X 1 day. denies vaginal bleeding or urinary sx. 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 : None HEENT: None Psych: Depression, Anxiety Musculoskeletal: None Derm: None - Past Surgical History Past Surgical History: Yes HEENT: Rhinoplasty - Present Medications Home Medications: Ambulatory Orders Medication Instructions Recorded Confirmed Propranolol [Inderal] 30 - 90 mg PO DAILY 05/02/20 11/11/20 hydrOXYzine pamoate [Hydroxyzine 50 mg PO DAILY 05/02/20 11/11/20 Pamoate] Citalopram [CeleXA] 40 mg PO DAILY 05/07/20 11/11/20 Ondansetron Odt [Zofran] 4 mg TL Q6H PRN #10 tablet 05/07/20 11/11/20 Prazosin HCl [Minipress] 4 mg PO DAILY 11/11/20 11/11/20 - Allergies Allergies/Adverse Reactions: Allergies Allergy/AdvReac Type Severity Reaction Status Date / Time latex Allergy Unknown Verified 12/22/22 22:35 promethazine AdvReac Unknown Verified 12/22/22 22:35 - Social History Does the pt smoke?: Yes Smoking Status: Never smoker Does the pt drink ETOH?: Yes Does the pt have substance abuse?: No - Immunizations Immunizations are current?: Yes - POLST Patient has POLST: No PD ED PE NORMAL - Vitals Vital signs reviewed: Yes - General General: Alert and oriented X 3, No acute distress, Well developed/nourished - HEENT HEENT: Atraumatic, PERRL, EOMI - Neck Neck: Supple, no meningeal sign - Abdomen Abdomen: Non tender, Non distended, Other (bedside ultrasound with good movements. FHR 148) - Derm Derm: Normal color, Warm and dry Results - Vitals Vitals: Vital Signs - 24 hr 12/22/22 12/23/22 22:35 01:31 Temperature 36.5 C Heart Rate 66 73 Respiratory 16 16 Rate Blood Pressure 119/69 121/83 H O2 Saturation 98 99 Oxygen O2 Source Room air - Labs Labs: Laboratory Tests 12/23/22 12/23/22 00:01 00:01 Urine Color LIGHT YELLOW Urine Clarity CLEAR Urine pH 5.5 Ur Specific [place] <=1.005 Urine Protein NEGATIVE Urine Glucose (UA) NEGATIVE Urine Ketones NEGATIVE Urine Occult Blood NEGATIVE Urine Nitrite NEGATIVE Urine Bilirubin NEGATIVE Urine Urobilinogen 0.2 (NORMAL) Ur Leukocyte Esterase NEGATIVE Urine RBC 0-5 Urine WBC 0-3 Ur Squamous Epith Cells FEW Squamous Urine Bacteria None Seen Urine Culture Comments NOT INDICATED Urine HCG, Qual POSITIVE PD Medical Decision Making - ED course ED course: 26yF presents to the ED with abdominal cramping but no vaginal bleeding. no formal ultrasound available but POCUS shows good movement, FHR 148. u/a negative. tylenol provided with some improvement in pain. 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 return precautions given. Departure - Departure Disposition: 01 Home, Self Care Clinical Impression: Abdominal cramping affecting Condition: Good Comments: You are seen in the emergency department for abdominal cramping. Your urine test showed no signs of infection and the heart rate was 148, which is a healthy range. Please follow-up with your [employer]CH[employer]ECT for formal ultrasound this week. Return to the emergency department if you have new or worsening symptoms or other concerns. Forms: PCP List Discharge Date/Time: 12/23/22 01:33
== END 2022-12-23 01:33 | disposition home or self-care (01) ==
LOC: ED 22:31
DX: O99.891 Other specified diseases and conditions complicating pregnancy (principal); R10.2 Pelvic and perineal pain; Z3A.13 13 weeks gestation of pregnancy
CPT/HCPCS: 81001; 81025; 87086; 99283

== ENCOUNTER 2023-12-10 23:10 | Emergency (ER) | payer OTHER ==
[2023-12-10 23:30] VITALS: BP 117/60; O2SAT 98
[2023-12-10] MEDS: SODIUM CHLORIDE 0.9% 1,000 ML IV STA (23:37)
[2023-12-10 23:39] LABS: BASOPHILS % (AUTO) 0.3 %; EOSINOPHILS % (AUTO) 0.3 %; HCT - HEMATOCRIT 38.4 % (37.0-47.0); HGB - HEMOGLOBIN 13.3 g/dL (12.0-16.0); LYMPHOCYTES # (AUTO) 1.9 10^3/uL (1.5-3.5); LYMPHOCYTES % (AUTO) 19.3 %; MEAN CORPUSCULAR HEMOGLOBIN 29.9 pg (27.0-31.0); MEAN CORPUSCULAR HGB CONC 34.6 g/dL (32.0-36.0); MEAN CORPUSCULAR VOLUME 86.3 fL (81.0-99.0); MEAN PLATELET VOLUME 10.2 fL (7.9-10.8); MONOCYTES # (AUTO) 0.8 10^3/uL (0.0-1.0); MONOCYTES % (AUTO) 7.5 %; NEUTROPHILS # (AUTO) 7.2 10^3/uL (1.5-6.6); NEUTROPHILS % (AUTO) 72.3 %; PLT - PLATELET COUNT 200 10^3/uL (130-450); RED BLOOD COUNT 4.45 10^6/uL (4.20-5.40); RED CELL DISTRIBUTION WIDTH 13.4 % (12.0-15.0)
[2023-12-10 23:53] LABS: ALBUMIN 4.5 g/dL (3.2-5.5); ALBUMIN/GLOBULIN RATIO 1.7 (1.0-2.2); BILIRUBIN,TOTAL 0.4 mg/dL (0.2-1.0); CALCIUM 9.8 mg/dL (8.5-10.3); CREATININE 0.5 mg/dL (0.6-1.3); POTASSIUM 3.5 mmol/L (3.5-4.5); TOTAL PROTEIN 7.1 g/dL (6.4-8.9)
[2023-12-11] MEDS: diphenhydrAMINE INJ 50 MG/ML VIAL IVP STA (00:44)
[2023-12-11] MEDS: PROCHLORPERAZINE 10 MG/2 ML VIAL IVP STA (00:44)
[2023-12-11] MEDS: SODIUM CHLORIDE 0.9% 1,000 ML IV STA (00:45)
[2023-12-11 01:11] LABS: BILIRUBIN,URINE NEGATIVE (NEGATIVE); GLUCOSE, URINE (UA) NEGATIVE (NEGATIVE); KETONES,URINE (UA) >=80 mg/dL (NEGATIVE); LEUKOCYTE ESTERASE, URINE NEGATIVE (NEGATIVE); NITRITE,URINE NEGATIVE (NEGATIVE); OCCULT BLOOD,URINE NEGATIVE (NEGATIVE); PROTEIN,URINE NEGATIVE (NEGATIVE); UROBILINOGEN,URINE 0.2 (NORMAL) E.U./dL (NORMAL)
[2023-12-11 01:13] LABS: CLARITY,URINE CLEAR (CLEAR)
--- NOTE | 2023-12-11 01:24 | ED Physician Documentation ---
PD HPI NVD - Stated complaint Stated Complaint: /V - Chief complaint Chief Complaint: Abd Pain - History obtained from History obtained from: Patient, Family () - History of Present Illness Timing - onset: Today Timing - duration: Hours Timing - details: Abrupt onset, Still present Associated symptoms: Abdominal pain Contributing factors: Other ( with hyperemesis) Improved by: Vomiting Worsened by: Eating Similar symptoms before: Diagnosis (hyperemesis) Recently seen: Clinic (is receiving routine pre-cory care) - Additonal information Additional information: Tereso Tsang is a 27-year-old female who is 9 weeks with a known intrauterine who has a prior history of hyperemesis gravidarum and she has had excessive vomiting associated with this since its beginning. She is taking Zofran and Compazine at home. She feels the Zofran tends to make her constipated. She has continued to vomit and comes into the emergency department now for treatment. 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 : None HEENT: None Psych: Depression, Anxiety, Post traumatic stress disorder Musculoskeletal: None Derm: None - Past Surgical History Past Surgical History: Yes HEENT: Rhinoplasty - Present Medications Home Medications: Ambulatory Orders Medication Instructions Recorded Confirmed Propranolol [Inderal] 30 - 90 mg PO DAILY 05/02/20 11/11/20 hydrOXYzine pamoate [Hydroxyzine 50 mg PO DAILY 05/02/20 11/11/20 Pamoate] Citalopram [CeleXA] 40 mg PO DAILY 05/07/20 11/11/20 Ondansetron Odt [Zofran] 4 mg TL Q6H PRN #10 tablet 05/07/20 11/11/20 Prazosin HCl [Minipress] 4 mg PO DAILY 11/11/20 11/11/20 - Allergies Allergies/Adverse Reactions: Allergies Allergy/AdvReac Type Severity Reaction Status Date / Time latex Allergy Unknown Verified 12/10/23 23:20 promethazine AdvReac Unknown Verified 12/10/23 23:20 - Social History Does the pt smoke?: No Smoking Status: Former smoker Does the pt drink ETOH?: No Does the pt have substance abuse?: No - Immunizations Immunizations are current?: Yes - POLST Patient has POLST: No PD ED PE NORMAL - Vitals Vital signs reviewed: Yes (normal ) - General General: Alert and oriented X 3, No acute distress, Well developed/nourished - HEENT HEENT: Atraumatic, PERRL, EOMI, Other (dry mucous membranes ) - Neck Neck: Supple, no meningeal sign, No bony TTP - Cardiac Cardiac: RRR, No murmur - Respiratory Respiratory: No respiratory distress, Clear bilaterally - Abdomen Abdomen: Normal bowel sounds, Soft, Non tender, Non distended, No organomegaly - Back Back: No CVA TTP, No spinal TTP - Derm Derm: Normal color, Warm and dry, No rash - Extremities Extremities: No deformity, No edema - Neuro Neuro: Alert and oriented X 3, membership solicitor 2-12 intact, No motor deficit, No sensory deficit, Normal speech Eye Opening: Spontaneous Motor: Obeys Commands Verbal: Oriented GCS Score: 15 - Psych Psych: Normal mood, Normal affect Results - Vitals Vitals: Vital Signs - 24 hr 12/10/23 23:14 Temperature 36.5 C Heart Rate 61 Respiratory 19 Rate Blood Pressure 117/60 O2 Saturation 98 Oxygen O2 Source Room air - Labs Labs: Laboratory Tests 12/10/23 12/10/23 12/11/23 23:33 23:33 00:45 WBC 10.0 RBC 4.45 Hgb 13.3 Hct 38.4 MCV 86.3 MCH 29.9 MCHC 34.6 RDW 13.4 Plt Count 200 MPV 10.2 Neut # (Auto) 7.2 H Lymph # (Auto) 1.9 [place] # (Auto) 0.8 Eos # (Auto) 0.0 Baso # (Auto) 0.0 Absolute Nucleated RBC 0.00 Nucleated RBC % 0.0 Sodium 136 Potassium 3.5 Chloride 104 Carbon Dioxide 23 Anion Gap 9.0 BUN 8 Creatinine 0.5 L Estimated GFR (MDRD) 147 Glucose 105 H Calcium 9.8 Total Bilirubin 0.4 AST 23 ALT 32 Alkaline Phosphatase 59 Total Protein 7.1 Albumin 4.5 Globulin 2.6 Albumin/Globulin Ratio 1.7 Lipase 20 Urine Color YELLOW Urine Clarity CLEAR Urine pH 7.0 Ur Specific [place] 1.020 Urine Protein NEGATIVE Urine Glucose (UA) NEGATIVE Urine Ketones >=80 H Urine Occult Blood NEGATIVE Urine Nitrite NEGATIVE Urine Bilirubin NEGATIVE Urine Urobilinogen 0.2 (NORMAL) Ur Leukocyte Esterase NEGATIVE Ur Microscopic Review NOT INDICATED Urine Culture Comments NOT INDICATED Procedures - Bedside sono Bedside sono by EMP: With use of POCUS the pelvis is imaged demonstrating a viable intrauterine pre gnancy. She has had formal ultrasound recently and specific measurements were not done. - IVC sono (time) 0020 Bedside IVC sono: IVC measures (cm) (1.2), IVC collapsed c insp (cm) (complete), Dehydration (est 1 liter deficit after one liter in.) PD Medical Decision Making - ED course Complexity details: reviewed results, re-evaluated patient, considered differential, d/w patient Reviewed Lab Results: We reviewed a complete blood count showing a normal white blood cell count normal hemoglobin hematocrit and platelets chemistry showed normal electrolytes normal kidney and liver function urinalysis shows ketones and a specific gravity 1.020. These laboratory studies are relatively benign and indicate the patient has not been eating adequately. With the ketones present in urine. She has not developed electrolyte abnormality and there is not appear to be evidence of any overwhelming infection. ED course: 27-year-old female with excessive vomiting in early is using a number of things for nausea including Compazine and Zofran. Here in the emergency department she is administered saline and Compazine as well as Benadryl. I interrogated the inferior vena cava with POCUS and found that she had a 1 L deficit and this was after she had already been given 1 L of saline. We administered a second liter of saline along with the Compazine and Benadryl. The patient did develop some restless legs associated with the use of the Compazine and Benadryl. She did have improvement in her nausea. Departure - Departure Disposition: 01 Home, Self Care Clinical Impression: Dehydration, Hyperemesis gravidarum Condition: Stable Instructions: ED Dehydration, ED Preg Morning Sickness Follow-Up: HARSHAL ROMERO MD [Physician No Access] - Comments: Wilber, today it looks like you were significantly dehydrated from the vomiting we have provided 2 L of saline for treatment of that. We also gave you some Compazine and we gave that with Benadryl. For some reason this may have caused you some issue with restless legs. For your constipation my recommendation is to take a dose of milk of magnesia when you get home and if you do not have relief within 6 hours take a second dose. Follow-up with your [facility] doctor for further treatment as needed. Forms: PCP List Discharge Date/Time: 12/11/23 01:52
== END 2023-12-11 01:52 | disposition home or self-care (01) ==
LOC: ED 23:10
DX: O21.1 Hyperemesis gravidarum with metabolic disturbance (principal); O99.611 Diseases of the digestive system complicating pregnancy, first trimester; K59.00 Constipation, unspecified; O99.351 Diseases of the nervous system complicating pregnancy, first trimester; G25.81 Restless legs syndrome; O9A.211 Injury, poisoning and certain other consequences of external causes complicating pregnancy, first trimester; T43.3X5A Adverse effect of phenothiazine antipsychotics and neuroleptics, initial encounter; T45.0X5A Adverse effect of antiallergic and antiemetic drugs, initial encounter; Z3A.09 9 weeks gestation of pregnancy
CPT/HCPCS: 36415; 80053; 81003; 83690; 85025; 96361; 96374; 99283; 99284; J1200; 81001; 87086